=== PATIENT | male | born 1955 | race Caucasian/White ===

== ENCOUNTER → 2017-10-08 07:23 | Outpatient (CLI) | payer OTHER, SELFPAY ==
[2017-10-08 10:30] LABS: AST(SGOT) 16 U/L (15-37); Alanine Aminotransfer ALT/SGPT 23 U/L (16-61); Albumin, Serum 3.8 g/dL (3.2-5.0); Alkaline Phosphatase 60 U/L (45-117); Bilirubin, Direct 0.15 mg/dL (0.00-0.30); Cholesterol 171 mg/dL (200); Globulin 3.4 g/dL (2.2-4.2); High Density Lipoprotein 46 mg/dL; Protein, Total 7.2 g/dL (6.4-8.2); Triglycerides 182 mg/dL; Very Low Density Lipoprotein 36 mg/dL (5-40)
== END ==
PROVIDERS: Family Provider Family Medicine; PCP Family Medicine; Visit Provider Internal Medicine Cardiovascular Disease
DX: E78.5 Hyperlipidemia, unspecified (principal); Z79.899 Other long term (current) drug therapy
CPT/HCPCS: 36415; 80061; 80076

== ENCOUNTER → 2018-06-18 12:51 | Outpatient (CLI) | payer OTHER, SELFPAY | PROVIDERS: Family Provider Family Medicine; PCP Family Medicine; Visit Provider Internal Medicine Cardiovascular Disease | DX: I42.2 Other hypertrophic cardiomyopathy (principal) | CPT/HCPCS: 93225; 93226 ==

== ENCOUNTER → 2018-06-24 14:55 | Outpatient (CLI) | payer OTHER, SELFPAY ==
[2018-06-14 15:22] VITALS: BMI 31.1
--- NOTE | 2018-06-24 14:56 | ECHOCS_ITS ---
Reason For Study: MVP Procedure This was a 2D Doppler, Color Flow transthoracic echocardiogram. The study was technically difficult. Contrast injection was performed. Exam performed in department. Left Ventricle Normal LV size. Left ventricular systolic function is normal. The estimated ejection fraction is 65 %. Diastolic function is indeterminate. No regional wall motion abnormalities noted. Right Ventricle Normal RV size. Normal systolic function. Atria Normal left atrium. Normal right atrium. No doppler evidence for ASD. Mitral Valve There is no mitral annular calcification. Mild diffuse mitral valve thickening. Mild mitral valve prolapse. Trivial mitral valve insufficiency. Tricuspid Valve Normal tricuspid valve. Trivial tricuspid valve insufficiency. Unable to estimate RV systolic pressure/pulmonary artery pressure due to technically difficult study. Aortic Valve Trisinus/trileaflet aortic valve. Normal aortic valve. Trivial aortic valve insufficiency. Pulmonic Valve The pulmonic valve is not well visualized. Great Vessels Normal sized aortic root. Pericardium/Pleural No pericardial effusion. Medication 22 gauge I.V. with prn adaptor inserted into right arm. Diluted definity 4ml given slow IV push to enhance endocardial definition. MMode/2D Measurements & Calculations LVIDd: 4.8 cm IVSd: 1.2 cm Ao root diam: 3.6 cm LVIDs: 3.2 cm LVPWd: 1.1 cm RVDd: 3.0 cm FS: 32.3 % LAV(MOD-bp): 49.6 ml EDV(MOD-sp4): 107.4 ml SV(MOD-sp4): 74.9 ml LAV(MOD-bp) Indexed: 24.3 ml/m2 ESV(MOD-sp4): 32.5 ml LAV(MOD-sp2): 55.1 ml EF(MOD-sp4): 69.7 % LAV(MOD-sp4): 38.6 ml LA dimension(2D): 4.2 cm LA A4 area: 14.8 cm2 RA A4 area: 13.4 cm2 Time Measurements MV dec time: 0.19 sec Doppler Measurements & Calculations MV E max javier: 76.1 cm/sec Lat Peak E' Javier: 7.8 cm/sec Med Peak E' Javier: 4.9 cm/sec MV A max javier: 63.5 cm/sec E/E' lat: 9.7 E/E' med: 15.5 MV E/A: 1.2 Ao V2 max: 134.2 cm/sec LV V1 max: 129.4 cm/sec PA V2 max: 105.8 cm/sec Ao max P.2 mmHg LV V1 max P.7 mmHg Interpretation Summary The study was technically difficult. Contrast injection was performed. Left ventricular systolic function is normal. The estimated ejection fraction is 65 %. [place] shaped left ventricle c/w apical hypertrophy. Mild diffuse mitral valve thickening. Mild mitral valve prolapse. Trivial mitral valve insufficiency. Trivial tricuspid valve insufficiency. Trivial aortic valve insufficiency. Unable to estimate RV systolic pressure/pulmonary artery pressure due to technically difficult study. Diastolic function is indeterminate. Comment: The aforementioned changes with respect to the left ventricle appear c/w an apical hypertrophic cardiomyopathy. Ordering Physician: Josué Olsen Referring Physician: REJI LOZADA Performed By: Rosa Baez, MARTI, RVT
== END ==
PROVIDERS: Family Provider Family Medicine; PCP Family Medicine; Referring Provider Internal Medicine Cardiovascular Disease; Visit Provider Internal Medicine Cardiovascular Disease
DX: I42.2 Other hypertrophic cardiomyopathy (principal)
CPT/HCPCS: 93306; Q9957; A4216; C8929

== ENCOUNTER → 2018-06-28 08:37 | Outpatient (CLI) | payer OTHER, SELFPAY ==
[2018-06-14 15:22] VITALS: BMI 31.1
[2018-06-28 11:04] LABS: AST(SGOT) 18 U/L (15-37); Alanine Aminotransfer ALT/SGPT 29 U/L (16-61); Albumin, Serum 3.7 g/dL (3.2-5.0); Alkaline Phosphatase 69 U/L (45-117); Bilirubin, Direct 0.15 mg/dL (0.00-0.30); Cholesterol 182 mg/dL (200); Globulin 3.6 g/dL (2.2-4.2); High Density Lipoprotein 48 mg/dL; Protein, Total 7.3 g/dL (6.4-8.2); Triglycerides 262 mg/dL; Very Low Density Lipoprotein 52 mg/dL (5-40)
== END ==
PROVIDERS: Family Provider Family Medicine; PCP Family Medicine; Referring Provider Internal Medicine Cardiovascular Disease; Visit Provider Internal Medicine Cardiovascular Disease
DX: E78.5 Hyperlipidemia, unspecified (principal)
CPT/HCPCS: 36415; 80061; 80076

== ENCOUNTER → 2018-07-19 13:59 | Outpatient (CLI) | payer OTHER, SELFPAY ==
[2018-06-14 15:22] VITALS: BMI 31.1
--- NOTE | 2018-07-19 14:02 | VDLE_ITS ---
Reason For Study: LEG PAIN RIGHT LEFT GSV is normal. CFV is compressible, spontaneous, phasic, CFV is compressible, spontaneous, phasic, competent, and demonstrates normal competent and demonstrates normal augmentation. augmentation. FV is compressible, spontaneous, phasic, competent and demonstrates normal augmentation. POP V is compressible, spontaneous, phasic, competent and demonstrates normal augmentation. T/P Trunk is compressible. PTV is compressible. RT PerV is compressible. Procedure Exam performed in department. A preliminary report was called and/or faxed to Dr. Loo. Interpretation Summary Deep veins of the right lower extremity are patent and compressible segmentally. There is no evidence of right lower extremity deep vein thrombosis. Valvular competence appears intact within the proximal deep venous system on the right . The right greater saphenous vein appears patent and compressible segmentally. Ordering Physician: CATIA CABALLERO Referring Physician: Curt Amezquita M.D. Performed By: Ariana James RVT and Student
== END ==
PROVIDERS: Family Provider Family Medicine; PCP Family Medicine
DX: M79.604 Pain in right leg (principal); M25.561 Pain in right knee; M16.12 Unilateral primary osteoarthritis, left hip
CPT/HCPCS: 93971

== ENCOUNTER 2018-08-12 17:00 | Outpatient (RCR) | payer OTHER, SELFPAY ==
[2018-06-14 15:22] VITALS: BMI 31.1
--- NOTE | 2018-07-15 16:04 | HP.PTEVAL ---
Patient's Visit Information ALEXANDRIA SAUER is a 63 year old M referred to Physical Therapy by Óscar Nunes MD with a diagnosis of L ALFREDO. Date of Evaluation: 07/15/18 Physical Therapist: Serge Oleary PT, - Visit Plan Frequency: 2-3x /Week Duration: 4-6 Weeks Plan: L hip stretching and strengthening, balance and proprio, nustep, core strengthening, and HEP - Subjective Findings: DOS: 07/12/18. Pt had an anterior approach L ALFREDO performed on that date. Pt reports he also has R hip pain. Pt is currently retired. 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 Pt reports he has been performing HEP since having his surgery. Pt reports the pain is getting better at this time, but he is still very sore. Pt reports 3 steps into home, must go up them 1 step at a time. Pt denies tingling or numbness at this time, but reports his L LE is very achy. Pt reports sleep difficulty at this time. Pt reports he has remained at home since his DOS. 6/10 pain at rest, 8/10 at worst (general movement) - Pain L ALFREDO Pain Intensity (Out of 10): 6 Pain Intensity Range: 8 - Objective Neuro: B LE sensation is WNL to light touch. B patellar reflex= 2/3. MMT: R LE 5/5 throughout. L hip MMT 3/5 throughout. ROM: L hip is limited in all planes. R LE is WNL. Gait: Pt was able to ambulate 380 feet with WW until having to sit down and rest - Goals Goal 1:: Decrease L hip pain x 50% to aid with sleep Goal Time Frame: 4-6 Weeks Goal 2:: Increase L LE strength x 1 grade to aid with stair negotiation Goal Time Frame: 4-6 Weeks Goal 3:: Pt will be able to ambulate greater than 1000 feet with LRD to aid with community ambulation Goal Time Frame: 4-6 Weeks Goal 4:: I with HEP Goal Time Frame: 4-6 Weeks - Rehabilitation Potential Physical Therapy Diagnosis: L hip pain, weakness, and limited ability to ambulate secondary to L ALFREDO Rehabilitation Potential: Good - Anticipated Interventions Patient/Client Instruction: Educate patient on: Condition, Plan of Care For the Purpose of:: To improve self management Therapeutic Exercise to Include: Strength training, Endurance training, Balance training, Body mechanics, Gait and locomotor training, Dynamic Lumbar Stabilization For the Purpose of:: To decrease pain, To improve muscle performance and motor function, To increase tolerance to activity/condition/position Cryotherapy (ice pack, ice massage): Yes For the Purpose of:: To decrease pain Thank you for the opportunity to evaluate your patient. For Medicare and Medicare HMO plans, please review the plan of care and approve it. It will need to be FAXED BACK to us at [phone] for Medicare purposes. For Medicare only, by signing this I certify the plan of care. Please let me know if there are questions or concerns regarding this plan of care. Physician Signature: Date:
--- NOTE | 2018-08-12 17:27 | HP.PTDCSUM ---
HP - PT D/C Summary It has been my pleasure to treat ALEXANDRIA SAUER under orders from Óscar Nunes MD, for the diagnosis of L ALFREDO for a total of 9 visit(s). Discharge Date: Please see the following information for a summary of their discharge status. - Subjective Subjective: Pt is ready for discharge this date - Pain L ALFREDO Pain Intensity (Out of 10): 2 Right Knee Pain Intensity (Out of 10): 0 - Overall Improvement % Improvement: 70 - Objective Objective/Function: Mild pain this date -09/19. L hip MMT / throughout. Pt can ambulate greater than 1000' with no AD and no difficulty. I with HEP. Rx goals achieved - Goals Goal 1:: Decrease L hip pain x 50% to aid with sleep Goal Progress: Goal Met Goal 2:: Increase L LE strength x 1 grade to aid with stair negotiation Goal Progress: Goal Met Goal 3:: Pt will be able to ambulate greater than 1000 feet with LRD to aid with community ambulation Goal 4:: I with HEP Goal Progress: Goal Met - Plan Plan: Discharge - D/C Information If there are questions or concerns regarding this patient's physical therapy, please feel free to call me at [phone]. Thank you for the referral of this patient. Sincerely, Serge Oleary, PT, ATC
== END 2018-08-12 19:00 | disposition home or self-care (01) ==
LOC: PT 17:00
PROVIDERS: Family Provider Family Medicine; PCP Family Medicine; Referring Provider Orthopaedic Surgery; Visit Provider Orthopaedic Surgery
DX: M16.12 Unilateral primary osteoarthritis, left hip (principal)
CPT/HCPCS: 97110; 97162; 97530

== ENCOUNTER 2019-08-09 09:00 | Outpatient (RCR) | payer OTHER, SELFPAY ==
[2019-06-27 15:38] VITALS: BMI 31.3
--- NOTE | 2019-07-21 10:50 | HP.PTEVAL ---
Patient's Visit Information ALEXANDRIA SAUER is a 64 year old M referred to Physical Therapy by Óscar Nunes MD with a diagnosis of Right THR. Date of Evaluation: 07/21/19 Physical Therapist: Juju Pacheco DPT - Visit Plan Frequency: 3x /Week Duration: 3 Weeks Plan: Right Anterior THR 07/18/[address] Nunes. Focus on LE and core s/s with focus on functional mobility-Gentle - Subjective Findings: Right Total Hip Replacement by Dr. Nunes- came home on Thursday and had a rough day yesterday but better day today. Left THR was about a year ago. Anterior Approach- only was told not to over stretch and bridge. Sleeping on his side and keeps a pillow between the knees- does wake him up. Pain is located in the thigh and in the incision. No groin pain or joint pain. Has had lower back pain over the past year. No radiating pain to the foot. Describes the pain as hard achy pain. No N/T the LE. Worst in last 24 hours: 02/16 Agg: nothing just surgical. Eases: elevation and ice machine Best: 12/17. Pretty active before surgery as much as possible. Would like to get back to playing pickleball and riding a bike. Work: retired. PMHx: hypertrophic cardiomyopathy. Left and Right THR, HTN Meds: Rampril, Altrase, Provastatin, Metratroprolol, Asprin, Tramadol as needed. - Objective Posture: FH, RS- can correct but does not maintain. Gait: FWW- picks it up for progression forwards-decreased stance time and stride length on the right LE. Stairs: non recip with 2 HR. HR/TR: able with UE support for stability- no pain. SLS: 10 sec without LOB mild discomfort. Palpation: tender along incision and anterior thigh- not tender in calf. ROM: WFL in all planes- reports tightness at end range knee flexion in heel slide position. Strength: Ankle: 5/5, Knee: 4+/5, Hip: SLR: unable to perform I, quad set is visible and good, Abd/add: 4+/5, Extn isometrically: 4+/5- no pain with strength testing. Flex: HS: severe, Gastroc: severe - Goals Goal 1:: Patient will be I with HEP and progression Goal Time Frame: 4-6 Weeks Goal 2:: Patient will ambulate >300 feet with a normalized gait pattern Goal Time Frame: 4-6 Weeks Goal 3:: Patient will demo 5/5 strength in LE Goal Time Frame: 4-6 Weeks Goal 4:: Patient will asc/desc 8 stairs recip with no HR Goal Time Frame: 4-6 Weeks Goal 5:: Patient will report 0/10 pain for 1 week Goal Time Frame: 4-6 Weeks - Rehabilitation Potential Physical Therapy Diagnosis: Patient presents with hypomobility- he has decreased strength, flex and muscular endurance s/p Right THR leading to decreased ability to perform normalized ADL's. Rehabilitation Potential: Good - Anticipated Interventions Patient/Client Instruction: Educate patient on: Benefits of Fitness Program Therapeutic Exercise to Include: Strength training, Endurance training, Balance training, Body mechanics, Postural training, Flexibilty training, Gait and locomotor training, Passive ROM, Active ROM, Dynamic Lumbar Stabilization, Scapular Strength/Stabilization For the Purpose of:: To improve muscle performance and motor function TENS: Yes Cryotherapy (ice pack, ice massage): Yes Thermo therapy (hot pack): Yes Ultrasound (thermal/non thermal): No Thank you for the opportunity to evaluate your patient. For Medicare and Medicare HMO plans, please review the plan of care and approve it. It will need to be FAXED BACK to us at [phone] for Medicare purposes. For Medicare only, by signing this I certify the plan of care. Please let me know if there are questions or concerns regarding this plan of care. Physician Signature: Date:
--- NOTE | 2019-08-09 09:25 | HP.PTDCSUM_ITS ---
HP - PT D/C Summary It has been my pleasure to treat ALEXANDRIA SAUER under orders from Óscar Nunes MD, for the diagnosis of Right THR for a total of 8 visit(s). Discharge Date: Please see the following information for a summary of their discharge status. - Subjective Subjective: Patient reports that the hip is making normal progress- Worst in last 48 hours: 4/10 Best: 1/10 its just there. Back and the soreness is mostly the hematoma in the hip. Standing and walking for an hour and a half with his family was hard. Feels confident doing exercises at the [facility]. - Overall Improvement % Improvement: 70 - Objective Objective/Function: Posture: good in sitting hardback chair. Gait: slightly antalgic- with decreased stance on right LE with mild hip drop Stairs:recip with no HR- good control HR/TR: able with UE support for stability- no pain. SLS: 30 sec no LOB. Palpation: tender along incision and anterior thigh- not tender in calf. ROM: WFL in all planes. Strength: Ankle: 5/5, Knee: 5/5, Hip: Flexion: 4+/5, Abd/add: 5/5, Extn isometrically: 4+/5- no pain with strength testing. Flex: HS: mild, Gastroc: severe - Goals Goal 1:: Patient will be I with HEP and progression Goal Progress: Goal Met Goal 2:: Patient will ambulate >300 feet with a normalized gait pattern Goal Progress: Progressing Goal 3:: Patient will demo 5/5 strength in LE Goal Progress: Progressing Goal 4:: Patient will asc/desc 8 stairs recip with no HR Goal Progress: Goal Met Goal 5:: Patient will report 0/10 pain for 1 week Goal Progress: Progressing - Plan Plan: Discharge to I HEP - D/C Information If there are questions or concerns regarding this patient's physical therapy, please feel free to call me at [phone]. Thank you for the referral of this patient. Sincerely, Juju Pacheco DPT
== END 2019-08-09 10:40 | disposition home or self-care (01) ==
LOC: PT 09:00
PROVIDERS: Family Provider Family Medicine; PCP Family Medicine; Referring Provider Orthopaedic Surgery; Visit Provider Orthopaedic Surgery
DX: M16.11 Unilateral primary osteoarthritis, right hip (principal)
CPT/HCPCS: 97110; 97161; 97164

== ENCOUNTER 2020-03-06 07:30 | Day surgery (SDC) | payer OTHER, SELFPAY ==
[2020-02-21 13:45] VITALS: BMI 31.3
[2020-02-24 08:57] VITALS: BMI 29.6
[2020-03-06] VITALS (7 sets, daily range): BP systolic 93–121; BP diastolic 44–82; PULSE 53–61; RESP 16–18; TEMP 36.2–36.9; O2SAT 95–100; BMI 29.2
[2020-03-06] MEDS: Lactated Ringers 1,000 ML 100 ML IV (08:07)
--- NOTE | 2020-03-06 08:30 | COLBX_PTH ---
PATIENT: ALEXANDRIA SAUER LOC: EN U#:[id number] AGE/SX: 64/M ROOM: RE03/06/[address]: Dr. Santiago Lazar MD : 1955 BED: DIS: 03/06/2020 SPEC #: [id number] RECD: 03/06/20 10:36 STATUS: KAMLESH GISSEL #: [id number] MEKA: 03/06/20 08:[address]: Santiago Lazar DEPT: SURGICAL PATHOLOGY RECD BY: Danitza Hooker ENTERED: 03/06/20 14:20 SP TYPE: COLON BX OTHR DR: Dr. Curt Spain MD Tissues: A - SPLENIC FLEXURE B - Sigmoid colon biopsy Procedures: Surgery Specimen Level IV HEADER OPERATION: Colonoscopy (MAC) PRE-OP DIAGNOSIS: Screening TISSUE SUBMITTED: A - Splenic flexure polyp cold snare, B - Proximal sigmoid polyp cold snare MICROSCOPIC DIAGNOSIS A. Splenic flexure polyp, biopsy: Fragments of tubular adenoma. B. Proximal sigmoid polyp, biopsy: Tubular adenoma. SJ:hammad 03/07/20 MICROSCOPIC DESCRIPTION Slides are reviewed. GROSS DESCRIPTION A - Received in fixative is one container labeled with the patient's name and designated splenic flexure polyp biopsy. The specimen consists of two irregular fragments of light toure soft tissue that in aggregate measure 0.5 x 0.3 x 0.1 cm. The specimen is totally submitted in one cassette. B - Received in fixative is one container labeled with the patient's name and designated proximal sigmoid polyp. The specimen consists of one irregular fragment of light toure soft tissue that measures 0.6 x 0.6 x 0.2 cm. The specimen is totally submitted in one cassette. / AM:hammad 03/06/20 TC:1 CPT: 24887 x2
--- NOTE | 2020-03-06 08:42 | HP.PCM_ITS ---
Problem List (1) Screening for intestinal cancer Status: Acute History and Physical Date of Admission: 03/06/20 Intake Visit Reasons: Cscope Consult Chief Complaint: Colonoscopy consult Copy Lathe Tender Required: No Is patient in pain?: No Allergies No Known Allergies Allergy (Verified 02/21/20 13:43) Medications Pravastatin [Pravachol] 20 mg PO DAILY 03/20/14 [History Confirmed 02/21/20] Ramipril [Altace] 2.5 mg PO DAILY 03/20/14 [History Confirmed 02/21/20] Aspirin [Aspirin, Baby] 81 mg PO DAILY@0800 04/04/14 [History Confirmed 02/21/20] metoprolol succinate 25 mg tablet,extended release 24 hr 12.5 mg PO DAILY #45 tab 12/06/19 [Rx Confirmed 02/21/20] naproxen 500 mg tablet 500 mg PO BID PRN tab 02/21/20 [History Confirmed 02/21/20] tadalafil 20 mg tablet 20 mg PO DAILY PRN tab 02/21/20 [History Confirmed 02/21/20] [facility] Medical History (Updated 02/21/20 @ 13:[address] Santiago Lazar MD) Screening for intestinal cancer (Acute) Gout (Acute) Essential hypertension (Chronic) Abnormal EKG (Acute) Cardiomyopathy, hypertrophic (Acute) Long-term use of high-risk medication (Acute) Nonrheumatic mitral valve regurgitation (Acute) Nonrheumatic mitral (valve) prolapse (Acute) Chest pain (Acute) Hyperlipemia (Chronic) HTN (hypertension) (Inactive) Surgical History (Updated 02/21/20 @ 13:40 by Symone Figueroa) Hx of colonoscopy (Acute) History of right hip replacement (Acute) History of cardiac catheterization (Resolved ~04/05/14) History of left hip replacement (Resolved) Family History (Updated 02/21/20 @ 13:41 by Symone Figueroa) Mother Hypertension CVA (cerebral vascular accident) Sister Breast cancer Cancer Father Melanoma Social History (Updated 02/21/20 @ 13:[address] Santiago Lazar MD) Smoking Status: Never smoker second hand exposure: No alcohol intake: current alcohol intake frequency: a few times a month substance use type: does not use caffeine: Yes what type of physical activity do you participate in: walking, weight training frequency: 5-6 times per week HPI HPI HPI: ALEXANDRIA SAURE, is a 64 M who presents to the office today for surgical consultation regarding a screening colonoscopy. The patient is referred by his primary care physician Dr. Curt Spain and a written copy of my surgical consult recommendations will be returned to him. 64-year-old gentleman. His previous colonoscopy was 13 years ago July [address] Donnie Pires. No acute findings time. In the interim the patient has had a brother who developed multiple colon polyps to the point that they could not all be resected colonoscopically and he ended up requiring a limited colon resection. The patient himself denies bright red blood per rectum or melena. No abdominal pain. No change of bowel habits. No unexpected weight loss. About 5 6 years ago he was detected as having hypertrophic cardiomyopathy. He is on an aspirin and metoprolol for that. Otherwise he can walk 3 times a week for 4 miles. He also does some mild weight lifting activities. He feels that he is otherwise in good shape. Denies chest pain or shortness of breath. HPI HPI HPI: ALEXANDRIA SAUER is a 64 M who presents to the office today for ROS General General: No weight change, appetite, fatigue, colon cancer, breast cancer or weakness HEENT HEENT: No difficulty swallowing, eye injury, eye surgery, swollen glands or hoarseness Endo Endocrine: No thyroid disease, diabetes mellitus, thyroid cancer, Hair loss, heat intolerance or cold intolerance Skin Skin: No rash or changing moles Musc Musculoskeletal: Yes arthritis and gout; no back problems, rheumatoid arthritis or joint pain Cardio Cardiovascular: Yes high blood pressure; no murmur, pacemaker, heart disease, atrial fibrillation, heart attack, heart stent, palpitations, shortness of breat with exertion or chest pain Psych Psychiatric: No depression, anxiety or hearing voices Resp Respiratory: No shortness of breath, Yes sleep apnea, No cough, No COPD, No asthma, No emphysema, No wheezing Gastro Gastrointestinal: No abdominal pain, No nausea or vomiting, No diarrhea, No constipation, No blood in stool, No acid reflux, No hemorrhoids, No ulcers, No gallbladder problem, No black,tarry stools Taj Hematologic: No blood thinners, No blood disorders, No bleeding, No anemia, No blood clots Neuro Neurologic: No system reviewed and no additional complaints, except as docu, No as per HPI, No abnormal walking, No abnormal hearing, No abnormal movements, No abnormal speech, No behavioral changes, No burning sensations, No confusion, No seizure-like activity, No unsteadiness, No dizziness, No localized weakness, No frequent falls, No headache(s), No lack of coordination, No loss of vision, No memory loss, No numbness, No other visual disturbances, No radiating pain, No restless legs, No sensory deficit, No fainting, No tingling, No tremor(s), No weakness, No other Exam Const General: cooperative, healthy appearing, comfortable, no acute distress Nutritional Appearance: average body habitus Orientation: alert, awake HENDC Head: normal to inspection Chest Chest palpation & inspection: normal inspection of the chest Resp Effort & Inspection: normal respiratory effort Auscultation: clear to auscultation bilaterally Cardio Rate: regular rate Rhythm: regular rhythm Heart Sounds: no murmurs GI Palpation: soft, no hepatosplenomegaly Auscultation: normal bowel sounds Musc Cervical Spine: normal cervical lordosis Neuro Cognition: normal cognition Extrem General: no calf tenderness Psych Affect: normal affect Assessment & Plan Problems 1. Screening for intestinal cancer Z12.10 Plan I recommended the patient a colonoscopy with possible biopsy or polypectomy as indicated. He is aware of the technique, benefit, risk and alternatives. Because of his hypertrophic cardiomyopathy we will obtain cardiology clearance per Dr. Josué Olsen preintervention. We will also utilize monitored anesthesia care. The patient is aware of the current Covid-19 pandemic. He is aware that the [facility] is reporting a low local incidence. We will schedule and proceed at his discretion. Cc: Dr. Curt Spain and Dr. Josué Lazar M.D., F.A.C.S. Coding Level of Care Code 83266 Diagnoses Screening for intestinal cancer Z12.10 I have re-examined the patient. There are no clinical changes since date of exam. Procedure Criteria Procedure Type: Elective COVID Risk Discussion: The surgeon/proceduralist and patient have discussed in detail the risk of exposure to and/or potential harm posed by the COVID-19 virus with having a surgery/procedure at this time versus the risk of delaying the surgery/procedure. It is not possible to know either the risk of delaying the surgery or procedure or chance of getting an infection with perfect accuracy, but a joint decision was made between the patient and the surgeon/proceduralist to proceed at this time with the scheduled surgery/procedure as indicated on the consent form.
--- NOTE | 2020-03-06 09:17 | OP.CCLET_ITS ---
03/06/2020 Curt Spain Md Re : Colonoscopy procedure for Tony Renee Dear Judit This procedure was performed on Friday, March 06, 2020. My impressions and recommendations are as follows: Impressions : - Hemorrhoids found on perianal exam. - Enlarged prostate found on digital rectal exam. - One 7 mm polyp at the splenic flexure, removed with a cold snare. Resected and retrieved. - One 6 mm polyp in the proximal sigmoid colon, removed with a cold snare. Resected and retrieved. - Diverticulosis in the sigmoid colon. Recommendations : - Discharge patient to home. - Resume previous diet. - Continue present medications. - Repeat colonoscopy in 5 years for surveillance based on pathology results. - Telephone my office for pathology results in 1 week. My findings are described in the full procedure note, which is enclosed. If I can be of further assistance, please feel free to contact me at Doctor phone number(s): Work: . Sincerely, Santiago Lazar MD 03/06/2020 9:17:10 AM This report has been signed electronically.
--- NOTE | 2020-03-06 09:17 | OP.COLON_ITS ---
Patient Name: Tony Renee Procedure Date: 03/06/2020 8:43 AM Date of : 1955 Age: 64 Procedure: Colonoscopy Indications: Screening for colorectal malignant neoplasm Providers: Santiago Lazar MD Referring MD: Curt Spain Md Medicines: See the Anesthesia note for documentation of the administered medications Patient Profile: Last Colonoscopy: 2006. Complications: No immediate complications. Procedure: Pre-Anesthesia Assessment: - Prior to the procedure, a History and Physical was performed, and patient medications and allergies were reviewed. The patient's tolerance of previous anesthesia was also reviewed. The risks and benefits of the procedure and the sedation options and risks were discussed with the patient. All questions were answered, and informed consent was obtained. Prior Anticoagulants: The patient has taken no previous anticoagulant or antiplatelet agents. ASA Grade Assessment: II - A patient with mild systemic disease. After reviewing the risks and benefits, the patient was deemed in satisfactory condition to undergo the procedure. After I obtained informed consent, the scope was passed under direct vision. Throughout the procedure, the patient's blood pressure, pulse, and oxygen saturations were monitored continuously. The adult colonoscope was introduced through the anus and advanced to the cecum, identified by appendiceal orifice and ileocecal valve. The colonoscopy was performed without difficulty. The patient tolerated the procedure well. The quality of the bowel preparation was good. The ileocecal valve and the appendiceal orifice were photographed. Scope In: 8:54:51 AM Scope Withdrawal Time 0 hours 9 minutes 50 seconds Scope Out: 9:07:39 AM Total Procedure Duration Time 0 hours 12 minutes 48 seconds Findings: Hemorrhoids were found on perianal exam. The digital rectal exam findings include enlarged prostate. A 7 mm polyp was found in the splenic flexure. The polyp was sessile. The polyp was removed with a cold snare. Resection and retrieval were complete. A 6 mm polyp was found in the proximal sigmoid colon. The polyp was sessile. The polyp was removed with a cold snare. Resection and retrieval were complete. Scattered diverticula were found in the sigmoid colon. Impression: - Hemorrhoids found on perianal exam. - Enlarged prostate found on digital rectal exam. - One 7 mm polyp at the splenic flexure, removed with a cold snare. Resected and retrieved. - One 6 mm polyp in the proximal sigmoid colon, removed with a cold snare. Resected and retrieved. - Diverticulosis in the sigmoid colon. Recommendation: - Discharge patient to home. - Resume previous diet. - Continue present medications. - Repeat colonoscopy in 5 years for surveillance based on pathology results. - Telephone my office for pathology results in 1 week. Procedure Code(s): --- Professional --- 77580, Colonoscopy, flexible; with removal of tumor(s), polyp(s), or other lesion(s) by snare technique Diagnosis Code(s): --- Professional --- Z12.11, Encounter for screening for malignant neoplasm of colon K64.9, Unspecified hemorrhoids D12.3, Benign neoplasm of transverse colon (hepatic flexure or splenic flexure) D12.5, Benign neoplasm of sigmoid colon K57.30, Diverticulosis of large intestine without perforation or abscess without bleeding N40.0, Benign prostatic hyperplasia without lower urinary tract symptoms CPT copyright 2017 [employer]. All rights reserved. The codes documented in this report are preliminary and upon concrete engineering technician review may be revised to meet current compliance requirements. Santiago Lazar MD 03/06/2020 9:17:10 AM This report has been signed electronically. Number of Addenda: 0 Note Initiated On: 03/06/2020 8:43 AM
== END 2020-03-06 10:02 | disposition home or self-care (01) ==
LOC: EN 07:39 → AC 07:39
PROVIDERS: Anesthesiology; PCP Family Medicine; Referring Provider Family Medicine; Visit Provider Surgery
PROC: 0DJD8ZZ Inspection of Lower Intestinal Tract, Via Natural or Artificial Opening Endoscopic (ICD-10-PCS; CPT 45378; principal; 2020-03-06 08:25)
DX: Z12.11 Encounter for screening for malignant neoplasm of colon (principal); Z11.59 Encounter for screening for other viral diseases; I10 Essential (primary) hypertension; E78.5 Hyperlipidemia, unspecified; Z79.899 Other long term (current) drug therapy; I42.2 Other hypertrophic cardiomyopathy; K57.30 Diverticulosis of large intestine without perforation or abscess without bleeding; N40.0 Benign prostatic hyperplasia without lower urinary tract symptoms; K64.9 Unspecified hemorrhoids; D12.5 Benign neoplasm of sigmoid colon; D12.3 Benign neoplasm of transverse colon
CPT/HCPCS: 45385; 87635; 88305; G2023; J7120; J2405; U0003

== ENCOUNTER → 2020-05-28 10:40 | Outpatient (CLI) | payer OTHER, SELFPAY ==
[2020-03-06 07:56] VITALS: BMI 29.2
[2020-05-28 13:02] LABS: ALB/GLOB Ratio 1.1 RATIO (0.9-2.4); AST(SGOT) 21 U/L (15-37); Alanine Aminotransfer ALT/SGPT 45 U/L (16-61); Albumin, Serum 3.7 g/dL (3.2-5.0); Alkaline Phosphatase 68 U/L (45-117); Anion Gap 7 (5-15); BUN 16 mg/dL (7-18); BUN/Creat Ratio 11.4 RATIO (10-20); Chloride 105 mmol/L (98-107); Cholesterol 160 mg/dL (200); EST Glomerular Filtration Rate 54 mL/min (>60); Est Glom Filt Rate - Afr Amer 66 mL/min (>60); Globulin 3.4 g/dL (2.2-4.2); Glucose 84 mg/dL (74-106); High Density Lipoprotein 59 mg/dL; Potassium 4.6 mmol/L (3.5-5.1); Protein, Total 7.1 g/dL (6.4-8.2); Sodium Level 141 mmol/L (136-145); Triglycerides 124 mg/dL; Very Low Density Lipoprotein 25 mg/dL (5-40)
== END ==
PROVIDERS: Family Medicine
DX: E78.00 Pure hypercholesterolemia, unspecified (principal)
CPT/HCPCS: 36415; 80053; 80061

== ENCOUNTER → 2020-10-05 07:50 | Outpatient (CLI) | payer OTHER, SELFPAY ==
[2020-10-02 13:02] VITALS: BMI 28.1
--- NOTE | 2020-10-05 07:54 | ECHOCS_ITS ---
Reason For Study: Chest Pain Procedure This was a 2D Doppler, Color Flow transthoracic echocardiogram. The study was technically difficult. Contrast injection was performed. Exam performed in department. Left Ventricle Normal LV size. Left ventricular systolic function is normal. The estimated ejection fraction is 65 %. Diastolic function is indeterminate. No regional wall motion abnormalities noted. Right Ventricle Normal RV size. Normal systolic function. Atria The left atrium is mildly enlarged. Normal right atrium. No doppler evidence for ASD. Mitral Valve There is no mitral annular calcification. Mild diffuse mitral valve thickening. Mild mitral valve prolapse. Mild (1+) mitral valve insufficiency. Tricuspid Valve Normal tricuspid valve. Trivial tricuspid valve insufficiency. Unable to estimate RV systolic pressure/pulmonary artery pressure due to technically difficult study. Aortic Valve Trisinus/trileaflet aortic valve. Normal aortic valve. Trivial aortic valve insufficiency. Pulmonic Valve The pulmonic valve is not well visualized. Great Vessels The aortic valve is not well visualized. Pericardium/Pleural No pericardial effusion. Medication 22 gauge I.V. with prn adaptor inserted into right arm. Diluted definity 4ml given slow IV push to enhance endocardial definition. MMode/2D Measurements & Calculations LVIDd: 5.1 cm IVSd: 1.2 cm LA dimension: 4.2 cm LVIDs: 3.0 cm LVPWd: 0.90 cm FS: 41.6 % LAV(MOD-bp): 62.8 ml LA A4 area: 18.2 cm2 RA A4 area: 16.1 cm2 LAV(MOD-bp) Indexed: 31.8 ml/m2 LAV(MOD-sp2): 64.1 ml LAV(MOD-sp4): 54.9 ml Time Measurements MV dec time: 0.22 sec Doppler Measurements & Calculations MV E max javier: 70.9 cm/sec Lat Peak E' Javier: 7.2 cm/sec Med Peak E' Javier: 8.2 cm/sec MV A max javier: 69.5 cm/sec E/E' lat: 9.9 E/E' med: 8.7 MV E/A: 1.0 MV V2 max: 73.9 cm/sec MV P1/2t max javier: 57.2 cm/sec Ao V2 max: 116.5 cm/sec MV max P.2 mmHg MV P1/2t: 90.3 msec Ao max P.4 mmHg MV V2 mean: 31.1 cm/sec MV dec slope: 185.3 cm/sec2 MV mean P.50 mmHg MV V2 VTI: 22.2 cm MVA(P1/2t): 2.4 cm2 LV V1 max: 109.1 cm/sec PA V2 max: 99.2 cm/sec LV V1 max P.8 mmHg Interpretation Summary The study was technically difficult. Contrast injection was performed. Left ventricular systolic function is normal. The estimated ejection fraction is 65 %. The left atrium is mildly enlarged. Mild diffuse mitral valve thickening. Mild mitral valve prolapse. Mild (1+) mitral valve insufficiency. Trivial tricuspid valve insufficiency. Trivial aortic valve insufficiency. Unable to estimate RV systolic pressure/pulmonary artery pressure due to technically difficult study. Diastolic function is indeterminate. Comment: The aforementioned changes with respect to the left ventricle appear c/w an apical hypertrophic cardiomyopathy. Ordering Physician: Curt Ortez Referring Physician: Evette Wilson Performed By: Kemal Rey RCS
== END ==
PROVIDERS: PCP Family Medicine; Referring Provider Physician Assistant Medical; Visit Provider Physician Assistant Medical
DX: R07.9 Chest pain, unspecified (principal)
CPT/HCPCS: 93306; Q9957; A4216; C8929

== ENCOUNTER → 2020-10-10 06:45 | Outpatient (CLI) | payer OTHER, SELFPAY ==
[2020-10-02 13:02] VITALS: BMI 28.1
--- NOTE | 2020-10-10 08:20 | STRESSREP ---
Stress Test Report Date: ? Procedure: Exercise tolerance test/imaging study Indications: Chest pain; hypertrophic cardiomyopathy-apical variant Consent: Per the patient Procedure: The patient exercised on a Corey protocol for 11 minutes and 30 seconds completing Stage III and 2 minutes and 30 seconds of Stage IV achieving a peak heart rate of 134 bpm (85% predicted maximal heart rate) with a peak blood pressure 160/62 mmHg and a peak MET capacity of 13 METs. The baseline ECG demonstrated sinus bradycardia; T wave abnormality: Consider hypertrophic cardiomyopathy/myocardial ischemia. The peak exercise ECG demonstrated no obvious ECG changes. There were no cardiac dysrhythmias pretest, during exercise, or recovery. The functional capacity was considered good. There was no complaint of chest discomfort during exercise or recovery. The examination was discontinued secondary to dyspnea and fatigue. Impression: 1. Technically adequate (percent predicted maximal heart rate greater than 85%) exercise tolerance test 2. Peak exercise ECG with no obvious ECG changes 3. There were no cardiac dysrhythmias pretest, during exercise, or recovery 4. Nuclear images pending Myocardial perfusion imaging study: Technique: The patient was injected with 11.1 mCi of technetium 99m Cardiolite and subsequently rest SPECT Cardiolite nuclear imaging was obtained in the horizontal long, vertical long, and short axis views. The patient exercised on a Corey protocol for 11 minutes and 30 seconds completing Stage III and 2 minutes and 30 seconds of Stage IV achieving a peak heart rate of 134 bpm (85% predicted maximal heart rate) with a peak blood pressure 160/62 mmHg and a peak MET capacity of 13 METs. The patient was injected with 33.1 mCi of technetium 99m Cardiolite and subsequently stress SPECT Cardiolite nuclear imaging was obtained in the horizontal long, vertical long, and short axis views. A gated Cardiolite study at peak stress was obtained. Interpretation: Rest and stress SPECT Cardiolite nuclear imaging status post realignment, normalization, and attenuation correction, demonstrates the appearance of relative uniform tracer uptake and myocardial perfusion appearing within normal limits. There is end systolic thickening and brightening. The gated Cardiolite study demonstrates myocardial thickening and inward wall motion. The reported LVEF is 57%. Impression: 1. Rest and stress SPECT Cardiolite nuclear imaging demonstrate relative uniform tracer uptake and myocardial perfusion appearing within normal limits. 2. The gated Cardiolite study reports an LVEF of 57%. This note was generated with [employer] software. It may contain incorrect words, spelling, and punctuation that were not noted in checking the note before signing.
== END ==
PROVIDERS: PCP Family Medicine; Referring Provider Physician Assistant Medical; Visit Provider Physician Assistant Medical
DX: I10 Essential (primary) hypertension (principal); R07.9 Chest pain, unspecified; R11.0 Nausea; R55 Syncope and collapse; I42.2 Other hypertrophic cardiomyopathy; E78.5 Hyperlipidemia, unspecified
CPT/HCPCS: 78452; 93017; A9500; A4216

== ENCOUNTER → 2021-05-06 09:47 | Outpatient (CLI) | payer MEDICARE, OTHER, SELFPAY ==
[2021-05-06 12:53] LABS: AST(SGOT) 22 U/L (15-37); Alanine Aminotransfer ALT/SGPT 24 U/L (16-61); Albumin, Serum 3.6 g/dL (3.2-5.0); Alkaline Phosphatase 69 U/L (45-117); Bilirubin, Direct 0.16 mg/dL (0.00-0.30); Cholesterol 162 mg/dL (200); Globulin 3.3 g/dL (2.2-4.2); High Density Lipoprotein 66 mg/dL; Protein, Total 6.9 g/dL (6.4-8.2); Triglycerides 88 mg/dL; Very Low Density Lipoprotein 18 mg/dL (5-40)
== END ==
PROVIDERS: PCP Family Medicine; Referring Provider Internal Medicine Cardiovascular Disease; Visit Provider Internal Medicine Cardiovascular Disease
DX: E78.00 Pure hypercholesterolemia, unspecified (principal)
CPT/HCPCS: 36415; 80061; 80076

== ENCOUNTER 2022-12-14 01:50 | Emergency (ER) | payer MEDICARE, OTHER, SELFPAY ==
[2022-12-14 01:51] VITALS: BP 157/86; PULSE 64; RESP 15; TEMP 35.6; O2SAT 98; BMI 25.3
--- NOTE | 2022-12-14 02:01 | EDS_ITS ---
HPI History of Present Illness Chief Complaint: Lower Extremity Injury [facility] Medical History Abnormal EKG Cardiomyopathy, hypertrophic Chest pain Essential hypertension Gout HTN (hypertension) Hyperlipemia Long-term use of high-risk medication Near syncope Nonrheumatic mitral (valve) prolapse Nonrheumatic mitral valve regurgitation Preop cardiovascular exam Screening for intestinal cancer Sweating Home Medications pravastatin 20 mg tablet 20 mg PO DAILY 03/20/14 [History Last Taken Unknown] aspirin 81 mg chewable tablet 81 mg PO DAILY@0800 04/04/14 [History Last Taken 04/05/14] naproxen 500 mg tablet 500 mg PO BID PRN Pain Or Fever 02/21/20 [History Last Taken Unknown] tadalafil 20 mg tablet 20 mg PO DAILY PRN Not Specified 02/21/20 [History Last Taken Unknown] allopurinol 100 mg tablet 100 mg PO DAILY PRN gout 02/28/20 [History Last Taken Unknown] colchicine 0.6 mg tablet 0.6 mg PO DAILY PRN gout 02/28/20 [History Last Taken Unknown] levothyroxine 88 mcg tablet 88 mcg PO DAILY 11/07/21 [History Last Taken Unknown] metoprolol succinate 25 mg tablet,extended release 24 hr 12.5 mg PO DAILY #45 tabs 11/10/22 [Rx Last Taken Unknown] sulfamethoxazole 800 mg-trimethoprim 160 mg tablet (Bactrim DS) 1 tab PO BID 7 days #14 tabs 12/14/22 [Rx Last Taken Unknown] Allergy/AdvReac Type Severity Reaction Status Date / Time No Known Allergies Allergy Verified 07/01/22 15:52 Family History Mother Hypertension CVA (cerebral vascular accident) Sister Breast cancer Cancer Father Melanoma Surgical History History of cardiac catheterization (~04/05/14) History of left hip replacement History of partial thyroidectomy (09/12/21) History of right hip replacement Hx of colonoscopy Social History Smoking Status: Never smoker alcohol intake: current alcohol intake frequency: a few times a month substance use type: does not use caffeine: No what type of physical activity do you participate in: walking and weight training frequency: 5-6 times per week EXAM Physical Exam Const Vital Signs: 12/14/22 01:51 Temperature 96.0 F L Temperature Source Temporal Pulse Rate 64 Respiratory Rate 15 Blood Pressure 157/86 H Blood Pressure Mean 109 Pulse Ox 98 Oxygen Delivery Method Room Air [facility] Narrative Medical decision making narrative: HISTORY OF PRESENT ILLNESS: 67-year-old male here for left foot pain and swelling. The patient states he developed left foot pain and redness. Denies any inciting event. 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 Patient denies active cancer, being bedridden for greater than 3 days, denies unilateral leg swelling, denies any varicose veins, denies any calf tenderness, denies any edema. Denies major surgery within 12 weeks, recent paralysis, pre vious DVT. Denies any falls or trauma. He states this is not like a gouty flare. Denies any ankle pain. REVIEW OF SYMPTOMS: Pertinent positives: Left foot pain, swelling and redness Pertinent negatives: Ankle pain, numbness, tingling, unilateral leg swelling PHYSICAL EXAM: Nursing triage notes reviewed, Vital signs reviewed Constitutional: please see mdm Extremities: Mild swelling to the left foot, no calf tenderness, compartments are soft, no crepitus or bullae noted Neuro: Intact sensation L1-S1 dermatomal distributions. Intact 5/5 strength in hip flexion (T12-L3). Knee extension (L2-L4). Ankle dorsiflexion (L4-L5). Ankle plantar flexion (S1). Great toe extension (L5). 2+ patellar and Achilles DTRs. Skin: Confluent erythema noted to the dorsal surface of the left foot there is a local focus of redness to the lateral surface of the foot over the base of the fifth metatarsal MEDICAL DECISION MAKING: Chief Complaint: Left foot pain, redness External records reviewed: X-ray of the left foot from 2017 shows no acute process. [facility] [place] Narrative: I considered the following differential diagnosis: Gouty arthritis, septic arthritis, DVT, arterial occlusion, cellulitis, necrotizing fasciitis Patient was hemodynamically stable, afebrile, nontoxic-appearing. Exam without focal neurologic abnormalities, left lower extremity was neurovascular intact. There is no ankle pain or joint involvement to suggest septic arthritis. Patient had no DVT risk factors. He had intact and symmetric pulses in bilateral lower extremities. There is no crepitus or bullae or pain on pr oportion to exam to suggest necrotizing fasciitis. I considered obtaining CT of the aorta with runoff to rule out arterial occlusion however thought this was unnecessary at this time given the patient's symmetric pulses. I also considered obtaining a DVT ultrasound to rule out DVT however patient no risk factors for DVT and this is also unnecessary. I did perform a POCUS ultrasound which showed no evidence of abscess on exam. The patient's physical exam was most consistent with cellulitis will prophylactically treat with Bactrim and give the patient close podiatry follow-up. Factors affecting care: History of gouty arthritis Social determinants of health: Elderly History obtained from others: The patient's Shared decision making: I will have a discussion with the patient and or visitors regarding risk/benefits of further testing or admission. They will be made aware of of the risk/benefits inherent in this decision they will be given the opportunity to voice understanding. Consults: None Discharge Plan Triage Chief Complaint: Lower Extremity Injury ED Provider: Gil Diop Dx/Rx/DC Orders Clinical Impression: Cellulitis Instructions: Cellulitis Dc Prescriptions: New sulfamethoxazole-trimethoprim [Bactrim DS] 800-160 mg tablet 1 tab PO BID 7 Days Qty: 14 0RF No Action tadalafil 20 mg tablet 20 mg PO DAILY PRN (Reason: Not Specified) naproxen 500 mg tablet 500 mg PO BID PRN (Reason: Pain Or Fever) Label Comments: TAKE 1 TABLET BY MOUTH TWICE A DAY FOR KNEE levothyroxine 88 mcg tablet 88 mcg PO DAILY pravastatin 20 MG tablet 20 mg PO DAILY Label Comments: Cholesterol lowering aspirin 81 MG tablet,chewable 81 mg PO DAILY@0800 allopurinol 100 MG tablet 100 mg PO DAILY PRN (Reason: gout) colchicine 0.6 MG tablet 0.6 mg PO DAILY PRN (Reason: gout) metoprolol succinate 25 mg tablet extended release 24 hr 12.5 mg PO DAILY Qty: 45 4RF Primary Care Provider: Bro Galvan Referrals: Bro Galvan MD [Primary Care Provider] - Activity Restrictions/Additional Instructions: Thank you for trusting us with your care today! Please take Tylenol (2 pills, 650 mg), ibuprofen (2 pills, 400 mg) every 6 hours as needed for pain and fever control. Please finish your entire antibiotic course until course complete. Please return to the emergency department if your symptoms change or worsen. Specifically if develop worsening redness, pain. Please follow with your [employer] Consultant for further outpatient evaluation and management. Disposition Disposition: Home, Self Care Discharge Date/Time: 12/14/22 02:45
[2022-12-14] MEDS: oxyCODONE 5 MG Tablet PO (02:35)
[2022-12-14] MEDS: Smz/Tmp Ds Tablet 1 TABLET PO (02:36)
[2022-12-14] MEDS: Ibuprofen 200 MG Tablet 400 MG PO (02:36)
== END 2022-12-14 02:45 | disposition home or self-care (01) ==
PROVIDERS: Emergency Provider Emergency Medicine; PCP Family Medicine; Visit Provider Emergency Medicine
DX: L03.116 Cellulitis of left lower limb (principal)
CPT/HCPCS: 99283

== ENCOUNTER → 2023-02-26 | Outpatient (CLI) | payer MEDICARE, OTHER, SELFPAY | END | disposition home or self-care (01) | PROVIDERS: PCP Family Medicine; Referring Provider Internal Medicine Cardiovascular Disease; Visit Provider Internal Medicine Cardiovascular Disease | DX: I42.2 Other hypertrophic cardiomyopathy (principal) | CPT/HCPCS: 93225; 93226 ==

== ENCOUNTER → 2024-03-02 | Outpatient (CLI) | payer MEDICARE, OTHER, SELFPAY ==
--- NOTE | 2024-03-02 12:48 | ECHOCS_ITS ---
Reason For Study: APICAL HYPERTROPHIC CARDIOMYOPATHY Procedure This was a 2D Doppler, Color Flow transthoracic echocardiogram. Myocardial strain analysis was performed in this exam to aid in the assessment of cardiac function. Contrast injection was performed. Exam performed in department. Left Ventricle Normal LV size. Apical hypertrophy cardiomyopathy. Left ventricular systolic function is normal. The left ventricular ejection fraction is 65 %. No regional wall motion abnormalities noted. Right Ventricle Normal RV size. Normal systolic function. Mitral Valve Normal mitral valve. Mild (1+) eccentric mitral valve insufficiency. Tricuspid Valve Normal tricuspid valve. Aortic Valve Trisinus/trileaflet aortic valve. Pulmonic Valve Normal pulmonic valve. Great Vessels Normal aortic root. The pulmonary artery is normal size. Normal inferior vena cava. Pericardium/Pleural No pericardial effusion. Medication 22 gauge I.V. with prn adaptor inserted into left arm. Diluted definity 2ml given slow IV push to enhance endocardial definition. MMode/2D Measurements & Calculations LVIDd: 4.6 cm IVSd: 1.3 cm LVOT diam: 2.1 cm LVIDs: 2.7 cm LVPWd: 0.96 cm LVOT area: 3.6 cm2 RVDd: 4.3 cm FS: 41.8 % Ao root diam: 3.8 cm LAV(MOD-bp): 52.8 ml LVAd ap4: 40.2 cm2 LAV(MOD-bp) Indexed: 26.8 ml/m2 LVLd ap4: 9.4 cm LAV(MOD-sp2): 54.3 ml EDV(MOD-sp4): 153.3 ml LAV(MOD-sp4): 46.4 ml EDV(sp4-el): 145.5 ml LVAs ap4: 23.3 cm2 LVLs ap4: 7.6 cm ESV(MOD-sp4): 66.7 ml ESV(sp4-el): 61.3 ml EF(MOD-sp4): 56.5 % EF(sp4-el): 57.9 % LVAd ap2: 36.6 cm2 SV(MOD-sp4): 86.6 ml SV(MOD-sp2): 91.8 ml LVLd ap2: 8.0 cm EDV(MOD-sp2): 143.8 ml EDV(sp2-el): 141.2 ml LVAs ap2: 19.2 cm2 LVLs ap2: 6.4 cm ESV(MOD-sp2): 52.0 ml ESV(sp2-el): 49.0 ml EF(MOD-sp2): 63.8 % SV(sp4-el): 84.2 ml LA dimension(2D): 4.6 cm LA A4 area: 16.2 cm2 RA A4 area: 12.6 cm2 TAPSE: 2.2 cm Time Measurements MV dec time: 0.16 sec Doppler Measurements & Calculations MV E max javier: 67.4 cm/sec Lat Peak E' Javier: 8.5 cm/sec Med Peak E' Javier: 7.2 cm/sec MV A max javier: 68.7 cm/sec E/E' lat: 8.0 E/E' med: 9.4 MV E/A: 0.98 Ao V2 max: 110.9 cm/sec LV V1 max: 86.5 cm/sec MV dec slope: 423.6 cm/sec2 Ao max P.9 mmHg LV V1 max P.0 mmHg Ao V2 mean: 69.5 cm/sec LV V1 mean P.6 mmHg Ao mean P.3 mmHg LV V1 mean: 58.7 cm/sec Ao V2 VTI: 23.2 cm LV V1 VTI: 19.6 cm AV (velocity ratio): 0.84 KATERYNA(I,D): 3.0 cm2 KATERYNA(V,D): 2.8 cm2 SV(LVOT): 70.6 ml PA V2 max: 107.5 cm/sec PA max PG (full): 2.5 mmHg ECHO/Echo Complete W/ Contrast Interpretation Summary Normal LV size. Left ventricular systolic function is normal. Apical hypertrophy cardiomyopathy The left ventricular ejection fraction is 65 %. Contrast injection was performed. The global longitudinal strain is moderately abnormal. The global longitudinal strain = -14.5% (abnormal). Ordering Physician: Josué Olsen Referring Physician: Josué Olsen Performed By: Darline Hdz RDCS
== END | disposition home or self-care (01) ==
LOC: CVS 12:47
PROVIDERS: PCP Family Medicine; Referring Provider Internal Medicine Cardiovascular Disease; Visit Provider Internal Medicine Cardiovascular Disease
DX: I42.2 Other hypertrophic cardiomyopathy (principal)
CPT/HCPCS: 93306; Q9957; A4216; C8929

== ENCOUNTER 2025-01-18 09:00 | Outpatient (RCR) | payer MEDICARE, OTHER, SELFPAY ==
--- NOTE | 2024-12-19 11:52 | HP.PTEVAL_ITS ---
Patient's Visit Information Visit Information Visit Information: ALEXANDRIA SAUER is a 69 year old M referred to Physical Therapy by LAURA Kelly with a diagnosis of L THR in 2018. Date of Evaluation: 12/19/24 Physical Therapist: ANDI Carrero Visit Plan Frequency: 2x /Week Duration: 6 Weeks Plan: Pt has had B THR (2017/2018) Thinking lower cross syndrome (tight hip flexors and LB extensors and weak abdominals/Glutes) 2X/ week for 6 weeks for foam rolling of B TFL/Hip flexors/Quad and stretching as well, Pelvic tilt and neutral spine core stability/abdominal strength, glut strength with HEP HEP: prone with strap Quad stretches, Bridges, Pelvic tilt in standing and sitting Subjective Subjective: Pt had a L THR in 2018. He has had both hips done (2017 and 2018). This past winter he did a lot of treadmill but occ it would bother him he would get some pain down the front of the leg and into his groin. He does 5 mile 4- 5X/ week and he will get pain and throbbing about 1 mile in. It was the feeling he had right before the hip replacement. It only flares up with straight walking. It does not bother him with pickleball twice a week. Once his front starts flaring up then it goes into his back. Pain L hip pain: Pain Intensity (Out of 10): 0 Objective Objective: Gait: walks with flexed trunk LE MMT: R hip flex 12.9 and L 18.9 R Knee ext 19.7 and L 22.1 R knee flex 10.1 and L 10 R hip ABD 15.3 and L 15 R hip ext 14,3 and L 13.2 Tight HIP Flexors B and TFL on the L (very tender to palpation) Tight B HS Palpation: tight and tender B L spine paraspinals, L TFL Balance/Special Test Scores WOMAC Total Score: 24 WOMAC Percentatge: 75.0000 Goals Goal 1:: I HEP Goal Time Frame: 6-8 Weeks Goal 2:: Increase flexibility of B Hip flexors (THR H/O) Goal Time Frame: 6-8 Weeks Goal 3:: Be able to walk 4-5 miles without hip pain/back pain Goal Time Frame: 6-8 Weeks Goal 4:: Increase hip ext strength (at the time of the eval: R hip ext 14,3 and L 13.2) Goal Time Frame: 6-8 Weeks Rehabilitation Potential Rehabilitation Potential: Good Anticipated Interventions Patient/Client Instruction: Educate patient on: Condition and Plan of Care For the Purpose of:: To decrease pain, To increase ROM, To improve nutrient delivery to tissue, To improve muscle performance and motor function, To improve ability to perform ADL's, To increase tolerance to activity/condition/position, To improve performance and independence with ADL's, To decrease level of supervision to perform tasks, To improve ability of physical actions for home/community/work/leisure, To improve gait and locomotor functions, To improve health of tissue, To decrease soft tissue restriction and To increase flexibility/ROM Therapeutic Exercise to Include: Strength training, Postural training, Flexibilty training, Gait and locomotor training, Neuromotor development, Passive ROM, Active ROM and Dynamic Lumbar Stabilization For the Purpose of:: To decrease pain, To increase ROM, To improve nutrient delivery to tissue, To improve muscle performance and motor function, To improve ability to perform ADL's, To increase tolerance to activity/condition/position, To improve performance and independence with ADL's, To decrease level of supervision to perform tasks, To improve ability of physical actions for home/community/work/leisure, To improve gait and locomotor functions, To improve health of tissue, To decrease soft tissue restriction and To increase flexibility/ROM Functional Training to Include: Gait training For the Purpose of:: To improve gait and locomotor functions Manual Therapy Techniques to Include: Passive ROM and Soft tissue mobilization For the Purpose of:: To decrease pain, To increase ROM, To improve nutrient delivery to tissue, To improve muscle performance and motor function, To improve ability to perform ADL's, To increase tolerance to activity/condition/position, To improve performance and independence with ADL's, To decrease level of supervision to perform tasks, To improve ability of physical actions for home/community/work/leisure, To improve gait and locomotor functions, To improve health of tissue, To decrease soft tissue restriction and To increase flexibility/ROM Text: Thank you for the opportunity to evaluate your patient. For Medicare and Medicare HMO plans, please review the plan of care and approve it. It will need to be FAXED BACK to us at [phone] for Medicare purposes. For Medicare only, by signing this I certify the plan of care. Please let me know if there are questions or concerns regarding this plan of care. Physician Signature : Date:
--- NOTE | 2025-01-18 10:51 | HP.PTDCSUM ---
Discharge Summary D/C summary: It has been my pleasure to treat ALEXANDRIA SAUER referred by LAURA Kelly, with the diagnosis of L THR in 2018 for a total of 9 visit(s). Discharge Date: 01/18/25 Please see the following information for a summary of their discharge status. Subjective Subjective: Walked over a mile on the TM and more groin pain than Quad pain Pain L hip pain: Pain Intensity (Out of 10): 0 Back: Pain Intensity (Out of 10): 2 Overall Improvement % Improvement: 75 Objective Objective/Function: R hip ext 15,3 and L 14.1 Tight HS B instructed pt in green strap HS stretches Improved hip flexor flexibility Goals Goal 1:: I HEP Goal Progress: Goal Met Goal 2:: Increase flexibility of B Hip flexors (THR H/O) Goal Progress: Goal Met Goal 3:: Be able to walk 4-5 miles without hip pain/back pain Goal Progress: Progressing Goal 4:: Increase hip ext strength (at the time of the eval: R hip ext 14,3 and L 13.2) Goal Progress: Goal Met Plan Plan: DC PT to HEP D/C Information Discharge Comments: DC PT to HEP d/c sentence: If there are questions or concerns regarding this patient's physical therapy, please feel free to call me at [phone]. Thank you for the referral of this patient. Sincerely, Sadaf Webb, MPT Balance/Gait/Functional tests Balance/Special Test Scores WOMAC Total Score: 22 WOMAC Percentage: 77.0900 Improvement % Improvement: 75
== END 2025-01-18 12:43 | disposition home or self-care (01) ==
LOC: PT 09:00
PROVIDERS: PCP Family Medicine; Referring Provider Physician Assistant; Visit Provider Physician Assistant
DX: Z96.642 Presence of left artificial hip joint (principal); Z47.1 Aftercare following joint replacement surgery
CPT/HCPCS: 97110; 97161; 97530

== ENCOUNTER → 2025-03-29 | Outpatient (CLI) | payer MEDICARE, OTHER, SELFPAY ==
--- NOTE | 2025-03-29 14:55 | ECHOCS_ITS ---
Reason For Study Reason For Study: Apical Hypertrophic Cardiomyopathy Procedure This was a 2D Doppler, Color Flow transthoracic echocardiogram. Myocardial strain analysis was performed in this exam to aid in the assessment of cardiac function. Contrast injection was performed. Exam performed in department. Left Ventricle Normal LV size. Apical hypertrophic cardiomyopathy. The global longitudinal strain = -13.6% (abnormal). Stage 1 diastolic dysfunction. The left ventricular ejection fraction is 65 %. No regional wall motion abnormalities noted. Right Ventricle Normal RV size. Normal systolic function. Atria Normal left atrium. Normal right atrium. Mitral Valve Normal mitral valve. Tricuspid Valve Normal tricuspid valve. Mild (1+) tricuspid valve insufficiency. Pulmonary artery systolic pressure is 26 mmHg. Aortic Valve Trisinus/trileaflet aortic valve. Pulmonic Valve Normal pulmonic valve. Great Vessels Normal aortic root. Pericardium/Pleural No pericardial effusion. Medication 22 gauge I.V. with prn adaptor inserted into right arm. Diluted definity 1.5ml given slow IV push to enhance endocardial definition. MMode/2D Measurements & Calculations LVIDd: 5.3 cm IVSd: 1.3 cm Ao root diam: 3.6 cm LVIDs: 3.7 cm LVPWd: 1.1 cm FS: 30.4 % LAV(MOD-bp): 73.8 ml LVAd ap4: 32.3 cm2 SV(MOD-sp4): 77.5 ml LAV(MOD-bp) Indexed: 37.7 ml/m2 LVLd ap4: 8.2 cm SI(MOD-sp4): 39.6 ml/m2 LAV(MOD-sp2): 69.8 ml EDV(MOD-sp4): 110.1 ml LAV(MOD-sp4): 77.1 ml EDV(sp4-el): 107.5 ml LVAs ap4: 14.1 cm2 LVLs ap4: 5.8 cm ESV(MOD-sp4): 32.6 ml ESV(sp4-el): 29.2 ml EF(MOD-sp4): 70.4 % EF(sp4-el): 72.8 % SV(sp4-el): 78.3 ml LA A4 area: 22.5 cm2 LA dimension(2D): 4.5 cm RA A4 area: 21.3 cm2 TAPSE: 2.8 cm Time Measurements MV dec time: 0.21 sec Doppler Measurements & Calculations MV E max javier: 53.7 cm/sec Lat Peak E' Javier: 6.5 cm/sec Med Peak E' Javier: 6.0 cm/sec MV A max javier: 61.8 cm/sec E/E' lat: 8.3 E/E' med: 8.9 MV E/A: 0.87 MV V2 max: 71.2 cm/sec MV P1/2t max javier: 62.1 cm/sec Ao V2 max: 117.2 cm/sec MV max P.0 mmHg MV P1/2t: 72.9 msec Ao max P.5 mmHg MV V2 mean: 33.7 cm/sec MV dec slope: 249.6 cm/sec2 Ao V2 mean: 74.4 cm/sec MV mean P.55 mmHg MVA(P1/2t): 3.0 cm2 Ao mean P.6 mmHg MV V2 VTI: 24.5 cm Ao V2 VTI: 24.3 cm AV (velocity ratio): 1.0 AI max javier: 429.3 cm/sec LV V1 max: 114.4 cm/sec PA V2 max: 102.3 cm/sec AI max P.7 mmHg LV V1 max P.3 mmHg AI dec slope: 175.5 cm/sec2 LV V1 mean P.5 mmHg AI P1/2t: 716.3 msec LV V1 mean: 71.4 cm/sec LV V1 VTI: 24.9 cm TR max javier: 244.6 cm/sec TR max P.9 mmHg ECHO/Echo Complete W/ Contrast Interpretation Summary Normal LV size. The global longitudinal strain = -13.6% (abnormal). Apical hypertrophic cardiomyopathy Stage 1 diastolic dysfunction. The left ventricular ejection fraction is 65 %. Ordering Physician: Josué Olsen Referring Physician: Josué Olsen Performed By: Kemal Rey RCS
--- OUTSIDE RECORDS SUMMARY | 2025-03-29 20:01 | XMS RPT_ITS | CCD ---
Author Organization [facility] Care Team Providers Care Psychometrist Name Role Phone Fifi JADE, Deborah Garner Unavailable Unavailable Lia Ko Unavailable Unavailable Reji Lozada Unavailable Lia Ko Unavailable Unavailable Pretty CANO, Josué Mike Unavailable Corina Ordoñez Unavailable Unavailable Reji Lozada MD Primary Care Provider Bro Easton MD Primary Care Provider Bro Easton MD Primary Care Provider Bro Easton MD Primary Care Provider Bro Easton MD Primary Care Provider Reji Lozada MD Primary Care Provider Bro Easton MD Primary Care Provider Marie Lopez APRN.CNP Unavailable Kristie Bill PA-C Unavailable BRO EASTON Primary Care Unavailable BRO EASTON Referring Unavailable SHANNAN NOEL Attending Unavailable BRO EASTON Primary Care Unavailable BRO EASTON Referring Unavailable BRO EASTON Attending Unavailable BRO EASTON Primary Care Unavailable BRO EASTON Primary Care Unavailable KRISTIE BILL Referring Unavailable BRO EASTON Primary Care Unavailable KRISTIE BILL Attending Unavailable Dr. Bro Easton MD Primary Care Provider Reji Salomon Attending Provider Reji Salomon Referring Provider SHANNAN NOEL Referring Unavailable BRO EASTON Primary Care Unavailable TOYIN GARZA Admitting Unavailable TOYIN GARZA Attending Unavailable Bro Easton MD Primary Care Provider [phone] BRO EASTON Primary Care Unavailable REJI LOZADA Referring Unavailable JOSUÉ OLSEN Attending Unavailable BRO EASTON Primary Care Unavailable JOSUÉ OLSEN Attending Unavailable JOSUÉ OLSEN Referring Unavailable Reji Wright Attending Unavailable Reji Wright Referring Unavailable Bro Easton Primary Care Unavailable Bro Easton Primary Care Unavailable Josué Olsen Attending Unavailable Josué Olsen Referring Unavailable Medications Current Medications Medication Drug Class(es) Dates Sig (Normalized) Sig (Original) allopurinol 300 mg oral tablet (20 sources) Xanthine Oxidase Inhibitor Start: 05-14-2022 End: 10-20-2024 Allopurinol 300 MG tablet 11/20/2022 Active Start: 02-28-2020 End: 05-14-2022 take 1 tablet by mouth once daily as needed Allopurinol 100 MG tablet Active 100 mg PO DAILY as needed for gout February 28, 2020 12:00am Comment on above: Take by mouth. Take 1 tablet by ravi th as needed. Take 1 tablet by ravi th once daily. aspirin 81 mg chewable tablet (20 sources) Nonsteroidal Anti-inflammatory Drug Start: 04-04-2014 take 1 tablet by mouth once daily Aspirin 81 MG tablet,chewable Active 81 mg PO DAILY@0800 April 04, 2014 12:00am Start: 03-30-2014 take 1 tablet by ravi th once daily ASPIRIN EC 81 MG TBEC One tablet by mouth daily ASPIRIN [id number] Josué Olsen MD Comment on above: Take 81 mg by mouth once daily. colchicine 0.6 mg oral tablet (20 sources) Start: 06-03-2023 Colchicine 0.6 MG tablet Take 1 tablet by mouth as needed. 04/02/2024 Active Start: 02-28-2020 End: 05-14-2022 take 1 tablet by mouth once daily as needed Colchicine 0.6 MG tablet Active 0.6 mg PO DAILY as needed for gout February 28, 2020 12:00am Comment on above: Take by mouth. Take one tab three t imes a day till pain resolved or complete the script levothyroxine sodium 0.088 mg oral tablet (20 sources) l-Thyroxine Start: 11-07-2021 End: 10-20-2024 Levothyroxine 88 MCG tablet 11/20/2022 Active Start: 09-14-2021 End: 11-07-2021 take 1 tablet by mouth once daily, then take 6 tablets by mouth in the morning levothyroxine (SYNTHROID) 100 mcg tablet Take 1 tablet by mouth DAILY (6 AM). 60 tablet 0 09/14/2021 11/07/2021 Discontinued Comment on above: Take 1 tablet by ravi th DAILY (6 AM). Take 1 tablet by ravi th daily at 6 am. 24 hr metoprolol succinate 25 mg extended release oral tablet (20 sources) beta-Adrenergic Mayito Start: 10-21-2024 take 1 tablet by mouth once daily Metoprolol succinate 25 MG tablet XL Indications: PVC's (premature ventricular contractions) , NSVT (nonsustained ventricular tachycardia) Take 1 tablet by mouth daily. 90 tablet 3 10/21/2024 Active Start: 12-04-2022 End: 12-18-2022 take 1 tablet by mouth once daily metoprolol succinate ER (TOPROL XL) 25 mg 24 hr tablet Indications: Essential hypertension, benign Take 1 tablet by mouth once daily. 30 tablet 12/18/2022 Active Start: 07-06-2018 End: 11-10-2022 take 2 tablets by mouth once daily Metoprolol Succinate 25 mg tablet extended release 24 hr Active 12.5 mg PO DAILY November 10, 2022 4:04pm Start: 07-06-2018 End: 11-10-2022 take 12.5 mg by mouth once daily Metoprolol Succinate Discontinued 12.5 MG PO DAILY August 28, 2020 4:43pm November 07, 2021 3:26pm Start: 06-22-2018 End: 07-06-2018 take 1 tablet by mouth once daily Metoprolol Succinate 25 mg tablet extended release 24 hr Discontinued 25 mg PO DAILY June 22, 2018 2:10pm July 06, 2018 6:12pm Start: 01-23-2016 End: 01-22-2017 take 0.5 tablet by mouth twice daily METOPROLOL SUCCINATE ER 25 MG [id number] 1/2 tablet by mouth twice daily METOPROLOL SUCCINATE [id number] Josué Olsen MD End: 12-04-2022 take 1 tablet by mouth every twenty-four hours metoprolol succinate ER (TOPROL XL) 25 mg 24 hr tablet Take 12.5 mg by mouth. 0 12/04/2022 Discontinued metoprolol succi kamron 25 MG tablet XL take 12.5 mg by mouth daily.. Active Comment on above: Take 12.5 mg by mout h. Take 1 tablet by ravi th once daily. naproxen 500 mg oral tablet (20 sources) Nonsteroidal Anti-inflammatory Drug Start: 10-20-2024 take 1 tablet by mouth every twelve hours as needed naproxen 500 MG tablet Take 1 tablet by mouth Every 12 hours as needed. 10/20/2024 Active Start: 02-21-2020 End: 10-20-2024 take 1 tablet by mouth twice daily as needed for pain Naproxen 500 mg tablet Active 500 mg PO TWICE A DAY as needed for Pain Or Fever February 21, 2020 12:00am Comment on above: Take 1 tablet by ravi th twice daily as needed (for pain/inflammation). Take with food. Take 1 tablet by ravi th two times a day as needed (for pain/inflammation). Take with food. polyethylene glycol 3350 151757 mg / potassium chloride 2970 mg / sodium bicarbonate 6740 mg / sodium chloride 5860 mg / sodium sulfate 52636 mg powder for oral solution (1 source) Osmotic Laxative Start: 2024 End: 2024 peg 3350-Electrolytes (GOLYTELY) 236-22.74-6.74 -5.86 gram suspension Indications: History of colonic polyps , Screening for colon cancer Take 4,000 mL by mouth one time only for 1 dose. Refer to printed prep instructions from your provider. 4000 mL 12/16/2024 12/16/2024 Active pravastatin sodium 20 mg oral tablet (20 sources) HMG-CoA Reductase Inhibitor Start: 2013 End: 2024 take 1 tablet by mouth once daily Pravastatin 20 MG tablet Active 20 mg PO DAILY March 20, 2014 12:00am Comment on above: Take 1 tablet by ravi th once daily. Take 20 mg by mouth. sildenafil 100 mg oral tablet (20 sources) Phosphodiesterase 5 Inhibitor Start: 2022 End: 2022 sildenafil (VIAGRA) 100 mg tablet Take 1 tablet by mouth as needed. 30 tablet 3 06/03/2023 Active Comment on above: Take 1 tablet by ravi th as needed. sulfamethoxazole 800 mg / trimethoprim 160 mg oral tablet (3 sources) Dihydrofolate Reductase Inhibitor Antibacterial, Sulfonamide Antimicrobial Start: 2022 Sulfamethoxazole-T rimethoprim (Bactrim Ds) 800-160 mg tablet Active 1 {tbl} PO TWICE A DAY 14 December 14, 2022 12:00am tadalafil 20 mg oral tablet (20 sources) Phosphodiesterase 5 Inhibitor Start: 2019 End: 2022 take 1 tablet by mouth once daily as needed Tadalafil 20 mg tablet Active 20 mg PO DAILY as needed for Not Specified February 21, 2020 12:00am Comment on above: Take by mouth. Take 1 tablet by ravi th as needed. Completed/Discontinued Medications Medication Drug Class(es) Dates Sig (Normalized) Sig (Original) acetaminophen 325 mg / HYDROcodone bitartrate 5 mg oral tablet (4 sources) Opioid Agonist Start: 11-08-2016 End: 09-11-2017 Hydrocodone-Acetami nophen 1 TABLET tablet Discontinued 1 {tbl} PO EVERY 6 HOURS NEEDED as needed for Pain November 08, 2016 12:00am September 11, 2017 4:11pm Start: 11-08-2016 End: 09-11-2017 take 1 tablet by mouth every six hours as needed Hydrocodone-Acetaminophen Discontinued 1 TABLET PO EVERY 6 HOURS NEEDED November 08, 2016 12:00am September 11, 2017 4:11pm amoxicillin 500 mg oral capsule (4 sources) Penicillin-class Antibacterial Start: 11-07-2021 End: 07-01-2022 take 4 capsules by mouth once as needed Amoxicillin 500 mg capsule Discontinued 2000 mg PO ONCE as needed November 07, 2021 12:00am July 01, 2022 4:52pm Start: 11-07-2021 End: 07-01-2022 take 2000 mg by mouth once Amoxicillin Discontinued 20 00 MG PO ONCE November 07, 2021 12:00am July 01, 2022 4:52pm ezetimibe 10 mg / simvastatin 20 mg oral tablet (1 source) HMG-CoA Reductase Inhibitor, Dietary Cholesterol Absorption Inhibitor Start: 05-25-2007 take 1 tablet by mouth at bedtime ezetimibe-simvastatin (VYTORIN 05/29) 10-20 mg ORAL Tab Take one(1) tablet at bedtime. 0 05/25/2007 Active Comment on above: Take one(1) tablet at bedtime. omeprazole 20 mg delayed release oral capsule (10 sources) Proton Pump Inhibitor Start: 03-24-2014 End: 06-22-2014 take 1 tablet by mouth once daily OMEPRAZOLE 20 MG CPDR One tablet by mouth daily OMEPRAZOLE [id number] Ingrid Freedman RN ramipril 2.5 mg oral capsule (11 sources) Angiotensin Converting Enzyme Inhibitor Start: 03-20-2014 End: 11-07-2021 take 1 capsule by mouth once daily Ramipril 2.5 MG capsule Discontinued 2.5 mg PO DAILY March 20, 2014 12:00am November 07, 2021 2:39pm Start: 05-25-2007 take 1 capsule by mo [facility] once daily ramipril (ALTACE) 10 mg ORAL Cap Take one(1) capsule daily. 0 05/25/2007 Active Comment on above: Take one(1) capsule daily. tamsulosin hydrochloride 0.4 mg oral capsule (4 sources) alpha-Adrenergic Mayito Start: End: 2 take 1 capsule by mouth once daily at bedtime tamsulosin (FLOMAX) 0.4 mg Take 1 capsule by mouth daily at bedtime. 30 capsule 5 05/09/2021 05/14/2022 Discontinued (Discontinued by Patient) Comment on above: Take 1 capsule by mo [facility] daily at bedtime. Problems Active Problems Problem Classification Problem Date Documented Date Episodic/Chronic Administrative/social admission (20 sources) Advance directive discussed with patient; Translations: [Other specified counseling] Onset: 11-07-2021 Episodic Cardiac dysrhythmias (20 sources) Multiple premature ventricular complexes; Translations: [Ventricular premature depolarization] Onset: 02-04-2024 02-04-2024 Chronic Chronic kidney disease (20 sources) Chronic kidney disease stage 3A ; Translations: [Stage 3a chronic kidney disease (HCC)] Onset: 11-20-2022 Chronic Chronic kidney disease (1 source) Chronic kidney disease; Translations: [Stage 3a chronic kidney disease (HCC)] Onset: 12-13-2024 Complications of surgical procedures or medical care (20 sources) Postoperative hypothyroidism; Translations: [Postprocedural hypothyroidism] Onset: 11-07-2021 Chronic Disorders of lipid metabolism (20 sources) Hyperlipidemia; Translations: [Mixed hyperlipidemia] Onset: 03-24-2014 03-24-2014 Chronic Essential hypertension (20 sources) Hypertensive disorder; Translations: [Benign essential hypertension] Onset: 03-24-2014 03-24-2014 Chronic Gout and other crystal arthropathies (20 sources) Gout; Translations: [Gout, unspecified] Onset: 05-17-2021 05-03-2021 Chronic Heart valve disorders (20 sources) Mitral valve regurgitation; Translations: [Nonrheumatic mitral (valve) prolapse] Onset: 06-29-2015 06-29-2015 Chronic Hyperplasia of prostate (20 sources) Urinary frequency due to benign prostatic hypertrophy; Translations: [Benign prostatic hyperplasia with lower urinary tract symptoms] Onset: 05-09-2021 Chronic Melanomas of skin (20 sources) Malignant melanoma of scalp; Translations: [Malignant melanoma of scalp and neck] Onset: 06-03-2022 Chronic Nausea and vomiting (4 sources) Nausea; Translations: [Nausea] 10-01-2020 Episodic Nonspecific chest pain (14 sources) Chest pain, unspecified; Translations: [Chest pain] Onset: 03-24-2014 Resolved: 06-29-2015 03-24-2014 Episodic Other aftercare (12 sources) Patient encounter status; Translations: [Other penitentiary (current) drug therapy] Onset: 12-13-2024 Episodic Other aftercare (4 sources) H/O: high risk medication; Translations: [Other penitentiary (current) drug therapy] 02-24-2020 Episodic Other and unspecified benign neoplasm (20 sources) History of polyp of colon; Translations: [Personal history of colonic polyps] Onset: 05-09-2021 05-17-2021 Episodic Other connective tissue disease (4 sources) History of repair of hip joint; Translations: [Presence of left artificial hip joint] 03-06-2020 Chronic Comment on above: 07/2018 Other connective tissue disease (4 sources) Foot pain; Translations: [Pain in left foot] 11-09-2016 Episodic Other connective tissue disease (3 sources) Pain in left foot; Translations: [Pain in left foot] Episodic Other connective tissue disease (2 sources) Mass of soft tissue; Translations: [Other specified soft tissue disorders] Episodic Other connective tissue disease (2 sources) Bursitis of left foot; Translations: [Other enthesopathy of left foot and ankle] Episodic Other male genital disorders (20 sources) Secondary erectile dysfunction; Translations: [Male erectile dysfunction, unspecified] Onset: 05-14-2022 Chronic Other male genital disorders (1 source) Male erectile dysfunction, unspecified; Translations: [ED (erectile dysfunction) of organic origin] Onset: 05-14-2022 Chronic Other nutritional; endocrine; and metabolic disorders (11 sources) Body mass index (BMI) 30.0-30.9, adult; Translations: [Body mass index (BMI) 31.0-31.9, adult] Onset: 03-30-2014 Resolved: 01-22-2017 12-21-2014 Chronic Other nutritional; endocrine; and metabolic disorders (6 sources) Body mass index (BMI) 31.0-31.9, adult; Translations: [Body mass index (BMI) 31.0-31.9, adult] Onset: 03-30-2014 Resolved: 01-22-2017 01-23-2016 Chronic Other nutritional; endocrine; and metabolic disorders (3 sources) Body mass index (BMI) 32.0-32.9, adult; Translations: [Body mass index (BMI) 32.0-32.9, adult] Onset: 03-30-2014 03-30-2014 Chronic Other screening for suspected conditions (not mental disorders or infectious disease) (2 sources) Encounter for screening for malignant neoplasm of colon; Translations: [Screening for colon cancer] Onset: 12-13-2024 Episodic Other skin disorders (3 sources) Mass of foot; Translations: [Localized swelling, mass and lump, left lower limb] Episodic Other skin disorders (1 source) Sweating 10-01-2020 Episodic Coby-; endo-; and myocarditis; cardiomyopathy (20 sources) Other hypertrophic cardiomyopathy; Translations: [Hypertrophic cardiomyopathy] Onset: 03-30-2014 03-30-2014 Chronic Residual codes; unclassified (20 sources) Obstructive sleep apnea syndrome; Translations: [Obstructive sleep apnea (adult) (pediatric)] Onset: 05-09-2021 Chronic Residual codes; unclassified (4 sources) History of colonoscopy; Translations: [Other specified postprocedural states] 03-06-2020 Episodic Comment on above: 07/21/2007 Screening and history of mental health and substance abuse codes (2 sources) Encounter for screening examination for other mental health and behavioral disorders; Translations: [Encounter for screening for depression] Onset: 12-13-2024 Episodic Skin and subcutaneous tissue infections (3 sources) Cellulitis; Translations: [Cellulitis, unspecified] 12-14-2022 Episodic Syncope (4 sources) Near syncope; Translations: [Syncope and collapse] 10-01-2020 Episodic Thyroid disorders (1 source) Non-toxic uninodular goiter; Translations: [Nontoxic single thyroid nodule] Chronic Unclassified (9 sources) Long-term drug therapy; Translations: [Long-term (current) use of other medications] Onset: 06-22-2014 Resolved: 04-09-2015 06-22-2014 Unclassified (3 sources) Sweating; Translations: [Hidrosis] 10-01-2020 Unclassified (2 sources) Patient encounter status 12-13-2024 Unclassified (2 sources) History of colonic polyps; Translations: [History of colonic polyps] Onset: 05-17-2021 Unclassified (1 source) Other ventricular tachycardia; Translations: [Other ventricular tachycardia] Onset: 03-27-2025 Viral infection (3 sources) Disease caused by 2019-nCoV; Translations: [COVID-19] 07-01-2022 Episodic Past or Other Problems Problem Classification Problem Date Documented Date Episodic/Chronic Diabetes mellitus without complication (12 sources) Hyperglycemia; Translations: [Hyperglycemia, unspecified] Onset: 12-09-2023 12-09-2023 Episodic Genitourinary symptoms and ill-defined conditions (1 source) Frequency of micturition; Translations: [Benign prostatic hyperplasia with urinary frequency] Onset: 05-17-2021 Episodic Immunizations and screening for infectious disease (7 sources) Vaccination needed; Translations: [Encounter for immunization] Onset: 06-10-2024 Episodic Other aftercare (6 sources) Long-term (current) use of other medications; Translations: [Other terminal operations manager (current) drug therapy] Onset: 06-22-2014 Resolved: 04-09-2015 06-22-2014 Episodic Other circulatory disease (5 sources) Electrocardiogram abnormal; Translations: [Abnormal electrocardiogram [ECG] [EKG]] Onset: 03-24-2014 03-24-2014 Episodic Other male genital disorders (20 sources) Disorder of prostate; Translations: [Disorder of prostate, unspecified] Onset: 11-07-2021 11-07-2021 Episodic Other male genital disorders (1 source) Disorder of prostate, unspecified; Translations: [Prostate disorder] Onset: 11-07-2021 Episodic Other nutritional; endocrine; and metabolic disorders (5 sources) Body mass index (BMI) 29.0-29.9, adult; Translations: [Body mass index (BMI) 29.0-29.9, adult] Onset: 01-22-2017 01-22-2017 Episodic Residual codes; unclassified (20 sources) Active living will ; Translations: [Other specified health status] Onset: 11-07-2021 Episodic Residual codes; unclassified (4 sources) History of cardiac catheterization; Translations: [Other specified postprocedural states] Onset: 03-10-2014 02-21-2020 Episodic Comment on above: normal coronaries Unclassified (5 sources) Family history of stroke; Translations: [Family history of stroke] 03-24-2014 Episodic Unclassified (7 sources) Apical variant hypertrophic cardiomyopathy 02-07-2025 Results Test Name Value Interpretation Reference Range Facility ANES POSTPROC EVALon 025 ANES POSTPROC EVAL HNO ID: [id number] Author: WHITLEY HENSON MD Service: Anesthesiology Author Type: Physician Type: Anesthesia Postprocedure Evaluation Filed: 02/02/2025 16:37 Note Text: POST ANESTHESIA EVALUATION NOTE : 1955 Procedure Summary Date: 02/02/25 Room / Location: SURGERY Anesthesia Start: 1610 Anesthesia Stop: Procedure: COLONOSCOPY SCREENING Diagnosis: History of colonic polyps Screening for colon cancer History of colonic polyps Screening for colon cancer Scheduled Providers: Toyin Garza MD; Whitley Henson MD Responsible Provider: Whitley Henson MD Anesthesia Type: MAC ASA Status: 3 Anesthesia Type: MAC Last Vitals Vitals Value Taken Time BP 112/54 02/02/25 1633 Temp 98.4 02/02/25 1636 Pulse 51 02/02/25 1635 Resp 23 02/02/25 1636 SpO2 97 % 02/02/25 1636 Vitals shown include unfiled device data. Post Anesthesia Patient Status Patient Evaluation: bedside. Anticipated Disposition: phase 2 then home. Neurological Status: aware and responsive. Pulmonary Status: breathing comfortably on room air Airway Control: returned to baseline unsupported. Cardiovascular Status: stable. Pain Management: clinically adequate Postoperative Hydration: acceptable. Intraoperative Events: no significant anesthesia events Post Operative Nausea/Vomiting Status: no significant post operative nausea or vomiting Recommendation: continue current plan of care. Anesthesia Observations No Documentation SIGNATURE: Whitley Henson MD PATIENT NAME: Alexandria Sauer DATE: February 02, 2025 TIME: 4:36 PM CSN: [id number] [facility] ANES PRE-OPon 02-02-2025 ANES PRE-OP HNO ID: [id number] Author: WHITLEY HENSON MD Service: Anesthesiology Author Type: Physician Type: Anesthesia Preprocedure Evaluation Filed: 02/02/2025 16:08 Note Text: ANESTHESIOLOGY DAY OF SURGERY NOTE : 1955 Procedure Information Date/Time: 02/02/25 1430 Scheduled providers: Toyin Garza MD; Whitley Henson MD Procedure: COLONOSCOPY SCREENING Location: LD SURGERY Estimated body mass index is 28.19 kg/m? as calculated from the following: Height as of 01/27/25: 170.2 cm (5' 7). Weight as of 01/27/25: 81.6 kg (180 lb). Most recent hematocrit and potassium results: Hematocrit 45.2 12/06/2024 Potassium 4.8 12/06/2024 Relevant Problems ANESTHESIA (+) SUSI (obstructive sleep apnea) CARDIO (+) Essential hypertension, benign (+) Mitral valve prolapse (+) Mitral valve regurgitation ENDO (+) Postoperative hypothyroidism -RENAL (+) Stage 3a chronic kidney disease (HCC) NEURO-PSYCH (+) History of colonic polyps PULMONARY (+) SUSI (obstructive sleep apnea) I - PHYSICAL EVALUATION AIRWAY Patient intubated: No. Tracheostomy tube not present Mallampati: II. TM distance: <3 FB. Neck ROM: full ROM without neurological symptoms. Mouth opening: adequate. Short neck: yes. Thick neck: yes Marquez present: yes Microretrognathia/Micronagt hia/Recessed Chin: Yes DENTAL Dental findings: missing tooth/teeth. Additional comments: Missing upper left tooth. Additional exam findings: yes. CARDIOVASCULAR Normal cardiovascular observations. PULMONARY Normal pulmonary observations. II - ANESTHESIA PLAN ASA Score: 3 Anesthetic Plan: MAC The patient is not a current smoker. NPO Status: adequate Beta Mayito Monitoring Plan Monitoring plan: standard ASA. Post Procedure Analgesic Plan Postoperative analgesic plan: parenteral or oral opioids. Informed Consent Anesthetic risks, benefits, alternatives, personnel and consent discussed: yes. Patient / Responsible Republican agrees to proceed: yes Patient / Surrogate agrees to blood products: Yes DNR status not reviewed with patient and/or family prior to surgery. Significant changes in the patient condition since the History and Physical, not otherwise documented in primary service progress note: no. Potential Anesthesia issues that may suggest increased risk of complications or contraindication to planned procedure: none. Vitals Value Taken Time BP 150/79 02/02/25 1527 Pulse Resp 12 02/02/25 1527 Temp 36.7 ?C (98 ?F) 02/02/25 1527 SpO2 98 % 02/02/25 1527 Facility-Administered Medications as of 02/02/2025 Medication Dose Route Frequency - lidocaine (PF) 10 mg/mL (1 %) 1-2 mg injection (XYLOCAINE) 0.1-0.2 mL INTRADERMAL PRN - lactated ringers iv infusion 30 mL/hr INTRAVENOUS CONTINUOUS Outpatient Medications as of 02/02/2025 Medication Sig - allopurinol (ZYLOPRIM) 300 mg tablet Take 1 tablet by mouth once daily. - levothyroxine (SYNTHROID) 88 mcg tablet Take 1 tablet by mouth daily at 6 am. - pravastatin (PRAVACHOL) 20 mg tablet Take 1 tablet by mouth once daily. - metoprolol succinate ER (TOPROL XL) 25 mg 24 hr tablet Take 1 tablet by mouth once daily. - aspirin, enteric coated (ASPIRIN, ENTERIC COATED) 81 mg EC tablet Take 81 mg by mouth once daily. - naproxen (NAPROSYN) 500 mg tablet Take 1 tablet by mouth two times a day as needed (for pain/inflammation). Take with food. - colchicine 0.6 mg tablet Take one tab three times a day till pain resolved or complete the script - sildenafil (VIAGRA) 100 mg tablet Take 1 tablet by mouth as needed. I have interviewed and examined the patient. I have reviewed the medical record and/or the pre-anesthesia evaluation, pertinent labs, and test results. This contains updated information obtained within 48 hours of Surgery/Procedure. SIGNATURE: Whitley Henson MD PATIENT NAME: Alexandria Sauer DATE: February 02, 2025 TIME: 3:59 PM CSN: [id number] Normal [facility] Colonoscopyon 02-02-2025 Colonoscopy [facility] Gastrointestinal Endoscopy Patient Name: Alexandria Sauer Procedure Date: 02/02/2025 3:52 PM Date of : 1955 Admit Type: Outpatient Age: 69 Gender: Male Note Status: Finalized Procedure: Colonoscopy - screening high risk Indications: High risk colon cancer surveillance: Personal history of adenomatous colonic polyps Providers: Toyin Garza MD Patient Profile: Refer to note in patient chart for documentation of history and physical. Last Colonoscopy: 2019. Referring Physician: Medicines: See the Anesthesia note for documentation of the administered medications Complications: No immediate complications. Requesting Provider: Procedure: Pre-Anesthesia Assessment: - Monitored anesthesia care under the supervision of an anesthesiologist was determined to be medically necessary for this procedure based on review of the patient's medical history, medications, and prior anesthesia history. After I obtained informed consent, the scope was passed under direct vision. Throughout the procedure, the patient's blood pressure, pulse, and oxygen saturations were monitored continuously. The Colonoscope was introduced through the anus and advanced to the cecum, identified by the appendiceal orifice, IC valve and transillumination. test The colonoscopy was performed without difficulty. The patient tolerated the procedure well. The quality of the bowel preparation was adequate to identify polyps greater than 10 mm in size - primarily right colon. The cecum and rectum was photographed. Moderate Sedation: MAC anesthesia was administered by the anesthesia team. Findings: The perianal and digital rectal examinations were normal. Non-bleeding internal hemorrhoids were found. Impression: - Non-bleeding internal hemorrhoids. - No specimens collected. Recommendation: - Repeat colonoscopy in 5 years for surveillance for history of colon polyps and suboptimal colon cleanse. - Return to primary care physician PRN. - Patient has a contact number available for emergencies. The signs and symptoms of potential delayed complications were discussed with the patient. Return to normal activities tomorrow. Written discharge instructions were provided to the patient. - Continue present medications. - Resume previous diet. Procedure Code(s): --- Professional --- 28167, Colonoscopy, flexible; diagnostic, including collection of specimen(s) by brushing or washing, when performed (separate procedure) Diagnosis Code(s): --- Professional --- K64.8, Other hemorrhoids Z86.0101, Personal history of adenomatous and serrated colon polyps Z12.11, Encounter for screening for malignant neoplasm of colon CPT copyright 2020 [employer]. All rights reserved. The codes documented in this report are preliminary and upon loss control consultant review may be revised to meet current compliance requirements. Attending Participation: I personally performed the entire procedure. Scope In: 4:17:05 PM Scope Out: 4:28:14 PM MD Toyin Asencio MD 02/02/2025 4:33:15 PM This report has been signed electronically by Toyin Garza MD Number of Addenda: 0 Note Initiated On: 02/02/2025 3:52 PM Estimated Blood Loss: Estimated blood loss: none. Normal [facility] HISTORY PHYSICALon HISTORY PHYSICAL HNO ID: [id number] Author: TOYIN GARZA MD Service: General Surgery Author Type: Physician Type: H&P Filed: 02/02/2025 13:32 Note Text: HISTORY AND PHYSICAL Alexandria Sauer : 1955 REFERRING PHYSICIAN: Bro Easton [address] [place] [id number] CHIEF COMPLAINT: Patient presents with: Consult: Here for 5 year colonoscopy consult HPI: Alexandria Braga is a 69 year old male referred for endoscopy. Alexandria Braga notes due for screening colonoscopy- hx of polyps (2019). Alexandria S denies abdominal pain.. Alexandria S denies diarrhea. Alexandria S denies constipation. Alexandria S denies a change in bowel habits. Alexandria S denies melena. Alexandria S denies bright red blood per rectum. Alexandria S denies hemorrhoids. Alexandria S denies family history of colon issues. Alexandria S denies heartburn. Alexandria S denies dysphagia. Alexandria S denies a history of ulcers/ peptic ulcer disease. Efrain follows with [facility] for HTN, MVP, HLD. Next OV 02/2025. Last ECHO 02/2024 EF: He denies CP, SOB, dizziness, palpitations, syncope, edema, recent hospitalizations Other medical hx is significant for SUSI- no longer requiring CPAP, CKD, hypothyroidism and gout. Alexandria Braga has undergone prior endoscopy. Last colonoscopy was 03/06/[address] Lazar at [facility]. Sedation: MAC Impressions : - Hemorrhoids found on perianal exam. - Enlarged prostate found on digital rectal exam. - One 7 mm polyp at the splenic flexure, removed with a cold snare. Resected and retrieved. - One 6 mm polyp in the proximal sigmoid colon, removed with a cold snare. Resected and retrieved. - Diverticulosis in the sigmoid colon MICROSCOPIC DIAGNOSIS A. Splenic flexure polyp, biopsy: Fragments of tubular adenoma. B. Proximal sigmoid polyp, biopsy: Tubular adenoma. SJ:hammad 03/07/20 CURRENT MEDICATIONS Current Outpatient Medications Medication Sig allopurinol (ZYLOPRIM) 300 mg tablet Take 1 tablet by mouth once daily. levothyroxine (SYNTHROID) 88 mcg tablet Take 1 tablet by mouth daily at 6 am. naproxen (NAPROSYN) 500 mg tablet Take 1 tablet by mouth two times a day as needed (for pain/inflammation). Take with food. pravastatin (PRAVACHOL) 20 mg tablet Take 1 tablet by mouth once daily. colchicine 0.6 mg tablet Take one tab three times a day till pain resolved or complete the script sildenafil (VIAGRA) 100 mg tablet Take 1 tablet by mouth as needed. metoprolol succinate ER (TOPROL XL) 25 mg 24 hr tablet Take 1 tablet by mouth once daily. aspirin, enteric coated (ASPIRIN, ENTERIC COATED) 81 mg EC tablet Take 81 mg by mouth once daily. peg 3350-Electrolytes (GOLYTELY) 236-22.74-6.74 -5.86 gram suspension Take 4,000 mL by mouth one time only for 1 dose. Refer to printed prep instructions from your provider. No current facility-administered medications for this visit. ALLERGIES: Patient has no known allergies. 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 Tameka Lazar Living will in place 11/07/2021 PAULETTE Abebe () Medicare annual wellness visit, initial 11/07/2021 Medicare wellness Part B: 04/10/2021 Last done : 11/07/2021 Mitral valve prolapse Mitral valve regurgitation Mixed hyperlipidemia Nontoxic single thyroid nodule 05/13/2021 S/p partial thyroidectomy 09/2021 SUSI (obstructive sleep apnea) 05/09/2021 Was able to get off CPAP after weight loss. Postoperative hypothyroidism 11/07/2021 Stage 3a chronic kidney disease (HCC) 11/20/2022 PAST SURGICAL HISTORY PAST SURGICAL HISTORY Procedure Laterality Date COLONOSCOPY FLX DX W/COLLJ SPEC WHEN PFRMD 07/21/2007 Colonoscopy COLONOSCOPY GEN ANES dr. Lazar. repeat in 5 years ECHO 10/05/2020 LEFT HEART CATH,PERCUTANEOUS aprox 03/2014 STRESS TEST 10/10/2020 exercise with NM images THYROIDECTOMY Left left thyroid lobectomy TOTAL HIP REPLACEMENT Left TOTAL HIP REPLACEMENT Right FAMILY HISTORY FAMILY HISTORY Problem Relation Age of Onset Hypertension Mother Stroke Mother Melanoma Father Kidney failure Father Breast Cancer Sister Cancer Brother mets to brain Lung Cancer Brother Anesthesia Problems No Family History SOCIAL HISTORY Social History Tobacco Use Smoking status: Never Smokeless tobacco: Former Types: Chew Quit date: 1980 Vaping Use Vaping status: Never Used Substance Use Topics Alcohol use: Yes Comment: 2-3 Beers a month Drug use: Never REVIEW OF SYMPTOMS: REVIEW OF SYSTEMS: General: The patient denies fatigue, denies weight loss, denies weight gain, denies feeling hot, and fe (more content not included)... Normal [facility] PT D/C Summary (1)on 025 PT D/C Summary (1) [facility] Physical [facility] [address] [place] [address]. [address] [place] [address] / REHABILITATION SERVICES DISCHARGE SUMMARY MR#: [id number] Acct: [id number] Name: ALEXANDRIA SAUER Rep #: [id number] : 1955 69 From: Sadaf Webb MPT Referring Dr.: LAURA Kelly Status: REG R CR Insurance: MEDICARE PART A B [facility] Discharge Summary D/C summary: It has been my pleasure to treat ALEXANDRIA SAUER referred by LAURA Kelly, with the diagnosis of L THR in 2018 for a total of 9 visit(s). Discharge Date: 01/18/25 Please see the following information for a summary of their discharge status. Subjective Subjective: Walked over a mile on the TM and more groin pain than Quad pain Pain L hip pain: Pain Intensity (Out of 10): 0 Back: Pain Intensity (Out of 10): 2 Overall Improvement % Improvement: 75 Objective Objective/Function: R hip ext 15,3 and L 14.1 Tight HS B instructed pt in green strap HS stretches Improved hip flexor flexibility Goals Goal 1:: I HEP Goal Progress: Goal Met Goal 2:: Increase flexibility of B Hip flexors (THR H/O) Goal Progress: Goal Met Goal 3:: Be able to walk 4-5 miles without hip pain/back pain Goal Progress: Progressing Goal 4:: Increase hip ext strength (at the time of the eval: R hip ext 14,3 and L 13.2) Goal Progress: Goal Met Plan Plan: DC PT to HEP D/C Information Discharge Comments: DC PT to HEP d/c sentence: If there are questions or concerns regarding this patient's physical therapy, please feel free to call me at [phone]. Thank you for the referral of this patient. Sincerely, Sadaf Webb, ANDI Balance/Gait/Functional tests Balance/Special Test Scores WOMAC Total Score: 22 WOMAC Percentage: 77.0900 Improvement % Improvement: 75 01/18/25 1051 CC: LAURA Kelly; Dr. Bro Easton MD Signed Normal [facility] Inital Evaluation (1) - PTon 12-19-2024 Inital Evaluation (1) - PT [facility] [address] [place] [address] / REHABILITATION SERVICES INITIAL EVALUATION MR#: [id number] Acct: [id number] Name: ALEXANDRIA SAUER Rep #: [id number] : 1955 69 From: Sadaf ESCAMILLA Referring Dr.: LAURA Kelly Status: REG R CR Insurance: MEDICARE PART A B [facility] Patient's Visit Information Visit Information Visit Information: ALEXANDRIA SAUER is a 69 year old M referred to Physical Therapy by LAURA Kelly with a diagnosis of L THR in 2018. Date of Evaluation: 12/19/24 Physical Therapist: ANDI Carrero Visit Plan Frequency: 2x /Week Duration: 6 Weeks Plan: Pt has had B THR (2017/2018) Thinking lower cross syndrome (tight hip flexors and LB extensors and weak abdominals/Glutes) 2X/ week for 6 weeks for foam rolling of B TFL/Hip flexors/Quad and stretching as well, Pelvic tilt and neutral spine core stability/abdominal strength, glut strength with HEP HEP: prone with strap Quad stretches, Bridges, Pelvic tilt in standing and sitting Subjective Subjective: Pt had a L THR in 2018. He has had both hips done (2017 and 2018). This past winter he did a lot of treadmill but occ it would bother him he would get some pain down the front of the leg and into his groin. He does 5 mile 4-5X/ week and he will get pain and throbbing about 1 mile in. It was the feeling he had right before the hip replacement. It only flares up with straight walking. It does not bother him with pickleball twice a week. Once his front starts flaring up then it goes into his back. Pain L hip pain: Pain Intensity (Out of 10): 0 Objective Objective: Gait: walks with flexed trunk LE MMT: R hip flex 12.9 and L 18.9 R Knee ext 19.7 and L 22.1 R knee flex 10.1 and L 10 R hip ABD 15.3 and L 15 R hip ext 14,3 and L 13.2 Tight HIP Flexors B and TFL on the L (very tender to palpation) Tight B HS Palpation: tight and tender B L spine paraspinals, L TFL Balance/Special Test Scores WOMAC Total Score: 24 WOMAC Percentatge: 75.0000 Goals Goal 1:: I HEP Goal Time Frame: 6-8 Weeks Goal 2:: Increase flexibility of B Hip flexors (THR H/O) Goal Time Frame: 6-8 Weeks Goal 3:: Be able to walk 4-5 miles without hip pain/back pain Goal Time Frame: 6-8 Weeks Goal 4:: Increase hip ext strength (at the time of the eval: R hip ext 14,3 and L 13.2) Goal Time Frame: 6-8 Weeks Rehabilitation Potential Rehabilitation Potential: Good Anticipated Interventions Patient/Client Instruction: Educate patient on: Condition and Plan of Care For the Purpose of:: To decrease pain, To increase ROM, To improve nutrient delivery to tissue, To improve muscle performance and motor function, To improve ability to perform ADL's, To increase tolerance to activity/condition/position , To improve performance and independence with ADL's, To decrease level of supervision to perform tasks, To improve ability of physical actions for home/community/work/leisure , To improve gait and locomotor functions, To improve health of tissue, To decrease soft tissue restriction and To increase flexibility/ROM Therapeutic Exercise to Include: Strength training, Postural training, Flexibilty training, Gait and locomotor training, Neuromotor development, Passive ROM, Active ROM and Dynamic Lumbar Stabilization For the Purpose of:: To decrease pain, To increase ROM, To improve nutrient delivery to tissue, To improve muscle performance and motor function, To improve ability to perform ADL's, To increase tolerance to activity/condition/position , To improve performance and independence with ADL's, To decrease level of supervision to perform tasks, To improve ability of physical actions for home/community/work/leisure , To improve gait and locomotor functions, To improve health of tissue, To decrease soft tissue restriction and To increase flexibility/ROM Functional Training to Include: Gait training For the Purpose of:: To improve gait and locomotor functions Manual Therapy Techniques to Include: Passive ROM and Soft tissue mobilization For the Purpose of:: To decrease pain, To increase ROM, To improve nutrient delivery to tissue, To improve muscle performance and motor function, To improve ability to perform ADL's, To increase tolerance to activity/condition/position , To improve performance and independence with ADL's, To decrease level of supervision to perform tasks, To improve ability of physical actions for home/community/work/leisure , To improve gait and locomotor functions, To improve health of tissue, To decrease soft tissue restriction and To increase flexibility/ROM Text: Thank you for the opportunity to evaluate your patient. For Medicare and Medicare HMO plans, please review the plan of care and approve it. It will need to be FAXED BACK to (more content not included)... Normal [facility] CNOVon 12-16-2024 CNOV Office Visit (GENSWS ) ALEXANDRIA SAUER ([id number]) 1955 M Date Time Provider Department 12/16/24 11:30 AM SHANNAN NOEL During your visit today, we recorded the following information about you: Pulse Respiration Blood pressure Weight 58/minute 14/minute 109/72 84.8 kg Shannan Noel APRN.PHOTOGRAMMETRIC ENGINEER 12/16/2024 11:47 AM Signed HISTORY AND PHYSICAL Alexandria Sauer : 1955 REFERRING PHYSICIAN: Bro Easton [address] [place] [id number] CHIEF COMPLAINT: Patient presents with: Consult: Here for 5 year colonoscopy consult HPI: Alexandria Braga is a 69 year old male referred for endoscopy. Alexandria Braga notes due for screening colonoscopy- hx of polyps (2019). Alexandria Braga denies abdominal pain.. Alexandria Braga denies diarrhea. Alexandria Braga denies constipation. Alexandria Braga denies a change in bowel habits. Alexandria Braga denies melena. Alexandria Braga denies bright red blood per rectum. Alexandria S denies hemorrhoids. Alexandria Braga denies family history of colon issues. Alexandria S denies heartburn. Alexandria Braga denies dysphagia. Alexandria Braga denies a history of ulcers/ peptic ulcer disease. Efrain follows with [facility] for HTN, MVP, HLD. Next OV 02/2025. Last ECHO 02/2024 EF: He denies CP, SOB, dizziness, palpitations, syncope, edema, recent hospitalizations Other medical hx is significant for SUSI- no longer requiring CPAP, CKD, hypothyroidism and gout. Alexandria Braga has undergone prior endoscopy. Last colonoscopy was 03/06/[address] Lazar at [facility]. Sedation: MAC Impressions : - Hemorrhoids found on perianal exam. - Enlarged prostate found on digital rectal exam. - One 7 mm polyp at the splenic flexure, removed with a cold snare. Resected and retrieved. - One 6 mm polyp in the proximal sigmoid colon, removed with a cold snare. Resected and retrieved. - Diverticulosis in the sigmoid colon MICROSCOPIC DIAGNOSIS A. Splenic flexure polyp, biopsy: Fragments of tubular adenoma. B. Proximal sigmoid polyp, biopsy: Tubular adenoma. SJ:hammad 03/07/20 Current Outpatient Medications Medication Sig allopurinol (ZYLOPRIM) 300 mg tablet Take 1 tablet by mouth once daily. levothyroxine (SYNTHROID) 88 mcg tablet Take 1 tablet by mouth daily at 6 am. naproxen (NAPROSYN) 500 mg tablet Take 1 tablet by mouth two times a day as needed (for pain/inflammation). Take with food. pravastatin (PRAVACHOL) 20 mg tablet Take 1 tablet by mouth once daily. colchicine 0.6 mg tablet Take one tab three times a day till pain resolved or complete the script sildenafil (VIAGRA) 100 mg tablet Take 1 tablet by mouth as needed. metoprolol succinate ER (TOPROL XL) 25 mg 24 hr tablet Take 1 tablet by mouth once daily. aspirin, enteric coated (ASPIRIN, ENTERIC COATED) 81 mg EC tablet Take 81 mg by mouth once daily. peg 3350-Electrolytes (GOLYTELY) 236-22.74-6.74 -5.86 gram suspension Take 4,000 mL by mouth one time only for 1 dose. Refer to printed prep instructions from your provider. No current facility-administered medications for this visit. ALLERGIES: Patient has no known allergies. 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 Tameka Lazar Living will in place 11/07/2021 DPA; Mis () Medicare annual wellness visit, initial 11/07/2021 Medicare wellness Part B: 04/10/2021 Last done : 11/07/2021 Mitral valve prolapse Mitral valve regurgitation Mixed hyperlipidemia Nontoxic single thyroid nodule 05/13/2021 S/p partial thyroidectomy 09/2021 SUSI (obstructive sleep apnea) 05/09/2021 Was able to get off CPAP after weight loss. Postoperative hypothyroidism 11/07/2021 Stage 3a chronic kidney disease (HCC) 11/20/2022 PAST SURGICAL HISTORY Procedure Laterality Date COLONOSCOPY FLX DX W/COLLJ SPEC WHEN PFRMD 07/21/2007 Colonoscopy COLONOSCOPY GEN SALOME Lazar. repeat in 5 years ECHO 10/05/2020 LEFT HEART CATH,PERCUTANEOUS aprox 03/2014 STRESS TEST 10/10/2020 exercise with NM images THYROIDECTOMY Left left thyroid lobectomy TOTAL HIP REPLACEMENT Left TOTAL HIP REPLACEMENT Right FAMILY HISTORY Problem Relation Age of Onset Hypertension Mother Stroke Mother Melanoma Father Kidney failure Father Breast Cancer Sister Cancer Brother mets to brain Lung Cancer Brother Anesthesia Problems No Family History Social History Tobacco Use Smoking status: Never Smokeless tobacco: Former Types: Chew Quit date: 1980 Vaping Use Vaping status: Never Used Substance Use Topics Alcohol use: Yes Comment: 2-3 Be (more content not included)... Normal [facility] CNOVon 12-13-2024 CNOV Office Visit (FAMPWS ) ALEXANDRIA SAUER ([id number]) 1955 M Date Time Provider Department 12/13/24 1:00 PM BRO EASTON FAMPWS During your visit today, we recorded the following information about you: Pulse Respiration Blood pressure Weight 60/minute 16/minute 136/80 86.2 kg Height 1.689 m Bro Easton MD 12/13/2024 3:31 PM Signed Alexandria Omi Sauer is a 69 year old male here for a Medicare wellness visit. Medicare Health Risk Assessment General Health Good Exercise: Minutes/Day 90 min Exercise: Days/Week 5 days Alcohol: Daily Use 2-4 times a month Alcohol: Drinks/Day 1 or 2 Alcohol: 6 or more drinks Never Feel off balance No Concerns: Teeth/Dentures No Concerns: Sexual function No Troubled by feelings None of the above Frequency: Eating healthy diet Several days ADLs requiring help None of the above Safety precautions in home/vehicle Yes Smoke, vape, chews tobacco No Difficulty hearing No Difficulty seeing No Current Providers Specialists: I have reviewed specialist-related care of the patient in the medical record. Current care team: Patient Care Team: Bro Easton MD as PCP - General (Family Medicine) Marie Lopez APRN.YELITZA as Kinesiotherapist (Family Medicine) Kristie Bill PA-C as Kinesiotherapist (Family Medicine) Medical/Family history review Reviewed and updated problem list, medical/surgical/family/soc ial history, medications, and allergies. Opioid use review Opioid Medications (last 90 days) No data to display Anxiety/Depression screening PHQ-2 Score: 0 (Lower risk for depression) JING-7 Score: 0 . Recommendation: no further intervention at this time Cognitive screening Score: 5 Cognitive screening reviewed and No further action needed (score 3-5). Functional Observation Was the patient's Timed Up AND Go test unsteady or >= 12 seconds? No Advance Care Planning Surrogate decision maker and/or advance care plan documented Measurements BP 136/80 Pulse 60 Resp 16 Ht 168.9 cm (5' 6.5) Wt 86.2 kg (190 lb) BMI 30.21 kg/m? Vision Screening: Follows with optometry/ophthalmology Assessment/Plan Medicare annual wellness visit, subsequent (Z00.00) - Counseled on healthy diet and regular exercise - Fall avoidance information provided - Personalized prevention plan provided See below Chief Complaint Patient presents with: Medicare Wellness Exam HPI Alexandria Sauer is a 69 year old male who presents here today for Chronic Medical Conditions. and Medicare Annual Visit. Patient with hx of Cardiomyopathy, HTN, MVP, hyperlipidemia, SUSI- no longer needing treatment, CKD, hypothyroid, and those as below. Patient sees Dr. Olsen next visit 02/2025 - last ECHO 02/2024 - patient has been doing well. No new issues or concerns. [facility]en [facility] due to some hip pain. Past medical history, appointments, medications, allergies reviewed. 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 Tameka Lazar Living will in place 11/07/2021 DPA; Mis () Medicare annual wellness visit, initial 11/07/2021 Medicare wellness Part B: 04/10/2021 Last done : 11/07/2021 Mitral valve prolapse Mitral valve regurgitation Mixed hyperlipidemia Nontoxic single thyroid nodule 05/13/2021 S/p partial thyroidectomy 09/2021 SUSI (obstructive sleep apnea) 05/09/2021 Was able to get off CPAP after weight loss. Postoperative hypothyroidism 11/07/2021 Stage 3a chronic kidney disease (HCC) 11/20/2022 Previous Surgical History PAST SURGICAL HISTORY Procedure Laterality Date COLONOSCOPY FLX DX W/COLLJ SPEC WHEN PFRMD 07/21/2007 Colonoscopy COLONOSCOPY GEN ANES dr. Lazar. repeat in 5 years ECHO 10/05/2020 LEFT HEART CATH,PERCUTANEOUS aprox 03/2014 STRESS TEST 10/10/2020 exercise with NM images THYROIDECTOMY Left left thyroid lobectomy TOTAL HIP REPLACEMENT Left TOTAL HIP REPLACEMENT Right Family History FAMILY HISTORY Problem Relation Age of Onset Hypertension Mother Stroke Mother Melanoma Father Kidney failure Father Breast Cancer Sister Cancer Brother mets to brain Lung Cancer Brother Anesthesia Problems No Family History Patient Allergies ALLERGIES No Known Allergies Current Medications Current Outpatient Medications on File Prior to Visit Medication Sig allopurinol (ZYLOPRIM) 300 mg tablet Take 1 tablet by mouth once daily. levothyroxine (SYNTHROID) 88 mcg tablet Take 1 tablet by mouth daily at 6 am. naproxen (NAPROS (more content not included)... Normal [facility] CBC W Auto Differential pane l (Bld)on 12-06-2024 Basophils (Bld) [#/Vol] 0.04 10*3/uL Normal <0.11 [facility] Comment on above: Order Comment: Speci men Type: BLOOD SPECIMEN Ordering Facility: [facility] Address: [address] [place], [place] [address] Performed By: #### 5 7021-8 #### [facility] CLIA [id number] [address] [address] [place] Basophils/100 WBC (Bld) 0.5 % Normal [facility] Comment on above: Order Comment: Speci men Type: BLOOD SPECIMEN Ordering Facility: [facility] Address: [address] [place] [address] Performed By: #### 5 7021-8 #### [facility] CLIA [id number] [address] [address] [place] Differential cell count method Nom (Bld) Auto Normal [facility] Comment on above: Order Comment: Speci men Type: BLOOD SPECIMEN Ordering Facility: [facility] Address: [address] [place] [address] Performed By: #### 5 7021-8 #### [facility] CLIA [id number] [address] [address] [place] Eosinophils (Bld) [#/Vol] 0.05 10*3/uL Normal <0.46 [facility] Comment on above: Order Comment: Speci men Type: BLOOD SPECIMEN Ordering Facility: [facility] Address: [address] [place] [address] Performed By: #### 5 7021-8 #### [facility] CLIA [id number] [address] [address] [place] Eosinophils/100 WBC (Bld) 0.6 % Normal [facility] Comment on above: Order Comment: Speci men Type: BLOOD SPECIMEN Ordering Facility: [facility] Address: [address] [place] [address] Performed By: #### 5 7021-8 #### [facility] CLIA [id number] [address] [address] [place] Erythrocyte distribution width (RBC) [Ratio] 13.8 % Normal 11.5-15.0 [facility] Comment on above: Order Comment: Speci men Type: BLOOD SPECIMEN Ordering Facility: [facility] Address: [address] [place] [address] Performed By: #### 5 7021-8 #### [facility] CLIA [id number] [address] [address] [place] Hematocrit (Bld) [Volume fraction] 45.2 % Normal 39.0-51.0 [facility] Comment on above: Order Comment: Speci men Type: BLOOD SPECIMEN Ordering Facility: [facility] Address: [address] [place] [address] Performed By: #### 5 7021-8 #### [facility] CLIA [id number] [address] [place] [address] [place] Hemoglobin (Bld) [Mass/Vol] 14.8 g/dL Normal 13.0-17.0 [facility] Comment on above: Order Comment: Speci men Type: BLOOD SPECIMEN Ordering Facility: [facility] Address: [address] [place] [address] Performed By: #### 5 7021-8 #### [facility] CLIA [id number] [address] [place] [address] [place] Immature granulocytes (Bld) [#/Vol] 10*3/uL Normal <0.10 [facility] Comment on above: Order Comment: Speci men Type: BLOOD SPECIMEN Ordering Facility: [facility] Address: [address] [place] [address] Performed By: #### 5 7021-8 #### [facility] CLIA [id number] [address] [place] [address] [place] Immature granulocytes/100 WBC (Bld) 0.2 % Normal [facility] Comment on above: Order Comment: Speci men Type: BLOOD SPECIMEN Ordering Facility: [facility] Address: [address] [place] [address] Performed By: #### 5 7021-8 #### [facility] CLIA [id number] [address] [place] [address] [place] Lymphocytes (Bld) [#/Vol] 0.87 10*3/uL Low 1.00-4.00 [facility] Comment on above: Order Comment: Speci men Type: BLOOD SPECIMEN Ordering Facility: [facility] Address: [address] [place] [address] Performed By: #### 5 7021-8 #### [facility] CLIA [id number] [address] [place] [address] [place] Lymphocytes/100 WBC (Bld) 10.4 % Normal [facility] Comment on above: Order Comment: Speci men Type: BLOOD SPECIMEN Ordering Facility: [facility] Address: [address] [place] [address] Performed By: #### 5 7021-8 #### [facility] CLIA [id number] [address] [place] [address] [place] MCH (RBC) [Entitic mass] 31.4 pg Normal 26.0-34.0 [facility] Comment on above: Order Comment: Speci men Type: BLOOD SPECIMEN Ordering Facility: [facility] Address: [address] [place] [address] Performed By: #### 5 7021-8 #### [facility] CLIA [id number] [address] [place] [address] [place] MCHC (RBC) [Mass/Vol] 32.7 g/dL Normal 30.5-36.0 [facility] Comment on above: Order Comment: Speci men Type: BLOOD SPECIMEN Ordering Facility: [facility] Address: [address] [place] [address] Performed By: #### 5 7021-8 #### [facility] CLIA [id number] [address] [place] [address] [place] MCV (RBC) [Entitic vol] 96.0 fL Normal 80.0-100.0 [facility] Comment on above: Order Comment: Speci men Type: BLOOD SPECIMEN Ordering Facility: [facility] Address: [address] [place] [address] Performed By: #### 5 7021-8 #### [facility] CLIA [id number] [address] [place] [address] [place] Monocytes (Bld) [#/Vol] 0.60 10*3/uL Normal <0.87 [facility] Comment on above: Order Comment: Speci men Type: BLOOD SPECIMEN Ordering Facility: [facility] Address: [address] [place] [address] Performed By: #### 5 7021-8 #### [facility] CLIA [id number] [address] [place] [address] [place] Monocytes/100 WBC (Bld) 7.2 % Normal [facility] Comment on above: Order Comment: Speci men Type: BLOOD SPECIMEN Ordering Facility: [facility] Address: [address] [place] [address] Performed By: #### 5 7021-8 #### [facility] CLIA [id number] [address] [place] [address] [place] Neutrophils (Bld) [#/Vol] 6.81 10*3/uL Normal 1.45-7.50 [facility] Comment on above: Order Comment: Speci men Type: BLOOD SPECIMEN Ordering Facility: [facility] Address: [address] [place] [address] Performed By: #### 5 7021-8 #### [facility] CLIA [id number] [address] [place] [address] [place] Neutrophils/100 WBC (Bld) 81.1 % Normal [facility] Comment on above: Order Comment: Speci men Type: BLOOD SPECIMEN Ordering Facility: [facility] Address: [address] [place] [address] Performed By: #### 5 7021-8 #### [facility] CLIA [id number] [address] [place] [address] [place] Nucleated RBC (Bld) [#/Vol] 10*3/uL Normal <0.01 [facility] Comment on above: Order Comment: Speci men Type: BLOOD SPECIMEN Ordering Facility: [facility] Address: [address] [place] [address] Performed By: #### 5 7021-8 #### [facility] CLIA [id number] [address] [place] [address] [place] Nucleated RBC/100 WBC (Bld) [Ratio] 0.0 /100 WBC Normal [facility] Comment on above: Order Comment: Speci men Type: BLOOD SPECIMEN Ordering Facility: [facility] Address: [address] [place] [address] Performed By: #### 5 7021-8 #### [facility] CLIA [id number] [address] [place] [address] [place] Platelet mean volume (Bld) [Entitic vol] 10.8 fL Normal 9.0-12.7 [facility] Comment on above: Order Comment: Speci men Type: BLOOD SPECIMEN Ordering Facility: [facility] Address: [address] [place] [address] Performed By: #### 5 7021-8 #### [facility] CLIA [id number] [address] [place] [address] [place] Platelets (Bld) [#/Vol] 230 10*3/uL Normal 150-400 [facility] Comment on above: Order Comment: Speci men Type: BLOOD SPECIMEN Ordering Facility: [facility] Address: [address] [place] [address] Performed By: #### 5 7021-8 #### [facility] CLIA [id number] [address] [place] [address] [place] RBC (Bld) [#/Vol] 4.71 10*6/uL Normal 4.20-6.00 [facility] Comment on above: Order Comment: Speci men Type: BLOOD SPECIMEN Ordering Facility: [facility] Address: [address] [place] [address] Performed By: #### 5 7021-8 #### [facility] CLIA [id number] [address] [place] [address] [place] WBC (Bld) [#/Vol] 8.39 10*3/uL Normal 3.70-11.00 [facility] Comment on above: Order Comment: Speci men Type: BLOOD SPECIMEN Ordering Facility: [facility] Address: [address] [place] [address] Performed By: #### 5 7021-8 #### [facility] CLIA [id number] [address] [place] [address] [place] Comprehensive metabolic 2000 panelon 12-06-2024 Albumin [Mass/Vol] 4.5 g/dL Normal 3.9-4.9 [facility] Comment on above: Order Comment: Speci men Type: BLOOD SPECIMEN Ordering Facility: [facility] Address: [address] [place] [address] Performed By: #### 2 4323-8, LIPNF, 3084-1, 3016-3 #### [facility] CLIA [id number] [address] [place] [address] [place] ALP [Catalytic activity/Vol] 73 U/L Normal 38-113 [facility] Comment on above: Order Comment: Speci men Type: BLOOD SPECIMEN Ordering Facility: [facility] Address: [address] [place] [address] Performed By: #### 2 4323-8, LIPNF, 3084-1, 3016-3 #### [facility] CLIA [id number] [address] [place], [place] [id number] [place] ALT [Catalytic activity/Vol] 23 U/L Normal 10-54 [facility] Comment on above: Order Comment: Speci men Type: BLOOD SPECIMEN Ordering Facility: [facility] Address: [address] [place] [address] Performed By: #### 2 4323-8, LIPNF, 308-1, 3016-3 #### [facility] CLIA [id number] [address] [place] [address] [place] Anion gap [Moles/Vol] 11 mmol/L Normal 8-15 [facility] Comment on above: Order Comment: Speci men Type: BLOOD SPECIMEN Ordering Facility: [facility] Address: [address] [place] [address] Performed By: #### 2 4323-8, LIPNF, 3083-1, 6-3 #### [facility] CLIA [id number] [address] [place] [address] [place] AST [Catalytic activity/Vol] 27 U/L Normal 14-40 [facility] Comment on above: Order Comment: Speci men Type: BLOOD SPECIMEN Ordering Facility: [facility] Address: [address] [place] [address] Performed By: #### 2 4323-8, LIPNF, 3083-1, 3016-3 #### [facility] CLIA [id number] [address] [place] [address] [place] Bilirubin [Mass/Vol] 0.9 mg/dL Normal 0.2-1.3 [facility] Comment on above: Order Comment: Speci men Type: BLOOD SPECIMEN Ordering Facility: [facility] Address: [address] [place], [place] [id number] Performed By: #### 2 4323-8, LIPNF, 308-1, 6-3 #### [facility] CLIA [id number] [address] [place] [address] [place] Calcium [Mass/Vol] 9.7 mg/dL Normal 8.5-10.2 [facility] Comment on above: Order Comment: Speci men Type: BLOOD SPECIMEN Ordering Facility: [facility] Address: [address] [place] [address] Performed By: #### 2 4323-8, LIPNF, 3084-1, 3016-3 #### [facility] CLIA [id number] [address] [place] [address] [place] Chloride [Moles/Vol] 108 mmol/L High 98-107 [facility] Comment on above: Order Comment: Speci men Type: BLOOD SPECIMEN Ordering Facility: [facility] Address: [address] [place] [address] Performed By: #### 2 4323-8, LIPNF, 3084-1, 3016-3 #### [facility] CLIA [id number] [address] [place] [address] [place] CO2 [Moles/Vol] 25 mmol/L Normal 22-30 [facility] Comment on above: Order Comment: Speci men Type: BLOOD SPECIMEN Ordering Facility: [facility] Address: [address] [place] [address] Performed By: #### 2 4323-8, LIPNF, 308-1, 3016-3 #### [facility] CLIA [id number] [address] [place] [address] [place] Creatinine [Mass/Vol] 1.30 mg/dL High 0.73-1.22 [facility] Comment on above: Order Comment: Speci men Type: BLOOD SPECIMEN Ordering Facility: [facility] Address: [address] [place] [address] Performed By: #### 2 4323-8, LIPNF, 3084-1, 3016-3 #### [facility] CLIA [id number] [address] [place] [address] [place] Creatinine and Glomerular filtration rate.predicted panel (S/P/Bld) 60 mL/min/1.73m??? Normal >=60 [facility] Comment on above: Order Comment: Speci men Type: BLOOD SPECIMEN Ordering Facility: [facility] Address: [address] [place] [address] Result Comment: [place] mated Glomerular Filtration Rate (eGFR) is calculated using the 2020 CKD-EPI creatinine equation. This equation utilizes serum creatinine, sex, and age as parameters. The creatinine assay has traceable calibration to isotope dilution-mass spectrometry. Refer to KDIGO guidelines for clinical interpretation. In patients with unstable renal function, e.g. those with acute kidney injury, the eGFR may not accurately reflect actual GFR. Performed By: #### 2 4323-8, LIPNF, 4-1, 6-3 #### [facility] CLIA [id number] [address] [place] [address] [place] Glucose [Mass/Vol] 90 mg/dL Normal 74-99 [facility] Comment on above: Order Comment: [place] coyne Type: BLOOD SPECIMEN Ordering Facility: [facility] Address: [address] [place] [address] Result Comment: The [place] Diabetes Association (ADA) provides guidance for cutoff values for fasting glucose and random glucose. The ADA defines fasting as no caloric intake for at least 8 hours. Fasting plasma glucose results between 100 to 125 mg/dL indicate increased risk for diabetes (prediabetes). Fasting plasma glucose results greater than or equal to 126 mg/dL meet the criteria for diagnosis of diabetes. In the absence of unequivocal hyperglycemia, results should be confirmed by repeat testing. In a patient with classic symptoms of hyperglycemia or hyperglycemic crisis, random plasma glucose results greater than or equal to 200 mg/dL meet the criteria for diagnosis of diabetes. Reference: Standards of Medical Care in Diabetes 2016, [place] Diabetes Association. Diabetes Care. 2016.39(Suppl 1). Performed By: #### 2 4323-8, LIPNF, 3084-1, 3015-3 #### [facility] CLIA [id number] [address] [place] [address] [place] Potassium [Moles/Vol] 4.8 mmol/L Normal 3.7-5.1 [facility] Comment on above: Order Comment: Specchava men Type: BLOOD SPECIMEN Ordering Facility: [facility] Address: [address] [place], [place] [id number] Performed By: #### 2 4323-8, LIPNF, 3084-1, 3016-3 #### [facility] CLIA [id number] [address] [place] [address] [place] Protein [Mass/Vol] 7.2 g/dL Normal 6.3-8.0 [facility] Comment on above: Order Comment: Speci men Type: BLOOD SPECIMEN Ordering Facility: [facility] Address: [address] [place] [address] Performed By: #### 2 4323-8, LIPNF, 3084-1, 3016-3 #### [facility] CLIA [id number] [address] [place] [address] [place] Sodium [Moles/Vol] 144 mmol/L Normal 136-144 [facility] Comment on above: Order Comment: Speci men Type: BLOOD SPECIMEN Ordering Facility: [facility] Address: [address] [place] [address] Performed By: #### 2 4323-8, LIPNF, 3084-1, 3016-3 #### [facility] CLIA [id number] [address] [place] [address] [place] Urea nitrogen [Mass/Vol] 15 mg/dL Normal 9-24 [facility] Comment on above: Order Comment: Speci men Type: BLOOD SPECIMEN Ordering Facility: [facility] Address: [address] [place] [address] Performed By: #### 2 4323-8, LIPNF, 3084-1, 3016-3 #### [facility] CLIA [id number] [address] [place] [address] [place] HbA1c (Bld)on 12-06-2024 Average glucose Estimated from glycated hemoglobin (Bld) [Mass/Vol] 108 mg/dL Normal [facility] Comment on above: Order Comment: Speci men Type: BLOOD SPECIMEN Ordering Facility: [facility] Address: [address] [place] [address] Result Comment: eAG: (Estimated average glucose) is a calculated value from HgbA1c and is outside dealer sales representative of the average blood glucose level in the last 2-3 month period. Performed By: #### 5 5454-3 #### [facility] CLIA [id number] [address] [place] [address] [place] HbA1c (Bld) [Mass fraction] 5.4 % Normal 4.3-5.6 [facility] Comment on above: Order Comment: Speci doretha Type: BLOOD SPECIMEN Ordering Facility: [facility] Address: [address] [place] [address] Result Comment: [place] Diabetes Association guidelines indicate that patients with HgbA1c in the range 5.7-6.4% are at increased risk for development of diabetes, and intervention by lifestyle modification may be beneficial. HgbA1c greater or equal to 6.5% is considered diagnostic of diabetes. Performed By: #### 5 5454-3 #### [facility] CLIA [id number] [address] [place] [address] [place] LIPID PANEL, NONFASTINGon Cholesterol [Mass/Vol] 173 mg/dL Normal <200 [facility] Comment on above: Order Comment: [place] Type: BLOOD SPECIMEN Ordering Facility: [facility] Address: [address] [place] [address] Result Comment: <200 mg/dL, Desirable 200-239 mg/dL, Borderline high >239 mg/dL, High Performed By: #### 2 4323-8, LIPNF, 3084-1, 3016-3 #### [facility] CLIA [id number] [address] [place] [address] [place] HDL CHOLESTEROL, NF 57 mg/dL Normal >39 [facility] Comment on above: Order Comment: [place] co[place] Type: BLOOD SPECIMEN Ordering Facility: [facility] Address: [address] [place] [address] Result Comment: 40-5 9 mg/dL, Acceptable >59 mg/dL, High: Negative risk factor for coronary heart disease <40 mg/dL, Low: Positive risk factor for coronary heart disease Performed By: #### 2 4323-8, ROBIN, 3083-, 3015- #### [facility] CLIA [id number] [address] [facility] [address] [facility] LDL CHOLESTEROL CALCULATED, NF 91 mg/dL Normal <100 [facility] Comment on above: Order Comment: Speci men Type: BLOOD SPECIMEN Ordering Facility: [facility] Address: [address] [place] [address] Result Comment: <100 mg/dL, Optimal 100-129 mg/dL, Near optimal/above optimal 130-159 mg/dL, Borderline high 160-189 mg/dL, High >189 mg/dL, Very high Secondary prevention optimal LDL Cholesterol levels are recommended to be <70 mg/dL LDL cholesterol is calculated using the Arciniega-NIH equation. Performed By: #### 2 4323-8, ROBIN, 3083-08, 3015-10 #### [facility] CLIA [id number] [address] [place] [address] [place] LDL/HDL RATIO, NF 1.60 mg/dL Normal <2.54 [facility] Comment on above: Order Comment: [place] co[place] Type: BLOOD SPECIMEN Ordering Facility: [facility] Address: [address] [place] [address] Result Comment: Refe rence: 1. National Cholesterol Education Program ATP III Guideline At-A-Glance Quick Desk Reference: National Heart, Lung, and Blood [place]. National Institutes of Health. 2001: NIH Publication No. 01-3305. 2. An International Atherosclerosis Society position paper: global recommendations for the management of dyslipidemia: executive summary, Atherosclerosis. 2014: 232(2):410-413. Performed By: #### 2 4323-8, ROBIN, 3083-, 3015- #### [facility] CLIA [id number] [address] [facility] [place] [id number] [place] NON HDL CHOL, NF 116 mg/dL Normal <130 [facility] Comment on above: Order Comment: Speci men Type: BLOOD SPECIMEN Ordering Facility: [facility] Address: [address] [place] [address] Result Comment: <130 mg/dL, Optimal 130-159 mg/dL, Near optimal/above optimal 160-189 mg/dL, Borderline high 190-219 mg/dL, High >219 mg/dL, Very high Secondary prevention optimal non HDL Cholesterol levels are recommended to be <100 mg/dL Performed By: #### 2 4323-8, LIPNF, 3084-1, 3016-3 #### [facility] CLIA [id number] [address] [place] [address] [place] T CHOL/HDL RATIO NF 3.04 mg/dL Normal <5.10 [facility] Comment on above: Order Comment: Speci men Type: BLOOD SPECIMEN Ordering Facility: [facility] Address: [address] [place] [address] Performed By: #### 2 4323-8, LIPNF, 3084-1, 3016-3 #### [facility] CLIA [id number] [address] [place] [address] [place] TRIGLYCERIDES, NF 141 mg/dL Normal <150 [facility] Comment on above: Order Comment: Speci men Type: BLOOD SPECIMEN Ordering Facility: [facility] Address: [address] [place] [address] Result Comment: <150 mg/dL, Normal 150-199 mg/dL, Borderline high 200-499 mg/dL, High >499 mg/dL, Very high Performed By: #### 2 4323-8, LIPNF, 3084-1, 3016-3 #### [facility] CLIA [id number] [address] [place] [address] [place] VLDL CHOLESTEROL, NF 22 mg/dL Normal <30 [facility] Comment on above: Order Comment: Speci men Type: BLOOD SPECIMEN Ordering Facility: [facility] Address: [address] [place] [address] Performed By: #### 2 4323-8, LIPNF, 3084-1, 3016-3 #### [facility] CLIA [id number] [address] [place] [address] [place] PSA SerPl-mCncon 12-06-2024 Prostate specific Ag [Mass/Vol] 1.24 ng/mL Normal <2.60 [facility] Comment on above: Order Comment: Speci men Type: BLOOD SPECIMEN Ordering Facility: [facility] Address: [address] [place] [address] Result Comment: Tota l PSA test methodology used is the Electrochemiluminescence Immunoassay by [employer]. Total PSA values by differing methodologies cannot be interchanged. Performed By: #### 2 857-1 #### [facility] CLIA [id number] [address] [place] [address] [place] TSH SerPl-aCncon 12-06-2024 TSH Qn 0.791 m[IU]/L Normal 0.270-4.200 [facility] Comment on above: Order Comment: Speci men Type: BLOOD SPECIMEN Ordering Facility: [facility] Address: [address] [place] [address] Performed By: #### 2 4323-8, LIPNF, 4-1, 3016-3 #### [facility] CLIA [id number] [address] [place] [address] [place] Urate SerPl-mCncon Urate [Mass/Vol] 4.7 mg/dL Normal 4.0-8.1 [facility] Comment on above: Order Comment: Speci men Type: BLOOD SPECIMEN Ordering Facility: [facility] Address: [address] [place] [address] Performed By: #### 2 4323-8, LIPNF, 3084-1, 3016-3 #### [facility] CLIA [id number] [address] [place] [address] [place] Urinalysis complete panel (U )on 12-06-2024 Bacteria LM.HPF (Urine sed) [#/Area] Negative Normal Negative [facility] Comment on above: Order Comment: Speci men Type: URINE SPECIMEN Ordering Facility: [facility] Address: [address] [place] [address] Performed By: #### 2 4356-8 #### [facility] CLIA [id number] [address] [place] [address] [place] Bilirubin Ql (U) Negative Normal Negative [facility] Comment on above: Order Comment: Speci men Type: URINE SPECIMEN Ordering Facility: [facility] Address: [address] [place] [address] Performed By: #### 2 4356-8 #### [facility] CLIA [id number] [address] [place] [address] [place] Clarity (Unsp spec) Clear Normal Clear [facility] Comment on above: Order Comment: Speci men Type: URINE SPECIMEN Ordering Facility: [facility] Address: [address] [place] [address] Performed By: #### 2 4356-8 #### [facility] CLIA [id number] [address] [place] [address] [place] [facility] Color (U) Yellow Normal Yellow [facility] Comment on above: Order Comment: Speci men Type: URINE SPECIMEN Ordering Facility: [facility] Address: [address] [place] [address] Performed By: #### 2 4356-8 #### [facility] CLIA [id number] [address] [place] [address] [place] Epithelial cells LM.HPF (Urine sed) [#/Area] None Seen Normal [facility] Comment on above: Order Comment: Speci men Type: URINE SPECIMEN Ordering Facility: [facility] Address: [address] [place] [address] Performed By: #### 2 4356-8 #### [facility] CLIA [id number] [address] [place] [address] [place] Glucose Test strip (U) [Mass/Vol] Negative Normal Negative [facility] Comment on above: Order Comment: Speci men Type: URINE SPECIMEN Ordering Facility: [facility] Address: [address] [place] [address] Performed By: #### 2 4356-8 #### [facility] CLIA [id number] [address] [place], [place] [address] [place] Hemoglobin Ql (U) Negative Normal Negative [facility] Comment on above: Order Comment: Speci men Type: URINE SPECIMEN Ordering Facility: [facility] Address: [address] [place] [address] Performed By: #### 2 4356-8 #### [facility] CLIA [id number] [address] [place] [address] [place] Hyaline casts (Urine sed) [#/Area] 4-10 /LPF Abnormal 0 /LPF [facility] Comment on above: Order Comment: Speci men Type: URINE SPECIMEN Ordering Facility: [facility] Address: [address] [place] [address] Performed By: #### 2 4356-8 #### [facility] CLIA [id number] [address] [place], [place] [address] [place] Ketones Ql (U) Negative Normal Negative [facility] Comment on above: Order Comment: Speci men Type: URINE SPECIMEN Ordering Facility: [facility] Address: [address] [place], [place] [id number] Performed By: #### 2 4356-8 #### [facility] CLIA [id number] [address] [place], [place] [address] [place] Leukocyte esterase Test strip Ql (U) Negative Normal Negative [facility] Comment on above: Order Comment: Speci men Type: URINE SPECIMEN Ordering Facility: [facility] Address: [address] [place] [address] Performed By: #### 2 4356-8 #### [facility] CLIA [id number] [address] [place] [address] [place] Nitrite Ql (U) Negative Normal Negative [facility] Comment on above: Order Comment: Speci men Type: URINE SPECIMEN Ordering Facility: [facility] Address: [address] [place] [address] Performed By: #### 2 4356-8 #### [facility] CLIA [id number] [address] [place] [address] [place] pH (U) 5.5 [pH] Normal <8.5 [facility] Comment on above: Order Comment: Speci men Type: URINE SPECIMEN Ordering Facility: [facility] Address: [address] [place] [address] Performed By: #### 2 4356-8 #### [facility] CLIA [id number] [address] [place] [address] [place] Protein (U) [Mass/Vol] Trace Abnormal Negative [facility] Comment on above: Order Comment: Speci men Type: URINE SPECIMEN Ordering Facility: [facility] Address: [address] [place] [address] Performed By: #### 2 4356-8 #### [facility] CLIA [id number] [address] [place] [address] [place] RBC LM.HPF (Urine sed) [#/Area] 0-2 /HPF Normal 0-2 /HPF [facility] Comment on above: Order Comment: Speci men Type: URINE SPECIMEN Ordering Facility: [facility] Address: [address] [place] [address] Performed By: #### 2 4356-8 #### [facility] CLIA [id number] [address] [place] [address] [place] Specific gravity (U) [Rel density] 1.021 Normal 1.005-1.030 [facility] Comment on above: Order Comment: Speci men Type: URINE SPECIMEN Ordering Facility: [facility] Address: [address] [place] [address] Performed By: #### 2 4356-8 #### [facility] CLIA [id number] [address] [place] [address] [place] Urobilinogen Ql (U) 0.2 EU/dL Normal 0.2-1.0 EU/dL [facility] Comment on above: Order Comment: Speci men Type: URINE SPECIMEN Ordering Facility: [facility] Address: [address] [place] [address] Performed By: #### 2 4356-8 #### [facility] CLIA [id number] [address] [place] [address] [place] WBC LM.HPF (Urine sed) [#/Area] 0-5 /HPF Normal 0-5 /HPF [facility] Comment on above: Order Comment: Speci men Type: URINE SPECIMEN Ordering Facility: [facility] Address: [address] [place] [address] Performed By: #### 2 4356-8 #### [facility] CLIA [id number] [address] [place] [address] [place] CNOVon 06-10-2024 CNOV Office Visit (FAMPWS ) ALEXANDRIA SAUER ([id number]) 1955 M Date Time Provider Department 06/10/24 1:20 PM [facility] During your visit today, we recorded the following information about you: Pulse Respiration Blood pressure Weight 64/minute 16/minute 130/80 86.2 kg Kristie Bill PA-C 06/10/2024 2:17 PM Signed Chief Complaint Patient presents with: Follow Up: 6 month HPI Alexandria Sauer is a 69 year old male who presents here today for Chronic Medical Conditions.. Patient with hx of Cardiomyopathy, HTN, MVP, hyperlipidemia, SUSI- no longer needing treatment, CKD, hypothyroid, and those as below. No concerns today No recent hospital or ER visits. Past medical history, appointments, medications, allergies reviewed. 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 Tameka Lazar Living will in place 11/07/2021 DPA; Mis () Medicare annual wellness visit, initial 11/07/2021 Medicare wellness Part B: 04/10/2021 Last done : 11/07/2021 Mitral valve prolapse Mitral valve regurgitation Mixed hyperlipidemia Nontoxic single thyroid nodule 05/13/2021 S/p partial thyroidectomy 09/2021 SUSI (obstructive sleep apnea) 05/09/2021 Was able to get off CPAP after weight loss. Postoperative hypothyroidism 11/07/2021 Stage 3a chronic kidney disease (HCC) 11/20/2022 Previous Surgical History PAST SURGICAL HISTORY Procedure Laterality Date COLONOSCOPY FLX DX W/COLLJ SPEC WHEN PFRMD 07/21/2007 Colonoscopy COLONOSCOPY GEN ANES dr. Lazar. repeat in 5 years ECHO 10/05/2020 LEFT HEART CATH,PERCUTANEOUS aprox 03/2014 STRESS TEST 10/10/2020 exercise with NM images THYROIDECTOMY Left left thyroid lobectomy TOTAL HIP REPLACEMENT Left TOTAL HIP REPLACEMENT Right Family History FAMILY HISTORY Problem Relation Age of Onset Hypertension Mother Stroke Mother Melanoma Father Kidney failure Father Breast Cancer Sister Cancer Brother mets to brain Lung Cancer Brother Anesthesia Problems No Family History Patient Allergies ALLERGIES No Known Allergies Current Medications Current Outpatient Medications on File Prior to Visit Medication Sig levothyroxine (SYNTHROID) 88 mcg tablet Take 1 tablet by mouth daily at 6 am. pravastatin (PRAVACHOL) 20 mg tablet Take 1 tablet by mouth once daily. allopurinol (ZYLOPRIM) 300 mg tablet Take 1 tablet by mouth once daily. naproxen (NAPROSYN) 500 mg tablet Take 1 tablet by mouth two times a day as needed (for pain/inflammation). Take with food. colchicine 0.6 mg tablet Take one tab three times a day till pain resolved or complete the script sildenafil (VIAGRA) 100 mg tablet Take 1 tablet by mouth as needed. metoprolol succinate ER (TOPROL XL) 25 mg 24 hr tablet Take 1 tablet by mouth once daily. aspirin, enteric coated (ASPIRIN, ENTERIC COATED) 81 mg EC tablet Take 81 mg by mouth once daily. No current facility-administered medications on file prior to visit. Social History Social History Tobacco Use Smoking status: Never Smokeless tobacco: Former Types: Chew Quit date: 1980 Vaping Use Vaping status: Never Used Substance Use Topics Alcohol use: Yes Comment: 2-3 Beers a month Drug use: Never Review of Symptoms REVIEW OF SYSTEMS GENERAL: No weight loss, malaise or fevers NECK: Negative for lumps, goiter, pain and significant neck swelling RESPIRATORY: Negative for cough, hemoptysis, wheezing, COPD, dyspnea or shortness of breath CARDIOVASCULAR: Negative for chest pain, leg swelling, CHF or palpitations GI: Negative for abdominal discomfort, blood in stools or black stools, change in bowel habit, heart burn, nausea, vomiting NEURO: No history of headaches, syncope, paralysis, seizures or tremors EXAM: BP 130/80 Pulse 64 Resp 16 Wt 86.2 kg (190 lb) SpO2 98% BMI 30.21 kg/m? General Appearance: Well appearing, alert, in no acute distress, well-hydrated, well nourished.. Neck: Supple, no adenopathy; thyroid symmetric, normal size, no bruits. Lungs: Lungs clear to auscultation. No wheezing, rhonchi, rales.. Heart: RRR without murmur, gallop, or rubs. No ectopy. Extremities: No deformities, edema, skin discoloration, clubbing or cyanosis. Good capillary refill. . Peripheral Pulses: Normal. Health Maintenance List BP Controlled (<130/80) Never done Influenza Vaccine(1) due on 04/10/2024 Covid-19 Vaccine(2023- season) due on 04/10/2024 DTaP,Tdap,Td Vaccine(2 - Td or Tdap) due on 12/08/2024 Shingrix Vacci (more content not included)... Normal [facility] Basic metabolic 2000 panelon 06-01-2024 Anion gap [Moles/Vol] 10 mmol/L Normal 8-15 [facility] Comment on above: Order Comment: Speci men Type: BLOOD SPECIMEN Ordering Facility: [facility] Address: [address] [place] [address] Performed By: #### 2 4323-8, LIPNF, 3084-1, 3016-3 #### [facility] CLIA [id number] [address] [place] [address] [place] Calcium [Mass/Vol] 9.8 mg/dL Normal 8.5-10.2 [facility] Comment on above: Order Comment: Speci men Type: BLOOD SPECIMEN Ordering Facility: [facility] Address: [address] [place] [address] Performed By: #### 2 4323-8, LIPNF, 308-1, 3016-3 #### [facility] CLIA [id number] [address] [place] [address] [place] Chloride [Moles/Vol] 105 mmol/L Normal 98-107 [facility] Comment on above: Order Comment: Speci men Type: BLOOD SPECIMEN Ordering Facility: [facility] Address: [address] [place] [address] Performed By: #### 2 4323-8, LIPNF, 308-1, 3016-3 #### [facility] CLIA [id number] [address] [place], [place] [address] [place] CO2 [Moles/Vol] 27 mmol/L Normal 22-30 [facility] Comment on above: Order Comment: Speci men Type: BLOOD SPECIMEN Ordering Facility: [facility] Address: [address] [place] [address] Performed By: #### 2 4323-8, LIPNF, 3084-1, 3016-3 #### [facility] CLIA [id number] [address] [place] [address] [place] Creatinine [Mass/Vol] 1.25 mg/dL High 0.73-1.22 [facility] Comment on above: Order Comment: Tacos coyne Type: BLOOD SPECIMEN Ordering Facility: [facility] Address: [address] [place] [address] Performed By: #### 2 4323-8, ROBIN, 3084-1, 3015-3 #### [facility] CLIA [id number] [address] [place] [address] [place] Creatinine and Glomerular filtration rate.predicted panel (S/P/Bld) 63 mL/min/1.73m??? Normal >=60 [facility] Comment on above: Order Comment: Tacos coyne Type: BLOOD SPECIMEN Ordering Facility: [facility] Address: [address] [place] [address] Result Comment: [place] mated Glomerular Filtration Rate (eGFR) is calculated using the 2020 CKD-EPI creatinine equation. This equation utilizes serum creatinine, sex, and age as parameters. The creatinine assay has traceable calibration to isotope dilution-mass spectrometry. Refer to KDIGO guidelines for clinical interpretation. In patients with unstable renal function, e.g. those with acute kidney injury, the eGFR may not accurately reflect actual GFR. Performed By: #### 2 4323-8, ROBIN, 3083-1, 3015-3 #### [facility] CLIA [id number] [address] [place], [place] [address] [place] Glucose [Mass/Vol] 77 mg/dL Normal 74-99 [facility] Comment on above: Order Comment: Tacos coyne Type: BLOOD SPECIMEN Ordering Facility: [facility] Address: [address] [place] [address] Result Comment: The [place] Diabetes Association (ADA) provides guidance for cutoff values for fasting glucose and random glucose. The ADA defines fasting as no caloric intake for at least 8 hours. Fasting plasma glucose results between 100 to 125 mg/dL indicate increased risk for diabetes (prediabetes). Fasting plasma glucose results greater than or equal to 126 mg/dL meet the criteria for diagnosis of diabetes. In the absence of unequivocal hyperglycemia, results should be confirmed by repeat testing. In a patient with classic symptoms of hyperglycemia or hyperglycemic crisis, random plasma glucose results greater than or equal to 200 mg/dL meet the criteria for diagnosis of diabetes. Reference: Standards of Medical Care in Diabetes 2016, [place] Diabetes Association. Diabetes Care. 2016.39(Suppl 1). Performed By: #### 2 4323-8, LIPNF, 4-1, 6-3 #### [facility] CLIA [id number] [address] [place] [address] [place] Potassium [Moles/Vol] 4.6 mmol/L Normal 3.7-5.1 [facility] Comment on above: Order Comment: Speci men Type: BLOOD SPECIMEN Ordering Facility: [facility] Address: [address] [place] [address] Performed By: #### 2 4323-8, LIPNF, 3083-, 3015-3 #### [facility] CLIA [id number] [address] [place] [address] [place] Sodium [Moles/Vol] 142 mmol/L Normal 136-144 [facility] Comment on above: Order Comment: Speci men Type: BLOOD SPECIMEN Ordering Facility: [facility] Address: [address] [place] [address] Performed By: #### 2 4323-8, LIPNF, 3083-, 3015-3 #### [facility] CLIA [id number] [address] [place], [place] [address] [place] Urea nitrogen [Mass/Vol] 19 mg/dL Normal 9-24 [facility] Comment on above: Order Comment: Speci men Type: BLOOD SPECIMEN Ordering Facility: [facility] Address: [address] [place] [address] Performed By: #### 2 4323-8, LIPNF, 3083-, 3015-3 #### [facility] CLIA [id number] [address] [place] [address] [place] HbA1c (Bld)on 06-01-2024 Average glucose Estimated from glycated hemoglobin (Bld) [Mass/Vol] 108 mg/dL Normal [facility] Comment on above: Order Comment: Tacos coyne Type: BLOOD SPECIMEN Ordering Facility: [facility] Address: [address] [place] [address] Result Comment: eAG: (Estimated average glucose) is a calculated value from HgbA1c and is outside dealer sales representative of the average blood glucose level in the last 2-3 month period. Performed By: #### 2 4323-8, ROBIN, 3083-1, 3015-3 #### [facility] CLIA [id number] [address] [place] [address] [place] HbA1c (Bld) [Mass fraction] 5.4 % Normal 4.3-5.6 [facility] Comment on above: Order Comment: Tacos coyne Type: BLOOD SPECIMEN Ordering Facility: [facility] Address: [address] [place] [address] Result Comment: Amer [place] Diabetes Association guidelines indicate that patients with HgbA1c in the range 5.7-6.4% are at increased risk for development of diabetes, and intervention by lifestyle modification may be beneficial. HgbA1c greater or equal to 6.5% is considered diagnostic of diabetes. Performed By: #### 2 4323-8, LIPOFELIA, 3083-1, 3015-3 #### [facility] IA [id number] [address] [place] [address] [place] LIPID PANEL, NONFASTINGon Cholesterol [Mass/Vol] 147 mg/dL Normal <200 [facility] Comment on above: Order Comment: Tacos coyne Type: BLOOD SPECIMEN Ordering Facility: [facility] Address: [address] [place] [address] Result Comment: <200 mg/dL, Desirable 200-239 mg/dL, Borderline high >239 mg/dL, High Performed By: #### 2 4323-8, LIPNF, 3084-1, 3016-3 #### [facility] CLIA [id number] [address] [place] HDL CHOLESTEROL, NF 60 mg/dL Normal >39 [facility] Comment on above: Order Comment: Tacos doretha Type: BLOOD SPECIMEN Ordering Facility: [facility] Address: [address] [place] [address] Result Comment: 40-5 9 mg/dL, Acceptable >59 mg/dL, High: Negative risk factor for coronary heart disease <40 mg/dL, Low: Positive risk factor for coronary heart disease Performed By: #### 2 4323-8, LIPNF, 3083-, 3015-3 #### [facility] CLIA [id number] [address] [place] [address] STATES OF [facility] LDL CHOLESTEROL, NF 68 mg/dL Normal <100 [facility] Comment on above: Order Comment: Tacos doretha Type: BLOOD SPECIMEN Ordering Facility: [facility] Address: [address] [place] [address] Result Comment: <100 mg/dL, Optimal 100-129 mg/dL, Near optimal/above optimal 130-159 mg/dL, Borderline high 160-189 mg/dL, High >189 mg/dL, Very high Secondary prevention optimal LDL Cholesterol levels are recommended to be < 70 mg/dL Performed By: #### 2 4323-8, LIPNF, 3083-, 3015-3 #### [facility] CLIA [id number] [address] [place] [address] [place] LDL/HDL RATIO, NF 1.13 mg/dL Normal <2.54 [facility] Comment on above: Order Comment: Abramchava coyne Type: BLOOD SPECIMEN Ordering Facility: [facility] Address: [address] [place] [address] Result Comment: Refe rence: 1. National Cholesterol Education Program ATP III Guideline At-A-Glance Quick Desk Reference: National Heart, Lung, and Blood [place]. National Institutes of Health. 2001: NIH Publication No. 01-3305. 2. An International Atherosclerosis Society position paper: global recommendations for the management of dyslipidemia: executive summary, Atherosclerosis. 2014: 232(2):410-413. Performed By: #### 2 4323-8, LIPOFELIA, 3083-1, 6-3 #### [facility] CLIA [id number] [address] [place] [address] [place] NON HDL CHOL, NF 87 mg/dL Normal <130 [facility] Comment on above: Order Comment: Speci men Type: BLOOD SPECIMEN Ordering Facility: [facility] Address: [address] [place] [address] Result Comment: <130 mg/dL, Optimal 130-159 mg/dL, Near optimal/above optimal 160-189 mg/dL, Borderline high 190-219 mg/dL, High >219 mg/dL, Very high Secondary prevention optimal non HDL Cholesterol levels are recommended to be <100 mg/dL Performed By: #### 2 4323-8, LIPOFELIA, 3083-, 6-3 #### [facility] CLIA [id number] [address] [place] [address] [place] T CHOL/HDL RATIO NF 2.45 mg/dL Normal <5.10 [facility] Comment on above: Order Comment: Tacos men Type: BLOOD SPECIMEN Ordering Facility: [facility] Address: [address] [place] [address] Performed By: #### 2 4323-8, LIPOFELIA, 3083-, 6-3 #### [facility] CLIA [id number] [address] [place] [address] [place] TRIGLYCERIDES, NF 94 mg/dL Normal <150 [facility] Comment on above: Order Comment: Abrami men Type: BLOOD SPECIMEN Ordering Facility: [facility] Address: [address] [place] [address] Result Comment: <150 mg/dL, Normal 150-199 mg/dL, Borderline high 200-499 mg/dL, High >499 mg/dL, Very high Performed By: #### 2 4323-8, LIPNF, 3084-1, 3016-3 #### [facility] CLIA [id number] [address] [place] [address] [place] VLDL CHOLESTEROL, NF 19 mg/dL Normal <30 [facility] Comment on above: Order Comment: Speci men Type: BLOOD SPECIMEN Ordering Facility: [facility] Address: [address] [place] [address] Performed By: #### 2 4323-8, LIPNF, 3084-1, 3016-3 #### [facility] CLIA [id number] [address] [place] [address] [place] TSH SerPl-aCncon 06-01-2024 TSH Qn 1.430 m[IU]/L Normal 0.270-4.200 [facility] Comment on above: Order Comment: Speci men Type: BLOOD SPECIMEN Ordering Facility: [facility] Address: [address] [place] [address] Performed By: #### 2 4323-8, LIPNF, 3084-1, 3016-3 #### [facility] CLIA [id number] [address] [place] [address] [place] MRI FOOT/TOES WO IVCON LEFTo n 12-10-2022 [facility] [place] [facility] FOOT GENERAL 3V AP/LAT/OB L LEFTon 12-10-2022 [facility] ANES POSTPROC EVALon 022 ANES POSTPROC EVAL HNO ID: [id number] Author: Justin Emery MD Service: Anesthesiology Author Type: Anesthesiologist Type: Anesthesia Postprocedure Evaluation Filed: 09/12/2021 5:07 PM Note Text: POST ANESTHESIA EVALUATION NOTE : 1955 Procedure Summary Date: 09/12/21 Room / Location: OR / MM OR Anesthesia Start: 1350 Anesthesia Stop: 1543 Procedure: LOBECTOMY THYROID UNILATERAL; WITH OR WITHOUT ISTHMUSECTOMY (Left Thyroid) Diagnosis: Left thyroid nodule (Left thyroid nodule [E04.1]) Surgeons: Alexy Trent MD Responsible Provider: Justin Emery MD Anesthesia Type: general ASA Status: 3 Anesthesia Type: general Airway Type: ETT Last Vitals Vitals Value Taken Time BP 139/83 09/12/21 1700 Temp 36.4 ?C (97.5 ?F) 09/12/21 1700 Pulse 48 09/12/21 1700 Resp 14 09/12/21 1700 SpO2 99 % 09/12/21 1700 Post Anesthesia Patient Status Patient Evaluation: PACU. PACU/ICU Patient Condition: stable. Anticipated Disposition: inpatient floor planned admission. Neurological Status: aware and responsive. Pulmonary Status: breathing comfortably on room air Airway Control: returned to baseline unsupported. Cardiovascular Status: stable. Pain Management: clinically adequate - multimodal analgesia pain management approach Postoperative Hydration: acceptable. Intraoperative Events: no significant anesthesia events Recommendation: continue current plan of care and further care per PACU/ICU/floor team. Anesthesia Observations No Documentation SIGNATURE: Justin Emery MD PATIENT NAME: Alexandria Sauer DATE: September 12, 2021 TIME: 5:07 PM CSN: [id number] [facility] ANES PRE-OPon 09-12-2021 ANES PRE-OP HNO ID: [id number] Author: Earnestine Leone MD Service: Anesthesiology Author Type: Physician Type: Anesthesia Preprocedure Evaluation Filed: 09/12/2021 1:12 PM Note Text: ANESTHESIOLOGY DAY OF SURGERY NOTE : 1955 Procedure Information Date/Time: 09/12/21 1430 Procedure: LOBECTOMY THYROID UNILATERAL; WITH OR WITHOUT ISTHMUSECTOMY (Left Thyroid) Location: MM OR07 / MM OR Surgeons: Alexy Trent MD Estimated body mass index is 28.43 kg/m? as calculated from the following: Height as of 08/26/21: 172.7 cm (5' 8). Weight as of 08/26/21: 84.8 kg (187 lb). Most recent hematocrit and potassium results: Hematocrit 45.1 08/26/2021 Potassium 4.7 08/26/2021 Relevant Problems ANESTHESIA (+) SUSI (obstructive sleep apnea) CARDIO (+) Essential hypertension, benign (+) Mitral valve prolapse (+) Mitral valve regurgitation NEURO-PSYCH (+) History of colonic polyps PULMONARY (+) SUSI (obstructive sleep apnea) Other (+) Cardiomyopathy, hypertrophic (HCC) (+) Gout (+) Mixed hyperlipidemia I - PHYSICAL EVALUATION AIRWAY Patient intubated: No. Mallampati: II. TM distance: >3 FB. Neck ROM: full ROM without neurological symptoms. Mouth opening: adequate. Short neck: no. Thick neck: no DENTAL Dental findings: teeth intact. Additional exam findings: no II - ANESTHESIA PLAN ASA Score: 3 Anesthetic Plan: general Airway type: ETT NPO Status: adequate Monitoring plan: Standard ASA. Postoperative analgesic plan: parenteral or oral opioids and multimodal analgesia. Anesthetic Risks, Benefits, Alternatives, Personnel Discussed. Consent obtained from: patient.Patient / Surrogate agrees to blood products: yes DNR status not reviewed with patient and/or family prior to surgery. Significant changes in the patient condition since the History and Physical, not otherwise documented in primary service progress note: no. Potential Anesthesia issues that may suggest increased risk of complications or contraindication to planned procedure: none. Vitals Value Taken Time BP 129/89 09/12/21 1302 Pulse Resp 18 09/12/21 1302 Temp 36 ?C (96.8 ?F) 09/12/21 1302 SpO2 100 % 09/12/21 1302 No current facility-administered medications on file as of 09/12/2021. Outpatient Medications as of 09/12/2021 Medication Sig - metoprolol succinate ER (TOPROL XL) 25 mg 24 hr tablet Take 12.5 mg by mouth. - pravastatin (PRAVACHOL) 20 mg tablet Take 20 mg by mouth. - aspirin, enteric coated (ASPIRIN, ENTERIC COATED) 81 mg EC tablet Take 81 mg by mouth once daily. - tamsulosin (FLOMAX) 0.4 mg Take 1 capsule by mouth daily at bedtime. - allopurinol (ZYLOPRIM) 100 mg tablet Take by mouth. - colchicine 0.6 mg tablet Take by mouth. - Tadalafil (CIALIS) 20 mg tab(s) Take by mouth. I have interviewed and examined the patient. I have reviewed the medical record and/or the pre-anesthesia evaluation, pertinent labs, and test results. This contains updated information obtained within 48 hours of Surgery/Procedure. SIGNATURE: Earnestine Leone MD PATIENT NAME: Alexandria Sauer DATE: September 12, 2021 TIME: 1:10 PM CSN: [id number] [facility] BRIEF OP NOTon 09-12-2021 BRIEF OP NOT HNO ID: [id number] Author: Pearl Velásquez MD Service: Endocrine Surgery Author Type: Physician Type: Brief Op Note Filed: 09/12/2021 3:38 PM Note Text: BRIEF OPERATIVE NOTE Patient Name: Alexandria Sauer LOG ID: [id number] Surgery/Procedure Date: 09/12/2021 Surgeon(s)/Proceduralist(s) and Herbologist(s): Surgeon(s) and Role: * Alexy Trent MD - Primary * Pearl Velásquez MD - Resident - Assisting Procedure(s): 1. Intraoperative ultrasound of the neck 2. Left thyroid lobectomy and isthmusectomy Incision/Procedure Start Time: 2:16 PM Incision Close/Procedure End Time: 3:32 PM Anesthesia: General Findings: Large multinodular goiter causing right tracheal deviation Input: See final anesthesia report Output: UOP: Not recorded Estimated Blood Loss: 5 mls Specimens: Specimen ID Type Site Comments Sent To 1 Left thyroid lobe with isthmus Implants: * No implants in log * Drains: None Wound Classification: Class 1, operative wound clean, non-traumatic, with no inflammation encountered, no break in technique, gastrointestinal and genitor-urinary tracts not entered Pre-Op/Pre-Procedure Diagnosis: Multinodular goiter Post-Op/Post-Procedure Diagnosis: same Post-Op Plan: PACU SIGNATURE: Pearl Velásquez MD PATIENT NAME: Alexandria Sauer DATE: 09/12/21 TIME: 3:37 PM PAGER # [phone] [facility] NURSING PROGon 09-12-2021 NURSING PROG HNO ID: [id number] Author: Amna Salamanca RN Service: Nursing Author Type: Registered Nurse Type: Nursing Progress Note Filed: 09/12/2021 6:30 PM Note Text: Nursing Progress Note Patient Name: Alexandria Sauer Patient Location: [id number] Transfer Note: Patient transferred into room/unit [address] from PACU in stable condition. Actions taken: No futher actions taken at this time. Patient belongings with patient This note was completed by: Amna Box [facility] OPERATIVE NOon 09-12-2021 OPERATIVE NO HNO ID: [id number] Author: Alexy Trent MD Service: Endocrine Surgery Author Type: Physician Type: Operative Report Filed: 09/13/2021 6:56 AM Note Text: [facility] - Operative Report ALEXANDRIA SAUER : 1955 AGE: 66. SEX: M PATIENT TYPE: A HOS[facility]: [facility] LOCATION: [facility] ATTENDING PHYSICIAN: Alexy Trent MD CSN NUMBER: [id number] DATE OF SURGERY/PROCEDURE: 09/12/2021 INCISION/PROCEDURE START TIME: Incision 1616 hours. INCISION CLOSE/PROCEDURE END TIME: Completion of skin closure, 1532 hours. PREOPERATIVE DIAGNOSIS: Left substernal goiter. POSTOPERATIVE DIAGNOSIS: Left substernal goiter. SURGEON: Alexy Trent MD JUNIOR FINANCIAL ANALYST: Dr. Pearl Velásquez. SURGERY/PROCEDURE: Left thyroid lobectomy and isthmusectomy for substernal goiter through a cervical approach, intraoperative ultrasonography. ANESTHESIA: General. [facility] . COMPLICATIONS: None. ESTIMATED BLOOD LOSS: 10 mL. SPECIMEN: Left thyroid lobe and isthmus. HISTORY: Patient is a 66-year-old gentleman, who was evaluated for an incidentally discovered left thyroid mass. Ultrasound demonstrated normal 6 cm solid mass within the left lobe of the thyroid gland. This was characterized as a TI-RADS 5 lesion. A TSH measured 1.740. There was a rightward tracheal deviation. Fine-needle aspiration showed atypia of undetermined significance. Parasite molecular profiling was in the benign category. Given its size, with tracheal deviation, he has elected to undergo a left thyroid lobectomy. FINDINGS: Ultrasound evaluation demonstrated a left thyroid lobe that was almost entirely replaced by a 6 cm hypoechoic predominantly solid mass. There was a minor fluid component to the edges, well demarcated. Trachea was deviated 2 cm to the right. Contralateral right lobe was of normal size and uniform fine echotexture. No worrisome lymph nodes were identified in either central neck compartment nor in either jugular chain. At exploration, he was found to have a grossly well-encapsulated mass occupying the left thyroid lobe. The left lower parathyroid gland was located on the lower pole of the left lobe of the thyroid gland and was taken down with of on a vascular pedicle. The left upper parathyroid gland was located in its typical anatomic location, was of a normal size and consistency, and preserved. The left recurrent laryngeal nerve was of medium caliber, ran in its usual anatomic course, and was preserved. Contralateral right lobe was left undisturbed with the musculature undissected above it. No enlarged nodes were identified within the left central neck compartment. There was a thin pyramidal lobe that joined the junction of the isthmus and the left lobe was taken en bloc with the specimen. DESCRIPTION OF PROCEDURE: The patient was taken to the operating room and placed upon the table in the supine position. After induction of general endotracheal anesthesia, beanbag support was used to elevate the thoracic spine. The neck was gently hyperextended. Ultrasound evaluation was performed using an [employer]oka Alpha 6 ultrasound machine with high-frequency linear array small parts transducer. The findings were noted above. The images were electronically archived. The neck was sterilely prepped and draped. A 4.5 cm transverse incision was made over the level of the thyroid isthmus and carried down to the platysma. Small superior and inferior subplatysmal flaps were raised. Strap muscles were divided longitudinally in the midline of the neck, and on the left side of the neck only, the strap muscles were from one another from the anterior surface of the thyroid gland. Superior and inferior border of the thyroid isthmus were dissected. There was a thin pyramidal lobe that joined the junction of the isthmus and left lobe was taken en bloc with the specimen. Using an [employer] Harmonic Scalpel with FOCUS attachment, the individual branches of the inferior thyroid artery and vein on the left were ligated as they entered the gland. The left lower parathyroid gland was located on the lower pole of the left lobe of the thyroid gland and taking down on a vascular pedicle comprised of the inferior thyroid vasculature. The middle thyroid vein branches as well as the individual branches of the superior thyroid artery and vein were ligated as they entered the gland. The left upper parathyroid gland was located well off the thyroid and easily preserved. The left thyroid lobe was then exteriorized through the incision and medially reflected. The left recurrent laryngeal nerve was then identified, and with the nerve under direct vision, the vessels in the ligament of Larios were divided. The remaining attachments between the thyroid isthmus and the trachea were divided with the electrocautery. The Harmonic Scalpel was then used to transect the thy (more content not included)... [facility] SURGICAL PATHOLOGYon 022 SURGICAL PATHOLOGY Specimen #: [id number] Submitting Physician: ALEXY TRENT FINAL DIAGNOSIS Thyroid lobe and isthmus, left, hemithyroidectomy: - Multinodular adenomatous goiter with a dominant nodule (4.0 cm) Varun Langston M.D. (Electronic Signature) SPECIMEN SUBMITTED A: LEFT THYROID LOBE WITH ISTHMUS CLINICAL DATA THYROID LOBECTOMY; LEFT THYROID NODULE GROSS DESCRIPTION Part A: Left thyroid lobe with isthmus Specimen received: In formalin Specimen type: Left hemithyroidectomy Oriented: No Weight: 29.2 grams Size: Overall: 6 x 4.3 x 2.5 cm Left lobe: 5.5 x 4.3 x 2.5 cm Isthmus: 3.7 x 1.5 x 0.6 cm Ink: Blue - External surface of the left lobe [place] - External surface of the isthmus Sectioning: The left lobe is serially sectioned from superior to inferior. The isthmus is serially sectioned from right to left Number of discrete nodules: 1 Nodule #1 Location: Left lobe Size: 4 x 3.5 x 2.5 cm. Description: Multilobulated, toure-pink, solid colloid mass with hemorrhagic, cystic areas comprising approximately 30% of the cut surfaces. The mass is grossly unencapsulated. Gross extrathyroidal extension: No Background thyroid parenchyma: Beefy red, soft and grossly unremarkable. Attached skeletal muscle: No Attached lymph nodes: Not identified Attached parathyroid: Not identified Gross photograph: Yes Applications Systems Analyst sections are submitted as follows: A1-A3 left upper lobe, A4-A6 left middle lobe, A7-A8 left lower lobe, A9 isthmus. [place] 09/13/2021 Gross examination performed at [facility], [facility] [place] [address] Date of Report: 09/16/2021 Date of Procedure: 09/12/2021 Date of Receipt: 09/12/2021 Submitted by: ALEXY [facility] Location: [id number] Diagnostic interpretation performed at [facility], [facility] [place] [address]. CLIA Number: [id number] [facility] Laboratory - Chemistry and C hemistry - challengeon 05-06-2021 Albumin [Mass/Vol] 3.6 g/dL 3.2 - 5.2 g/dL [facility] AST [Catalytic activity/Vol] 22 U/L 15 - 37 U/L [facility] Bilirubin.direct [Mass/Vol] 0.70 mg/dL 0.2 - 1 mg/dL [facility] Bilirubin.direct [Mass/Vol] 0.16 mg/dL 0.00 - 0.30 mg/dL [facility] Cholesterol [Mass/Vol] 162 mg/dL [facility] Cholesterol in HDL [Mass/Vol] 66 mg/dL [facility] Cholesterol in LDL [Mass/Vol] 78 mg/dL [facility] Globulin (S) [Mass/Vol] 3.3 g/dL 2.2 - 4.2 g/dL [facility] Triglyceride [Mass/Vol] 88 mg/dL [facility] No Panel Informationon 05-06 T PROT 6.9 g/dL 6 - 8.5 g/dL [facility] VLDL [facility] Lab Report: Liver Profileon 10-08-2017 Alanine aminotransferase (ALT) 23 U/L Invalid Interpretation Code 16-61 [employer] Work Phone: [phone] Albumin 3.8 g/dL Invalid Interpretation Code 3.2-5.0 [employer] Work Phone: [phone] Alkaline phosphatase (ALP) 60 U/L Invalid Interpretation Code 45-117 [facility] Work Phone: [phone] Aspartate aminotransferase (AST) 16 U/L Invalid Interpretation Code 15-37 [employer] Work Phone: [phone] Bilirubin (direct) 0.15 mg/dL Invalid Interpretation Code 0.00-0.30 [employer] Work Phone: [phone] Bilirubin (total) 0.90 mg/dL Invalid Interpretation Code 0.20-1.00 [employer] Work Phone: [phone] Globulin 3.4 g/dL Invalid Interpretation Code 2.2-4.2 [employer] Work Phone: [phone] Protein 7.2 g/dL Invalid Interpretation Code 6.4-8.2 [employer] Work Phone: [phone] Lab Report: Lipid Profileon 04-09-2017 Cholesterol in HDL mass conc 49 mg/dL Invalid Interpretation Code [employer] Work Phone: [phone] Cholesterol in LDL mass conc 88 mg/dL Invalid Interpretation Code 0-130 [employer] Work Phone: [phone] Cholesterol mass conc 161 mg/dL Invalid Interpretation Code 200 [employer] Work Phone: [phone] Lipoprotein.pre-beta mass conc 24 mg/dL Invalid Interpretation Code 5-40 [employer] Work Phone: [phone] Triglyceride mass conc 121 mg/dL Invalid Interpretation Code [employer] Work Phone: [phone] Lab Report: Liver Profileon 04-09-2017 Albumin mass conc 3.8 g/dL 3.4-5.0 [employer] Work Phone: [phone] ALP enzyme act/vol (Bld) 67 U/L 45-117 [facility] Work Phone: [phone] ALT enzyme act/vol 31 U/L 12-78 [facility] Work Phone: [phone] AST enzyme act/vol 23 U/L 15-37 [facility] Work Phone: [phone] Bilirubin mass conc 0.60 mg/dL 0.20-1.00 [facility] Work Phone: [phone] Bilirubin.direct mass conc 0.10 mg/dL 0.00-0.30 [facility] Work Phone: [phone] Globulin mass conc (S) 3.5 g/dL 2.3-3.5 [facility] Work Phone: [phone] Protein mass conc 7.3 g/dL 6.4-8.2 [facility] Work Phone: [phone] Office Visiton 01-22-2017 Dietary management education, guidance, and counseling (procedure) yes Invalid Interpretation Code [facility] Work Phone: [phone] Documentation of current medications (procedure) Done Invalid Interpretation Code [facility] Work Phone: [phone] Fall risk assessment No Invalid Interpretation Code [facility] Work Phone: [phone] Protein mass conc Done [facility] Work Phone: [phone] Lab Report: Lipid Profileon 10-06-2016 Cholesterol 148 mg/dL 200 [facility] Work Phone: [phone] HDL Cholesterol 52 mg/dL [facility] Work Phone: [phone] LDL Cholesterol 69 mg/dL 0-130 [facility] Work Phone: [phone] Triglyceride 137 mg/dL [facility] Work Phone: [phone] very low density lipoproteins 27 mg/dL 5-40 [facility] Work Phone: [phone] Lab Report: Liver Profileon 10-06-2016 Alanine aminotransferase (ALT) 28 U/L 12-78 [facility] Work Phone: [phone] Albumin 4.0 g/dL 3.4-5.0 [facility] Work Phone: [phone] Alkaline phosphatase (ALP) 57 U/L Invalid Interpretation Code 45-117 [facility] Work Phone: [phone] ALP enzyme act/vol (Bld) 57 U/L 45-117 [facility] Work Phone: [phone] Aspartate aminotransferase (AST) 20 U/L 15-37 [facility] Work Phone: [phone] Bilirubin (direct) 0.15 mg/dL 0.00-0.30 [facility] Work Phone: [phone] Bilirubin (total) 0.80 mg/dL 0.20-1.00 [facility] Work Phone: [phone] Globulin 3.2 g/dL Invalid Interpretation Code 2.3-3.5 [facility] Work Phone: [phone] Globulin mass conc (S) 3.2 g/dL 2.3-3.5 [facility] Work Phone: [phone] Protein 7.2 g/dL 6.4-8.2 [employer] Work Phone: [phone] Append: Cardiac Referralon 1 09-16-2015 Clinical consultation report (record artifact) [id number]^01/24/2016 Invalid Interpretation Code [facility] Phone: [phone] Office Visiton 07-14-[address] [facility] Tobacco smoking status KSIS Invalid Interpretation Code [facility] Phone: [phone] Tobacco smoking status KSIS Never smoker [employer] Phone: [phone] Tobacco use [facility] Never smoker Invalid Interpretation Code [employer] Phone: [phone] Replaced Document: Emre An CG Observationson 03-05-2016 EKG QRS axis 16 deg [facility] Work Phone: [phone] electrocardiogram interpretation Sinus Rhythm -Left atrial enlargement. -Nonspecific ST depression + Negative T-waves -Nondiagnostic -Possible Anterior ischemia. ABNORMAL Invalid Interpretation Code [facility] Work Phone: [phone] GE use only - for [employer] import when terms are not otherwise specified 453 ms Invalid Interpretation Code [facility] Work Phone: [phone] Interpretation Sinus Rhythm -Left a trial enlargement. -Nonspecific ST depression + Negative T-waves -Nondiagnostic -Possible Anterior ischemia. ABNORMAL [employer] Work Phone: [phone] P [place] 43 deg [facility] Work Phone: [phone] P wave axis, electrocardiogram 43 deg Invalid Interpretation Code [facility] Work Phone: [phone] Interval 136 ms [facility] Work Phone: [phone] AK interval, electrocardiogram 136 ms Invalid Interpretation Code [facility] Work Phone: [phone] Pulse (Heart Rate) 61 /min Invalid Interpretation Code [facility] Work Phone: [phone] QRS axis, electrocardiogram 16 deg Invalid Interpretation Code [facility] Work Phone: [phone] QRS Duration 94 ms [facility] Work Phone: [phone] QRS duration, electrocardiogram 94 ms Invalid Interpretation Code [facility] Work Phone: [phone] QT Interval new path ms [facility] Work Phone: [phone] QT interval, electrocardiogram new path ms Invalid Interpretation Code [facility] Work Phone: [phone] QTc [place] 453 ms [facility] Work Phone: [phone] T [place] 150 deg [facility] Work Phone: [phone] T wave axis, electrocardiogram 150 deg Invalid Interpretation Code [facility] Work Phone: [phone] Clinical Lists Updateon 12-08 Left ventricular Ejection fraction 75 % Invalid Interpretation Code [facility] Work Phone: [phone] Office Visiton 12-21-2014 cardiac risk group B Invalid Interpretation Code [facility] Work Phone: [phone] General cardiovascular disease 10Y risk [#] [place] o 6 % Invalid Interpretation Code [facility] Work Phone: [phone] Clinical Lists Update: Prelo aluminum siding applicator 03-21-2014 Anion gap 6 mmol/L Invalid Interpretation Code [facility] Work Phone: [phone] Anion gap molar conc 6 mmol/L [facility] Work Phone: [phone] BUN/Creatinine Ratio 12.3 mg/mg Invalid Interpretation Code [facility] Work Phone: [phone] Chloride 107 mmol/L Invalid Interpretation Code [facility] Work Phone: [phone] CO2 28.0 mmol/L Invalid Interpretation Code [facility] Work Phone: [phone] CO2 ppres (BldV) 28.0 mmol/L [facility] Work Phone: [phone] Creatinine 1.3 mg/dL Invalid Interpretation Code [facility] Work Phone: [phone] Glucose 92 mg/dL Invalid Interpretation Code [facility] Work Phone: [phone] Glucose mass conc 92 mg/dL [facility] Work Phone: [phone] Potassium 3.9 mmol/L Invalid Interpretation Code [facility] Work Phone: [phone] Sodium 141 mmol/L Invalid Interpretation Code [facility] Work Phone: [phone] Urea nitrogen 16 mg/dL Invalid Interpretation Code [facility] Work Phone: [phone]) Clinical Lists Update: Prelo aluminum siding applicator 03-20-2014 Erythrocytes (RBC) 4.71 10*6/uL Invalid Interpretation Code [facility] Work Phone: [phone] Hematocrit (HCT) 43.9 % Invalid Interpretation Code [facility] Work Phone: [phone] Hematocrit Volume Fraction (Bld) 43.9 % [facility] Work Phone: [phone] Hemoglobin (HGB) 14.7 g/dL Invalid Interpretation Code [facility] Work Phone: [phone] MCH 31.2 pg Invalid Interpretation Code [facility] Work Phone: [phone] MCH Entitic mass (RBC) 31.2 pg [facility] Work Phone: [phone] MCHC 33.5 g/dL Invalid Interpretation Code [facility] Work Phone: [phone] MCHC mass conc (RBC) 33.5 g/dL [facility] Work Phone: [phone] MCV 93.2 fL Invalid Interpretation Code [facility] Work Phone: [phone] MCV Entitic volume (RBC) 93.2 fL [facility] Work Phone: [phone] Platelets 217 10*3/mm3 Invalid Interpretation Code [facility] Work Phone: [phone] Platelets #/vol (Bld) 217 10*3/mm3 [facility] Work Phone: [phone] RBC #/vol (Bld) 4.71 10*6/uL [facility] Work Phone: [phone] WBC #/vol (Bld) 7.3 10*3/uL [facility] Work Phone: [phone] WBC (Leukocytes) 7.3 10*3/uL Invalid Interpretation Code [facility] Work Phone: [phone] Vital Signs Date Time Vital Sign Value Performing Clinician Facility 02-07-2025 13:04-0400 Body mass index (BMI) [Ratio] 29.44 kg/m2 Josué Olsen MD Work Phone: [place] 02-07-2025 13:04-0400 Body weight 85.28 kg Josué Olsen MD Work Phone: [place] 02-07-2025 13:04-0400 Diastolic blood pressure 62 mm[Hg] Josué Olsen MD Work Phone: [place] 02-07-2025 13:04-0400 Heart rate 52 /min Josué Olsen MD Work Phone: [place] 02-07-2025 13:04-0400 Systolic blood pressure 124 mm[Hg] Josué Olsen MD Work Phone: [place] 12-16-2024 11:30-0400 Body mass index (BMI) [Ratio] 29.73 kg/m2 Shannan Noel FOREIGN BROADCAST SPECIALIST.PHOTOGRAMMETRIC ENGINEER Work Phone: [facility] 12-16-2024 11:30-0400 Body weight 84.82 kg Shannan Noel FOREIGN BROADCAST SPECIALIST.PHOTOGRAMMETRIC ENGINEER Work Phone: [facility] 12-16-2024 11:30-0400 Diastolic blood pressure 72 mm[Hg] Shannan Mehtair FOREIGN BROADCAST SPECIALIST.PHOTOGRAMMETRIC ENGINEER Work Phone: [facility] 12-16-2024 11:30-0400 Heart rate 58 /min Shannan Sadie FOREIGN BROADCAST SPECIALIST.PHOTOGRAMMETRIC ENGINEER Work Phone: [facility] 12-16-2024 11:30-0400 Respiratory rate 14 /min Shannan Sadie FOREIGN BROADCAST SPECIALIST.PHOTOGRAMMETRIC ENGINEER Work Phone: [facility] 12-16-2024 11:30-0400 SaO2% (BldA) [Mass fraction] 98 % Shannan Sadie FOREIGN BROADCAST SPECIALIST.PHOTOGRAMMETRIC ENGINEER Work Phone: [facility] 12-16-2024 11:30-0400 Systolic blood pressure 109 mm[Hg] Shannan Sadie FOREIGN BROADCAST SPECIALIST.PHOTOGRAMMETRIC ENGINEER Work Phone: [facility] 12-13-2024 13:03-0400 Body height 168.9 cm Bro Easton MD Work Phone: [facility] 12-13-2024 13:03-0400 Body mass index (BMI) [Ratio] 30.21 kg/m2 Bro Easton MD Work Phone: [facility] 12-13-2024 13:03-0400 Body weight 86.18 kg Bro Easton MD Work Phone: [facility] 12-13-2024 13:03-0400 Diastolic blood pressure 80 mm[Hg] Bro Easton MD Work Phone: [facility] 12-13-2024 13:03-0400 Heart rate 60 /min Bro Easton MD Work Phone: [facility] 12-13-2024 13:03-0400 Respiratory rate 16 /min Bro Easton MD Work Phone: [facility] 12-13-2024 13:03-0400 Systolic blood pressure 136 mm[Hg] Bro Easton MD Work Phone: [facility] 06-10-2024 13:22-0400 Body mass index (BMI) [Ratio] 30.21 kg/m2 Kristie Bill PA-C Work Phone: [facility] 06-10-2024 13:22-0400 Body weight 86.18 kg Kristie Bill PA-C Work Phone: [facility] 06-10-2024 13:22-0400 Diastolic blood pressure 80 mm[Hg] Kristie Bill PA-C Work Phone: [facility] 06-10-2024 [id number] Heart rate 64 /min Kristie Bill PA-C Work Phone: [facility] 06-10-2024 [id number] Respiratory rate 16 /min Kristie Bill PA-C Work Phone: [facility] 06-10-2024 13:22-0400 SaO2% (BldA) [Mass fraction] 98 % Kristie Bill PA-C Work Phone: [facility] 06-10-2024 [id number] Systolic blood pressure 130 mm[Hg] Kristie Bill PA-C Work Phone: [facility] 02-04-2024 13:12-0400 Body height 170.2 cm Josué Olsen MD Work Phone: [place] 02-04-2024 13:12-0400 Body mass index (BMI) [Ratio] 29.44 kg/m2 Josué Olsen MD Work Phone: [place] 02-04-2024 13:12-0400 Body weight 85.28 kg Josué Olsen MD Work Phone: [place] 02-04-2024 13:12-0400 Diastolic blood pressure 68 mm[Hg] Josué Olsen MD Work Phone: [place] 02-04-2024 13:12-0400 Heart rate 54 /min Josué Olsen MD Work Phone: [place] 02-04-2024 13:12-0400 SaO2% (BldA) [Mass fraction] 98 % Josué Olsen MD Work Phone: [place] 02-04-2024 13:12-0400 Systolic blood pressure 108 mm[Hg] Josué Olsen MD Work Phone: [place] 12-09-2023 15:48-0400 Body height 168.9 cm Bro Easton MD Work Phone: [facility] 12-09-2023 15:48-0400 Body mass index (BMI) [Ratio] 30.21 kg/m2 Bro Easton MD Work Phone: [facility] 12-09-2023 15:48-0400 Body weight 86.18 kg Bro Easton MD Work Phone: [facility] 12-09-2023 15:48-0400 Diastolic blood pressure 80 mm[Hg] Bro Easton MD Work Phone: [facility] 12-09-2023 15:48-0400 Heart rate 60 /min Bro Easton MD Work Phone: [facility] 12-09-2023 15:48-0400 Respiratory rate 14 /min Bro Easton MD Work Phone: [facility] 12-09-2023 15:48-0400 Systolic blood pressure 130 mm[Hg] Bro Easton MD Work Phone: [facility] 06-03-2023 16:00-0400 Diastolic blood pressure 74 mm[Hg] Bro Easton MD Work Phone: [facility] 06-03-2023 16:00-0400 Systolic blood pressure 118 mm[Hg] Bro Easton MD Work Phone: [facility] 06-03-2023 15:42-0400 Body weight 85.28 kg Bro Easton MD Work Phone: [facility] 06-03-2023 15:42-0400 Heart rate 60 /min Bro Easton MD Work Phone: [facility] 06-03-2023 15:42-0400 Respiratory rate 16 /min Bro Easton MD Work Phone: [facility] 12-14-2022 01:51-0400 Body height 170.18 cm [facility] 12-14-2022 01:51-0400 Body mass index (BMI) [Ratio] 25.3 kg/m2 [facility] 12-14-2022 01:51-0400 Body temperature 96 [degF] [facility] 12-14-2022 01:51-0400 Body weight 73.4 kg [facility] 12-14-2022 01:51-0400 Diastolic blood pressure 86 mm[Hg] [facility] 12-14-2022 01:51-0400 Heart rate 64 /min [facility] 12-14-2022 01:51-0400 Respiratory rate 15 /min [facility] 12-14-2022 01:51-0400 SaO2% (BldA) [Mass fraction] 98 % [facility] 12-14-2022 01:51-0400 Systolic blood pressure 157 mm[Hg] [facility] 12-04-2022 07:40-0400 Body weight 83.46 kg Marie Lopez APRN.PHOTOGRAMMETRIC ENGINEER Work Phone: [facility] 12-04-2022 07:40-0400 Diastolic blood pressure 96 mm[Hg] Marie Lopez APRN.PHOTOGRAMMETRIC ENGINEER Work Phone: [facility] 12-04-2022 07:40-0400 Heart rate 62 /min Marie Lopez APRN.PHOTOGRAMMETRIC ENGINEER Work Phone: [facility] 12-04-2022 07:40-0400 Respiratory rate 16 /min Marie Lopez APRN.PHOTOGRAMMETRIC ENGINEER Work Phone: [facility] 12-04-2022 07:40-0400 Systolic blood pressure 158 mm[Hg] Marie Lopez APRN.PHOTOGRAMMETRIC ENGINEER Work Phone: [facility] 11-20-2022 09:21-0400 Diastolic blood pressure 92 mm[Hg] Bro Easton MD Work Phone: [facility] 11-20-2022 09:21-0400 Systolic blood pressure 138 mm[Hg] Bro Easton MD Work Phone: [facility] 11-20-2022 08:55-0400 Body height 170.2 cm Bro Easton MD Work Phone: [facility] 11-20-2022 08:55-0400 Body weight 80.74 kg Bro Easton MD Work Phone: [facility] 11-20-2022 08:55-0400 Heart rate 58 /min Bro Easton MD Work Phone: [facility] 11-20-2022 08:55-0400 Respiratory rate 16 /min Bro Easton MD Work Phone: [facility] 05-14-2022 09:47-0400 Body weight 81.65 kg Bro Easton MD Work Phone: [facility] 05-14-2022 09:47-0400 Diastolic blood pressure 80 mm[Hg] Bro Easton MD Work Phone: [facility] 05-14-2022 09:47-0400 Heart rate 58 /min Bro Easton MD Work Phone: [facility] 05-14-2022 09:47-0400 Respiratory rate 16 /min Bro Easton MD Work Phone: [facility] 05-14-2022 09:47-0400 Systolic blood pressure 116 mm[Hg] Bro Easton MD Work Phone: [facility] 11-07-2021 08:39-0400 Body height 172.7 cm Bro Easton MD Work Phone: [facility] 11-07-2021 08:39-0400 Body temperature 97.59 [degF] Bro Easton MD Work Phone: [facility] 11-07-2021 08:39-0400 Body weight 85.37 kg Bro Easton MD Work Phone: [facility] 11-07-2021 08:39-0400 Diastolic blood pressure 78 mm[Hg] Bro Easton MD Work Phone: [facility] 11-07-2021 08:39-0400 Heart rate 54 /min Bro Easton MD Work Phone: [facility] 11-07-2021 08:39-0400 Respiratory rate 18 /min Bro Easton MD Work Phone: [facility] 11-07-2021 08:39-0400 SaO2% (BldA) [Mass fraction] 96 % Bro Easton MD Work Phone: [facility] 11-07-2021 08:39-0400 Systolic blood pressure 118 mm[Hg] Bro Easton MD Work Phone: [facility] 01-22-2017 10:03-0400 BMI (Body Mass Index) 29.44 kg/m2 Lia Stefani [facility] Work Phone: 01-22-2017 10:03-0400 BP Diastolic 70 mm[Hg] Lia Marthey [facility] Work Phone: 01-22-2017 10:03-0400 BP Systolic 106 mm[Hg] Lia Marthey [facility] Work Phone: 01-22-2017 10:03-0400 Height 170.18 cm Lia Marthey [facility] Work Phone: 01-22-2017 10:03-0400 Pulse (Heart Rate) 68 /min Lia Marthey [facility] Work Phone: 01-22-2017 10:03-0400 Respiratory Rate 16 /min Lia Marthey [facility] Work Phone: 01-22-2017 10:03-0400 Weight 85.28 kg Lia Marthey [facility] Work Phone: 01-22-2017 10:03-0400 Weight 85.27 kg Lia Marthey [facility] Work Phone: 07-14-2016 15:28-0500 BSA (Body Surface Area) 2.04 m2 Lia Marthey [facility] Work Phone: 03-05-2016 09:23-0400 Heart rate 61 /min Lia Marthey [facility] Work Phone: 06-29-2015 09:15-0500 Height 170.18 cm Lia Ko [facility] Work Phone: Encounters Encounter Date Encounter Type Care Provider Facility Start: 03-29-2025 ambulatory Bro Easton Facility :[facility] Start: 03-06-2025 End: 03-06-2025 Telephone encounter Nahed Lugo RN [facility] [place] Comment on above: Results Start: 03-03-2025 End: 03-03-2025 Telephone encounter Nahed Schmidt RN [facility] [place] Comment on above: Results Start: 02-07-2025 ambulatory BRO Ferreira ty:[facility] Start: 02-07-2025 ambulatory BRO Ferreira ty:[facility] Start: 02-07-2025 End: 02-07-2025 Office outpatient visit 25 minutes Josué Olsen MD Work Phone: [facility] Comment on above: Apical variant hyper trophic cardiomyopathy (Primary Dx); PVC's (premature ventricular contractions); NSVT (nonsustained ventricular tachycardia); Essential hypertension; Hyperlipidemia, unspecified hyperlipidemia type Start: 02-02-2025 End: 02-02-2025 ambulatory SHANNAN SADIE Facility:[facility] Start: 01-18-2025 End: 01-18-[address] Bro Easton MD Work Phone: [facility] Work Phone: Start: 01-18-2025 End: 01-18-2025 Discharged Recurring Reji SANCHEZ -Physical Therapy Work Phone: Start: 12-16-2024 End: 12-16-2024 Patient encounter procedure Shannan Noel APRN.PHOTOGRAMMETRIC ENGINEER Work Phone: General Surgery Comment on above: History of colonic p olyps; Screening for colon cancer Start: 12-16-2024 End: 12-16-2024 ambulatory SHANNAN NOEL Facility:[facility] Start: 12-13-2024 End: 12-13-2024 Patient encounter procedure Bro Easton MD Work Phone: [facility] Comment on above: Encounter for Medica re annual wellness exam (Primary Dx); Essential hypertension, benign; Mixed hyperlipidemia; Postoperative hypothyroidism; Stage 3a chronic kidney disease (HCC); Cardiomyopathy, hypertrophic (HCC); Gout, unspecified cause, unspecified chronicity, unspecified site; Benign prostatic hyperplasia with urinary frequency; ED (erectile dysfunction) of organic origin; Malignant melanoma of scalp (HCC); Advance directive discussed with patient; History of colonic polyps; Screening for colon cancer; Encounter for screening examination for other mental health and behavioral disorders; Screening for depression; Elevated blood sugar Start: 12-13-2024 End: 12-13-2024 ambulatory BRO EASTON Facility:[facility] Start: 12-06-2024 End: 12-06-2024 ambulatory BRO EASTON Facility:[facility] Start: 10-20-2024 End: 10-20-2024 Refill Bro Easton MD Work Phone: [facility] Comment on above: Refill Request Start: 10-14-2024 End: 10-14-2024 Refill Bro Easton MD Work Phone: [facility] Comment on above: Refill Request Start: 06-10-2024 End: 06-10-2024 Patient encounter procedure Kristie Bill PA-C Work Phone: [facility] Comment on above: Essential hypertensi on, benign (Primary Dx); Encounter for immunization; Cardiomyopathy, hypertrophic (HCC); Mixed hyperlipidemia; Stage 3a chronic kidney disease (HCC); Elevated blood sugar; Postoperative hypothyroidism; Prostate disorder; Gout, unspecified cause, unspecified chronicity, unspecified site Start: 06-10-2024 End: 06-10-2024 ambulatory BRO EASTON Facility:[facility] Start: 06-01-2024 End: 06-01-2024 ambulatory BRO EASTON Facility:[facility] Start: 03-03-2024 Chart abstracting Bro rodriguez MD Work Phone: [facility] Comment on above: Outside ECHO Start: 02-04-2024 End: 02-04-2024 Office outpatient visit 25 minutes Josué Olsen MD Work Phone: [facility] [place] Comment on above: Apical variant hyper trophic cardiomyopathy (Primary Dx); PVC's (premature ventricular contractions); NSVT (nonsustained ventricular tachycardia); Hyperlipidemia, unspecified hyperlipidemia type; Nonrheumatic mitral valve prolapse; Nonrheumatic mitral valve insufficiency Start: 01-21-2024 End: 01-21-2024 Telephone encounter Nahed Schmidt RN [facility] [place] Comment on above: Advice Only Start: 12-17-2023 Telephone encounter Kristie daniel PA-C Work Phone: [facility] Comment on above: Results Start: 12-09-2023 End: 12-09-2023 Patient encounter procedure Bro Easton MD Work Phone: [facility] Comment on above: Encounter for Medica re annual wellness exam (Primary Dx); Essential hypertension, benign; Mixed hyperlipidemia; Postoperative hypothyroidism; Cardiomyopathy, hypertrophic (HCC); Stage 3a chronic kidney disease (HCC); Gout, unspecified cause, unspecified chronicity, unspecified site; Elevated blood sugar; Benign prostatic hyperplasia with urinary frequency; ED (erectile dysfunction) of organic origin; Malignant melanoma of scalp (HCC); Advance directive discussed with patient; Encounter for immunization Start: 10-21-2023 Refill Bro mitchell MD Work Phone: [facility] Comment on above: Refill Request Start: 06-03-2023 End: 06-03-2023 Patient encounter procedure Bro Easton MD Work Phone: [facility] Comment on above: Essential hypertensi on, benign (Primary Dx); Mixed hyperlipidemia; Postoperative hypothyroidism; Stage 3a chronic kidney disease (HCC); Cardiomyopathy, hypertrophic (HCC); Gout, unspecified cause, unspecified chronicity, unspecified site; Benign prostatic hyperplasia with urinary frequency; Encounter for immunization; Prostate disorder Start: 05-14-2023 Refill Bro mitchell MD Work Phone: [facility] Comment on above: Refill Request Start: 02-26-2023 End: 02-26-2023 ambulatory [facility] Work Phone: Start: 02-26-2023 End: 02-26-2023 Patient encounter procedure [facility] Work Phone: Start: 12-19-2022 Chart abstracting Bro rodriguez MD Work Phone: [facility] Comment on above: ER F/U Start: 12-15-2022 Telephone encounter Yahir Napoles Work Phone: Podiatry Comment on above: Results Start: 12-14-2022 End: 12-14-2022 Emergency department patient visit [facility] Start: 12-12-2022 ambulatory Yahir Lezamara sánchez Work Phone: Podiatry Comment on above: mri results Start: 12-12-2022 E-mail encounter fro m caregiver Yahir Susan Work Phone: [facility] Start: 12-10-2022 End: 12-10-2022 Subsequent hospital visit by physician [facility] (I-Stat/1.5t) Work Phone: Radiology Comment on above: Mass of left foot [R 22.42] Start: 12-10-2022 End: 12-10-2022 Subsequent hospital visit by physician [facility] Work Phone: Radiology Comment on above: Foot pain, left [[id number] .[id number]] Start: 12-10-2022 End: 12-10-2022 Patient encounter procedure Yahir Lezamalilliam Work Phone: Podiatry Comment on above: Soft tissue mass (Pr imary Dx); Foot pain, left; Bursitis of left foot; Mass of left foot Start: 12-04-2022 End: 12-04-2022 Patient encounter procedure Marie Lopez APRN.PHOTOGRAMMETRIC ENGINEER Work Phone: [facility] Comment on above: Essential hypertensi on, benign (Primary Dx) Start: 11-20-2022 End: 11-20-2022 Patient encounter procedure Bro Easton MD Work Phone: [facility] Comment on above: Encounter for Medica re annual wellness exam (Primary Dx); Essential hypertension, benign; Mixed hyperlipidemia; Postoperative hypothyroidism; Cardiomyopathy, hypertrophic (HCC); Stage 3a chronic kidney disease (HCC); Gout, unspecified cause, unspecified chronicity, unspecified site; Benign prostatic hyperplasia with urinary frequency; Advance directive discussed with patient; Malignant melanoma of scalp (HCC); Encounter for immunization; Foot pain, left Start: 07-28-2022 Chart abstracting Bro rodriguez MD Work Phone: [facility] [place] Start: 05-14-2022 End: 05-14-2022 Patient encounter procedure Bro Easton MD Work Phone: [facility] Comment on above: Essential hypertensi on, benign (Primary Dx); Mixed hyperlipidemia; Postoperative hypothyroidism; Cardiomyopathy, hypertrophic (HCC); Gout, unspecified cause, unspecified chronicity, unspecified site; Benign prostatic hyperplasia with urinary frequency; ED (erectile dysfunction) of organic origin; Encounter for immunization; Prostate disorder; Medication management Start: 02-20-2022 Refill Bro mitchell MD Work Phone: [facility] Comment on above: Refill Request (NEW PHARMACY) Start: 12-21-2021 Telephone encounter Bro Easton MD Work Phone: [facility] Comment on above: Results Start: 11-07-2021 End: 11-07-2021 Patient encounter procedure Bro Easton MD Work Phone: [facility] Comment on above: Medicare annual well ness visit, initial (Primary Dx); Essential hypertension, benign; Mixed hyperlipidemia; Postoperative hypothyroidism; Nontoxic single thyroid nodule; Cardiomyopathy, hypertrophic (HCC); Gout, unspecified cause, unspecified chronicity, unspecified site; SUSI (obstructive sleep apnea); Benign prostatic hyperplasia with urinary frequency; Living will in place; Advance directive discussed with patient; Need for vaccination; Medication management Start: 05-07-2021 End: 05-07-2021 Chart abstracting Kristie Bill PA-C Work Phone: [facility] Comment on above: Abstract (labs) Start: 02-24-2020 Patient encounter status [facility] Start: 06-18-2018 End: 06-18-2018 Patient encounter procedure Other Other NOTES/RESULTS Procedures Date Procedure Procedure Detail Performing Clinician Start: 02-07-2025 Follow-up visit Follow-up JOSUÉ OLSEN Start: 12-13-2024 Adult depression scr eening assessment Bro Easton MD Work Phone: Start: 12-06-2024 Lipid 1996 panel - S dale or Plasma Bro Easton MD Work Phone: Start: 06-10-2024 PFIZER-BIONTE[employer] COVI D-19 VACCINE AGE 12+ YR (COMIRNATY) Kristie Bill PA-C Work Phone: Start: 06-01-2024 Lipid 1996 panel - S dale or Plasma Kristie Bill PA-C Work Phone: Start: 12-09-2023 PFIZER[employer] COVI D-19 VACCINE () AGE 12+ YR Bro Easton MD Work Phone: Start: 12-09-2023 Adult depression scr eening assessment Bro Easton MD Work Phone: Start: 12-02-2023 Lipid 1996 panel - S dale or Plasma Bro Easton MD Work Phone: Start: 06-03-2023 INFLUENZA VACCINE, P RSV FREE, AGE 65+ YR, HIGH DOSE, QUADRIVALENT (FLUZONE HIGH-DOSE) Bro Easton MD Work Phone: Start: 06-03-2023 PFIZER[employer] COVI D-19 VACCINE () AGE 12+ YR Bro Easton MD Work Phone: Start: 05-14-2023 Lipid 1996 panel - S dale or Plasma Bro Easton MD Work Phone: Start: 12-10-2022 Mri lower extrem oth /thn jt w/o contr matrl Yahir Davis Work Phone: Start: 05-03-2023 Radex foot complete minimum 3 views Yahir Davis Work Phone: Start: 05-14-2022 INFLUENZA SEASONAL QUADRIVALENT HIGH DOSE AGE 65+ Bro Easton MD Work Phone: Start: 05-14-2022 [employer] COVI D-19 BIVALENT BOOSTER VACCINE, AGE 12+ YR Bro Easton MD Work Phone: Start: 05-06-2021 Lipid panel [facility] Provid er Start: 03-06-2020 Colonoscopy Bro rodriguez MD Work Phone: Start: 06-18-2018 End: 06-18-2018 HOLTER MONITOR (OUTSIDE) Other Other Start: 10-07-2017 End: 10-09-2017 *Hepatic Function Panel Jsoué Olsen MD Start: 04-06-2017 End: 04-09-2017 *Hepatic Function Panel Josué Olsen MD Start: 04-06-2017 End: 04-09-2017 Lipid panel [AGGREGATE] Josué Olsen MD Start: 01-22-2017 End: 01-22-2017 Dietary management education, guidance, and counseling Lia Ko Start: 01-22-2017 End: 01-22-2017 Follow Up Appt 6 months Josué Olsen MD Start: 01-22-2017 End: 01-22-2017 PFM Josué Olesn MD Start: 07-14-2016 End: 07-14-2016 Follow Up Appt 6 months Josué Olsen MD Start: 07-14-2016 End: 07-14-2016 PFM Josué Olsen MD Start: 07-01-2016 End: 10-06-2016 *Hepatic Function Panel Josué Olsen MD Start: 07-01-2016 End: 10-06-2016 Lipid panel [AGGREGATE] Josué Olsen MD Start: 03-10-2016 End: 03-31-2016 *Hepatic Function Panel Josué Olsen MD Start: 03-10-2016 End: 03-31-2016 Lipid panel [AGGREGATE] Josué Olsen MD Start: 03-05-2016 End: 03-05-2016 Electrocardiogram, complete Josué noel MD Start: 02-20-2016 End: 02-20-2016 Electrocardiogram, complete Josué noel MD Start: 01-23-2016 End: 01-23-2016 Follow Up BP Check Josué Olsen MD Start: 10-02-2015 End: 10-02-2015 *Hepatic Function Panel Josué Olsen MD Start: 10-02-2015 End: 10-02-2015 Lipid panel [AGGREGATE] Josué Olsen MD Start: 06-29-2015 End: 06-29-2015 Follow Up Appt 6 months Josué Olsen MD Start: 06-29-2015 End: 06-29-2015 PFM Josué Olsen MD Start: 03-29-2015 End: 04-06-2015 *Hepatic Function Panel Josué Olsen MD Start: 03-29-2015 End: 04-06-2015 Lipid panel [AGGREGATE] Josué Olsen MD Start: 12-21-2014 End: 12-22-2014 Documentation of current medications Josué Olsen MD Start: 12-21-2014 End: 12-21-2014 Electrocardiogram, complete Josué noel MD Start: 09-10-2014 End: 09-29-2014 *Hepatic Function Panel Josué Olsen MD Start: 09-10-2014 End: 09-29-2014 Lipid panel [AGGREGATE] Josué Olsen MD Start: 06-22-2014 End: 04-09-2015 *Hepatic Function Panel Josué Olsen MD Start: 06-22-2014 End: 06-22-2014 Follow Up Appt 6 months Josué Olsen MD Start: 06-22-2014 End: 04-09-2015 Lipid panel [AGGREGATE] Josué Olsen MD Start: 06-22-2014 End: 06-22-2014 PFM Josué Olsen MD Start: 03-30-2014 End: 03-30-2014 Electrocardiogram, complete Josué noel MD Plan of Treatment Date Care Activity Detail Author Start: 2031 RSV Vaccine (1 - 1-dose 75+ series) RSV Vaccine (1 - 1-dose 75+ series) [facility] Start: 12-06-2029 Lipid panel Lipid Screening [facility] Start: 12-06-2029 Prostate specific antigen measurement Prostate Cancer Screening Discussion [facility] Start: 06-01-2029 Lipid panel Lipid Screening [facility] Start: 12-08-2028 Prostate specific antigen measurement Prostate Cancer Screening Discussion [facility] Start: 12-01-2028 Lipid panel Lipid Screening [facility] Start: 05-14-2028 Lipid 1996 panel - Serum or Plasma Lipid Screening [facility] Start: 05-14-2028 Lipid panel Lipid Screening [facility] Start: 12-07-2027 Diabetes Screening Diabetes Screening [facility] Start: 10-31-2027 LIPID SCREEN LIPID SCREEN [facility] Start: 10-31-2027 PROSTATE CANCER SCREENING DISCUSSION PROSTATE CANCER SCREENING DISCUSSION [facility] Start: 10-31-2027 Prostate specific antigen measurement Prostate Cancer Screening Discussion [facility] Start: 06-01-2027 Diabetes Screening Diabetes Screening [facility] Start: 12-19-2026 LIPID SCREEN L[facility] SCREEN [facility] [facility] Start: 12-15-2026 Diabetes Screening Diabetes Screening [facility] Start: 12-01-2026 Diabetes Screening Diabetes Screening [facility] Start: 05-14-2026 Diabetes Screening Diabetes Screening [facility] Start: 05-10-2026 PROSTATE CANCER SCREENING DISCUSSION PROSTATE CANCER SCREENING DISCUSSION [facility] Start: 05-06-2026 LIPID SCREEN LIPID SCREEN [facility] Start: 02-08-2026 End: 02-08-2026 Patient encounter procedure 02/08/2026 1:00 PM EDT Office Visit [facility] [place] [address] [facility] [address] [place] [address] Josué Olsen MD [address] [facility] [address] [place] [address] [facility] [place] Start: 02-02-2026 Screening for malignant neoplasm of colon COLORECTAL CANCER SCREENING DISCUSSION [place] Start: 12-16-2025 BP Controlled (<130/80) BP Controlled (<130/80) [facility] Start: 12-13-2025 Annual PCP Team Chronic Disease Visit Annual PCP Team Chronic Disease Visit [facility] Start: 12-13-2025 Anxiety Screening Anxiety Screening [facility] Start: 12-13-2025 BP Controlled (<130/80) BP Controlled (<130/80) [facility] Start: 12-13-2025 Covid-19 Vaccine () Covid-19 Vaccine () [facility] Comment on above: Postponed from 12/08/2024 (Not Currently Available) Start: 12-13-2025 Depression Screening Depression Screening [facility] Start: 12-13-2025 Shingrix Vaccine (1 of 2) Shingrix Vaccine (1 of 2) [facility] Comment on above: Postponed from 2006 (Insurance Cov erage) Start: 12-13-2025 Urine microalbumin profile DTaP,Tdap,Td Vaccine (2 - Td or Tdap) [facility] Comment on above: Postponed from 10/10/2022 (Insurance Cov erage) Start: 12-06-2025 Creatinine measurement Serum Creatinine [facility] Start: 12-04-2025 DIABETES SCREEN DIABETES SCREEN [facility] Start: 10-30-2025 DIABETES SCREEN DIABETES SCREEN [facility] Start: 06-15-2025 End: 06-15-2025 Patient encounter procedure 06/15/2025 11:40 AM EST Office Visit Family [facility] [address] [place] [address] Marie Lopez APRN.PHOTOGRAMMETRIC ENGINEER [address] [place] [address] 6 month follow up [facility] Comment on above: 6 month follow up Start: 06-10-2025 Annual PCP Team Chronic Disease Visit Annual PCP Team Chronic Disease Visit [facility] Start: 06-02-2025 End: 09-01-2025 Basic metabolic 2000 panel - Serum or Plasma BASIC METABOLIC PANEL Lab Routine Essential hypertension, benign Mixed hyperlipidemia Stage 3a chronic kidney disease (HCC) Expected: 06/02/2025, Expires: 09/01/2025 [facility] Comment on above: Expected: 06/02/2025, Expires: Start: 06-02-2025 End: 09-01-2025 Hemoglobin A1c in Blood HEMOGLOBIN A1C Lab Routine Elevated blood sugar Expected: 06/02/2025, Expires: 09/01/2025 [facility] Work Phone: Comment on above: Expected: 06/02/2025, Expires: Start: 06-02-2025 End: 09-01-2025 LIPID PANEL, NONFASTING LIPID PANEL, NONFASTING Lab Routine Mixed hyperlipidemia Expected: 06/02/2025, Expires: 09/01/2025 [facility] Comment on above: Expected: 06/02/2025, Expires: Start: 06-02-2025 End: 09-01-2025 Thyrotropin [Units/volume] in Serum or Plasma THYROID STIMULATING HORMONE Lab Routine Postoperative hypothyroidism Expected: 06/02/2025, Expires: 09/01/2025 [facility] Comment on above: Expected: 06/02/2025, Expires: Start: 06-01-2025 Creatinine measurement Serum Creatinine [facility] Start: 04-27-2025 End: 04-27-2025 Patient encounter procedure 04/27/2025 1:30 PM EDT Office Visit [facility] [address] [place] [address] Deepika Clifford MBBS [address] [facility] [address] [place] [id number] [facility] Start: 04-10-2025 Influenza vaccination INFLUENZA VACCINE (#1) [facility] Start: 03-06-2025 Colonoscopy COLONOSCOPY [facility] Start: 03-06-2025 COLORECTAL CANCER SCREENING COLORECTAL CANCER SCREENING [facility] Start: 03-06-2025 Screening for malignant neoplasm of colon [facility] Start: 02-07-2025 End: 02-07-2025 Patient encounter procedure 02/07/2025 1:00 PM EDT Office Visit [facility] [address] [id number] Josué Olsen MD [address] [address] [facility] [place] Start: 01-20-2025 End: 01-20-2025 Patient encounter procedure 01/20/2025 10:30 AM EDT Appointment Ambulatory Surgery [address] [place] [address] Richard Gonzalez MD [address] [place] [address] History of colonic polyps [Z86.0100]; Screening for colon cancer [Z12.11] [facility] Comment on above: History of colonic polyps [Z86.0100]; Sc reening for colon cancer [Z12.11] Start: 12-19-2024 DIABETES SCREEN DIABETES SCREEN [facility] Start: 12-16-2024 End: 12-16-2024 Patient encounter procedure 12/16/2024 11:30 AM EDT Office Visit General Surgery [address] [place] [address] Shannan Noel APRN.PHOTOGRAMMETRIC ENGINEER [address] [place] [address] Dx: History of colonic polyps [Z86.0100]; Screening for colon cancer [Z12.11] General Surgery Comment on above: Dx: History of colonic polyps [Z86.0100] ; Screening for colon cancer [Z12.11] Start: 12-13-2024 End: 12-13-2024 Patient encounter procedure [facility] Comment on above: Medicare wellness / 6 mo follow up Start: 12-08-2024 Annual PCP Team Chronic Disease Visit Annual PCP Team Chronic Disease Visit [facility] Start: 12-08-2024 Anxiety Screening Anxiety Screening [facility] Start: 12-08-2024 End: 03-09-2025 CBC W Auto Differential panel - Blood COMPLETE BLOOD COUNT AND DIFFERENTIAL Lab Routine Essential hypertension, benign Stage 3a chronic kidney disease (HCC) Expected: 12/08/2024, Expires: 03/09/2025 [facility] Comment on above: Expected: 12/08/2024, Expires: Start: 12-08-2024 End: 03-09-2025 Comprehensive metabolic 2000 panel - Serum or Plasma COMPREHENSIVE METABOLIC PANEL Lab Routine Essential hypertension, benign Stage 3a chronic kidney disease (HCC) Expected: 12/08/2024, Expires: 03/09/2025 [facility] Comment on above: Expected: 12/08/2024, Expires: Start: 12-08-2024 Covid-19 Vaccine () Covid-19 Vaccine () [facility] Start: 12-08-2024 Depression Screening Depression Screening [facility] Start: 12-08-2024 End: 03-09-2025 Hemoglobin A1c in Blood HEMOGLOBIN A1C Lab Routine Elevated blood sugar Expected: 12/08/2024, Expires: 03/09/2025 [facility] Comment on above: Expected: 12/08/2024, Expires: Start: 12-08-2024 End: 03-09-2025 LIPID PANEL, NONFASTING LIPID PANEL, NONFASTING Lab Routine Mixed hyperlipidemia Expected: 12/08/2024, Expires: 03/09/2025 [facility] Comment on above: Expected: 12/08/2024, Expires: Start: 12-08-2024 End: 03-09-2025 Prostate specific Ag [Mass/volume] in Serum or Plasma PROSTATE-SPECIFIC ANTIGEN DIAGNOSTIC Lab Routine Prostate disorder Expected: 12/08/2024, Expires: 03/09/2025 [facility] Comment on above: Expected: 12/08/2024, Expires: Start: 12-08-2024 RSV Vaccine (1 - 1-dose 60+ series) RSV Vaccine (1 - 1-dose 60+ series) [facility] Comment on above: Postponed from 2016 (Insurance Cov erage) Start: 12-08-2024 Shingrix Vaccine (1 of 2) Shingrix Vaccine (1 of 2) [facility] Comment on above: Postponed from 2006 (Insurance Cov erage) Start: 12-08-2024 End: 03-09-2025 Thyrotropin [Units/volume] in Serum or Plasma THYROID STIMULATING HORMONE Lab Routine Postoperative hypothyroidism Expected: 12/08/2024, Expires: 03/09/2025 [facility] Comment on above: Expected: 12/08/2024, Expires: Start: 12-08-2024 End: 03-09-2025 Urate [Mass/volume] in Serum or Plasma URIC ACID Lab Routine Gout, unspecified cause, unspecified chronicity, unspecified site Expected: 12/08/2024, Expires: 03/09/2025 [facility] Work Phone: Comment on above: Expected: 12/08/2024, Expires: Start: 12-08-2024 End: 03-09-2025 Urinalysis complete panel - Urine URINALYSIS, WITH MICROSCOPIC Lab Routine Essential hypertension, benign Expected: 12/08/2024, Expires: 03/09/2025 [facility] Comment on above: Expected: 12/08/2024, Expires: Start: 12-08-2024 Urine microalbumin profile DTaP,Tdap,Td Vaccine (2 - Td or Tdap) [facility] Comment on above: Postponed from 10/10/2022 (Insurance Cov erage) Start: 12-01-2024 Complete blood count Hemoglobin/Hematocrit [facility] Start: 12-01-2024 Creatinine measurement Serum Creatinine [facility] Start: 08-26-2024 DIABETES SCREEN DIABETES SCREEN [facility] Start: 08-10-2024 Advance Directive Discussion Advance Directive Discussion [facility] Start: 06-10-2024 End: 06-10-2024 Patient encounter procedure 06/10/2024 11:40 AM EDT Office Visit Family [facility] [address] [place] [place], [place] [id number] Kristie Bill PA-C [address] [place] [place], [place] [id number] 6 month follow up Family [facility] Comment on above: 6 month follow up Start: 06-03-2024 Annual PCP Team Chronic Disease Visit Annual PCP Team Chronic Disease Visit [facility] Start: 06-03-2024 BP Controlled (<130/80) BP Controlled (<130/80) [place] [facility] Start: 06-03-2024 RSV Vaccine (1 - 1-dose 60+ series) RSV Vaccine (1 - 1-dose 60+ series) [facility] Comment on above: Postponed from 2016 (Insurance Cov erage) Start: 05-27-2024 End: 08-26-2024 Basic metabolic 2000 panel - Serum or Plasma BASIC METABOLIC PANEL Lab Routine Essential hypertension, benign Mixed hyperlipidemia Stage 3a chronic kidney disease (HCC) Expected: 05/27/2024, Expires: 08/26/2024 [facility] Comment on above: Expected: 05/27/2024, Expires: Start: 05-27-2024 End: 08-26-2024 Hemoglobin A1c in Blood HEMOGLOBIN A1C Lab Routine Elevated blood sugar Expected: 05/27/2024, Expires: 08/26/2024 [facility] Comment on above: Expected: 05/27/2024, Expires: Start: 05-27-2024 End: 08-26-2024 LIPID PANEL, NONFASTING LIPID PANEL, NONFASTING Lab Routine Essential hypertension, benign Mixed hyperlipidemia Expected: 05/27/2024, Expires: 08/26/2024 [facility] Comment on above: Expected: 05/27/2024, Expires: Start: 05-27-2024 End: 08-26-2024 Thyrotropin [Units/volume] in Serum or Plasma THYROID STIMULATING HORMONE Lab Routine Postoperative hypothyroidism Expected: 05/27/2024, Expires: 08/26/2024 [facility] Comment on above: Expected: 05/27/2024, Expires: Start: 05-14-2024 Creatinine measurement Serum Creatinine [facility] Start: 05-14-2024 Serum Creatinine Serum Creatinine [facility] Start: 04-10-2024 Influenza vaccination Influenza Vaccine (#1) [facility] Start: 02-04-2024 End: 02-03-2025 Echocardiography ECHOCARDIOGRAM Echocardiography Routine Apical variant hypertrophic cardiomyopathy PVC's (premature ventricular contractions) NSVT (nonsustained ventricular tachycardia) Hyperlipidemia, unspecified hyperlipidemia type Expected: 02/04/2024, Expires: 02/03/2025 [place] Comment on above: Expected: 02/04/2024, Expires: Start: 02-04-2024 End: 02-04-2024 Patient encounter procedure 02/04/2024 1:00 PM EDT Office Visit [facility] [address] [address] Josué Olsen MD [address] [place] [address] [facility] [place] Start: 12-19-2023 ANNUAL PCP TEAM CHRONIC DISEASE VISIT ANNUAL PCP TEAM CHRONIC DISEASE VISIT [facility] Start: 12-09-2023 End: 03-09-2024 Hemoglobin A1c in Blood HEMOGLOBIN A1C Lab Routine Elevated blood sugar Expected: 12/09/2023, Expires: 03/09/2024 [facility] Work Phone: Comment on above: Expected: 12/09/2023, Expires: Start: 12-05-2023 ANNUAL PCP TEAM CHRONIC DISEASE VISIT ANNUAL PCP TEAM CHRONIC DISEASE VISIT [facility] Start: 12-05-2023 SERUM CREATININE SERUM CREATININE [facility] Start: 11-21-2023 ANNUAL PCP TEAM CHRONIC DISEASE VISIT ANNUAL PCP TEAM CHRONIC DISEASE VISIT [facility] Start: 11-21-2023 SHINGRIX VACCINE (1 of 2) SHINGRIX VACCINE (1 of 2) [facility] Comment on above: Postponed from 2006 (Insurance Cov erage) Start: 11-21-2023 Urine microalbumin profile [facility] Comment on above: Postponed from 10/10/2022 (Insurance Cov erage) Start: 11-20-2023 End: 02-19-2024 CBC W Auto Differential panel - Blood CBC + DIFF Lab Routine Postoperative hypothyroidism Stage 3a chronic kidney disease (HCC) Expected: 11/20/2023, Expires: 02/19/2024 [facility] Work Phone: Comment on above: Expected: 11/20/2023, Expires: Start: 11-20-2023 End: 02-19-2024 Comprehensive metabolic 2000 panel - Serum or Plasma COMP METABOLIC PANEL Lab Routine Essential hypertension, benign Mixed hyperlipidemia Stage 3a chronic kidney disease (HCC) Expected: 11/20/2023, Expires: 02/19/2024 [facility] Work Phone: Comment on above: Expected: 11/20/2023, Expires: Start: 11-20-2023 End: 02-19-2024 LIPID PANEL, NONFASTING LIPID PANEL, NONFASTING Lab Routine Essential hypertension, benign Mixed hyperlipidemia Expected: 11/20/2023, Expires: 02/19/2024 [facility] Work Phone: Comment on above: Expected: 11/20/2023, Expires: 4 Start: 11-20-2023 End: 02-19-2024 Prostate specific Ag [Mass/volume] in Serum or Plasma PSA/PROSTSPECAG DIAG Lab Routine Prostate disorder Expected: 11/20/2023, Expires: 02/19/2024 [facility] Work Phone: Comment on above: Expected: 11/20/2023, Expires: 4 Start: 11-20-2023 End: 02-19-2024 Thyrotropin [Units/volume] in Serum or Plasma TSH BLD Lab Routine Postoperative hypothyroidism Expected: 11/20/2023, Expires: 02/19/2024 [facility] Work Phone: Comment on above: Expected: 11/20/2023, Expires: 4 Start: 11-20-2023 End: 02-19-2024 Urate [Mass/volume] in Serum or Plasma URIC ACID BLOOD Lab Routine Gout, unspecified cause, unspecified chronicity, unspecified site Expected: 11/20/2023, Expires: 02/19/2024 [facility] Work Phone: Comment on above: Expected: 11/20/2023, Expires: 4 Start: 11-20-2023 End: 02-19-2024 Urinalysis complete panel - Urine URINALYSIS, WITH MICROSCOPIC Lab Routine Essential hypertension, benign Mixed hyperlipidemia Expected: 11/20/2023, Expires: 02/19/2024 [facility] Work Phone: Comment on above: Expected: 11/20/2023, Expires: 4 Start: 10-31-2023 HEMOGLOBIN/HEMATOCRIT HEMOGLOBIN/HEMATOCRIT [facility] Start: 10-31-2023 SERUM CREATININE SERUM CREATININE [facility] Start: 08-10-2023 Advance Directive Discussion Advance Directive Discussion [facility] Start: 08-10-2023 Depression Assessment Depression Assessment [facility] Start: 05-14-2023 ANNUAL PCP TEAM CHRONIC DISEASE VISIT ANNUAL PCP TEAM CHRONIC DISEASE VISIT [facility] Start: 2023 End: 07-08-2023 Basic metabolic 2000 panel - Serum or Plasma BASIC METABOLIC PNL Lab Routine Essential hypertension, benign Mixed hyperlipidemia Stage 3a chronic kidney disease (HCC) Expected: 2023, Expires: 07/08/2023 [facility] Work Phone: Comment on above: Expected: 2023, Expires: 3 Start: 2023 End: 07-08-2023 LIPID PANEL, NONFASTING LIPID PANEL, NONFASTING Lab Routine Essential hypertension, benign Mixed hyperlipidemia Expected: 2023, Expires: 07/08/2023 [facility] Work Phone: Comment on above: Expected: 2023, Expires: 3 Start: 04-10-2023 Influ[facility] Start: 11-20-2022 End: 01-20-2023 Basic metabolic 2000 panel - Serum or Plasma BASIC METABOLIC PNL Lab Routine Stage 3a chronic kidney disease (HCC) Expected: 11/20/2022, Expires: 01/20/2023 [facility] Work Phone: Comment on above: Expected: 11/20/2022, Expires: 3 Start: 11-08-2022 PNEUMOVAX AGE 65 AND OVER WITH 5YR LOOKBACK (#1) PNEUMOVAX AGE 65 AND OVER WITH 5YR LOOKBACK (#1) [facility] Comment on above: Postponed from 2021 (Postponed To Appropriate Date) Start: 11-07-2022 ANNUAL PCP TEAM CHRONIC DISEASE VISIT ANNUAL PCP TEAM CHRONIC DISEASE VISIT [facility] Start: 11-07-2022 BP CONTROLLED (<130/80) BP CONTROLLED (<130/80) [place] [facility] Start: 11-07-2022 PNEUMOCOCCAL: 65+ (2 - PPSV23 if available, else PCV20) PNEUMOCOCCAL: 65+ (2 - PPSV23 if available, else PCV20) [facility] Start: 11-07-2022 PNEUMOCOCCAL: 65+ (2 - PPSV23 or PCV20) PNEUMOCOCCAL: 65+ (2 - PPSV23 or PCV20) [facility] Start: 11-07-2022 SHINGRIX VACCINE (1 of 2) SHINGRIX VACCINE (1 of 2) [facility] Comment on above: Postponed from 2006 (Insurance Cov erage) Start: 10-31-2022 End: 12-31-2022 CBC W Auto Differential panel - Blood CBC + DIFF Lab Routine Postoperative hypothyroidism Medication management Expected: 10/31/2022, Expires: 12/31/2022 [facility] Work Phone: Comment on above: Expected: 10/31/2022, Expires: 3 Start: 10-31-2022 End: 12-31-2022 Comprehensive metabolic 2000 panel - Serum or Plasma COMP METABOLIC PANEL Lab Routine Essential hypertension, benign Mixed hyperlipidemia Expected: 10/31/2022, Expires: 12/31/2022 [facility] Work Phone: Comment on above: Expected: 10/31/2022, Expires: Start: 10-31-2022 End: 12-31-2022 LIPID PANEL, NONFASTING LIPID PANEL, NONFASTING Lab Routine Essential hypertension, benign Mixed hyperlipidemia Expected: 10/31/2022, Expires: 12/31/2022 [facility] Work Phone: Comment on above: Expected: 10/31/2022, Expires: Start: 10-31-2022 End: 12-31-2022 Prostate specific Ag [Mass/volume] in Serum or Plasma PSA/PROSTSPECAG DIAG Lab Routine Prostate disorder Expected: 10/31/2022, Expires: 12/31/2022 [facility] Work Phone: Comment on above: Expected: 10/31/2022, Expires: 3 Start: 10-31-2022 End: 12-31-2022 Thyrotropin [Units/volume] in Serum or Plasma TSH BLD Lab Routine Postoperative hypothyroidism Expected: 10/31/2022, Expires: 12/31/2022 [facility] Work Phone: Comment on above: Expected: 10/31/2022, Expires: Start: 10-31-2022 End: 12-31-2022 Urate [Mass/volume] in Serum or Plasma URIC ACID BLOOD Lab Routine Gout, unspecified cause, unspecified chronicity, unspecified site Expected: 10/31/2022, Expires: 12/31/2022 [facility] Work Phone: Comment on above: Expected: 10/31/2022, Expires: Start: 10-31-2022 End: 12-31-2022 Urinalysis complete panel - Urine URINALYSIS, WITH MICROSCOPIC Lab Routine Essential hypertension, benign Mixed hyperlipidemia Expected: 10/31/2022, Expires: 12/31/2022 [facility] Work Phone: Comment on above: Expected: 10/31/2022, Expires: 3 Start: 10-13-2022 Tetanus vaccination TETANUS [place] Start: 10-10-2022 Urine microalbumin profile DTAP,TDAP,TD (2 - Td or Tdap) [facility] Start: 09-14-2022 Covid-19 Vaccine (5 - Moderna series) Covid-19 Vaccine (5 - Moderna series) [facility] Start: 05-09-2022 HEPATITIS C SCREENING HEPATITIS C SCREENING [facility] Comment on above: Postponed from 1974 (Declined at t his time) Start: 04-10-2022 Influenza vaccination INFLUENZA (#1) [facility] Start: 12-19-2021 End: 02-18-2022 CBC W Auto Differential panel - Blood CBC + DIFF Lab Routine Postoperative hypothyroidism Medication management Expected: 12/19/2021, Expires: 02/18/2022 [facility] Work Phone: Comment on above: Expected: 12/19/2021, Expires: 2 Start: 12-19-2021 End: 02-18-2022 Comprehensive metabolic 2000 panel - Serum or Plasma COMP METABOLIC PANEL Lab Routine Essential hypertension, benign Mixed hyperlipidemia Expected: 12/19/2021, Expires: 02/18/2022 [facility] Work Phone: Comment on above: Expected: 12/19/2021, Expires: 2 Start: 12-19-2021 End: 02-18-2022 LIPID PANEL, NONFASTING LIPID PANEL, NONFASTING Lab Routine Essential hypertension, benign Mixed hyperlipidemia Expected: 12/19/2021, Expires: 02/18/2022 [facility] Work Phone: Comment on above: Expected: 12/19/2021, Expires: 2 Start: 12-19-2021 End: 02-18-2022 Thyrotropin [Units/volume] in Serum or Plasma TSH BLD Lab Routine Postoperative hypothyroidism Expected: 12/19/2021, Expires: 02/18/2022 [facility] Work Phone: Comment on above: Expected: 12/19/2021, Expires: 2 Start: 12-19-2021 End: 02-18-2022 Urate [Mass/volume] in Serum or Plasma URIC ACID BLOOD Lab Routine Gout, unspecified cause, unspecified chronicity, unspecified site Expected: 12/19/2021, Expires: 02/18/2022 [facility] Work Phone: Comment on above: Expected: 12/19/2021, Expires: 2 Start: 12-19-2021 End: 02-18-2022 Urinalysis complete panel - Urine URINALYSIS, WITH MICROSCOPIC Lab Routine Essential hypertension, benign Mixed hyperlipidemia Expected: 12/19/2021, Expires: 02/18/2022 [facility] Work Phone: Comment on above: Expected: 12/19/2021, Expires: 2 Start: 10-08-2021 COVID-19 VACCINE (4 - Booster for Moderna series) COVID-19 VACCINE (4 - Booster for Moderna series) [facility] Start: 08-10-2021 ADVANCE DIRECTIVE DISCUSSION ADVANCE DIRECTIVE DISCUSSION [facility] Start: 04-10-2021 Influenza vaccination INFLUENZA (#1) [facility] Start: 04-10-2018 Influenza vaccination INFLUENZA VACCINE (#1) [facility] Work Phone: Start: 10-07-2017 End: 10-09-2017 *Hepatic Function Panel *Hepatic Function Panel [facility] Work Phone: Start: 10-07-2017 End: 04-17-2017 Lipid panel [AGGREGATE] *Lipid Profile CC PCP [facility] Work Phone: Start: 08-20-2017 End: 08-20-2017 Appointment Appointment [facility] Work Phone: Start: 04-06-2017 End: 04-09-2017 *Hepatic Function Panel *Hepatic Function Panel [facility] Work Phone: Start: 04-06-2017 End: 04-09-2017 Lipid panel [AGGREGATE] *Lipid Profile CC PCP [facility] Work Phone: Start: 01-22-2017 End: 01-22-2017 Follow Up Appt 6 months Follow Up Appt 6 months [facility] Work Phone: Start: 01-22-2017 End: 01-22-2017 PFM PFM [facility] Work Phone: Start: 07-14-2016 End: 07-14-2016 Follow Up Appt 6 months Follow Up Appt 6 months [facility] Work Phone: Start: 07-14-2016 End: 07-14-2016 Follow Up Appt Other Follow Up Appt Other [facility] Work Phone: Start: 07-14-2016 End: 07-14-2016 PFM PFM [facility] Work Phone: Start: 07-01-2016 End: 10-06-2016 *Hepatic Function Panel *Hepatic Function Panel [facility] Work Phone: Start: 07-01-2016 End: 10-06-2016 Lipid panel [AGGREGATE] *Lipid Profile CC PCP [facility] Work Phone: Start: 03-10-2016 End: 03-31-2016 *Hepatic Function Panel *Hepatic Function Panel [facility] Work Phone: Start: 03-10-2016 End: 03-31-2016 Lipid panel [AGGREGATE] *Lipid Profile CC PCP [facility] Work Phone: Start: 03-05-2016 End: 03-05-2016 Electrocardiogram, complete EKG (In office) [facility] Work Phone: Start: 02-20-2016 End: 02-20-2016 Electrocardiogram, complete EKG (In office) [facility] Work Phone: Start: 01-24-2016 End: 01-24-2016 Cardiac Referral Cardiac Referral [address], [place], [address] [facility] Work Phone: Start: 01-23-2016 End: 01-23-2016 Follow Up Appt 6 months Follow Up Appt 6 months [facility] Work Phone: Start: 01-23-2016 End: 01-24-2016 Follow Up Appt Other Follow Up Appt Other [facility] Work Phone: Start: 01-23-2016 End: 01-23-2016 Follow Up BP Check Follow Up BP Check [facility] Work Phone: Start: 01-23-2016 End: 01-23-2016 PFM PFM [facility] Work Phone: Start: 10-02-2015 End: 10-02-2015 *Hepatic Function Panel *Hepatic Function Panel [facility] Work Phone: Start: 10-02-2015 End: 10-02-2015 Lipid panel [AGGREGATE] *Lipid Profile CC PCP [facility] Work Phone: Start: 06-29-2015 End: 06-29-2015 Follow Up Appt 6 months Follow Up Appt 6 months [facility] Work Phone: Start: 06-29-2015 End: 06-29-2015 PFM PFM [facility] Work Phone: Start: 03-29-2015 End: 04-06-2015 *Hepatic Function Panel *Hepatic Function Panel [facility] Work Phone: Start: 03-29-2015 End: 04-06-2015 Lipid panel [AGGREGATE] *Lipid Profile CC PCP [facility] Work Phone: Start: 12-21-2014 End: 05-18-2015 Echocardiography Echocardiogram (complete) [facility] Work Phone: Start: 12-21-2014 End: 12-21-2014 Electrocardiogram, complete EKG (In office) [facility] Work Phone: Start: 12-21-2014 End: 12-21-2014 Follow Up Appt 6 months Follow Up Appt 6 months [facility] Work Phone: Start: 12-21-2014 End: 12-21-2014 PFM PFM [facility] Work Phone: Start: 09-10-2014 End: 09-29-2014 *Hepatic Function Panel *Hepatic Function Panel [facility] Work Phone: Start: 09-10-2014 End: 09-29-2014 Lipid panel [AGGREGATE] *Lipid Profile CC PCP [facility] Work Phone: Start: 06-22-2014 End: 04-09-2015 *Hepatic Function Panel *Hepatic Function Panel [facility] Work Phone: Start: 06-22-2014 End: 06-22-2014 Follow Up Appt 6 months Follow Up Appt 6 months [facility] Work Phone: Start: 06-22-2014 End: 06-22-2014 Follow Up Appt Other Follow Up Appt Other [facility] Work Phone: Start: 06-22-2014 End: 04-09-2015 Lipid panel [AGGREGATE] *Lipid Profile CC PCP [facility] Work Phone: Start: 06-22-2014 End: 06-22-2014 PFM PFM [facility] Work Phone: Start: 03-30-2014 End: 03-30-2014 Electrocardiogram, complete EKG (In office) [facility] Work Phone: Start: 03-30-2014 End: 03-30-2014 Follow Up Appt 3 months Follow Up Appt 3 months [facility] Work Phone: Start: 03-30-2014 End: 03-30-2014 Left Heart Cath Left Heart Cath [facility] Work Phone: Start: 03-30-2014 End: 03-30-2014 PFM PFM [facility] Work Phone: Start: 2011 PROSTATE CANCER SCREENING DISCUSSION PROSTATE CANCER SCREENING DISCUSSION [facility] Start: 2011 Prostate specific antigen measurement PROSTATE CANCER SCREENING DISCUSSION [place] Start: 2006 Prostate specific antigen measurement PROSTATE CANCER SCREENING DISCUSSION [place] Start: 2006 Protein mass conc COLON CANCER SCREENING DISCUSSION [facility] Work Phone: Start: 2006 SHINGRIX VACCINE (1 of 2) SHINGRIX VACCINE (1 of 2) [facility] Start: 2006 Zoster vaccine hzv live for subcutaneous use ZOSTER (SHINGLES) VACCINE (1 of 2) [place] Start: 2001 COLOGUARD (FIT-DNA) COLOGUARD (FIT-DNA) [facility] Start: 2001 Colonoscopy COLONOSCOPY [facility] Start: [address] COLONOGRAPHY [facility] Start: 2001 DIABETES SCREEN DIABETES SCREEN [facility] Start: 2001 FECAL OCCULT BLOOD FECAL OCCULT BLOOD [facility] Start: 2001 Screening for malignant neoplasm of colon [facility] Start: 2001 SIGMOIDOSCOPY SIGMOIDOSCOPY [facility] Start: 1996 Fasting lipid profile LIPID SCREENING [facility] Work Phone: Start: 1996 Lipid panel LIPID SCREENING [place] Start: 1975 Third diphtheria, tetanus and acellular pertussis (DTaP) vaccination TDAP (ADULT) [facility] Work Phone: Start: 1975 Urine microalbumin profile DTAP,TDAP,TD (1 - Tdap) [facility] Start: 1974 BP CONTROLLED (<130/80) BP CONTROLLED (<130/80) [facility] Start: 1974 HEPATITIS C SCREENING HEPATITIS C SCREENING [facility] Start: 1974 HIV SCREENING HIV SCREENING [facility] Start: 1974 Tetanus vaccination TETANUS [facility] Work Phone: Start: 1969 HIV screening HIV SCREENING DISCUSSION [facility] Work Phone: Start: 1968 Adult depression screening assessment DEPRESSION SCREENING [facility] Start: 1968 COVID-19 VACCINE (1) COVID-19 VACCINE (1) [facility] Start: 1956 Hepatitis C screening HEPATITIS C VIRUS SCREENING [place] Start: 1956 Thyroid stimulating hormone measurement TSH [place] Start: 1956 Hepatitis C antibody, confirmatory test HEPATITIS C VIRUS SCREENING [facility] Work Phone: Cardiac telemetry [facility] [employer] [facility] Cardiac Services Routine Apical variant hypertrophic cardiomyopathy PVC's (premature ventricular contractions) NSVT (nonsustained ventricular tachycardia) Essential hypertension 02/07/2025 2:26 PM EDT [facility] Ecg routine ecg w/le ast 12 lds w/i&r AK ECG ROUTINE ECG W/LEAST 12 LDS W/I&R AK - OFFICE PERFORMED Routine PVC's (premature ventricular contractions) NSVT (nonsustained ventricular tachycardia) Apical variant hypertrophic cardiomyopathy Essential hypertension Ordered: 02/07/2025 [place] Comment on above: Ordered: 02/07/2025 Echocardiography ECHOCARDIOGRAM Echocardiography Routine Apical variant hypertrophic cardiomyopathy PVC's (premature ventricular contractions) NSVT (nonsustained ventricular tachycardia) Essential hypertension Hyperlipidemia, unspecified hyperlipidemia type Ordered: 03/06/2025 [facility] Comment on above: Ordered: 03/06/2025 End: 01-09-2024 MRI FOOT/TOES WO IVCON LEFT MRI FOOT/TOES WO IVCON LEFT Radiology Routine Mass of left foot 1 Occurrences starting 12/10/2022 until 01/09/2024 [facility] Work Phone: Comment on above: 1 Occurrences starting 12/10/2022 until 01/09/2024 Patient Education [facility] Work Phone: Patient referral [facility] Work Phone: End: 12-16-2025 Screening colonoscopy COLONOSCOPY SCREENING Endoscopy Routine History of colonic polyps Screening for colon cancer 1 Occurrences starting 12/16/2024 until 12/16/2025 [facility] Work Phone: Comment on above: 1 Occurrences starting 12/16/2024 until 12/16/2025 End: 01-09-2024 XR FOOT GENERAL 3V AP/LAT/OBL LEFT XR FOOT GENERAL 3V AP/LAT/OBL LEFT Radiology Routine Foot pain, left Soft tissue mass Bursitis of left foot Mass of left foot 1 Occurrences starting 12/10/2022 until 01/09/2024 [facility] Work Phone: Comment on above: 1 Occurrences starting 12/10/2022 until 01/09/2024 XR FOOT GENERAL 3V AP/LAT/OBL LEFT XR FOOT GENERAL 3V AP/LAT/OBL LEFT Radiology Routine Foot pain, left Soft tissue mass Bursitis of left foot Mass of left foot 12/10/2022 9:50 AM EDT [facility] Work Phone: [facility] Immunizations Immunization Date Immunization Notes Care Provider Fa [facility] 06-10-2024 COVID-19 vaccine, ag e 12+ yr (PFIZER-BIONTECH COMIRNATY) Kristie Bill PA-C Work Phone: [facility] 06-10-2024 influenza, high dose seasonal, preservative-free Kristie Bill PA-C Work Phone: [facility] 06-10-2024 influenza virus vaccine, unspecified formulation Josué Olsen MD Work Phone: [place] 12-09-2023 COVID-19 vaccine, ag e 12+ yr, season (PFIZER-BIONTECH) Bro Easton MD Work Phone: [facility] 06-03-2023 COVID-19 vaccine, ag e 12+ yr, season (PFIZER-BIONTECH) Bro Easton MD Work Phone: [facility] 06-03-2023 influenza (HD-IIV4) vaccine, age 65+ yr, high dose, quadrivalent, PF (FLUZONE HIGH-DOSE) Bro Easton MD Work Phone: [facility] 06-03-2023 influenza virus vaccine, unspecified formulation Bro Easton MD Work Phone: [facility] 11-20-2022 pneumococcal (PCV20) vaccine, 20 valent (PREVNAR 20) Bro Easton MD Work Phone: [facility] 11-20-2022 pneumococcal Conjugate, unspecified formulation Bro Easton MD Work Phone: [facility] Work Phone: 05-14-2022 COVID-19 booster vaccine, age 12+ yr, bivalent (Concept.io) Bro Easton MD Work Phone: [facility] 05-14-2022 influenza, high-dose , quadrivalent vaccine (FLUZONE HIGH DOSE QUADRIVALENT) Bro Easton MD Work Phone: [facility] 05-14-2022 influenza virus vaccine, unspecified formulation Bro Easton MD Work Phone: [facility] 11-07-2021 pneumococcal conjuga te vaccine, 13 valent Bro Easton MD Work Phone: [facility] 05-09-2021 influenza, high-dose , quadrivalent vaccine (FLUZONE HIGH DOSE QUADRIVALENT) Bro Easton MD Work Phone: [facility] 10-10-2012 tetanus toxoid, reduced diphtheria toxoid, and acellular pertussis vaccine, adsorbed Bro Easton MD Work Phone: [facility] Work Phone: Payers Date Payer Category Payer Self-pay [id number] 2021 Medicare [id number] 2021 Medicare [id number] 2021 Private Health Insurance MMO MED ICARE SUPPLEMENT [id number] 2021 Unknown MMO MMO MEDICARE SUPPLEMENT [id number] 2021-Present [phone] [address] [place] [address] Indemnity [id number] 2021 Medicare [id number] 2021 Managed Care (unspecified) MEDICARE SUPPLEMENT [id number] 2021 Unknown [id number] 2013 Unknown [id number] 1955 Unknown [id number] 1956 Unknown [id number] Unknown [id number] Unknown [id number] Social History Date Type Detail Facility Start: 04-15-2016 End: 01-27-2023 Tobacco smoking status NHIS Never smoker [facility] Work Phone: Start: 1955 Sex Assigned At Not on file [facility] Work Phone: Start: 05-03-2021 Alcohol intake Current non-drinker of alcohol (finding) [facility] End: 08-10-1980 History of tobacco use Chews Tobacco [facility] Work Phone: Start: 11-07-2021 End: 02-07-2025 Alcohol intake Current drinker of alcohol (finding) [facility] Start: 11-04-2021 End: 11-17-2022 History SDOH Alcohol Frequency 3 [facility] Start: 11-04-2021 End: 11-17-2022 History SDOH Alcohol Std Drinks 1 [facility] Start: 08-26-2021 History SDOH Alcohol Comment 2-3 Beers a month [facility] Start: 11-04-2021 End: 11-17-2022 History SDOH Social Connections Phone 2 [facility] Start: 11-04-2021 End: 11-17-2022 History SDOH Physical Activity DPW 6 [facility] Start: 11-04-2021 End: 11-17-2022 History SDOH Financial 5 [facility] Start: 10-28-2021 End: 05-14-2022 Exposure to SARS-CoV-2 (event) Not sure [facility] Start: 1955 Sex Assigned At Male [facility] Start: 05-14-2022 Tobacco use and exposure Former smokeless tobacco user [facility] Start: 11-17-2022 History SDOH Social Connections Get Together 4 [facility] Start: 11-17-2022 History SDOH Physical Activity DPW 7 [facility] Start: 12-14-2022 Tobacco smoking status NHIS Unknown if ever smoked [facility] Start: 03-20-2014 Occasional [facility] Start: 03-20-2014 None [facility] Start: 03-20-2014 Spouse/ Significant Other [facility] Start: 02-28-2020 Non-smoker [facility] Start: 11-17-2022 End: 02-07-2025 History of Social function [facility] Start: 11-17-2022 End: 02-07-2025 Social connection and isolation panel [facility] Do you belong to any clubs or organizations such as latter-day groups, unions, fraternal or athletic groups, or school groups? Yes [facility] Are you now , , , , never or living with a partner? [facility] How often to you hav e a drink containing alcohol? 2-4 times a month [facility] How many standard dr inks containing alcohol do you have on a typical day? 1 or 2 [facility] How often do you hav e 6 or more drinks on 1 occasion? Never [facility] How hard is it for y ou to pay for the very basics like food, housing, medical care, and heating Not hard at all [facility] Do you feel stress - tense, restless, nervous, or anxious, or unable to sleep at night because your mind is troubled all the time - these days [OSQ] Not at all [facility] (I/We) worried leela er (my/our) food would run out before (I/we) got money to buy more. Never true [facility] In the past 12 month s, was there a time when you were not able to pay the mortgage or rent on time? No [facility] Start: 01-27-2023 Tobacco use and exposure Smokeless tobacco non-user [place] Start: 04-15-2016 Alcohol Comment occasional [place] Start: 01-29-2016 Sex Male (finding) [place] Start: 01-31-2025 Gender identity Identifies as male gender (finding) [place] Start: 01-31-2025 Sexual orientation Heterosexual (finding) [facility] Functional Status Date Assessment Result Facility 09-13-2021 Are you deaf, or do you have serious difficulty hearing No 09/13/2021 9:16 AM Jo Stanford RN No [facility] 09-13-2021 Are you blind, or do you have serious difficulty seeing, even when wearing glasses No 09/13/2021 9:16 AM Jo Stanford RN No [facility] 09-13-2021 Do you have serious difficulty walking or climbing stairs No 09/13/2021 9:16 AM Jo Stanford RN No [facility] 09-13-2021 Do you have difficul ty dressing or bathing No 09/13/2021 9:16 AM Jo Stanford RN No [facility] 09-13-2021 Because of a physica l, mental, or emotional condition, do you have difficulty doing errands alone such as visiting a physician's office or shopping No 09/13/2021 9:16 AM Jo Stanford RN No [facility] Mental Status Date Assessment Result Facility 09-13-2021 Because of a physica l, mental, or emotional condition, do you have serious difficulty concentrating, remembering, or making decisions No 09/13/2021 9:16 AM Jo Stanford RN No [facility] Clinical Notes 09-12-2021 to 03-06-2025 Telephone Encounter - Nahed Lugo RN - 03/06/2025 12:59 PM EDTTelephone Encounter - Nahed Lugo RN - 03/06/2025 12:59 PM EDTTelephone Encounter - Deirdre Coley RN - 03/03/2025 10:29 AM EDT Note Date & Type Note Facility 03-06-2025 Telephone encount er Note Echo order faxed to . [place] 03-06-2025 Miscellaneous Notes Formattin g of this note might be different from the original. Echo order faxed to . Images from the original note were not included. MCT Received: 3 days ago MD Magen Plascencia [facility] Please update Mr. Sauer that his case was reviewed with respect to his radiation monitor findings. Based upon his diagnosis and past / recent findings he should continue his beta mayito therapy. He does not have all the risks for concerns associated with his diagnosis and having a sudden cardiac event. However, he has demonstrated on his monitor the concern for nonsustained ventricular tachycardia. Thus, it would be reasonable for him to have a follow up echocardiogram preferably done at [facility] to further evaluate his type of cardiomyopathy and a future formal consult with the EP physicians to discuss his findings and whether he should or should not be considered for an implantable defibrillator. -------- Spoke with pt about above results and recommendations. Verbalized understanding. Agreeable to echo and Ep consult. Prefers to have echo done locally. Fax to [facility] @ once signed and send my chart to let him know its been sent. documented in this encounter [facility] 03-06-2025 Telephone encount er Note Images from the original note were not included. MCT Received: 3 days ago MD Magen Plascencia [facility] Please update Mr. Sauer that his case was reviewed with respect to his radiation monitor findings. Based upon his diagnosis and past / recent findings he should continue his beta mayito therapy. He does not have all the risks for concerns associated with his diagnosis and having a sudden cardiac event. However, he has demonstrated on his monitor the concern for nonsustained ventricular tachycardia. Thus, it would be reasonable for him to have a follow up echocardiogram preferably done at [facility] to further evaluate his type of cardiomyopathy and a future formal consult with the EP physicians to discuss his findings and whether he should or should not be considered for an implantable defibrillator. -------- Spoke with pt about above results and recommendations. Verbalized understanding. Agreeable to echo and Ep consult. Prefers to have echo done locally. Fax to [facility] @ once signed and send my chart to let him know its been sent. [place] 03-03-2025 Telephone encount er Note Patient notified of results below and verbalizes understanding. [place] 03-03-2025 Miscellaneous Notes Formattin g of this note might be different from the original. Patient notified of results below and verbalizes understanding. EWELINA and JAILYN# also sent MC message with results ----- Message from Josué Olsen MD sent at 03/03/2025 8:38 AM EDT ----- Regarding: MCT: Please let Mr. Sauer know that his radiation monitor demonstrated a normal sinus rhythm with rare premature beats (PACs/PVCs <1%) and relatively rare brief / short episodes of a PSVT and NSVT (no symptoms reported). At this time, a message will be sent to EP for their input as to the need for any additional evaluation / therapy in addition to his beta mayito / metoprolol therapy. He should notify the office of any concerning symptoms / events. Thank you. documented in this encounter [place] 03-03-2025 Telephone encount er Note EWELINA and JAILYN# also sent MC message with results [place] 03-03-2025 Telephone encount er Note ----- Message from Josué Olsen MD sent at 03/03/2025 8:38 AM EDT ----- Regarding: MCT: Please let Mr. Sauer know that his radiation monitor demonstrated a normal sinus rhythm with rare premature beats (PACs/PVCs <1%) and relatively rare brief / short episodes of a PSVT and NSVT (no symptoms reported). At this time, a message will be sent to EP for their input as to the need for any additional evaluation / therapy in addition to his beta mayito / metoprolol therapy. He should notify the office of any concerning symptoms / events. Thank you. [place] 02-07-2025 Evaluation + Plan note Associated Problem(s): Hyperlipidemia He notes his PCP has been monitoring his lipid labs. He will continue his current lipid-lowering therapy with his pravastatin. [place] 02-07-2025 Miscellaneous Notes Associate d Problem(s): Hyperlipidemia He notes his PCP has been monitoring his lipid labs. He will continue his current lipid-lowering therapy with his pravastatin. Associated Problem(s): Essential hypertension His blood pressure appears to be well controlled. He will continue his current medical management. Associated Problem(s): NSVT (nonsustained ventricular tachycardia) Based upon a remote episode of a brief nonsustained VT event (approximately 8 beats in duration) he will proceed with further evaluation of his symptoms with an upcoming 7 day MCT. Depending upon the findings he may or may not need further cardiac evaluation/therapy. Associated Problem(s): PVC's (premature ventricular contractions) Based upon his symptoms in his previous findings of underlying cardiac ectopy he will undergo further evaluation. This will include a 7 day MCT. Associated Problem(s): Apical variant hypertrophic cardiomyopathy He has undergone noninvasive and invasive evaluation in the past. He has been evaluated in the past by [facility] as well. He has continued medical management with his low-dose beta-mayito and overall has done well. He has had follow-up noninvasive studies over time. His most recent studies are as noted. At the moment he is going to continue his low-dose beta-mayito therapy. documented in this encounter [place] 02-07-2025 Evaluation + Plan note Associated Problem(s): Essential hypertension His blood pressure appears to be well controlled. He will continue his current medical management. [place] 02-07-2025 Evaluation + Plan note Associated Problem(s): NSVT (nonsustained ventricular tachycardia) Based upon a remote episode of a brief nonsustained VT event (approximately 8 beats in duration) he will proceed with further evaluation of his symptoms with an upcoming 7 day MCT. Depending upon the findings he may or may not need further cardiac evaluation/therapy. [place] 02-07-2025 Evaluation + Plan note Associated Problem(s): PVC's (premature ventricular contractions) Based upon his symptoms in his previous findings of underlying cardiac ectopy he will undergo further evaluation. This will include a 7 day MCT. [place] 02-07-2025 Evaluation + Plan note Associated Problem(s): Apical variant hypertrophic cardiomyopathy He has undergone noninvasive and invasive evaluation in the past. He has been evaluated in the past by [facility] as well. He has continued medical management with his low-dose beta-mayito and overall has done well. He has had follow-up noninvasive studies over time. His most recent studies are as noted. At the moment he is going to continue his low-dose beta-mayito therapy. [place] 02-07-2025 History of Presen t illness Narrative Images from the original note were not included. Primary care provider: Bro Easton MD (General) Dear Dr. Easton, I had the pleasure of seeing your patient, Alexandria Sauer, at the [facility] on 02/07/2025 in follow-up. I have reviewed pertinent outside medical records available at this time regarding this patient. As you recall, this 69 y.o. male is managed by our group for a history of an apical type hypertrophic cardiomyopathy superimposed upon hypertension and hyperlipidemia. Chief Complaint Patient presents with Follow-up Annual follow up. Reports having some lightheadedness and dizziness 1-2 times a week for the last couple of months. Lasts for a few moments. Generally happens after he has been up for a bit doing activity -such as playing pickelball. Refocuses and it goes away.. Denies syncope. Tries to stay hydrated. HPI: Initial HPI from: 01/27/2023 This is a 67-year-old white male who presents to establish outpatient cardiovascular care with the [facility] division of Cardiovascular Medicine with a past cardiovascular history of an apical hypertrophic cardiomyopathy superimposed upon a histor of hypertension and hyperlipidemia. He has been previously followed by the [facility] in [place], [place]. He has also had a remote outpatient cardiovascular evaluation at [facility] with Dr. Lemus in 2016. He has undergone previous noninvasive and invasive cardiovascular care. This is included, for example, echocardiograms, stress tests, and cardiac catheterization procedures. He has had his procedures performed in [place], [place] at [facility]. He has been treated medically in the past. This has included beta-mayito therapy. At the present time he states he is doing well. He denies any resting or exertional chest discomfort. There has been no obvious episodes of resting or exertional shortness of breath/dyspnea. There has been no episodes of ongoing palpitations, near-syncope, or syncope. He states he has follow-up with his PCP for his lipid labs. Based upon review of his CC of medical records it appears that on 10/30/2022 he had a total cholesterol 144, and LDL 71, HDL 54, and a triglyceride level of 93. His previous outside cardiovascular records available for review are noted below. They have been reviewed with the patient. Per the patient's remote cardiovascular visit with Dr. Lemus there have been a recommendation for follow-up Holter monitors as well as a cardiac MRI. The patient has been agreeable to follow-up Holter monitors however he had decided the past to forego the cardiac MRI. Interval History: 02/04/2024 This is a 68-year-old gentleman who presents today for an outpatient cardiovascular follow-up based upon a history of an apical variant hypertrophic cardiomyopathy, PVCs, and hyperlipidemia. Overall since his last visit of proximally 1 year ago he states he is doing well and remains very active. He notes that he rides his bicycle, he plays pickleball, he goes to the gym, he travels, and he has had no concerning symptoms. He denies any episodes of concerning chest discomfort, difficulty breathing, orthopnea, PND, peripheral pitting edema. He has had no palpitations. He states he has no episodes of dizziness/lightheadedness, near-syncope, or syncope. After his visit a year ago he was asked to have a follow-up outpatient Holter monitor. It was performed at [facility] in [place], [place]. After multiple attempts to receive the monitor report, it was received just recently in anticipation of today's visit. Based upon the monitor report it appears his underlying rhythm is sinus rhythm. His average heart rate is in the 50s. He did have appearance of underlying ectopy including PVCs (less than 1% of the time) and 1 8 beat episode of a wide complex tachycardia which appeared to occur at approximately 12:17 a.m. when he was sleeping. He has continued his medication which does include his beta-mayito therapy. He states he has had no issues with his medications. Interval History: 02/07/2025 History of Present Illness This is a 69-year-old male who presents today for an outpatient cardiovascular follow-up visit based upon a history of an apical type hypertrophic cardiomyopathy superimposed upon a history of hypertension and hyperlipidemia. Since his last visit of a proximally 1 year ago he states overall he believes he has done reasonably well. He denies any concerning symptoms for angina pectoris. There has been no obvious episodes of CHF or pulmonary edema. He denies any near-syncope or syncope. He states he does have episodes that occur usually weekly over the last approximately 3 months where he will feel transiently dizzy. He notes this can occur after activity such as playing pickleball. He states he tries to maintain adequate hydration. He takes his medications as prescribed. He had a transthoracic echocardiogram performed in February of 2024. He continues to have findings compatible with his apical type hypertrophic cardiomyopathy. His overall LV systolic function/LVEF was preserved. He has not had any other cardiovascular testing since that time. He has undergone different cardiac monitors in the past. The last 1 was performed in 2022. He did have PACs and PVCs. He did not have any ongoing conduction system issues or sustained ventricular dysrhythmia issues. In the office today he had an ECG. He was noted to be in sinus bradycardia with a ventricular rate of 52 beats per minute. He had possible left atrial enlargement. He had ST and T-wave changes which would be concerning for anterolateral myocardial ischemia but are also compatible with his apical type hypertrophic cardiomyopathy. In comparison to previous ECGs he does not appear to have any new acute changes. Overall, he states he remains very active. He does hike, he bicycles, he plays pickleball, etc.. He notes that with his activities he does not have any concerning symptoms other than his intermittent transient dizzy sensation. Historical information was reviewed in the medical record. The following historical elements were reviewed by a provider in the specific [facility] aaron and updated as appropriate: No Known Allergies Outpatient Encounter Medications as of 02/07/2025 Medication Sig Dispense Refill Allopurinol 300 MG tablet aspirin 81 MG Chew Tab Chew 1 tablet daily. Colchicine 0.6 MG tablet Take 1 tablet by mouth as needed. Levothyroxine 88 MCG tablet Metoprolol succinate 25 MG tablet XL Take 1 tablet by mouth daily. 90 tablet 3 naproxen 500 MG tablet Take 1 tablet by mouth Every 12 hours as needed. pravastatin 20 MG Tab Take 1 tablet by mouth daily. tadalafil (CIALIS) 20 MG Tab Take 1 tablet by mouth as needed. No facility-administered encounter medications on file as of 02/07/2025. Past Medical History: Diagnosis Date Arthritis Essential hypertension, benign Melanoma Past Surgical History: Procedure Laterality Date THYROID SURGERY 09/10/2021 HIP REPLACEMENT Bilateral Family History Problem Relation Age of Onset Hypertension Mother Kidney Disease Father Skin Cancer Father Cancer- Other Father Hypertension Father Other - Specify Father Renal Failure Cancer Sister Breast Cancer Sister Lung Cancer Brother Social History Socioeconomic History Marital status: Spouse name: Not on file Number of children: Not on file Years of education: Not on file Highest education level: Not on file Occupational History Not on file Tobacco Use Smoking status: Never Smokeless tobacco: Never Vaping Use Vaping status: Never Used Substance and Sexual Activity Alcohol use: Yes Alcohol/week: 1.0 standard drink of alcohol Types: 1 Cans of beer per week Comment: occasional Drug use: No Sexual activity: Yes Partners: Female control/protection: Menopause Other Topics Concern Occupational Exposure No Hobby Hazards No Social History Narrative Not on file Social Drivers of Health Financial Resource Strain: Low Risk (12/06/2024) Received from [facility] Overall Financial Resource Strain (CARDIA) Difficulty of Paying Living Expenses: Not hard at all Food Insecurity: No Food Insecurity (12/06/2024) Received from [facility] Hunger Vital Sign Worried About Running Out of Food in the Last Year: Never true Ran Out of Food in the Last Year: Never true Transportation Needs: No Transportation Needs (12/06/2024) Received from [facility] PRAPARE - Transportation Lack of Transportation (Medical): No Lack of Transportation (Non-Medical): No Physical Activity: Sufficiently Active (12/06/2024) Received from [facility] Exercise Vital Sign Days of Exercise per Week: 5 days Minutes of Exercise per Session: 90 min Stress: No Stress Concern Present (12/06/2024) Received from [facility] [place] of Occupational Health - Occupational Stress Questionnaire Feeling of Stress : Not at all Social Connections: Socially Integrated (12/06/2024) Received from [facility] Social Connection and Isolation Panel [NHANES] Frequency of Communication with Friends and Family: More than three times a week Frequency of Social Gatherings with Friends and Family: Three times a week Attends Denominational Services: More than 4 times per year Active Member of Clubs or Organizations: Yes Attends Club or Organization Meetings: More than 4 times per year Marital Status: Personal Safety: Not on file Housing Stability: Low Risk (12/02/2023) Received from [facility], [facility] Housing Stability Vital Sign Unable to Pay for Housing in the Last Year: No Number of Places Lived in the Last Year: 1 Unstable Housing in the Last Year: No Review of Systems Cardiovascular: Negative for chest pain, claudication, cyanosis, dyspnea on exertion, irregular heartbeat, leg swelling, near-syncope, orthopnea, palpitations, paroxysmal nocturnal dyspnea and syncope. Neurological: Positive for dizziness. On physcial exam today, the vital signs are as follows: Vitals: 02/07/25 1304 BP: 124/62 Pulse: 52 Weight: 85.3 kg (188 lb) Height: (P) 1.702 m (5' 7) Body mass index is 29.44 kg/m (pended). Physical Exam Vitals and nursing note reviewed. Constitutional: Appearance: Normal appearance. He is well-developed, well-groomed and overweight. HENT: Head: Normocephalic and atraumatic. Cardiovascular: Rate and Rhythm: Regular rhythm. Bradycardia present. No extrasystoles are present. Chest Wall: PMI is not displaced. No thrill. Pulses: Carotid pulses are 2+ on the right side and 2+ on the left side. Radial pulses are 2+ on the right side and 2+ on the left side. Posterior tibial pulses are 2+ on the right side and 2+ on the left side. Heart sounds: S1 normal and S2 normal. No murmur heard. No friction rub. Gallop present. S4 sounds present. Pulmonary: Effort: Pulmonary effort is normal. Breath sounds: Normal breath sounds. Musculoskeletal: Cervical back: Normal range of motion and neck supple. Right lower leg: No edema. Left lower leg: No edema. Neurological: Mental Status: He is alert. Relevant diagnostic data includes the following: I have independently reviewed the following images/tracings: as noted below. ELECTROCARDIOGRAM 12/21/2014 10/02/2020 [facility] HOLTER MONITOR 06/18/2018 [facility] 02/08/2023 [facility] Transthoracic Echocardiogram: [facility] 10/05/2020 Interpretation Summary: The study was technically difficult. Contrast injection was performed. Left ventricular systolic function is normal. The estimated ejection fraction is 65% The left atrium is mildly enlarged. Mild diffuse mitral valve thickening. Mild mitral valve prolapse. Mile (1+) mitral valve insufficiency. Trivial tricuspid valve insufficiency. Trivial aortic valve insufficiency. Unable to estimated RV systolic pressure/pulmonary artery pressure due to technically difficult study. Diastolic function is indeterminate. Comment: The aforementioned changes with respect to the left ventricle appear c/w an apical hypertrophic cardiomyopathy. 03/05/2024 [facility] Stress Test Report: [facility] 10/10/2020 Impression: 1. Technically adequate (percent predicted maximal heart rate greater than 85%) exercise tolerance test 2. Peak exercise ECG with no obvious ECG changes 3. There were no cardiac dysrhythmias pretest, during exercise, or recovery 4. Nuclear images pending Impression: 1. Rest and stress SPECT Cardiolite nuclear imaging demonstrate relative uniform tracer uptake and myocardial perfusion appearing within normal limits. 2. The gated Cardiolite study reports an LVEF of 57%. Cardiac Cath: [facility]: 04/05/2014 In summary, Mr. Sauer is managed today for the following issues: Apical variant hypertrophic cardiomyopathy He has undergone noninvasive and invasive evaluation in the past. He has been evaluated in the past by [facility] Cardiovascular Genetics as well. He has continued medical management with his low-dose beta-mayito and overall has done well. He has had follow-up noninvasive studies over time. His most recent studies are as noted. At the moment he is going to continue his low-dose beta-mayito therapy. PVC's (premature ventricular contractions) Based upon his symptoms in his previous findings of underlying cardiac ectopy he will undergo further evaluation. This will include a 7 day MCT. NSVT (nonsustained ventricular tachycardia) Based upon a remote episode of a brief nonsustained VT event (approximately 8 beats in duration) he will proceed with further evaluation of his symptoms with an upcoming 7 day MCT. Depending upon the findings he may or may not need further cardiac evaluation/therapy. Essential hypertension His blood pressure appears to be well controlled. He will continue his current medical management. Hyperlipidemia He notes his PCP has been monitoring his lipid labs. He will continue his current lipid-lowering therapy with his pravastatin. I have ordered the following: Diagnoses and all orders for this visit: Apical variant hypertrophic cardiomyopathy - AK ECG ROUTINE ECG W/LEAST 12 LDS W/I&R - MOBILE CARDIAC TELEMETRY PVC's (premature ventricular contractions) - AK ECG ROUTINE ECG W/LEAST 12 LDS W/I&R - MOBILE CARDIAC TELEMETRY NSVT (nonsustained ventricular tachycardia) - AK ECG ROUTINE ECG W/LEAST 12 LDS W/I&R - MOBILE CARDIAC TELEMETRY Essential hypertension - AK ECG ROUTINE ECG W/LEAST 12 LDS W/I&R Hyperlipidemia, unspecified hyperlipidemia type The above was discussed and reviewed with him. He was agreeable to this approach. We will plan on Return in about 1 year (around 02/07/2026).. If I can be of any further assistance, please do not hesitate to contact me. Sincerely, Josué Olsen MD, [facility] Supervisor [employer] - Clinical Division of Cardiovascular Medicine Department of Internal Medicine [facility] Please be aware that portions of this note may have been completed with a voice recognition software system and an artificial intelligence system with the knowledge and approval of the patient. Despite efforts to edit the note mis-transcribed words may still be present. Patient has verified full name and . RADHA documentation tool explained to patient. Patient accepted the use of RADHA documentation tool during today's visit. Alexandria Sauer was offered and declined a Medical Creative Arts Therapist for this exam/procedure/test 02/07/2025. 12 Lead EKG performed per provider's order, per policy, and given to Dr. Olsen for interpretation. Medical brazing furnace operator offered to patient prior to sensitive procedure and patient declined MCT SN [id number] applied to pt. Reviewed instructions and answered questions. Verbalized understanding. documented in this encounter [facility] 01-18-2025 Discharge summary [facility] 01-18-2025 Discharge summary Note Date/Time January 18, 2025 12:43pm [facility] Physical [facility] [address] [place] [address] / REHABILITATION SERVICES DISCHARGE SUMMARY MR#: [id number] Acct: [id number] Name: ALEXANDRIA SAUER Rep #: [id number] : [id number] 69 From: Sadaf Webb MP T Referring Dr.: LAURA Kelly Status: REG RCR Insurance: MEDICARE PART A B [facility] Discharge Summary D/C summary: It has been my pleasure to treat ALEXANDRIA SAUER referred by LAURA Kelly, with the diagnosis of L THR in 2018 for a total of 9 visit(s). Discharge Date: 01/18/25 Please see the following information for a summary of their discharge status. Subjective Subjective: Walked over a mile on the TM and more groin pain than Quad pain Pain L hip pain: Pain Intensity (Out of 10): 0 Back: Pain Intensity (Out of 10): 2 Overall Improvement % Improvement: 75 Objective Objective/Function: R hip ext 15,3 and L 14.1 Tight HS B instructed pt in green strap HS stretches Improved hip flexor flexibility Goals Goal 1:: I HEP Goal Progress: Goal Met Goal 2:: Increase flexibility of B Hip flexors (THR H/O) Goal Progress: Goal Met Goal 3:: Be able to walk 4-5 miles without hip pain/back pain Goal Progress: Progressing Goal 4:: Increase hip ext strength (at the time of the eval: R hip ext 14,3 andL 13.2) Goal Progress: Goal Met Plan Plan: DC PT to HEP D/C Information Discharge Comments: DC PT to HEP d/c sentence: If there are questions or concerns regarding this patient's physical therapy, please feel free to call me at [phone]. Thank you for the referral of thispatient. Sincerely, Sadaf Webb, MPT Balance/Gait/Functional tests Balance/Special Test Scores WOMAC Total Score: 22 WOMAC Percentage: 77.0900 Improvement % Improvement: 75 <Electronically signed by Sadaf Webb MPT> 01/18/25 1051 CC: LAURA Kelly; Dr. Bro Easton MD ~ Signed [facility] Work Phone: [phone]) 584-277405-09-2025 History of Present illness Narrative* Shannan Noel APRN.PHOTOGRAMMETRIC ENGINEER - 12/16/2024 11:30 AM EDT HISTORY AND PHYSICAL Alexandria Sauer : 1955 REFERRING PHYSICIAN: Bro Easton [address] [place] [id number] CHIEF COMPLAINT: Patient presents with: Consult: Here for 5 year colonoscopy consult HPI: Alexandria Braga is a 69 year old male referred for endoscopy. Alexandria Braga notes due for screening colonoscopy- hx of polyps (2019). Alexandria Braga denies abdominal pain.. Alexandria Braga denies diarrhea. Alexandria S denies constipation. Alexandria S denies a change in bowel habits. Alexandria S denies melena. Alexandria Braga denies bright red blood per rectum. Alexandria S denies hemorrhoids. Alexandria S denies family history of colon issues. Alexandria S denies heartburn. Alexandria S denies dysphagia. Alexandria Braga denies a history of ulcers/ peptic ulcer disease. Efrain follows with G for HTN, MVP, HLD. Next OV 02/2025. Last ECHO 02/2024 EF: He denies CP, SOB, dizziness, palpitations, syncope, edema, recent hospitalizations Other medical hx is significant for SUSI- no longer requiring CPAP, CKD, hypothyroidism and gout. Alexandria Braga has undergone prior endoscopy. Last colonoscopy was 03/06/[address] Lazar at [facility]. Sedation: MAC Impressions : - Hemorrhoids found on perianal exam. - Enlarged prostate found on digital rectal exam. - One 7 mm polyp at the splenic flexure, removed with a cold snare. Resected and retrieved. - One 6 mm polyp in the proximal sigmoid colon, removed with a cold snare. Resected and retrieved. - Diverticulosis in the sigmoid colon MICROSCOPIC DIAGNOSIS A. Splenic flexure polyp, biopsy: Fragments of tubular adenoma. B. Proximal sigmoid polyp, biopsy: Tubular adenoma. SJ:hammad 03/07/20 Current Outpatient Medications Medication Sig allopurinol (ZYLOPRIM) 300 mg tablet Take 1 tablet by mouth once daily. levothyroxine (SYNTHROID) 88 mcg tablet Take 1 tablet by mouth daily at 6 am. naproxen (NAPROSYN) 500 mg tablet Take 1 tablet by mouth two times a day as needed (for pain/inflammation). Take with food. pravastatin (PRAVACHOL) 20 mg tablet Take 1 tablet by mouth once daily. colchicine 0.6 mg tablet Take one tab three times a day till pain resolved or complete the script sildenafil (VIAGRA) 100 mg tablet Take 1 tablet by mouth as needed. metoprolol succinate ER (TOPROL XL) 25 mg 24 hr tablet Take 1 tablet by mouth once daily. aspirin, enteric coated (ASPIRIN, ENTERIC COATED) 81 mg EC tablet Take 81 mg by mouth once daily. peg 3350-Electrolytes (GOLYTELY) 236-22.74-6.74 -5.86 gram suspension Take 4,000 mL by mouth one time only for 1 dose. Refer to printed prep instructions from your provider. No current facility-administered medications for this visit. ALLERGIES: Patient has no known allergies. 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 Tameka Lazar Living will in place 11/07/2021 PAULETTE Abebe () Medicare annual wellness visit, initial 11/07/2021 Medicare wellness Part B: 04/10/2021 Last done : 11/07/2021 Mitral valve prolapse Mitral valve regurgitation Mixed hyperlipidemia Nontoxic single thyroid nodule 05/13/2021 S/p partial thyroidectomy 09/2021 SUSI (obstructive sleep apnea) 05/09/2021 Was able to get off CPAP after weight loss. Postoperative hypothyroidism 11/07/2021 Stage 3a chronic kidney disease (HCC) 11/20/2022 PAST SURGICAL HISTORY Procedure Laterality Date COLONOSCOPY FLX DX W/COLLJ SPEC WHEN PFRMD 07/21/2007 Colonoscopy COLONOSCOPY GEN ANES dr. Lazar. repeat in 5 years ECHO 10/05/2020 LEFT HEART CATH,PERCUTANEOUS aprox 03/2014 STRESS TEST 10/10/2020 exercise with NM images THYROIDECTOMY Left left thyroid lobectomy TOTAL HIP REPLACEMENT Left TOTAL HIP REPLACEMENT Right FAMILY HISTORY Problem Relation Age of Onset Hypertension Mother Stroke Mother Melanoma Father Kidney failure Father Breast Cancer Sister Cancer Brother mets to brain Lung Cancer Brother Anesthesia Problems No Family History Social History Tobacco Use Smoking status: Never Smokeless tobacco: Former Types: Chew Quit date: 1980 Vaping Use Vaping status: Never Used Substance Use Topics Alcohol use: Yes Comment: 2-3 Beers a month Drug use: Never REVIEW OF SYMPTOMS: REVIEW OF SYSTEMS: General: The patient denies fatigue, denies weight loss, denies weight gain, denies feeling hot, and feelings of cold. Eyes: The patient denies glaucoma, denies eye injury/surgery, + glasses or contacts. Ear/Nose/Throat: The patient denies allergies, denies hayfever, denies ear infections, and denies bloody noses. Cardiovascular: The patient denies chest pain, denies heart disease, + high blood pressure, denies high cholesterol, and denies poor circulation. Respiratory: The patient denies tuberculosis, denies pneumonia, denies frequent cough, denies shortness of breath, and denies coughing up blood. Gastrointestinal: The patient denies difficulty swallowing, denies acid reflux, denies ulcers, denies jaundice/hepatitis, denies gallbladder problems, denies vomiting, denies black or tarry stools, denies hemorrhoids, denies bleeding from rectum, denies diverticulitis, denies constipation, denies diarrhea, denies loss of stool control, and denies hernias. Kidney/Bladder: The patient + kidney stones, denies urine infections, and denies bloody urine. Skin: The patient + a history of skin cancer, denies bleeding/changing moles, and denies a history of skin rash. Neurologic: The patient denies a history of epilepsy/convulsions, denies headaches, denies head/spinal injuries, and denies stroke/TIA. Psychiatric: The patient denies psychiatric medications, denies depression, and denies voices. Endocrine: The patient + thyroid disorders, denies diabetes, and denies hormonal problems. Hematologic: The patient denies a history of bruising, denies bleeding, and denies anemia. Infections: The patient denies a history of measles and mumps, denies rheumatic fever, and denies sexually transmitted diseases. Musculoskeletal: The patient denies back pain/injury, denies back problems, denies sciatica, deniesknee/foot trouble, + arthritis, or + gout. PHYSICAL EXAMINATION: General: The patient is 69 year old, male well nourished, well hydrated in no acute distress. The patient is oriented to time, place, and person. VITALS: Blood pressure 109/72, pulse (!) 58, resp. rate 14, weight 84.8 kg (187 lb), SpO2 98%. Bodymass index is 29.73 kg/m . HEENT: Normal cephalic, ataumatic, pupils are equally round, sclera are anicteric, mucous membranesare moist, oropharynx is clear. Neck has no masses, asymmetry or lymphadenopathy. Respiratory: Clear to auscultation. Normal respiratory excursion and pattern. Cardiac: Examination is regular rate and rhythm. Normal S1/S2 Abdominal exam: Soft, nontender, with no palpable masses. No hepatosplenomegaly. No palpable hernias. Extremities: no clubbing, cyanosis or edema. No adenopathy. LABORATORY VALUES: As Noted RADIOLOGIC STUDIES: As Noted Assessment IMPRESSION: screen for colon cancer, history of colon polyps PLAN: I have reviewed my findings with the surgeon. Will plan for lower endoscopy. We discussed therisks and benefits of the planned endoscopy in terms understandable to the patient. I have informedthe patient that complications can occur including failure to complete the endoscopy and perforation. Alexandria Braga had the opportunity to ask questions concerning the planned endoscopy. Alexandria Braga freelyconsents to surgery. I plan to use Golytely bowel preparation I have explained to the patient the difference between IV conscious sedation and MAC anesthesia - and I have offered either, according to the patient's wishes. I have explained that with IV conscioussedation there is no anesthesia provider available and therefore there is a limitation of the amount of IV medications that can be given and that the patient may wake up in the middle of the procedure and/or experience pain/discomfort during the procedure. Further discussion was done and the patient was given the opportunity to ask questions and all questions were answered. Alexandria Braga chooses IV conscious sedation. Alexandria Braga was counseled that if there are changes in his/her medical condition, to let the office know if surgery should proceed. If there are changes in patient's medical condition from time of thisencounter to the day of the procedure that preclude anesthesia, patient may have procedure cancelled for patient's safety. Diagnoses: (Z86.0100) History of colonic polyps (Z12.11) Screening for colon cancer Consultation requested by Dr. Easton for an opinion regarding colon cancer screening-hx of polyps. My final recommendations will be communicated back to the requesting physician by way of shared Medical record or letter to requesting physician via US mail. Portions of this documentation were copied and pasted from previous office visit notes in order to provide a cohesive continuity of the history. The note has been reviewed and edited and updated as necessary. Shannan Noel APRN.PHOTOGRAMMETRIC ENGINEER documented [facility] NoteHNO ID: [id number] Author: SHANNAN NOEL APRN.PHOTOGRAMMETRIC ENGINEER Service: ? Author Type: Nurse Practitioner Type: Progress Notes Filed: 12/16/2024 11:47 Note Text: HISTORY AND PHYSICAL Alexandria Sauer : 1955 REFERRING PHYSICIAN: Bro Easton [address] [place] [id number] CHIEF COMPLAINT: Patient presents with: Consult: Here for 5 year colonoscopy consult HPI: Alexandria Braga is a 69 year old male referred for endoscopy. Alexandria Braga notes due for screening colonoscopy- hx of polyps (2019). Alexandria S denies abdominal pain.. Alexandria S denies diarrhea. Alexandria S denies constipation. Alexandria S denies a change in bowel habits. Alexandria S denies melena. Alexandria S denies bright red blood per rectum. Alexandria S denies hemorrhoids. Alexandria S denies family history of colon issues. Alexandria S denies heartburn. Alexandria S denies dysphagia. Alexandria S denies a history of ulcers/ peptic ulcer disease. Efrain follows with G for HTN, MVP, HLD. Next OV 02/2025. Last ECHO 02/2024 EF: He denies CP, SOB, dizziness, palpitations, syncope, edema, recent hospitalizations Other medical hx is significant for SUSI- no longer requiring CPAP, CKD, hypothyroidism and gout. Alexandria Braga has undergone prior endoscopy. Last colonoscopy was 03/06/[address] Lazar at [facility]. Sedation: MAC Impressions : - Hemorrhoids found on perianal exam. - Enlarged prostate found on digital rectal exam. - One 7 mm polyp at the splenic flexure, removed with a cold snare. Resected and retrieved. - One 6 mm polyp in the proximal sigmoid colon, removed with a cold snare. Resected and retrieved. - Diverticulosis in the sigmoid colon MICROSCOPIC DIAGNOSIS A. Splenic flexure polyp, biopsy: Fragments of tubular adenoma. B. Proximal sigmoid polyp, biopsy: Tubular adenoma. SJ:hammad 03/07/20 Current Outpatient Medications Medication Sig allopurinol (ZYLOPRIM) 300 mg tablet Take 1 tablet by mouth once daily. levothyroxine (SYNTHROID) 88 mcg tablet Take 1 tablet by mouth daily at 6 am. naproxen (NAPROSYN) 500 mg tablet Take 1 tablet by mouth two times a day as needed (for pain/inflammation). Take with food. pravastatin (PRAVACHOL) 20 mg tablet Take 1 tablet by mouth once daily. colchicine 0.6 mg tablet Take one tab three times a day till pain resolved or complete the script sildenafil (VIAGRA) 100 mg tablet Take 1 tablet by mouth as needed. metoprolol succinate ER (TOPROL XL) 25 mg 24 hr tablet Take 1 tablet by mouth once daily. aspirin, enteric coated (ASPIRIN, ENTERIC COATED) 81 mg EC tablet Take 81 mg by mouth once daily. peg 3350-Electrolytes (GOLYTELY) 236-22.74-6.74 -5.86 gram suspension Take 4,000 mL by mouth one time only for 1 dose. Refer to printed prep instructions from your provider. No current facility-administered medications for this visit. ALLERGIES: Patient has no known allergies. 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 Tameka Lazar Living will in place 11/07/2021 PAULETTE Abebe () Medicare annual wellness visit, initial 11/07/2021 Medicare wellness Part B: 04/10/2021 Last done : 11/07/2021 Mitral valve prolapse Mitral valve regurgitation Mixed hyperlipidemia Nontoxic single thyroid nodule 05/13/2021 S/p partial thyroidectomy 09/2021 SUSI (obstructive sleep apnea) 05/09/2021 Was able to get off CPAP after weight loss. Postoperative hypothyroidism 11/07/2021 Stage 3a chronic kidney disease (HCC) 11/20/2022 PAST SURGICAL HISTORY Procedure Laterality Date COLONOSCOPY FLX DX W/COLLJ SPEC WHEN PFRMD 07/21/2007 Colonoscopy COLONOSCOPY GEN SALOME Lazar. repeat in 5 years ECHO 10/05/2020 LEFT HEART CATH,PERCUTANEOUS aprox 03/2014 STRESS TEST 10/10/2020 exercise with NM images THYROIDECTOMY Left left thyroid lobectomy TOTAL HIP REPLACEMENT Left TOTAL HIP REPLACEMENT Right FAMILY HISTORY Problem Relation Age of Onset Hypertension Mother Stroke Mother Melanoma Father Kidney failure Father Breast Cancer Sister Cancer Brother mets to brain Lung Cancer Brother Anesthesia Problems No Family History Social History Tobacco Use Smoking status: Never Smokeless tobacco: Former Types: Chew Quit date: 1980 Vaping Use Vaping status: Never Used Substance Use Topics Alcohol use: Yes Comment: 2-3 Beers a month Drug use: Never REVIEW OF SYMPTOMS: REVIEW OF SYSTEMS: General: The patient denies fatigue, denies weight loss, denies weight gain, denies feeling hot, and feelings of cold. Eyes: The patient denies glaucoma, denies eye injury/surgery, + glas (more content not included)...[facility]05-06-[facility] Instructions* Patient Instructions* Bro Easton MD - 12/13/2024 1:11 PM EDT Consider getting the shingrix vaccine for the prevention of shingles from a local pharmacy along with Tdap for tetanus booster. 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 Please get labs done on or after 06/02/2025 prior to your next visit. Screening schedule The following prevention plan is recommended: BP Controlled (<130/80) Never done Shingrix Vaccine(1 of 2) Never done DTaP,Tdap,Td Vaccine(2 - Td or Tdap) due on 10/10/2022 Advance Directive Discussion due on 08/10/2024 Covid-19 Vaccine( season) due on 12/08/2024 Depression Screening due on 12/08/2024 Anxiety Screening due on 12/08/2024 Colorectal Cancer Screening due on 03/06/2025 WHAT YOU CAN DO TO PREVENT FALLS Many falls can be prevented. By making some changes, you can lower your chances of falling. Four things YOU can do to prevent falls for you* and your caregiver 1. Begin a regular exercise program Exercise is one of the most important ways to lower your chances of falling. It makes you stronger and helps you feel better. Exercises that improve balance and coordination (like Justin Chi) are the most helpful. Lack of exercise leads to weakness and increases your chances of falling. Ask your doctor or health care provider about the best type of exercise program for you. 2. Have your health care provider review your medicines Have your doctor or pharmacist review all the medicines you take, even zqob-nlz-njpezpt medicines. As you get older, the way medicines work in your body can change. Some medicines, or combinations of medicines, can make you sleepy or dizzy andcan cause you to fall. 3. Have your vision checked Have your eyes checked by an eye doctor at least once a year. You may be wearing the wrong glasses or have a condition like glaucoma or cataracts that limits your vision. Poor vision can increase your chances of falling. 4. Make your home safer About half of all falls happen at home. To make your home safer: Remove things you can trip over (like papers, books, clothes, and shoes) from stairs and places where you walk. Remove small throw rugs or use double-sided tape to keep the rugs from slipping. Keep items you use often in cabinets you can reach easily without using a step stool. Have grab bars put in next to your toilet and in the tub or shower. Use non-slip mats in the bathtub and on shower floors. Improve the lighting in your home. As you get older, you need brighter lights to see well. Hang light-weight curtains or shades to reduce glare. Have handrails and lights put in on all staircases. Wear shoes both inside and outside the house. Avoid going barefoot or wearing slippers. For more information, contact: Centers for Disease Control and Prevention www.cdc.gov/injury * This information may not apply if you have certain medical conditions. documented in [facility] History of Present illness Narrative* Bro Easton MD - 12/13/2024 1:00 PM EDT Images from the original note were not included. Alexandria Sauer is a 69 year old male here for a Medicare wellness visit. Medicare Health Risk Assessment General Health Good Exercise: Minutes/Day 90 min Exercise: Days/Week 5 days Alcohol: Daily Use 2-4 times a month Alcohol: Drinks/Day 1 or 2 Alcohol: 6 or more drinks Never Feel off balance No Concerns: Teeth/Dentures No Concerns: Sexual function No Troubled by feelings None of the above Frequency: Eating healthy diet Several days ADLs requiring help None of the above Safety precautions in home/vehicle Yes Smoke, vape, chews tobacco No Difficulty hearing No Difficulty seeing No Current Providers Specialists: I have reviewed specialist-related care of the patient in the medical record. Current care team: Patient Care Team: Bro Easton MD as PCP - General (Family Medicine) Marie Lopez APRN.CNP as Kinesiotherapist (Family Medicine) Kristie Bill PA-C as Kinesiotherapist (Family Medicine) Medical/Family history review Reviewed and updated problem list, medical/surgical/family/social history, medications, and allergies. Opioid use review Opioid Medications (last 90 days) No data to display Anxiety/Depression screening PHQ-2 Score: 0 (Lower risk for depression) JING-7 Score: 0 . Recommendation: no further intervention at this time Cognitive screening Score: 5 Cognitive screening reviewed and No further action needed (score 3-5). Functional Observation Was the patient's Timed Up & Go test unsteady or >= 12 seconds? No Advance Care Planning Surrogate decision maker and/or advance care plan documented Measurements BP 136/80 Pulse 60 Resp 16 Ht 168.9 cm (5' 6.5) Wt 86.2 kg (190 lb) BMI 30.21 kg/m Vision Screening: Follows with optometry/ophthalmology Assessment/Plan Medicare annual wellness visit, subsequent (Z00.00) - Counseled on healthy diet and regular exercise - Fall avoidance information provided - Personalized prevention plan provided See below Chief Complaint Patient presents with: Medicare Wellness Exam HPI Alexandria Sauer is a 69 year old male who presents here today for Chronic Medical Conditions. andMedicare Annual Visit. Patient with hx of Cardiomyopathy, HTN, MVP, hyperlipidemia, SUSI- no longer needing treatment, CKD,hypothyroid, and those as below. Patient sees Dr. Olsen next visit 02/2025 - last ECHO 02/2024 - patient has been doing well. No new issues or concerns. [facility] to some [facility] pain. Past medical history, appointments, medications, allergies reviewed. 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 Tameka Lazar Living will in place 11/07/2021 PAULETTE Abebe () Medicare annual wellness visit, initial 11/07/2021 Medicare wellness Part B: 04/10/2021 Last done : 11/07/2021 Mitral valve prolapse Mitral valve regurgitation Mixed hyperlipidemia Nontoxic single thyroid nodule 05/13/2021 S/p partial thyroidectomy 09/2021 SUSI (obstructive sleep apnea) 05/09/2021 Was able to get off CPAP after weight loss. Postoperative hypothyroidism 11/07/2021 Stage 3a chronic kidney disease (HCC) 11/20/2022 Previous Surgical History PAST SURGICAL HISTORY Procedure Laterality Date COLONOSCOPY FLX DX W/COLLJ SPEC WHEN PFRMD 07/21/2007 Colonoscopy COLONOSCOPY GEN ANES dr. Jamill. repeat in 5 years ECHO 10/05/2020 LEFT HEART CATH,PERCUTANEOUS aprox 03/2014 STRESS TEST 10/10/2020 exercise with NM images THYROIDECTOMY Left left thyroid lobectomy TOTAL HIP REPLACEMENT Left TOTAL HIP REPLACEMENT Right Family History FAMILY HISTORY Problem Relation Age of Onset Hypertension Mother Stroke Mother Melanoma Father Kidney failure Father Breast Cancer Sister Cancer Brother mets to brain Lung Cancer Brother Anesthesia Problems No Family History Patient Allergies ALLERGIES No Known Allergies Current Medications Current Outpatient Medications on File Prior to Visit Medication Sig allopurinol (ZYLOPRIM) 300 mg tablet Take 1 tablet by mouth once daily. levothyroxine (SYNTHROID) 88 mcg tablet Take 1 tablet by mouth daily at 6 am. naproxen (NAPROSYN) 500 mg tablet Take 1 tablet by mouth two times a day as needed (for pain/inflammation). Take with food. pravastatin (PRAVACHOL) 20 mg tablet Take 1 tablet by mouth once daily. colchicine 0.6 mg tablet Take one tab three times a day till pain resolved or complete the script sildenafil (VIAGRA) 100 mg tablet Take 1 tablet by mouth as needed. metoprolol succinate ER (TOPROL XL) 25 mg 24 hr tablet Take 1 tablet by mouth once daily. aspirin, enteric coated (ASPIRIN, ENTERIC COATED) 81 mg EC tablet Take 81 mg by mouth once daily. No current facility-administered medications on file prior to visit. Social History Social History Tobacco Use Smoking status: Never Smokeless tobacco: Former Types: Chew Quit date: 1980 Vaping Use Vaping status: Never Used Substance Use Topics Alcohol use: Yes Comment: 2-3 Beers a month Drug use: Never Review of Symptoms REVIEW OF SYSTEMS GENERAL: No weight loss, malaise or fevers HEENT: Negative for frequent or significant headaches, No changes in hearing or vision, no nose bleeds or other nasal problems NECK: Negative for lumps, goiter, pain and significant neck swelling RESPIRATORY: Negative for cough, hemoptysis, wheezing, COPD, dyspnea or shortness of breath CARDIOVASCULAR: Negative for chest pain, leg swelling, hypertension, CHF or palpitations GI: No nausea, vomiting, or diarrhea, No heartburn or reflux symptoms, and no blood : No history of dysuria, frequency or blood MUSCULOSKELETAL: see HPI SKIN: sees derm PSYCH: Negative for sleep disturbance, mood disorder and recent psychosocial stressors HEMATOLOGY/LYMPHOLOGY: Negative for prolonged bleeding, bruising easily or swollen nodes ENDOCRINE: Negative for cold or heat intolerance, polyuria, polydipsia and goiter NEURO: No history of headaches, syncope, paralysis, seizures or tremors EXAM: BP 136/80 Pulse 60 Resp 16 Ht 168.9 cm (5' 6.5) Wt 86.2 kg (190 lb) BMI 30.21 kg/m Last 5 Encounter Wt Readings: Date: Wt: 12/13/2024 86.2 kg (190 lb) 06/10/2024 86.2 kg (190 lb) 12/09/2023 86.2 kg (190 lb) 06/03/2023 85.3 kg (188 lb) 12/18/2022 81.2 kg (179 lb) General Appearance: Well appearing, alert, in no acute distress, well-hydrated, well nourished. andOverweight. Skin: sees derm. Head: Normocephalic, no masses, lesions, tenderness or abnormalities. Eyes: Anicteric sclera. Pupils are equally round and reactive to light. Extraocular movements are intact. . Ears: External ears normal, canals clear. Nose/Sinuses: Nares normal, septum midline, mucosa normal, no drainage or sinus tenderness. Oropharynx: Lips, mucosa, and tongue normal, teeth and gums normal, oropharynx normal. Neck: Supple, no adenopathy; thyroid symmetric, normal size, no bruits. Lungs: Lungs clear to auscultation. No wheezing, rhonchi, rales.. Heart: RRR without murmur, gallop, or rubs. No ectopy. Abdomen: Normal abdominal exam, Abdomen soft, non-tender. Bowel sounds normal. No masses, organomegaly. Extremities: No deformities, edema, skin discoloration, clubbing or cyanosis. Good capillary refill. . Musculoskeletal: . Muscular strength intact, No joint swelling, deformity, or tenderness. Peripheral Pulses: Normal. Neurologic: Gait normal. Reflexes normal and symmetric. Sensation to light touch and crainal nerves2-12 intact.. Genitalia: Normal, Penis normal. No urethral discharge. Scrotum normal to palpation. No hernia.. Rectal: Normal exam. Prostate slightly enlarged with smooth firm capsule. Health Maintenance List BP Controlled (<130/80) Never done Shingrix Vaccine(1 of 2) Never done DTaP,Tdap,Td Vaccine(2 - Td or Tdap) due on 10/10/2022 Advance Directive Discussion due on 08/10/2024 Covid-19 Vaccine() due on 12/08/2024 Depression Screening due on 12/08/2024 Anxiety Screening due on 12/08/2024 Colorectal Cancer Screening due on 03/06/2025 Annual PCP Team Chronic Disease Visit due on 06/10/2025 Serum Creatinine due on 12/06/2025 Diabetes Screening due on 12/07/2027 Lipid Screening due on 12/06/2029 Prostate Cancer Screening Discussion due on 12/06/2029 RSV Vaccine(1 - 1-dose 75+ series) due on 2031 Influenza Vaccine Completed Pneumococcal Vaccine: 50+ Completed Hepatitis C Screening Discontinued Data reviewed Latest Ref Rng 12/02/2023 06/01/2024 12/06/2024 WBC 3.70 - 11.00 k/uL 5.60 8.39 RBC 4.20 - 6.00 m/uL 4.83 4.71 Hemoglobin 13.0 - 17.0 g/dL 15.4 14.8 Hematocrit 39.0 - 51.0 % 46.8 45.2 MCV 80.0 - 100.0 fL 96.9 96.0 MCH 26.0 - 34.0 pg 31.9 31.4 MCHC 30.5 - 36.0 g/dL 32.9 32.7 RDW-CV 11.5 - 15.0 % 13.7 13.8 Platelet Count 150 - 400 k/uL 207 230 MPV 9.0 - 12.7 fL 11.0 10.8 Neut% % 71.1 81.1 Abs Neut (ANC) 1.45 - 7.50 k/uL 3.98 6.81 Lymph% % 17.9 10.4 Abs Lymph 1.00 - 4.00 k/uL 1.00 0.87 (L) [place]% % 8.0 7.2 Abs [place] <0.87 k/uL 0.45 0.60 Eosin% % 2.1 0.6 Abs Eosin <0.46 k/uL 0.12 0.05 Baso% % 0.7 0.5 Abs Baso <0.11 k/uL 0.04 0.04 Immature Gran % % 0.2 0.2 IMMATURE GRANS (ABS) <0.10 k/uL <0.03 <0.03 NRBC /100 WBC 0.0 0.0 Absolute nRBC <0.01 k/uL <0.01 <0.01 DTYPE Auto Auto Color Yellow Yellow Yellow Clarity Clear Clear Clear Glucose, Urine Negative Negative Negative Bilirubin, Urine Negative Negative Negative Ketones, Urine Negative Negative Negative Specific [place], Ur 1.005 - 1.030 1.019 1.021 Hemoglobin/Blood,Ur Negative Negative Negative pH, Urine <8.5 5.5 5.5 Protein, Urine Negative Negative Trace ! Urobilinogen 0.2-1.0 EU/dL 0.2 EU/dL 0.2 EU/dL Nitrites Negative Negative Negative Leukest Negative Negative Negative WBC, Urine 0-5 /HPF 0-5 /HPF 0-5 /HPF RBC, Urine 0-2 /HPF 0-2 /HPF 0-2 /HPF Bacteria Negative /HPF Negative Negative Epithelial Cells /HPF None Seen None Seen Hyaline Cast 0 /LPF 4-10 /LPF ! 4-10 /LPF ! Protein, Total 6.3 - 8.0 g/dL 6.9 7.2 Albumin 3.9 - 4.9 g/dL 4.4 4.5 Calcium 8.5 - 10.2 mg/dL 9.8 9.8 9.7 Bilirubin, Total 0.2 - 1.3 mg/dL 0.8 0.9 Alkaline Phosphatase 38 - 113 U/L 76 73 AST 14 - 40 U/L 27 27 ALT 10 - 54 U/L 21 23 Glucose 74 - 99 mg/dL 148 (H) 77 90 BUN 9 - 24 mg/dL 17 19 15 Creatinine 0.73 - 1.22 mg/dL 1.36 (H) 1.25 (H) 1.30 (H) Sodium 136 - 144 mmol/L 141 142 144 Potassium 3.7 - 5.1 mmol/L 4.8 4.6 4.8 Chloride 98 - 107 mmol/L 103 105 108 (H) CO2 22 - 30 mmol/L 26 27 25 Anion Gap 8 - 15 mmol/L 12 10 11 eGFR >=60 mL/min/1.73m 57 (L) 63 60 Total Cholesterol, Nonfasting <200 mg/dL 186 147 173 Triglycerides, Nonfasting <150 mg/dL 84 94 141 HDL Cholesterol, Nonfasting >39 mg/dL 61 60 57 LDL Cholesterol Calculated, Nonfasting <100 mg/dL 108 (H) 68 91 Non HDL Cholesterol, Nonfasting <130 mg/dL 125 87 116 VLDL Cholesterol, Nonfasting <30 mg/dL 17 19 22 Total Chol/HDL Ratio, Nonfasting <5.10 mg/dL 3.05 2.45 3.04 LDL/HDL Ratio, Nonfasting <2.54 mg/dL 1.77 1.13 1.60 Hemoglobin A1C 4.3 - 5.6 % 5.4 Estimated Average Glucose mg/dL 108 TSH 0.270 - 4.200 mIU/L 0.688 1.430 0.791 Uric Acid 4.0 - 8.1 mg/dL 5.1 4.7 PSA <2.60 ng/mL 0.96 1.24 A/P ASSESSMENT/PLAN: 1. Encounter for Medicare annual wellness exam - ICD9: V70.0, ICD10: Z00.00 (primary diagnosis) - Counseled on healthy diet and regular exercise - Discussed need for and benefit of weight loss. BMI 30.21 kg/(m^2) - Follow up for annual exam in one year - advised on shingrix and Tdap 2. Essential hypertension, benign - ICD9: 401.1, ICD10: I10 - Controlled - Continue current medications - Recommend home blood pressure monitoring, to bring results to next visit - Encouraged sodium restriction, DASH or Mediterranean diet - Recommend regular aerobic exercise - Discussed need for and benefit of weight loss. BMI 30.21 kg/(m^2) 3. Mixed hyperlipidemia - ICD9: 272.2, ICD10: E78.2 - Controlled - Counseled on healthy diet and regular exercise - Discussed need for and benefit of weight loss. BMI 30.21 kg/(m^2) 4. Postoperative hypothyroidism - ICD9: 244.0, ICD10: E89.0 - Instructed patient on importance of taking on an empty stomach either first thing in the morning or at bedtime. - continue current dose of Synthroid 5. Stage 3a chronic kidney disease (HCC) - ICD9: 585.3, ICD10: N18.31 - eGFR: 60 Stable - Counseled on avoiding NSAIDs, adequate hydration 6. Cardiomyopathy, hypertrophic (HCC) - ICD9: 425.18, ICD10: I42.2 - cont meds and f/u with cardio. 7. Gout, unspecified cause, unspecified chronicity, unspecified site - ICD9: 274.9, ICD10: M10.9 - controlled with allopurinol. 8. Benign prostatic hyperplasia with urinary frequency - ICD9: 600.01, 788.41, ICD10: N40.1, R35.0 - stable no changes. 9. ED (erectile dysfunction) of organic origin - ICD9: 607.84, ICD10: N52.9 - cont prn viagra 10. Malignant melanoma of scalp (HCC) - ICD9: 172.4, ICD10: C43.4 - follows with derm for screening. 11. Advance directive discussed with patient - ICD9: V65.49, ICD10: Z71.89 - patient to bring in copies. 12. History of colonic polyps - ICD9: V12.72, ICD10: Z86.0100 - CONSULT TO GENERAL SURGERY 13. Screening for colon cancer - ICD9: V76.51, ICD10: Z12.11 - CONSULT TO GENERAL SURGERY 14. Encounter for screening examination for other mental health and behavioral disorders - ICD9: V79.8, ICD10: Z13.39 - ANXIETY SCREENING 15. Screening for depression - ICD9: V79.0, ICD10: Z13.31 - DEPRESSION SCREENING 16. Elevated blood sugar - ICD9: 790.29, ICD10: R73.9 - controlled with diet. F/u 6 months check BMP, Lipid, TSH and A1c prior I spent a total of 40 minutes on the date of the service which included preparing to see the patient, [id number] patient care, completing clinical documentation, performing a medically appropriate examination, counseling and educating the patient/family/caregiver and ordering medications, tests, or procedures. Bro Easton MD SENSITIVE EXAMINATION CONSENT: The sensitive examination was discussed with the Patient or Patient's Authorized Applications Systems Analyst. Asapplicable, any other physician, advance practice provider, medical student, or other health professional student that will be observing or involved in the sensitive examination for educational or training purposes was discussed with the Patient or Authorized Applications Systems Analyst. The Patient or Authorized Applications Systems Analyst has agreed to proceed with the sensitive examination. [facility] NoteHNO ID: [id number] Author: BRO EASTON MD Service: ? Author Type: Physician Type: Progress Notes Filed: 12/13/2024 15:31 Note Text: Alexandria Sauer is a 69 year old male here for a Medicare wellness visit. Medicare Health Risk Assessment General Health Good Exercise: Minutes/Day 90 min Exercise: Days/Week 5 days Alcohol: Daily Use 2-4 times a month Alcohol: Drinks/Day 1 or 2 Alcohol: 6 or more drinks Never Feel off balance No Concerns: Teeth/Dentures No Concerns: Sexual function No Troubled by feelings None of the above Frequency: Eating healthy diet Several days ADLs requiring help None of the above Safety precautions in home/vehicle Yes Smoke, vape, chews tobacco No Difficulty hearing No Difficulty seeing No Current Providers Specialists: I have reviewed specialist-related care of the patient in the medical record. Current care team: Patient Care Team: Bro Easton MD as PCP - General (Family Medicine) Marie Lopez APRN.CNP as Kinesiotherapist (Family Medicine) Kristie Bill PA-C as Kinesiotherapist (Family Medicine) Medical/Family history review Reviewed and updated problem list, medical/surgical/family/social history, medications, and allergies. Opioid use review Opioid Medications (last 90 days) No data to display Anxiety/Depression screening PHQ-2 Score: 0 (Lower risk for depression) JING-7 Score: 0 . Recommendation: no further intervention at this time Cognitive screening Score: 5 Cognitive screening reviewed and No further action needed (score 3-5). Functional Observation Was the patient's Timed Up AND Go test unsteady or >= 12 seconds? No Advance Care Planning Surrogate decision maker and/or advance care plan documented Measurements BP 136/80 Pulse 60 Resp 16 Ht 168.9 cm (5' 6.5) Wt 86.2 kg (190 lb) BMI 30.21 kg/m? Vision Screening: Follows with optometry/ophthalmology Assessment/Plan Medicare annual wellness visit, subsequent (Z00.00) - Counseled on healthy diet and regular exercise - Fall avoidance information provided - Personalized prevention plan provided See below Chief Complaint Patient presents with: Medicare Wellness Exam HPI Alexandria Sauer is a 69 year old male who presents here today for Chronic Medical Conditions. and Medicare Annual Visit. Patient with hx of Cardiomyopathy, HTN, MVP, hyperlipidemia, SUSI- no longer needing treatment, CKD, hypothyroid, and those as below. Patient sees Dr. Olsen next visit 02/2025 - last ECHO 02/2024 - patient has been doing well. No new issues or concerns. [facility] due to some hip pain. Past medical history, appointments, medications, allergies reviewed. 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 Tameka Lazar Living will in place 11/07/2021 DPA; Mis () Medicare annual wellness visit, initial 11/07/2021 Medicare wellness Part B: 04/10/2021 Last done : 11/07/2021 Mitral valve prolapse Mitral valve regurgitation Mixed hyperlipidemia Nontoxic single thyroid nodule 05/13/2021 S/p partial thyroidectomy 09/2021 SUSI (obstructive sleep apnea) 05/09/2021 Was able to get off CPAP after weight loss. Postoperative hypothyroidism 11/07/2021 Stage 3a chronic kidney disease (HCC) 11/20/2022 Previous Surgical History PAST SURGICAL HISTORY Procedure Laterality Date COLONOSCOPY FLX DX W/COLLJ SPEC WHEN PFRMD 07/21/2007 Colonoscopy COLONOSCOPY GEN ANES dr. Lazar. repeat in 5 years ECHO 10/05/2020 LEFT HEART CATH,PERCUTANEOUS aprox 03/2014 STRESS TEST 10/10/2020 exercise with NM images THYROIDECTOMY Left left thyroid lobectomy TOTAL HIP REPLACEMENT Left TOTAL HIP REPLACEMENT Right Family History FAMILY HISTORY Problem Relation Age of Onset Hypertension Mother Stroke Mother Melanoma Father Kidney failure Father Breast Cancer Sister Cancer Brother mets to brain Lung Cancer Brother Anesthesia Problems No Family History Patient Allergies ALLERGIES No Known Allergies Current Medications Current Outpatient Medications on File Prior to Visit Medication Sig allopurinol (ZYLOPRIM) 300 mg tablet Take 1 tablet by mouth once daily. levothyroxine (SYNTHROID) 88 mcg tablet Take 1 tablet by mouth daily at 6 am. naproxen (NAPROSYN) 500 mg tablet Take 1 tablet by mouth two times a day as needed (for pain/inflammation). Take with food. pravastatin (PRAVACHOL) 20 mg tablet Take 1 tablet by mouth once daily. colchicine 0.6 mg tablet Take one tab three times a day till pain resolved or complete the script sildena (more content not included)...[facility]03-13-2025 Telephone encounter Note* Telephone Encounter - Bro Easton MD - 10/20/2024 3:29 PM EDT The following approved medication requests have been transmitted electronically. Requested Prescriptions Signed Prescriptions Disp Refills allopurinol (ZYLOPRIM) 300 mg tablet 90 tablet 1 Sig: Take 1 tablet by mouth once daily. Authorizing Provider: BRO EASTON levothyroxine (SYNTHROID) 88 mcg tablet 90 tablet 1 Sig: Take 1 tablet by mouth daily at 6 am. Authorizing Provider: BRO EASTON naproxen (NAPROSYN) 500 mg tablet 90 tablet 1 Sig: Take 1 tablet by mouth two times a day as needed (for pain/inflammation). Take with food. Authorizing Provider: BRO EASTON pravastatin (PRAVACHOL) 20 mg tablet 90 tablet 1 Sig: Take 1 tablet by mouth once daily. Authorizing Provider: BRO EASTON MD [facility]03-13-2025 Miscellaneous Notes* Telephone Encounter - Bro Easton MD - 10/20/2024 3:29 PM EDT The following approved medication requests have been transmitted electronically. Requested Prescriptions Signed Prescriptions Disp Refills allopurinol (ZYLOPRIM) 300 mg tablet 90 tablet 1 Sig: Take 1 tablet by mouth once daily. Authorizing Provider: BRO EASTON levothyroxine (SYNTHROID) 88 mcg tablet 90 tablet 1 Sig: Take 1 tablet by mouth daily at 6 am. Authorizing Provider: BRO EASTON naproxen (NAPROSYN) 500 mg tablet 90 tablet 1 Sig: Take 1 tablet by mouth two times a day as needed (for pain/inflammation). Take with food. Authorizing Provider: BRO EASTON pravastatin (PRAVACHOL) 20 mg tablet 90 tablet 1 Sig: Take 1 tablet by mouth once daily. Authorizing Provider: BRO EASTON MD * Telephone Encounter - Sparkle Shen MA - 10/20/2024 2:57 PM EDT [facility] Sparkle Shen MA * Telephone Encounter - Deborah Callahan - 10/20/2024 10:53 AM EDT Last apt 06/10/2024 Next apt 12/13/2024 Patient has been identified by name and date of : Yes Last office visit in this department: 06/10/2024 RX INSTRUCTIONS: Patient aware RX will be sent to pharmacy. No need to notify patient. Patient phones requesting refills as follows: Requested Prescriptions Pending Prescriptions Disp Refills allopurinol (ZYLOPRIM) 300 mg tablet 90 tablet 3 Sig: Take 1 tablet by mouth once daily. levothyroxine (SYNTHROID) 88 mcg tablet 90 tablet 3 Sig: Take 1 tablet by mouth daily at 6 am. naproxen (NAPROSYN) 500 mg tablet 90 tablet 1 Sig: Take 1 tablet by mouth two times a day as needed (for pain/inflammation). Take with food. pravastatin (PRAVACHOL) 20 mg tablet 90 tablet 3 Sig: Take 1 tablet by mouth once daily. Please review and advise. Deborah Ochoa documented in [facility] Telephone encounter Note * Telephone Encounter - Sparkle Shen MA - 10/20/2024 2:57 PM EDT Pt requesting these be sent to [facility]. Looks like these were sent to [facility]. Sparkle Shen MA [facility]03-13-2025 Telephone encounter Note* Telephone Encounter - Deborah Callahan - 10/20/2024 10:53 AM EDT Last apt 06/10/2024 Next apt 12/13/2024 Patient has been identified by name and date of : Yes Last office visit in this department: 06/10/2024 RX INSTRUCTIONS: Patient aware RX will be sent to pharmacy. No need to notify patient. Patient phones requesting refills as follows: Requested Prescriptions Pending Prescriptions Disp Refills allopurinol (ZYLOPRIM) 300 mg tablet 90 tablet 3 Sig: Take 1 tablet by mouth once daily. levothyroxine (SYNTHROID) 88 mcg tablet 90 tablet 3 Sig: Take 1 tablet by mouth daily at 6 am. naproxen (NAPROSYN) 500 mg tablet 90 tablet 1 Sig: Take 1 tablet by mouth two times a day as needed (for pain/inflammation). Take with food. pravastatin (PRAVACHOL) 20 mg tablet 90 tablet 3 Sig: Take 1 tablet by mouth once daily. Please review and advise. Deborah Ochoa [facility] Work Phone: 1(237) 255-175703-07-2025 Telephone encounter Note* Telephone Encounter - Debora Horton LPN - 10/14/2024 12:04 PM EST Prescription Refill Information The patient has been identified by name and date of : Yes Caregiver verified no other encounters exist for this prescription request: Yes Caregiver confirmed with patient/requestor that no other refills are due, in the near future, with this provider at this time: Yes The last office visit in the department: 12/09/23 Does the patient have a future office visit with this provider/department: Yes Requested Prescriptions Pending Prescriptions Disp Refills levothyroxine (SYNTHROID) 88 mcg tablet 90 tablet 3 Sig: Take 1 tablet by mouth daily at 6 am. pravastatin (PRAVACHOL) 20 mg tablet 90 tablet 3 Sig: Take 1 tablet by mouth once daily. allopurinol (ZYLOPRIM) 300 mg tablet 90 tablet 3 Sig: Take 1 tablet by mouth once daily. naproxen (NAPROSYN) 500 mg tablet 90 tablet 1 Sig: Take 1 tablet by mouth two times a day as needed (for pain/inflammation). Take with food. Debora Horton LPN October 14, 2024 12:05 PM [facility]03-07-2025 Miscellaneous Notes* Telephone Encounter - Debora Horton LPN - 10/14/2024 12:04 PM EST Prescription Refill Information The patient has been identified by name and date of : Yes Caregiver verified no other encounters exist for this prescription request: Yes Caregiver confirmed with patient/requestor that no other refills are due, in the near future, with this provider at this time: Yes The last office visit in the department: 12/09/23 Does the patient have a future office visit with this provider/department: Yes Requested Prescriptions Pending Prescriptions Disp Refills levothyroxine (SYNTHROID) 88 mcg tablet 90 tablet 3 Sig: Take 1 tablet by mouth daily at 6 am. pravastatin (PRAVACHOL) 20 mg tablet 90 tablet 3 Sig: Take 1 tablet by mouth once daily. allopurinol (ZYLOPRIM) 300 mg tablet 90 tablet 3 Sig: Take 1 tablet by mouth once daily. naproxen (NAPROSYN) 500 mg tablet 90 tablet 1 Sig: Take 1 tablet by mouth two times a day as needed (for pain/inflammation). Take with food. Debora Horton LPN October 14, 2024 12:05 PM * Telephone Encounter - Bonnie Bowman - 10/14/2024 11:54 AM EST Patient has been identified by name and date of : Yes Patient phones for refill(s): Requested Prescriptions Pending Prescriptions Disp Refills levothyroxine (SYNTHROID) 88 mcg tablet 90 tablet 3 Sig: Take 1 tablet by mouth daily at 6 am. pravastatin (PRAVACHOL) 20 mg tablet 90 tablet 3 Sig: Take 1 tablet by mouth once daily. allopurinol (ZYLOPRIM) 300 mg tablet 90 tablet 3 Sig: Take 1 tablet by mouth once daily. naproxen (NAPROSYN) 500 mg tablet 90 tablet 1 Sig: Take 1 tablet by mouth two times a day as needed (for pain/inflammation). Take with food. Date of last office visit in primary care: 06/10/2024 Date of next office visit in primary care: 12/13/2024 Please advise. Thank you. Bonnie Bowman. documented in [facility] Telephone encounter Note * Telephone Encounter - Bonnie Bowman - 10/14/2024 11:54 AM EST Patient has been identified by name and date of : Yes Patient phones for refill(s): Requested Prescriptions Pending Prescriptions Disp Refills levothyroxine (SYNTHROID) 88 mcg tablet 90 tablet 3 Sig: Take 1 tablet by mouth daily at 6 am. pravastatin (PRAVACHOL) 20 mg tablet 90 tablet 3 Sig: Take 1 tablet by mouth once daily. allopurinol (ZYLOPRIM) 300 mg tablet 90 tablet 3 Sig: Take 1 tablet by mouth once daily. naproxen (NAPROSYN) 500 mg tablet 90 tablet 1 Sig: Take 1 tablet by mouth two times a day as needed (for pain/inflammation). Take with food. Date of last office visit in primary care: 06/10/2024 Date of next office visit in primary care: 12/13/2024 Please advise. Thank you. Bonnie Bowman. [facility]11-01-[facility] Instructions* Patient Instructions* Kristie Bill PA-C - 06/10/2024 1:48 PM EDT Follow up in 6 months for wellness exam with labs prior. documented in this encounterL[facility]-2024 NoteHNO ID: [id number] Author: KRISTIE BILL PA-C Service: ? Author Type: Physician Herbologist Type: Progress Notes Filed: 06/10/2024 14:17 Note Text: Chief Complaint Patient presents with: Follow Up: 6 month HPI Alexandria Sauer is a 69 year old male who presents here today for Chronic Medical Conditions.. Patient with hx of Cardiomyopathy, HTN, MVP, hyperlipidemia, SUSI- no longer needing treatment, CKD, hypothyroid, and those as below. No concerns today No recent hospital or ER visits. Past medical history, appointments, medications, allergies reviewed. 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 Tameka Lazar Living will in place 11/07/2021 DPA; Mis () Medicare annual wellness visit, initial 11/07/2021 Medicare wellness Part B: 04/10/2021 Last done : 11/07/2021 Mitral valve prolapse Mitral valve regurgitation Mixed hyperlipidemia Nontoxic single thyroid nodule 05/13/2021 S/p partial thyroidectomy 09/2021 SUSI (obstructive sleep apnea) 05/09/2021 Was able to get off CPAP after weight loss. Postoperative hypothyroidism 11/07/2021 Stage 3a chronic kidney disease (HCC) 11/20/2022 Previous Surgical History PAST SURGICAL HISTORY Procedure Laterality Date COLONOSCOPY FLX DX W/COLLJ SPEC WHEN PFRMD 07/21/2007 Colonoscopy COLONOSCOPY GEN ANES dr. Lazar. repeat in 5 years ECHO 10/05/2020 LEFT HEART CATH,PERCUTANEOUS aprox 03/2014 STRESS TEST 10/10/2020 exercise with NM images THYROIDECTOMY Left left thyroid lobectomy TOTAL HIP REPLACEMENT Left TOTAL HIP REPLACEMENT Right Family History FAMILY HISTORY Problem Relation Age of Onset Hypertension Mother Stroke Mother Melanoma Father Kidney failure Father Breast Cancer Sister Cancer Brother mets to brain Lung Cancer Brother Anesthesia Problems No Family History Patient Allergies ALLERGIES No Known Allergies Current Medications Current Outpatient Medications on File Prior to Visit Medication Sig levothyroxine (SYNTHROID) 88 mcg tablet Take 1 tablet by mouth daily at 6 am. pravastatin (PRAVACHOL) 20 mg tablet Take 1 tablet by mouth once daily. allopurinol (ZYLOPRIM) 300 mg tablet Take 1 tablet by mouth once daily. naproxen (NAPROSYN) 500 mg tablet Take 1 tablet by mouth two times a day as needed (for pain/inflammation). Take with food. colchicine 0.6 mg tablet Take one tab three times a day till pain resolved or complete the script sildenafil (VIAGRA) 100 mg tablet Take 1 tablet by mouth as needed. metoprolol succinate ER (TOPROL XL) 25 mg 24 hr tablet Take 1 tablet by mouth once daily. aspirin, enteric coated (ASPIRIN, ENTERIC COATED) 81 mg EC tablet Take 81 mg by mouth once daily. No current facility-administered medications on file prior to visit. Social History Social History Tobacco Use Smoking status: Never Smokeless tobacco: Former Types: Chew Quit date: 1980 Vaping Use Vaping status: Never Used Substance Use Topics Alcohol use: Yes Comment: 2-3 Beers a month Drug use: Never Review of Symptoms REVIEW OF SYSTEMS GENERAL: No weight loss, malaise or fevers NECK: Negative for lumps, goiter, pain and significant neck swelling RESPIRATORY: Negative for cough, hemoptysis, wheezing, COPD, dyspnea or shortness of breath CARDIOVASCULAR: Negative for chest pain, leg swelling, CHF or palpitations GI: Negative for abdominal discomfort, blood in stools or black stools, change in bowel habit, heart burn, nausea, vomiting NEURO: No history of headaches, syncope, paralysis, seizures or tremors EXAM: BP 130/80 Pulse 64 Resp 16 Wt 86.2 kg (190 lb) SpO2 98% BMI 30.21 kg/m? General Appearance: Well appearing, alert, in no acute distress, well-hydrated, well nourished.. Neck: Supple, no adenopathy; thyroid symmetric, normal size, no bruits. Lungs: Lungs clear to auscultation. No wheezing, rhonchi, rales.. Heart: RRR without murmur, gallop, or rubs. No ectopy. Extremities: No deformities, edema, skin discoloration, clubbing or cyanosis. Good capillary refill. . Peripheral Pulses: Normal. Health Maintenance List BP Controlled (<130/80) Never done Influenza Vaccine(1) due on 04/10/2024 Covid-19 Vaccine( season) due on 04/10/2024 DTaP,Tdap,Td Vaccine(2 - Td or Tdap) due on 12/08/2024 Shingrix Vaccine(1 of 2) due on 12/08/2024 Depression Screening due on 12/08/2024 Anxiety Screening due on 12/08/2024 Colorectal Cancer Screening due on 03/06/2025 Serum Creatinine due on 06/01/2025 Annual PCP Team Chronic Disease Visit due on 06/10/2025 Diabetes Scre (more content not included)...[facility]11-01-[facility] History of Present illness Narrative* Kristie Bill PA-C - 06/10/2024 1:39 PM EDT Chief Complaint Patient presents with: Follow Up: 6 month HPI Alexandria Sauer is a 69 year old male who presents here today for Chronic Medical Conditions.. Patient with hx of Cardiomyopathy, HTN, MVP, hyperlipidemia, SUSI- no longer needing treatment, CKD,hypothyroid, and those as below. No concerns today No recent hospital or ER visits. Past medical history, appointments, medications, allergies reviewed. 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 Tameka Lazar Living will in place 11/07/2021 DPA; Mis () Medicare annual wellness visit, initial 11/07/2021 Medicare wellness Part B: 04/10/2021 Last done : 11/07/2021 Mitral valve prolapse Mitral valve regurgitation Mixed hyperlipidemia Nontoxic single thyroid nodule 05/13/2021 S/p partial thyroidectomy 09/2021 SUSI (obstructive sleep apnea) 05/09/2021 Was able to get off CPAP after weight loss. Postoperative hypothyroidism 11/07/2021 Stage 3a chronic kidney disease (HCC) 11/20/2022 Previous Surgical History PAST SURGICAL HISTORY Procedure Laterality Date COLONOSCOPY FLX DX W/COLLJ SPEC WHEN PFRMD 07/21/2007 Colonoscopy COLONOSCOPY GEN ANES dr. Lazar. repeat in 5 years ECHO 10/05/2020 LEFT HEART CATH,PERCUTANEOUS aprox 03/2014 STRESS TEST 10/10/2020 exercise with NM images THYROIDECTOMY Left left thyroid lobectomy TOTAL HIP REPLACEMENT Left TOTAL HIP REPLACEMENT Right Family History FAMILY HISTORY Problem Relation Age of Onset Hypertension Mother Stroke Mother Melanoma Father Kidney failure Father Breast Cancer Sister Cancer Brother mets to brain Lung Cancer Brother Anesthesia Problems No Family History Patient Allergies ALLERGIES No Known Allergies Current Medications Current Outpatient Medications on File Prior to Visit Medication Sig levothyroxine (SYNTHROID) 88 mcg tablet Take 1 tablet by mouth daily at 6 am. pravastatin (PRAVACHOL) 20 mg tablet Take 1 tablet by mouth once daily. allopurinol (ZYLOPRIM) 300 mg tablet Take 1 tablet by mouth once daily. naproxen (NAPROSYN) 500 mg tablet Take 1 tablet by mouth two times a day as needed (for pain/inflammation). Take with food. colchicine 0.6 mg tablet Take one tab three times a day till pain resolved or complete the script sildenafil (VIAGRA) 100 mg tablet Take 1 tablet by mouth as needed. metoprolol succinate ER (TOPROL XL) 25 mg 24 hr tablet Take 1 tablet by mouth once daily. aspirin, enteric coated (ASPIRIN, ENTERIC COATED) 81 mg EC tablet Take 81 mg by mouth once daily. No current facility-administered medications on file prior to visit. Social History Social History Tobacco Use Smoking status: Never Smokeless tobacco: Former Types: Chew Quit date: 1980 Vaping Use Vaping status: Never Used Substance Use Topics Alcohol use: Yes Comment: 2-3 Beers a month Drug use: Never Review of Symptoms REVIEW OF SYSTEMS GENERAL: No weight loss, malaise or fevers NECK: Negative for lumps, goiter, pain and significant neck swelling RESPIRATORY: Negative for cough, hemoptysis, wheezing, COPD, dyspnea or shortness of breath CARDIOVASCULAR: Negative for chest pain, leg swelling, CHF or palpitations GI: Negative for abdominal discomfort, blood in stools or black stools, change in bowel habit, heart burn, nausea, vomiting NEURO: No history of headaches, syncope, paralysis, seizures or tremors EXAM: BP 130/80 Pulse 64 Resp 16 Wt 86.2 kg (190 lb) SpO2 98% BMI 30.21 kg/m General Appearance: Well appearing, alert, in no acute distress, well-hydrated, well nourished.. Neck: Supple, no adenopathy; thyroid symmetric, normal size, no bruits. Lungs: Lungs clear to auscultation. No wheezing, rhonchi, rales.. Heart: RRR without murmur, gallop, or rubs. No ectopy. Extremities: No deformities, edema, skin discoloration, clubbing or cyanosis. Good capillary refill. . Peripheral Pulses: Normal. Health Maintenance List BP Controlled (<130/80) Never done Influenza Vaccine(1) due on 04/10/2024 Covid-19 Vaccine( season) due on 04/10/2024 DTaP,Tdap,Td Vaccine(2 - Td or Tdap) due on 12/08/2024 Shingrix Vaccine(1 of 2) due on 12/08/2024 Depression Screening due on 12/08/2024 Anxiety Screening due on 12/08/2024 Colorectal Cancer Screening due on 03/06/2025 Serum Creatinine due on 06/01/2025 Annual PCP Team Chronic Disease Visit due on 06/10/2025 Diabetes Screening due on 06/01/2027 Prostate Cancer Screening Discussion due on 12/08/2028 Lipid Screening due on 06/01/2029 RSV Vaccine(1 - 1-dose 75+ series) due on 2031 Advance Directive Discussion Completed Pneumococcal Vaccine: 65+ Completed HPV Vaccine Aged Out Hepatitis C Screening Discontinued Data reviewed Latest Ref Rng 06/01/2024 Glucose 74 - 99 mg/dL 77 BUN 9 - 24 mg/dL 19 Creatinine 0.73 - 1.22 mg/dL 1.25 (H) Sodium 136 - 144 mmol/L 142 Potassium 3.7 - 5.1 mmol/L 4.6 Chloride 98 - 107 mmol/L 105 CO2 22 - 30 mmol/L 27 Anion Gap 8 - 15 mmol/L 10 Calcium 8.5 - 10.2 mg/dL 9.8 eGFR >=60 mL/min/1.73m 63 Total Cholesterol, Nonfasting <200 mg/dL 147 Triglycerides, Nonfasting <150 mg/dL 94 HDL Cholesterol, Nonfasting >39 mg/dL 60 LDL Cholesterol, Nonfasting <100 mg/dL 68 Non HDL Cholesterol, Nonfasting <130 mg/dL 87 VLDL Cholesterol, Nonfasting <30 mg/dL 19 Total Chol/HDL Ratio, Nonfasting <5.10 mg/dL 2.45 LDL/HDL Ratio, Nonfasting <2.54 mg/dL 1.13 Hemoglobin A1C 4.3 - 5.6 % 5.4 Estimated Average Glucose mg/dL 108 TSH 0.270 - 4.200 mIU/L 1.430 Legend: (H) High ASSESSMENT/PLAN: 1. Essential hypertension, benign - ICD9: 401.1, ICD10: I10 (primary diagnosis) - Controlled - Continue current medications - Recommend home blood pressure monitoring, to bring results to next visit - Encouraged sodium restriction, DASH or Mediterranean diet - Recommend regular aerobic exercise - COMPLETE BLOOD COUNT AND DIFFERENTIAL - COMPREHENSIVE METABOLIC PANEL - URINALYSIS, WITH MICROSCOPIC 2. Encounter for immunization - ICD9: V03.89, ICD10: Z23 - INFLUENZA VACCINE, PRSV FREE, AGE 65+ YR, HIGH DOSE, TRIVALENT (FLUZONE HIGH-DOSE) - [employer] COVID-19 VACCINE AGE 12+ YR (COM[place]NATY) 3. Cardiomyopathy, hypertrophic (HCC) - ICD9: 425.18, ICD10: I42.2 Cont with cardio 4. Mixed hyperlipidemia - ICD9: 272.2, ICD10: E78.2 - Controlled - Continue current medications - Counseled on healthy diet and regular exercise - LIPID PANEL, NONFASTING 5. Stage 3a chronic kidney disease (HCC) - ICD9: 585.3, ICD10: N18.31 - eGFR: 63 Stable - Counseled on avoiding NSAIDs, adequate hydration - COMPLETE BLOOD COUNT AND DIFFERENTIAL - COMPREHENSIVE METABOLIC PANEL 6. Elevated blood sugar - ICD9: 790.29, ICD10: R73.9 A1c wnl - HEMOGLOBIN A1C 7. Postoperative hypothyroidism - ICD9: 244.0, ICD10: E89.0 stable - THYROID STIMULATING HORMONE 8. Prostate disorder - ICD9: 602.9, ICD10: N42.9 - PROSTATE-SPECIFIC ANTIGEN DIAGNOSTIC 9. Gout, unspecified cause, unspecified chronicity, unspecified site - ICD9: 274.9, ICD10: M10.9 - URIC ACID Kristie Bill PA-C Follow up in 6 months with labs prior. documented in [facility] NoteHNO ID: [id number] Author: DEBORA HORTON LPN Service: ? Author Type: LICENSED NURSE Type: Progress Notes Filed: 03/03/2024 10:30 Note Text: Scan on 03/02/2024 3:27 PM by ProviderYamileth PA-C: [facility] of Present illness Narrative* Debora Horton LPN - 03/03/2024 10:29 AM EDT Scan on 03/02/2024 3:27 PM by ProviderYamileth PA-C: Echo documented in this encounterL[facility]-27-[facility] Evaluation + Plan note* Assessment & Plan Note - Josué Olsen MD - 02/04/2024 1:49 PM EDT Associated Problem(s): Nonrheumatic mitral valve insufficiency His last echocardiogram in 2020 suggested mild mitral valve insufficiency. As it has been 3 years this will be reassessed with a transthoracic echocardiogram. [place]06-27-2024 Evaluation + Plan note* Assessment & Plan Note - Josué Olsen MD - 02/04/2024 1:49 PM EDTAssociated Problem(s): Nonrheumatic mitral valve prolapse He does have a history of MVP. This will be followed with echocardiographic studies. [place]06-27-2024 Miscellaneous Notes* Assessment & Plan Note - Josué Olsen MD - 02/04/2024 1:49 PM EDTAssociated Problem(s): Nonrheumatic mitral valve insufficiency His last echocardiogram in 2020 suggested mild mitral valve insufficiency. As it has been 3 years this will be reassessed with a transthoracic echocardiogram. * Assessment & Plan Note - Josué Olsen MD - 02/04/2024 1:49 PM EDT Associated Problem(s): Nonrheumatic mitral valve prolapse He does have a history of MVP. This will be followed with echocardiographic studies. * Assessment & Plan Note - Josué Olsen MD - 02/04/2024 1:48 PM EDT Associated Problem(s): Hyperlipidemia He does have a history of hyperlipidemia. He is following with his primary care physician for this.In the interim he is continuing medical therapy which includes his pravastatin at 20 mg p.o. q.day. * Assessment & Plan Note - Josué Olsen MD - 02/04/2024 1:47 PM EDT Associated Problem(s): NSVT (nonsustained ventricular tachycardia) He did have 1 report of an 8 beat episode of a wide complex tachycardia. It appeared to occur at 12:17 a.m.. He states he would have been sleeping at that time. He does not report any concerning symptoms with respect to heart rate or heart rhythm. He has had no other obvious symptoms or compromise. He will continue his medical therapy with his beta-mayito at this time. * Assessment & Plan Note - Josué Olsen MD - 02/04/2024 1:47 PM EDT Associated Problem(s): PVC's (premature ventricular contractions) He does have what appears to be rare PVCs. He appears to be asymptomatic. He will continue his beta-mayito at this time. * Assessment & Plan Note - Josué Olsen MD - 02/04/2024 1:46 PM EDT Associated Problem(s): Apical variant hypertrophic cardiomyopathy At the present time he remains very active and appears to be symptomatically and hemodynamically stable. Based upon his diagnosis and the finding of his underlying ventricular ectopy he will have a follow-up transthoracic echocardiogram to reassess his underlying cardiac anatomy and physiology. He will continue his medical therapy. This does include his beta-mayito. [facility] Evaluation + Plan note* Assessment & Plan Note - Josué Olsen MD - 02/04/2024 1:48 PM EDTAssociated Problem(s): Hyperlipidemia He does have a history of hyperlipidemia. He is following with his primary care physician for this.In the interim he is continuing medical therapy which includes his pravastatin at 20 mg p.o. q.day. [place]06-27-2024 Evaluation + Plan note* Assessment & Plan Note - Josué Olsen MD - 02/04/2024 1:47 PM EDTAssociated Problem(s): NSVT (nonsustained ventricular tachycardia) He did have 1 report of an 8 beat episode of a wide complex tachycardia. It appeared to occur at 12:17 a.m.. He states he would have been sleeping at that time. He does not report any concerning symptoms with respect to heart rate or heart rhythm. He has had no other obvious symptoms or compromise. He will continue his medical therapy with his beta-mayito at this time. [place]06-27-2024 Evaluation + Plan note* Assessment & Plan Note - Josué Olsen MD - 02/04/2024 1:47 PM EDTAssociated Problem(s): PVC's (premature ventricular contractions) He does have what appears to be rare PVCs. He appears to be asymptomatic. He will continue his beta-mayito at this time. [place]06-27-2024 Evaluation + Plan note* Assessment & Plan Note - Josué Olsen MD - 02/04/2024 1:46 PM EDTAssociated Problem(s): Apical variant hypertrophic cardiomyopathy At the present time he remains very active and appears to be symptomatically and hemodynamically stable. Based upon his diagnosis and the finding of his underlying ventricular ectopy he will have a follow-up transthoracic echocardiogram to reassess his underlying cardiac anatomy and physiology. He will continue his medical therapy. This does include his beta-mayito. [place]06-27-2024 History of Present illness Narrative* Josué Olsen MD - 02/04/2024 1:00 PM EDT Images from the original note were not included. Primary care provider: Reji Lozada MD (General) Dear Dr. Lozada, I had the pleasure of seeing your patient, Alexandria Sauer, at the [facility] on 02/04/2024 in follow-up. I have reviewed pertinent outside medical records available at this time regarding this patient. As you recall, this 68 y.o. male is managed by our group for outpatient cardiovascular follow-up ofa history of apical variant hypertrophic cardiomyopathy, PVCs, and hyperlipidemia. Chief Complaint Patient presents with Follow-up 1 year fu HCM HPI: Initial HPI from: 01/27/2023 This is a 67-year-old white male who presents to establish outpatient cardiovascular care with the [facility] division of Cardiovascular Medicine with a past cardiovascular history of an apical hypertrophiccardiomyopathy superimposed upon a histor of hypertension and hyperlipidemia. He has been previously followed by the [facility] in [place], [place]. He has also had a remote outpatient cardiovascular evaluation at [facility] with Dr. Lemus in 2016. He has undergone previous noninvasive and invasive cardiovascular care. This is included, for example, echocardiograms, stress tests, and cardiac catheterization procedures. He has had his proceduresperformed in [place], [place] at [facility]. He has been treated medically in the past. This has included beta-mayito therapy. At the present time he states he is doing well. He denies any resting or exertional chest discomfort. There has been no obvious episodes of resting or exertional shortness of breath/dyspnea. There has been no episodes of ongoing palpitations, near-syncope, or syncope. He states he has follow-up with his PCP for his lipid labs. Based upon review of his CC of medical records it appears that on 10/30/2022 he had a total cholesterol 144, and LDL 71, HDL 54, and a triglyceride level of 93. His previous outside cardiovascular records available for review are noted below. They have been reviewed with the patient. Per the patient's remote cardiovascular visit with Dr. Lemus there have been a recommendationfor follow-up Holter monitors as well as a cardiac MRI. The patient has been agreeable to follow-upHolter monitors however he had decided the past to forego the cardiac MRI. Interval History: 02/04/2024 This is a 68-year-old gentleman who presents today for an outpatient cardiovascular follow-up basedupon a history of an apical variant hypertrophic cardiomyopathy, PVCs, and hyperlipidemia. Overall since his last visit of proximally 1 year ago he states he is doing well and remains very active. He notes that he rides his bicycle, he plays pickleball, he goes to the gym, he travels, and he has had no concerning symptoms. He denies any episodes of concerning chest discomfort, difficulty breathing, orthopnea, PND, peripheral pitting edema. He has had no palpitations. He states he has no episodes of dizziness/lightheadedness, near-syncope, or syncope. After his visit a year ago he was asked to have a follow-up outpatient Holter monitor. It was performed at [facility] in [place], [place]. After multiple attempts to receive the monitor report, it was received just recently in anticipation of today's visit. Based upon the monitor report it appears his underlying rhythm is sinus rhythm. His average heart rate is in the 50s. He did have appearance of underlying ectopy including PVCs (less than 1% of the time) and 1 8 beat episode of a wide complex tachycardia which appeared to occur at approximately 12:17 a.m. when he was sleeping. He has continued his medication which does include his beta-mayito therapy. He states he has had no issues with his medications. Historical information was reviewed in the medical record. The following historical elements were reviewed by a provider in the specific IS aaron and updated as appropriate: No Known Allergies Outpatient Encounter Medications as of 02/04/2024 Medication Sig Dispense Refill Allopurinol 300 MG tablet aspirin 81 MG Chew Tab Chew 1 tablet daily. Levothyroxine 88 MCG tablet Metoprolol succinate (Toprol XL) 25 MG tablet XL Take 1 tablet by mouth daily. 14 tablet 3 pravastatin 20 MG Tab Take 1 tablet by mouth daily. tadalafil (CIALIS) 20 MG Tab Take 1 tablet by mouth as needed. Metoprolol succinate 25 MG tablet XL take 1 tablet daily 90 tablet 1 No facility-administered encounter medications on file as of 02/04/2024. Past Medical History: Diagnosis Date Essential hypertension, benign Melanoma Past Surgical History: Procedure Laterality Date THYROID SURGERY 09/10/2021 HIP REPLACEMENT Bilateral Family History Problem Relation Age of Onset Kidney Disease Father Skin Cancer Father Cancer Sister Social History Socioeconomic History Marital status: Spouse name: Not on file Number of children: Not on file Years of education: Not on file Highest education level: Not on file Occupational History Not on file Tobacco Use Smoking status: Never Smokeless tobacco: Never Vaping Use Vaping status: Never Used Substance and Sexual Activity Alcohol use: Yes Comment: occasional Drug use: No Sexual activity: Not on file Other Topics Concern Not on file Social History Narrative Not on file Social Determinants of Health Financial Resource Strain: Low Risk (12/02/2023) [facility] Overall Financial Resource Strain (CARDIA) Difficulty of Paying Living Expenses: Not hard at all Food Insecurity: No Food Insecurity (12/02/2023) [facility] Hunger Vital Sign Worried About Running Out of Food in the Last Year: Never true Ran Out of Food in the Last Year: Never true Transportation Needs: No Transportation Needs (12/02/2023) Re[facility] from [facility] PRAPARE - Transportation Lack of Transportation (Medical): No Lack of Transportation (Non-Medical): No Physical Activity: Sufficiently Active (12/02/2023) Re[facility] from [facility] Exercise Vital Sign Days of Exercise per Week: 6 days Minutes of Exercise per Session: 60 min Stress: No Stress Concern Present (12/02/2023) Re[facility] [place] of Occupational Health - Occupational Stress Questionnaire Feeling of Stress : Not at all Social Connections: Socially Integrated (12/02/2023) Re[facility] from [facility] Social Connection and Isolation Panel [NHANES] Frequency of Communication with Friends and Family: More than three times a week Frequency of Social Gatherings with Friends and Family: Three times a week Attends Denominational Services: More than 4 times per year Active Member of Clubs or Organizations: Yes Attends Club or Organization Meetings: More than 4 times per year Marital Status: Intimate Partner Violence: Not on file Housing Stability: Low Risk (12/02/2023) [facility] Housing Stability Vital Sign Unable to Pay for Housing in the Last Year: No Number of Places Lived in the Last Year: 1 Unstable Housing in the Last Year: No Review of Systems Cardiovascular: Negative for chest pain, claudication, cyanosis, dyspnea on exertion, irregular heartbeat, leg swelling, near-syncope, orthopnea, palpitations, paroxysmal nocturnal dyspnea and syncope. On physcial exam today, the vital signs are as follows: BP 108/68 (BP Location: Right arm, BP Position: Sitting) Pulse 54 Ht 1.702 m (5' 7) Wt 85.3 kg (188 lb) SpO2 98% BMI 29.44 kg/m Smoking Status Never Body mass index is 29.44 kg/m .. Physical Exam Constitutional: Appearance: Normal appearance. HENT: Head: Normocephalic and atraumatic. Cardiovascular: Rate and Rhythm: Regular rhythm. Bradycardia present. No extrasystoles are present. Chest Wall: PMI is not displaced. No thrill. Pulses: Carotid pulses are 2+ on the right side and 2+ on the left side. Radial pulses are 2+ on the right side and 2+ on the left side. Posterior tibial pulses are 2+ on the right side and 2+ on the left side. Heart sounds: S1 normal and S2 normal. Gallop present. S4 sounds present. Pulmonary: Effort: Pulmonary effort is normal. Breath sounds: Normal breath sounds. Musculoskeletal: Cervical back: Normal range of motion and neck supple. Right lower leg: No edema. Left lower leg: No edema. Neurological: Mental Status: He is alert. Relevant diagnostic data includes the following: I have independently reviewed the following images/tracings: as noted below. Supplemental Information: ELECTROCARDIOGRAM 10/02/2020 [facility] HOLTER MONITOR 06/18/2018 [facility] 02/08/2023 [facility] Transthoracic Echocardiogram: [facility] 10/05/2020 Interpretation Summary: The study was technically difficult. Contrast injection was performed. Left ventricular systolic function is normal. The estimated ejection fraction is 65% The left atrium is mildly enlarged. Mild diffuse mitral valve thickening. Mild mitral valve prolapse. Mile (1+) mitral valve insufficiency. Trivial tricuspid valve insufficiency. Trivial aortic valve insufficiency. Unable to estimated RV systolic pressure/pulmonary artery pressure due to technically difficult study. Diastolic function is indeterminate. Comment: The aforementioned changes with respect to the left ventricle appear c/w an apical hypertrophic cardiomyopathy. Stress Test Report: [facility] 10/10/2020 Impression: 1. Technically adequate (percent predicted maximal heart rate greater than 85%) exercise tolerance test 2. Peak exercise ECG with no obvious ECG changes 3. There were no cardiac dysrhythmias pretest, during exercise, or recovery 4. Nuclear images pending Impression: 1. Rest and stress SPECT Cardiolite nuclear imaging demonstrate relative uniform tracer uptake and myocardial perfusion appearing within normal limits. 2. The gated Cardiolite study reports an LVEF of 57%. Cardiac Cath: [facility]: 04/05/2014 In summary, Mr. Sauer is managed today for the following issues: Apical variant hypertrophic cardiomyopathy At the present time he remains very active and appears to be symptomatically and hemodynamically stable. Based upon his diagnosis and the finding of his underlying ventricular ectopy he will have a follow-up transthoracic echocardiogram to reassess his underlying cardiac anatomy and physiology. He will continue his medical therapy. This does include his beta-mayito. PVC's (premature ventricular contractions) He does have what appears to be rare PVCs. He appears to be asymptomatic. He will continue his beta-mayito at this time. NSVT (nonsustained ventricular tachycardia) He did have 1 report of an 8 beat episode of a wide complex tachycardia. It appeared to occur at 12:17 a.m.. He states he would have been sleeping at that time. He does not report any concerning symptoms with respect to heart rate or heart rhythm. He has had no other obvious symptoms or compromise. He will continue his medical therapy with his beta-mayito at this time. Nonrheumatic mitral valve prolapse He does have a history of MVP. This will be followed with echocardiographic studies. Nonrheumatic mitral valve insufficiency His last echocardiogram in 2020 suggested mild mitral valve insufficiency. As it has been 3 years this will be reassessed with a transthoracic echocardiogram. Hyperlipidemia He does have a history of hyperlipidemia. He is following with his primary care physician for this.In the interim he is continuing medical therapy which includes his pravastatin at 20 mg p.o. q.day. I have ordered the following: Diagnoses and all orders for this visit: Apical variant hypertrophic cardiomyopathy - ECHOCARDIOGRAM; Future PVC's (premature ventricular contractions) - ECHOCARDIOGRAM; Future NSVT (nonsustained ventricular tachycardia) - ECHOCARDIOGRAM; Future Nonrheumatic mitral valve prolapse - ECHOCARDIOGRAM; Future Nonrheumatic mitral valve insufficiency - ECHOCARDIOGRAM; Future Hyperlipidemia, unspecified hyperlipidemia type The above was discussed and reviewed with him. He was agreeable to this approach. We will plan on Return in about 1 year (around 02/03/2025).. If I can be of any further assistance, please do not hesitate to contact me. Sincerely, Josué Olsen MD, [facility] Supervisor [employer] - Clinical Division of Cardiovascular Medicine Department of Internal Medicine [facility] Please be aware that portions of this note may have been completed with a voice recognition software system. Despite efforts to edit the note mis-transcribed words may still be present. documented in [facility] Telephone encounter Note* Telephone Encounter - Alicia Fernandes RN - 01/21/2024 2:22 PM EDT Patient returned call to office. Relayed message from Dr. Olsen. Patient reports that he had holter monitor shortly after his appointment last year at [facility] but had never heard anything about the results. Informed patient that nurse will request report for Dr. Olsen to review. Faxed medical records request to [facility] at [phone], called HIM office at [phone] to request report and was instructed to fax request to the provided number. [place]06-13-2024 Miscellaneous Notes* Telephone Encounter - Alicia Fernandes RN - 01/21/2024 2:22 PM EDT Patient returned call to office. Relayed message from Dr. Olsen. Patient reports that he had holter monitor shortly after his appointment last year at [facility] but had never heard anything about the results. Informed patient that nurse will request report for Dr. Olsen to review. Faxed medical records request to [facility] at [phone], called HIM office at [phone] to request report and was instructed to fax request to the provided number. * Telephone Encounter - Nahed Schmidt RN - 01/21/2024 12:48 PM EDT Images from the original note were not included. Future Office Visit: Received: Today MD Magen Plascencia Triage Pope[place] Please check with the patient if he accomplished the Holter monitor request last year (? To be [facility]) in preparation for his upcoming office visit. Thank you. LVM and CB# documented in this [facility]OS[facility] Telephone encounter Note* Telephone Encounter - Nahed Schmidt RN - 01/21/2024 12:48 PM EDT Images from the original note were not included. Future Office Visit: Received: Today MD Magen Plascencia Triage Pool Please check with the patient if he accomplished the Holter monitor request last year (? To be [facility]) in preparation for his upcoming office visit. Thank you. LVM and CB# [place]05-09-2024 Telephone encounter Note* Telephone Encounter - Tiara Garza MA - 12/17/2023 10:28 AM EDT Patient informed and verbalized understanding. Tiara Garza MA [facility]05-09-2024 Miscellaneous Notes* Telephone Encounter - Tiara Garza MA - 12/17/2023 10:28 AM EDT Patient informed and verbalized understanding. Tiara Garza MA * Telephone Encounter - Kristie Bill PA-C - 12/17/2023 10:22 AM EDT Hgb A1c is normal at 5.5%. no diabetes. Kristie Bill PA-C documented in this encounterL[facility]05-09-20[facility] Telephone encounter Note * Telephone Encounter - Kristie Bill PA-C - 12/17/2023 10:22 AM EDT Hgb A1c is normal at 5.5%. no diabetes. Kristie Bill PA-C [facility]05-[facility] Instructions* Patient Instructions* Bro Easton MD - 12/09/2023 3:55 PM EDT Consider getting the shingrix vaccine for the prevention of shingles from a local pharmacy along with the RSV vaccine. Consider getting a Tdap for tetanus update at the health dept. 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 Please get labs done on or after 05/27/2024 prior to your next visit. Screening schedule The following prevention plan is recommended: Shingrix Vaccine(1 of 2) Never done DTaP,Tdap,Td Vaccine(2 - Td or Tdap) due on 10/10/2022 Advance Directive Discussion due on 08/10/2023 Behavioral Health Screening Never done Covid-19 Vaccine( season) due on 10/04/2023 WHAT YOU CAN DO TO PREVENT FALLS Many falls can be prevented. By making some changes, you can lower your chances of falling. Four things YOU can do to prevent falls for you* and your caregiver 1. Begin a regular exercise program Exercise is one of the most important ways to lower your chances of falling. It makes you stronger and helps you feel better. Exercises that improve balance and coordination (like Justin Chi) are the most helpful. Lack of exercise leads to weakness and increases your chances of falling. Ask your doctor or health care provider about the best type of exercise program for you. 2. Have your health care provider review your medicines Have your doctor or pharmacist review all the medicines you take, even [id number] medicines. As you get older, the way medicines work in your body can change. Some medicines, or combinations of medicines, can make you sleepy or dizzy andcan cause you to fall. 3. Have your vision checked Have your eyes checked by an eye doctor at least once a year. You may be wearing the wrong glasses or have a condition like glaucoma or cataracts that limits your vision. Poor vision can increase your chances of falling. 4. Make your home safer About half of all falls happen at home. To make your home safer: Remove things you can trip over (like papers, books, clothes, and shoes) from stairs and places where you walk. Remove small throw rugs or use double-sided tape to keep the rugs from slipping. Keep items you use often in cabinets you can reach easily without using a step stool. Have grab bars put in next to your toilet and in the tub or shower. Use non-slip mats in the bathtub and on shower floors. Improve the lighting in your home. As you get older, you need brighter lights to see well. Hang light-weight curtains or shades to reduce glare. Have handrails and lights put in on all staircases. Wear shoes both inside and outside the house. Avoid going barefoot or wearing slippers. For more information, contact: Centers for Disease Control and Prevention www.cdc.gov/injury * This information may not apply if you have certain medical conditions. [facility] History of Present illness Narrative* Bro Easton MD - 12/09/2023 3:45 PM EDT Images from the original note were not included. Alexandria Sauer is a 68 year old male here for a Medicare wellness visit. Medicare Health Risk Assessment General Health Very good Exercise: Minutes/Day 60 min Exercise: Days/Week 6 days Alcohol: Daily Use 2-4 times a month Alcohol: Drinks/Day 1 or 2 Alcohol: 6 or more drinks Never Feel off balance No Concerns: Teeth/Dentures No Concerns: Sexual function No Troubled by feelings None of the above Frequency: Eating healthy diet Several days ADLs requiring help None of the above Safety precautions in home/vehicle Yes Smoke, vape, chews tobacco No Difficulty hearing No Difficulty seeing No Current Providers Specialists: I have reviewed specialist-related care of the patient in the medical record. Current care team: Patient Care Team: Bro Easton MD as PCP - General (Family Medicine) Dr. Olsen (Cardio) seeing him in [place] [facility]/Family history review Reviewed and updated problem list, medical/surgical/family/social history, medications, and allergies. Opioid use review Opioid Medications (last 90 days) No data to display Depression screening Depression Screening PHQ-2 Score JING-2 Total Score 12/09/2023 0 0 Depression screening tool completed and reviewed. Based on score and interview, patient is not at risk for depression. Screening tool discussed with patient, and I recommended no further interventionat this time. Cognitive screening Cognitive screening reviewed and No further action needed (score 3-5). Functional Observation Was the patient's Timed Up & Go test unsteady or ? 12 seconds? No Advance Care Planning Surrogate decision maker and/or advance care plan documented Measurements BP 130/80 Pulse 60 Resp 14 Ht 5' 6.5 (1.69m) Wt 190 lb (86.2kg) BMI 30.21 kg/(m^2). Vision Screening: Follows with optometry/ophthalmology Assessment/Plan Medicare annual wellness visit, subsequent (Z00.00) - Counseled on healthy diet and regular exercise - Fall avoidance information provided - Personalized prevention plan provided See Below Chief Complaint Patient presents with: Medicare Wellness Exam HPI Alexandria Sauer is a 68 year old male who presents here today for Chronic Medical Conditions. andMedicare Annual Visit. Patient with hx of HTN, Hyperlipidemia, Cardiomyopathy seeing Cardio, post surgical hypothyroidism,gout, MVR, BPH as well as those reviewed and addressed below and in ROS. Seeing Cardio: last visit 12/2022 Dr. Olsen in [place]. Past medical history, appointments, medications, allergies reviewed. 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 Tameka Lazar Living will in place 11/07/2021 DPA; Mis () Medicare annual wellness visit, initial 11/07/2021 Medicare wellness Part B: 04/10/2021 Last done : 11/07/2021 Mitral valve prolapse Mitral valve regurgitation Mixed hyperlipidemia Nontoxic single thyroid nodule 05/13/2021 S/p partial thyroidectomy 09/2021 SUSI (obstructive sleep apnea) 05/09/2021 Was able to get off CPAP after weight loss. Postoperative hypothyroidism 11/07/2021 Stage 3a chronic kidney disease (HCC) 11/20/2022 Previous Surgical History PAST SURGICAL HISTORY Procedure Laterality Date COLONOSCOPY FLX DX W/COLLJ SPEC WHEN PFRMD 07/21/2007 Colonoscopy COLONOSCOPY GEN ANES dr. Lazar. repeat in 5 years ECHO 10/05/2020 LEFT HEART CATH,PERCUTANEOUS aprox 03/2014 STRESS TEST 10/10/2020 exercise with NM images THYROIDECTOMY Left left thyroid lobectomy TOTAL HIP REPLACEMENT Left TOTAL HIP REPLACEMENT Right Family History FAMILY HISTORY Problem Relation Age of Onset Melanoma Father Kidney failure Father Hypertension Mother Stroke Mother Breast Cancer Sister Anesthesia Problems No Family History Patient Allergies ALLERGIES No Known Allergies Current Medications Current Outpatient Medications on File Prior to Visit Medication Sig levothyroxine (SYNTHROID) 88 mcg tablet Take 1 tablet by mouth daily at 6 am. pravastatin (PRAVACHOL) 20 mg tablet Take 1 tablet by mouth once daily. allopurinol (ZYLOPRIM) 300 mg tablet Take 1 tablet by mouth once daily. naproxen (NAPROSYN) 500 mg tablet Take 1 tablet by mouth two times a day as needed (for pain/inflammation). Take with food. colchicine 0.6 mg tablet Take one tab three times a day till pain resolved or complete the script sildenafil (VIAGRA) 100 mg tablet Take 1 tablet by mouth as needed. metoprolol succinate ER (TOPROL XL) 25 mg 24 hr tablet Take 1 tablet by mouth once daily. aspirin, enteric coated (ASPIRIN, ENTERIC COATED) 81 mg EC tablet Take 81 mg by mouth once daily. No current facility-administered medications on file prior to visit. Social History Social History Tobacco Use Smoking status: Never Smokeless tobacco: Former Types: Chew Quit date: 1980 Vaping Use Vaping Use: Never used Substance Use Topics Alcohol use: Yes Comment: 2-3 Beers a month Drug use: Never Review of Symptoms REVIEW OF SYSTEMS GENERAL: No weight loss, malaise or fevers HEENT: Negative for frequent or significant headaches, No changes in hearing or vision, no nose bleeds or other nasal problems NECK: Negative for lumps, goiter, pain and significant neck swelling RESPIRATORY: Negative for cough, hemoptysis, wheezing, COPD, dyspnea or shortness of breath CARDIOVASCULAR: Negative for chest pain, leg swelling, hypertension, CHF or palpitations. No orthopnea. GI: No nausea, vomiting, or diarrhea, No heartburn or reflux symptoms, and no blood : No history of dysuria, frequency or blood MUSCULOSKELETAL: Negative for joint pain or swelling, back pain or muscle pain SKIN: Negative for lesions, rash, and itching PSYCH: Negative for sleep disturbance, mood disorder and recent psychosocial stressors HEMATOLOGY/LYMPHOLOGY: Negative for prolonged bleeding, bruising easily or swollen nodes ENDOCRINE: Negative for cold or heat intolerance, polyuria, polydipsia and goiter NEURO: No history of headaches, syncope, paralysis, seizures or tremors EXAM: BP 130/80 (BP Site: Left Arm, BP Position: Sitting, BP Cuff Size: Regular Adult) Pulse 60 Resp 14 Ht 168.9 cm (5' 6.5) Wt 86.2 kg (190 lb) BMI 30.21 kg/m Last 5 Encounter Wt Readings: Date: Wt: 12/09/2023 86.2 kg (190 lb) 06/03/2023 85.3 kg (188 lb) 12/18/2022 81.2 kg (179 lb) 12/04/2022 83.5 kg (184 lb) 11/20/2022 80.7 kg (178 lb) General Appearance: Well appearing, alert, in no acute distress, well-hydrated, well nourished.. Skin: Skin color, texture, turgor normal, no suspicious rashes or lesions. Head: Normocephalic, no masses, lesions, tenderness or abnormalities. Eyes: Anicteric sclera. Pupils are equally round and reactive to light. Extraocular movements are intact. . Ears: External ears, TM's normal, canals clear. Nose/Sinuses: Nares normal, septum midline, mucosa normal, no drainage or sinus tenderness. Oropharynx: Lips, mucosa, and tongue normal, teeth and gums normal, oropharynx normal. Neck: Supple, no adenopathy; thyroid symmetric, normal size, no bruits. Lungs: Lungs clear to auscultation. No wheezing, rhonchi, rales.. Heart: RRR without murmur, gallop, or rubs. No ectopy. Abdomen: Normal abdominal exam, Abdomen soft, non-tender. Bowel sounds normal. No masses, organomegaly. Extremities: No deformities, edema, skin discoloration, clubbing or cyanosis. Good capillary refill. . Musculoskeletal: Spine range of motion normal. Muscular strength intact, No joint swelling, deformity, or tenderness. Peripheral Pulses: Normal. Genitalia: Normal, Penis normal. No urethral discharge. Scrotum normal to palpation. No hernia.. Rectal: Normal exam. Prostate slightly enlarged with smoothf irm capsule. Health Maintenance List Shingrix Vaccine(1 of 2) Never done DTaP,Tdap,Td Vaccine(2 - Td or Tdap) due on 10/10/2022 Advance Directive Discussion due on 08/10/2023 Behavioral Health Screening Never done Covid-19 Vaccine( - 2022- season) due on 10/04/2023 RSV Vaccine(1 - 1-dose 60+ series) due on 06/03/2024 Annual PCP Team Chronic Disease Visit due on 06/03/2024 BP Controlled (<130/80) due on 06/03/2024 Serum Creatinine due on 12/01/2024 Hemoglobin/Hematocrit due on 12/01/2024 Colorectal Cancer Screening due on 03/06/2025 Diabetes Screening due on 12/01/2026 Lipid Screening due on 12/01/2028 Prostate Cancer Screening Discussion due on 12/01/2028 Influenza Vaccine Completed Pneumococcal Vaccine: 65+ Completed HPV Vaccine Aged Out Hepatitis C Screening Discontinued Data reviewed Latest Ref Rng 10/30/2022 05/14/2023 12/02/2023 WBC 3.70 - 11.00 k/uL 5.02 5.60 RBC 4.20 - 6.00 m/uL 5.06 4.83 Hemoglobin 13.0 - 17.0 g/dL 16.1 15.4 Hematocrit 39.0 - 51.0 % 48.9 46.8 MCV 80.0 - 100.0 fL 96.6 96.9 MCH 26.0 - 34.0 pg 31.8 31.9 MCHC 30.5 - 36.0 g/dL 32.9 32.9 RDW-CV 11.5 - 15.0 % 14.0 13.7 Platelet Count 150 - 400 k/uL 203 207 MPV 9.0 - 12.7 fL 11.5 11.0 Neut% % 74.3 71.1 Abs Neut (ANC) 1.45 - 7.50 k/uL 3.73 3.98 Lymph% % 12.5 17.9 Abs Lymph 1.00 - 4.00 k/uL 0.63 (L) 1.00 [place]% % 11.2 8.0 Abs [place] <0.87 k/uL 0.56 0.45 Eosin% % 1.2 2.1 Abs Eosin <0.46 k/uL 0.06 0.12 Baso% % 0.6 0.7 Abs Baso <0.11 k/uL 0.03 0.04 Immature Gran % % 0.2 0.2 IMMATURE GRANS (ABS) <0.10 k/uL <0.03 <0.03 NRBC /100 WBC 0.0 0.0 Absolute nRBC <0.01 k/uL <0.01 <0.01 DTYPE Auto Auto Color Yellow Yellow Yellow Clarity Clear Clear Clear Glucose, Urine Negative Negative Negative Bilirubin, Urine Negative Negative Negative Ketones, Urine Negative 1+ ! Negative Specific [place], Ur 1.005 - 1.030 1.028 1.019 Hemoglobin/Blood,Ur Negative Negative Negative pH, Urine <8.5 5.5 5.5 Protein, Urine Negative 1+ ! Negative Urobilinogen 0.2-1.0 EU/dL Negative 0.2 EU/dL Nitrites Negative Negative Negative Leukest Negative Negative Negative WBC, Urine 0-5 /HPF 0-5 /HPF 0-5 /HPF RBC, Urine 0-2 /HPF 0-3 /HPF 0-2 /HPF Bacteria Negative /HPF Negative Epithelial Cells /HPF None Seen Hyaline Cast 0 /LPF 4-10 /LPF ! Protein, Total 6.3 - 8.0 g/dL 7.4 6.9 Albumin 3.9 - 4.9 g/dL 4.4 4.4 Calcium 8.5 - 10.2 mg/dL 9.6 9.1 9.8 Bilirubin, Total 0.2 - 1.3 mg/dL 0.6 0.8 Alkaline Phosphatase 38 - 113 U/L 74 76 AST 14 - 40 U/L 25 27 ALT 10 - 54 U/L 24 21 Glucose 74 - 99 mg/dL 93 80 148 (H) BUN 9 - 24 mg/dL 18 19 17 Creatinine 0.73 - 1.22 mg/dL 1.47 (H) 1.30 (H) 1.36 (H) Sodium 136 - 144 mmol/L 139 142 141 Potassium 3.7 - 5.1 mmol/L 4.9 4.6 4.8 Chloride 97 - 105 mmol/L 105 105 103 CO2 22 - 30 mmol/L 24 25 26 Anion Gap 9 - 18 mmol/L 10 12 12 eGFR >=60 mL/min/1.73m 52 (L) 60 57 (L) Total Cholesterol, Nonfasting <200 mg/dL 144 180 186 Triglycerides, Nonfasting <150 mg/dL 93 361 (H) 84 HDL Cholesterol, Nonfasting >39 mg/dL 54 50 61 LDL Cholesterol, Nonfasting <100 mg/dL 71 58 108 (H) Non HDL Cholesterol, Nonfasting <130 mg/dL 90 130 (H) 125 VLDL Cholesterol, Nonfasting <30 mg/dL 19 72 (H) 17 Total Chol/HDL Ratio, Nonfasting <5.10 mg/dL 2.67 3.60 3.05 LDL/HDL Ratio, Nonfasting <2.54 mg/dL 1.31 1.16 1.77 TSH 0.270 - 4.200 mIU/L 0.609 0.688 PSA <2.60 ng/mL 0.78 0.96 Uric Acid 4.0 - 8.1 mg/dL 4.7 5.1 A/P ASSESSMENT/PLAN: 1. Encounter for Medicare annual wellness exam - ICD9: V70.0, ICD10: Z00.00 (primary diagnosis) - Counseled on healthy diet and regular exercise - Discussed need for and benefit of weight loss. BMI 30.21 kg/(m^2) - Patient was counseled [id number] by myself (the billing provider) for the following immunizations and vaccine components, including side effects: COVID- 19. Patient consents for immunization and understands risks and benefits. A VIS sheet on each immunization was given to the patient. - Follow up for annual exam in one year 2. Essential hypertension, benign - ICD9: 401.1, ICD10: I10 - Controlled - Continue current medications - Recommend home blood pressure monitoring, to bring results to next visit - Encouraged sodium restriction, DASH or Mediterranean diet - Recommend regular aerobic exercise 3. Mixed hyperlipidemia - ICD9: 272.2, ICD10: E78.2 - Controlled - Continue current medications - Counseled on healthy diet and regular exercise - Discussed need for and benefit of weight loss. BMI 30.21 kg/(m^2) 4. Postoperative hypothyroidism - ICD9: 244.0, ICD10: E89.0 - Instructed patient on importance of taking on an empty stomach either first thing in the morning or at bedtime. - continue current dose of Synthroid 5. Cardiomyopathy, hypertrophic (HCC) - ICD9: 425.18, ICD10: I42.2 - clinically stable and managed per Cardio. 6. Stage 3a chronic kidney disease (HCC) - ICD9: 585.3, ICD10: N18.31 - eGFR: 57 Stable - Counseled on avoiding NSAIDs, adequate hydration 7. Gout, unspecified cause, unspecified chronicity, unspecified site - ICD9: 274.9, ICD10: M10.9 - controlled with allopurinol 8. Elevated blood sugar - ICD9: 790.29, ICD10: R73.9 Check - HEMOGLOBIN A1C 9. Benign prostatic hyperplasia with urinary frequency - ICD9: 600.01, 788.41, ICD10: N40.1, R35.0 Clinically stable no changes. 10. ED (erectile dysfunction) of organic origin - ICD9: 607.84, ICD10: N52.9 - cont Viagra 11. Malignant melanoma of scalp (HCC) - ICD9: 172.4, ICD10: C43.4 - cont f/u with derm for screening 12. Advance directive discussed with patient - ICD9: V65.49, ICD10: Z71.89 - patient to bring in copies. 13. Encounter for immunization - ICD9: V03.89, ICD10: Z23 - [employer] COVID-19 VACCINE ( SEASON) AGE 12+ YR: given F/u 6 months routine check A1c, BMP, lipid I spent a total of 40 minutes on the date of the service which included preparing to see the patient, [id number] patient care, completing clinical documentation, performing a medically appropriate examination, counseling and educating the patient/family/caregiver and ordering medications, tests, or procedures. Bro Easton MD documented in this [facility] Miscellaneous Notes* Telephone Encounter - Deborah Lo LPN - 10/21/2023 11:04 AM EDT Patient has been identified by name and date of : Yes, Provider Dr Easton Patient phones for refill(s): Requested Prescriptions Pending Prescriptions Disp Refills levothyroxine (SYNTHROID) 88 mcg tablet 90 tablet 3 Sig: Take 1 tablet by mouth daily at 6 am. pravastatin (PRAVACHOL) 20 mg tablet 90 tablet 3 Sig: Take 1 tablet by mouth once daily. allopurinol (ZYLOPRIM) 300 mg tablet 90 tablet 3 Sig: Take 1 tablet by mouth once daily. Date of last office visit in primary care: 06/03/23 Date of next office visit in primary care: Please advise. Thank you. Deborah Lo LPN. * Telephone Encounter - Cookie Wills - 10/21/2023 10:48 AM EDT Patient has been identified by name and date of : Yes, Provider Bro Easton MD Date 10/21/2023 Time 10:49 am Patient phones for refill(s): Requested Prescriptions Pending Prescriptions Disp Refills levothyroxine (SYNTHROID) 88 mcg tablet 90 tablet 3 Sig: Take 1 tablet by mouth daily at 6 am. pravastatin (PRAVACHOL) 20 mg tablet 90 tablet 3 Sig: Take 1 tablet by mouth once daily. allopurinol (ZYLOPRIM) 300 mg tablet 90 tablet 3 Sig: Take 1 tablet by mouth once daily. Date of last office visit in primary care: 06/03/2023 Date of next office visit in primary care:12/09/2023 Please advise. Thank you. Cookie Cardoso. documented in this [facility] History of Present illness Narrative* Bro Easton MD - 06/03/2023 3:32 PM EDT Chief Complaint Patient presents with: F/U 6 months HPI Alexandria Sauer is a 68 year old male who presents here today for BP follow up. Patient with hx of HTN, Hyperlipidemia, Cardiomyopathy seeing Cardio, post surgical hypothyroidism,gout, MVR, BPH as well as those reviewed and addressed below and in ROS. Patient sees [facility] - last visit 12/2022 Dr. Olsen in [place]. No other concerns. Office visit 12/18/2022 - BP Patient presents for BP check. Patient denies dizziness, chest pain, SOB, headache. Patient metoprolol was increased to 25 mg daily. Patient states he is tolerating the medication increase well. Patient reports occasional high BP at home. Past medical history, appointments, medications, allergies reviewed. 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 Tameka Lazar Living will in place 11/07/2021 PAULETTE Abebe () Medicare annual wellness visit, initial 11/07/2021 Medicare wellness Part B: 04/10/2021 Last done : 11/07/2021 Mitral valve prolapse Mitral valve regurgitation Mixed hyperlipidemia Nontoxic single thyroid nodule 05/13/2021 S/p partial thyroidectomy 09/2021 SUSI (obstructive sleep apnea) 05/09/2021 Was able to get off CPAP after weight loss. Postoperative hypothyroidism 11/07/2021 Stage 3a chronic kidney disease (HCC) 11/20/2022 Previous Surgical History PAST SURGICAL HISTORY Procedure Laterality Date COLONOSCOPY FLX DX W/COLLJ SPEC WHEN PFRMD 07/21/2007 Colonoscopy COLONOSCOPY GEN ANES dr. Lazar. repeat in 5 years ECHO 10/05/2020 LEFT HEART CATH,PERCUTANEOUS aprox 03/2014 STRESS TEST 10/10/2020 exercise with NM images THYROIDECTOMY Left left thyroid lobectomy TOTAL HIP REPLACEMENT Left TOTAL HIP REPLACEMENT Right Family History FAMILY HISTORY Problem Relation Age of Onset Melanoma Father Kidney failure Father Hypertension Mother Stroke Mother Breast Cancer Sister Anesthesia Problems No Family History Patient Allergies ALLERGIES No Known Allergies Current Medications Current Outpatient Medications on File Prior to Visit Medication Sig allopurinol (ZYLOPRIM) 300 mg tablet Take 1 tablet by mouth once daily. levothyroxine (SYNTHROID) 88 mcg tablet Take 1 tablet by mouth daily at 6 am. pravastatin (PRAVACHOL) 20 mg tablet Take 1 tablet by mouth once daily. metoprolol succinate ER (TOPROL XL) 25 mg 24 hr tablet Take 1 tablet by mouth once daily. sildenafil (VIAGRA) 100 mg tablet Take 1 tablet by mouth as needed. naproxen (NAPROSYN) 500 mg tablet Take 1 tablet by mouth twice daily as needed (for pain/inflammation). Take with food. aspirin, enteric coated (ASPIRIN, ENTERIC COATED) 81 mg EC tablet Take 81 mg by mouth once daily. [DISCONTINUED] colchicine 0.6 mg tablet Take by mouth. No current facility-administered medications on file prior to visit. Social History Social History Tobacco Use Smoking status: Never Smokeless tobacco: Former Types: Chew Quit date: 1980 Vaping Use Vaping Use: Never used Substance Use Topics Alcohol use: Yes Comment: 2-3 Beers a month Drug use: Never Review of Symptoms REVIEW OF SYSTEMS GENERAL: No weight loss, malaise or fevers NECK: Negative for lumps, goiter, pain and significant neck swelling RESPIRATORY: Negative for cough, hemoptysis, wheezing, COPD, dyspnea or shortness of breath CARDIOVASCULAR: Negative for chest pain, leg swelling, hypertension, CHF or palpitations : No history of dysuria, frequency or blood ENDOCRINE: Negative for cold or heat intolerance, polyuria, polydipsia and goiter NEURO: No history of headaches, syncope, paralysis, seizures or tremors Musc: no gout attacks EXAM: BP 128/90 (BP Site: Right Arm, BP Position: Sitting, BP Cuff Size: Regular Adult) Pulse 60 Resp16 Wt 85.3 kg (188 lb) BMI 29.44 kg/m BP 118/74 Pulse 60 Resp 16 Wt 85.3 kg (188 lb) BMI 29.44 kg/m Last 5 Encounter Wt Readings: Date: Wt: 06/03/2023 85.3 kg (188 lb) 12/18/2022 81.2 kg (179 lb) 12/04/2022 83.5 kg (184 lb) 11/20/2022 80.7 kg (178 lb) 05/14/2022 81.6 kg (180 lb) General Appearance: Well appearing, alert, in no acute distress, well-hydrated, well nourished.. Neck: Supple, no adenopathy; thyroid symmetric, normal size, no bruits. Lungs: Lungs clear to auscultation. No wheezing, rhonchi, rales.. Heart: RRR without murmur, gallop, or rubs. No ectopy. Abdomen: Normal abdominal exam, Abdomen soft, non-tender. Bowel sounds normal. No masses, organomegaly. Extremities: No deformities, edema, skin discoloration, clubbing or cyanosis. Good capillary refill. . Peripheral Pulses: Normal. Health Maintenance List BP Controlled (<130/80) Never done RSV Vaccine(1 - 1-dose 60+ series) Never done Influenza Vaccine(1) due on 04/10/2023 Covid-19 Vaccine(2022- season) due on 04/10/2023 DTaP,Tdap,Td Vaccine(2 - Td or Tdap) due on 11/21/2023 Shingrix Vaccine(1 of 2) due on 11/21/2023 Annual PCP Team Chronic Disease Visit due on 12/19/2023 Serum Creatinine due on 05/14/2024 Colorectal Cancer Screening due on 03/06/2025 Diabetes Screening due on 05/14/2026 Prostate Cancer Screening Discussion due on 10/31/2027 Lipid Screening due on 05/14/2028 Advance Directive Discussion Completed Depression Assessment Completed Pneumococcal Vaccine: 65+ Completed HPV Vaccine Aged Out Hepatitis C Screening Discontinued Data reviewed Component Latest Ref Rng & Units 10/30/2022 12/04/2022 05/14/2023 Protein, Total 6.3 - 8.0 g/dL 7.4 Albumin 3.9 - 4.9 g/dL 4.4 Calcium 8.5 - 10.2 mg/dL 9.6 9.6 9.1 Bilirubin, Total 0.2 - 1.3 mg/dL 0.6 Alkaline Phosphatase 38 - 113 U/L 74 AST 14 - 40 U/L 25 ALT 10 - 54 U/L 24 Glucose 74 - 99 mg/dL 93 92 80 BUN 9 - 24 mg/dL 18 15 19 Creatinine 0.73 - 1.22 mg/dL 1.47 (H) 1.28 (H) 1.30 (H) Sodium 136 - 144 mmol/L 139 141 142 Potassium 3.7 - 5.1 mmol/L 4.9 4.6 4.6 Chloride 97 - 105 mmol/L 105 104 105 CO2 22 - 30 mmol/L 24 26 25 Anion Gap 9 - 18 mmol/L 10 11 12 eGFR >=60 mL/min/1.73m 52 (L) 62 60 Total Cholesterol, Nonfasting <200 mg/dL 144 180 Triglycerides, Nonfasting <150 mg/dL 93 361 (H) HDL Cholesterol, Nonfasting >39 mg/dL 54 50 LDL Cholesterol, Nonfasting <100 mg/dL 71 58 Non HDL Cholesterol, Nonfasting <130 mg/dL 90 130 (H) VLDL Cholesterol, Nonfasting <30 mg/dL 19 72 (H) Total Chol/HDL Ratio, Nonfasting <5.10 mg/dL 2.67 3.60 LDL/HDL Ratio, Nonfasting <2.54 mg/dL 1.31 1.16 A/P ASSESSMENT/PLAN: 1. Essential hypertension, benign - ICD9: 401.1, ICD10: I10 (primary diagnosis) - Controlled - Continue current medications - Recommend home blood pressure monitoring, to bring results to next visit - Encouraged sodium restriction, DASH or Mediterranean diet - Recommend regular aerobic exercise 2. Mixed hyperlipidemia - ICD9: 272.2, ICD10: E78.2 - Controlled - Continue current medications - Counseled on healthy diet and regular exercise 3. Postoperative hypothyroidism - ICD9: 244.0, ICD10: E89.0 - Instructed patient on importance of taking on an empty stomach either first thing in the morning or at bedtime. - continue current dose of Synthroid 4. Stage 3a chronic kidney disease (HCC) - ICD9: 585.3, ICD10: N18.31 - discussed increase water intake. 5. Cardiomyopathy, hypertrophic (HCC) - ICD9: 425.18, ICD10: I42.2 - stable follows with cardio 6. Gout, unspecified cause, unspecified chronicity, unspecified site - ICD9: 274.9, ICD10: M10.9 - stable 7. Benign prostatic hyperplasia with urinary frequency - ICD9: 600.01, 788.41, ICD10: N40.1, R35.0 stable 8. Encounter for immunization - ICD9: V03.89, ICD10: Z23 - INFLUENZA VACCINE, PRSV FREE, AGE 65+ YR, HIGH DOSE, QUADRIVALENT (FLUZONE HIGH-DOSE): given - [email or web address] COVID-19 VACCINE (2022- SEASON) AGE 12+ YR: given Requested Prescriptions Signed Prescriptions Disp Refills naproxen (NAPROSYN) 500 mg tablet 90 tablet 1 Sig: Take 1 tablet by mouth two times a day as needed (for pain/inflammation). Take with food. colchicine 0.6 mg tablet 10 tablet 1 Sig: Take one tab three times a day till pain resolved or complete the script sildenafil (VIAGRA) 100 mg tablet 30 tablet 3 Sig: Take 1 tablet by mouth as needed. F/u 6 months extensive. Check CMP, Lipid, UA, TSH, CBC, uric acid, PSA Patient was asked at end of visit if they had any questions or input regarding the plan of care we had discussed. Bro Easton MD documented in this encounterL[facility] Miscellaneous Notes* Telephone Encounter - Sparkle Shen Ma - 05/14/2023 11:19 AM EDT Last office visit: 12/18/22 F/u scheduled: 06/03/23 Sparkle Shen Ma * Telephone Encounter - Luisana Barker - 05/14/2023 11:05 AM EDT Patient has been identified by name and date of : Yes Requested Prescriptions Pending Prescriptions Disp Refills allopurinol (ZYLOPRIM) 300 mg tablet 90 tablet 1 Sig: Take 1 tablet by mouth once daily. levothyroxine (SYNTHROID) 88 mcg tablet 90 tablet 1 Sig: Take 1 tablet by mouth daily at 6 am. pravastatin (PRAVACHOL) 20 mg tablet 90 tablet 1 Sig: Take 1 tablet by mouth once daily. RX INSTRUCTIONS: Patient aware RX escripted to mail away pharmacy. No need to notify patient. Luisana Barker documented in this encounterL[facility]12-[facility] History of Present illness Narrative* Hortensia Roa MA - 12/19/2022 11:27 AM EDT Scan on 12/14/2022 5:17 AM by External Provider, PABridgetC: Consultation - Emergency Medicine Hortensia Roa MA documented in this encounterL[facility]05-10-[facility]23 Miscellaneous Notes* Telephone Encounter - Carolina Zapien LPN - 12/17/2022 4:35 PM EDT See phone encounter. Carolina Zapien LPN documented in this encounterL[facility]05-10-2023 Miscellaneous Notes* Telephone Encounter - Yahir Davis - 12/17/2022 8:48 AM EDT I called patient and reviewed mri results His mri results are suggestive of prominent vein and I discussed referral to vascular surgeon vs obtaining ultrasound. He states he went to ed and they did an ultrasound and did not identify any abscess. I do not have records of ultrasound so I would be interested in receiving these. He states he has no pain at site of mass. All his pain is along the arch. Reviewed xrays and mri. Xrays do show flattening of arch. Would recommend powerstep inserts but he needs to be careful to avoid rubbing on the top of his foot when he places these inserts in. He is on an antibiotic and I told him that I did not see any signs of infection on my exam but if they prescribed this, he can continue. He does have arthritis of great toe and plantar plate degenerative change but has no pain in this region. Offered follow-up to evaluate the foot. He states the foot is getting better and he will continue to monitor and buy new shoes Yahir Davis DPM * Telephone Encounter - Liv Javed LPN - 12/16/2022 2:49 PM EDT Patient calling as he has not heard back from office regarding follow up care from ER visit/MyChartmessage on 12/12. He does feel somewhat improved from the ATB given in ER. He can be reached at [phone] Liv Javed LPN * Telephone Encounter - Tasha Smith RN - 12/15/2022 4:41 PM EDT Pt. seeing test results coming in on MyChart (xrays, MRI) and wondering what the next steps, plan of care will be? States he went to the ER Saturday night with swelling/ severe pain in left foot. Given antibiotic for 7 days in ER but needs more follow up. Please advise and call pt. with next steps/POC. Thank you! Tasha Smith, RN documented in this encounterL[facility]05-03-2023 History of Present illness Narrative* Marybeth Mora RT(R) - 12/10/2022 2:20 PM EDT Radiology Service Progress Note PATIENT NAME: Alexandria Sauer DATE OF SERVICE: December 10, 2022 TIME: 2:47 PM PATIENT IDENTITY VERIFICATION COMPLETED USING TWO (2) IDENTIFIERS: Name and Date of confirmedby patient verbally. FALL SCREENING: Has the patient had 2 falls in the last year or 1 fall with injury or currently using an Ambulatory Assistive Device (Walker, Cane, Wheelchair, Crutches, etc.)? No PATIENT GENDER DATA: Male PATIENT RELEVANT IMPLANT DATA REVIEWED: Yes RADIOLOGY DEPARTMENT: MR; Exam(s) Completed: Lower MSK: Forefoot/Midfoot, left PERIPHERAL IV DATA: Not applicable SIGNED BY: RT Nathalia(R) December 10, 2022 2:47 PM documented in this encounterLake [facility]05-03-2023 History of Present illness Narrative* Rogelio Solorzano RT(R) - 12/10/2022 9:40 AM EDT Radiology Service Progress Note PATIENT NAME: Alexandria Sauer DATE OF SERVICE: December 10, 2022 TIME: 9:43 AM PATIENT IDENTITY VERIFICATION COMPLETED USING TWO (2) IDENTIFIERS: Name and Date of confirmedby patient verbally. FALL SCREENING: Has the patient had 2 falls in the last year or 1 fall with injury or currently using an Ambulatory Assistive Device (Walker, Cane, Wheelchair, Crutches, etc.)? No PATIENT GENDER DATA: Male PATIENT RELEVANT IMPLANT DATA REVIEWED: Not Applicable RADIOLOGY DEPARTMENT: General X-ray: Exam(s) Completed: Lower Extremity X- Ray(s): Foot, Left and Wt. Bearing PERIPHERAL IV DATA: Not applicable SIGNED BY: RT Kia(R) December 10, 2022 9:43 AM documented in this encounterLake [facility]05-03-2023 History of Present illness Narrative* Yahir Davis - 12/10/2022 9:10 AM EDT Images from the original note were not included. Consultation requested by Dr. Easton for an opinion regarding left foot pain and swelling. My finalrecommendations will be communicated back to the requesting physician by way of shared Medical record or letter to requesting physician via US mail. Initial Podiatric Office Visit: Chief Complaint: This 67 year old male who presents with chief complaint:left foot pain and swelling HPI Patient presents to clinic for evaluation of left foot. Patient has pain and swelling and occasional warmth to the lateral aspect of left foot. This happens intermittently and when it does occur, it is located to the lateral aspect of left 5th metatarsal base. He states it seems that it happens every 6 weeks. When it does develop, he will treat with rest, ice, nsaids. He complains of burning and throbbing when the swelling develops. Fina enjoys walking and playing e[employer] and this does limit his ability to play. PAIN EVALUATION 12/07/2022 0941 12/10/2022 0837 Pain Level: 2 -- 8-9 when pain is at worse Pain Location: Foot-Left -- Description: Pressure;Sharp;Sore Throbbing Duration Amount of Time: 5 -- Duration Units: Days -- Frequency: Intermittent -- Intervention/Comfort measure: Cold -- No results found for: HBA1C PCP: Bro Easton MD PAST MEDICAL HISTORY Diagnosis Date Advance directive discussed with patient 11/07/2021 Discussed 10/2021 Benign prostatic hyperplasia with urinary frequency 05/09/2021 Cardiomyopathy, hypertrophic (HCC) [facility] (erectile dysfunction) of organic origin 05/14/2022 Enlarged thyroid 05/13/2021 Essential hypertension, benign Gout History of colonic polyps 05/09/2021 Dr. Tameka Lazar Living will in place 11/07/2021 DPA; Mis () Medicare annual wellness visit, initial 11/07/2021 Medicare wellness Part B: 04/10/2021 Last done : 11/07/2021 Mitral valve prolapse Mitral valve regurgitation Mixed hyperlipidemia Nontoxic single thyroid nodule 05/13/2021 S/p partial thyroidectomy 09/2021 SUIS (obstructive sleep apnea) 05/09/2021 Was able to get off CPAP after weight loss. Postoperative hypothyroidism 11/07/2021 Stage 3a chronic kidney disease (HCC) 11/20/2022 Current Outpatient Medications Medication Sig metoprolol succinate ER (TOPROL XL) 25 mg 24 hr tablet Take 1 tablet by mouth once daily. levothyroxine (SYNTHROID) 88 mcg tablet Take 1 tablet by mouth DAILY (6 AM). pravastatin (PRAVACHOL) 20 mg tablet Take 1 tablet by mouth once daily. allopurinol (ZYLOPRIM) 300 mg tablet Take 1 tablet by mouth once daily. sildenafil (VIAGRA) 100 mg tablet Take 1 tablet by mouth as needed. naproxen (NAPROSYN) 500 mg tablet Take 1 tablet by mouth twice daily as needed (for pain/inflammation). Take with food. aspirin, enteric coated (ASPIRIN, ENTERIC COATED) 81 mg EC tablet Take 81 mg by mouth once daily. No current facility-administered medications for this visit. ALLERGIES No Known Allergies PAST SURGICAL HISTORY Procedure Laterality Date COLONOSCOPY FLX DX W/COLLJ SPEC WHEN PFRMD 07/21/2007 Colonoscopy COLONOSCOPY GEN ANEOmi Lazar. repeat in 5 years ECHO 10/05/2020 LEFT HEART CATH,PERCUTANEOUS aprox 03/2014 STRESS TEST 10/10/2020 exercise with NM images THYROIDECTOMY Left left thyroid lobectomy TOTAL HIP REPLACEMENT Left TOTAL HIP REPLACEMENT Right FAMILY HISTORY Problem Relation Age of Onset Melanoma Father Kidney failure Father Hypertension Mother Stroke Mother Breast Cancer Sister Anesthesia Problems No Family History Social History Tobacco Use Smoking status: Never Smokeless tobacco: Former Types: Chew Quit date: 1980 Vaping Use Vaping Use: Never used Substance Use Topics Alcohol use: Yes Comment: 2-3 Beers a month Drug use: Never REVIEW OF SYSTEMS GENERAL: Negative for Malaise, significant weight loss, fever RESPIRATORY: Negative for cough, wheezing and shortness of breath CARDIOVASCULAR: Negative for chest pain, leg swelling and palpitations GI: Negative for abdominal discomfort, blood in stools or black stools and change in bowel habits : Negative for dysuria, frequency and incontinence MUSCULOSKELETAL: Negative for joint pain or swelling, back pain, and muscle pain. SKIN: Negative for lesions, rash, and itching. HEMATOLOGY/LYMPHOLOGY Negative for prolonged bleeding, bruising easily, and swollen nodes. ENDOCRINE: Negative for cold or heat intolerance, polyuria, polydipsia and goiter. NEURO: negative Physical Exam: Constitutional: Pt is a well developed 67 year old male who is alert, oriented and cooperative Eyes: Following during examination. No redness or drainage. Respiratory: RR normal and nonlabored. Even breathing. No evidence of distress or shortness of breath. Psychology: Patient is engaged during conversation. Normal affect and mood. Does not appear depressed or anxious during encounter. Vascular: Dorsalis pedis and posterior tibial pulses palpable as b/l Capillary Fill time < 5 seconds to digits 1-5 b/l Skin temperature warm to warm proximal to distal b/l Hair growth present to digits Neurological: intact light touch/epicritic sensation b/l intact protective sensation no significant neurological deficits Dermatological: Nails 1-5 b/l appear normal. Webspaces clean and dry 1-4 b/l. Skin appears well hydrated and supple. good color, texture, turgor. No open lesions present. No callosities present. 1 cm x 1 cm palpable firm lump to the left dorsal lateral 5th metatarsal base Musculoskeletal/Orthopaedic: Patient has pain to palpation of left 5th metatarsal base Foot type is pronated structurally AJ ROM is full with knee extended and flexed 1st MPJ is full when loaded and no pain or crepitus are noted with ROM. MTJ, STJ are full and free of pain and crepitus. +5/5 muscle strength dorsiflexion, plantarflexion, inversion, eversion b/l Radiographs: ordered ASSESSMENT: (M79.89) Soft tissue mass (primary encounter diagnosis) (M79.672) Foot pain, left (M77.52) Bursitis of left foot (R22.42) Mass of left foot PLAN: 1. History and physical examination performed. 2. Discussed pain in left foot. He does have a palpable mass to the dorsal lateral aspect of left 5th metatarsal base. Likely ganglion but will get xray to assure no underlying osseous etiology. Willget xray with bb applied to left foot 3. Due to mass causing pain, I do feel further work-up including mri to evaluate for underlying mass is necessary. An MRI may help to indentify the mass so that further treatment including but not limited to surgery could be discussed 4. Discussed use of inserts for flatfoot but I do have concerns given the mass, an insert may lead to rubbing on dorsal foot mass. Will hold on inserts for now Yahir Davis DPM Podiatry [address] [place] [id number] Dept: [phone] Dept * Carolina Zapien LPN - 12/10/2022 8:36 AM EDT AMB ROOMING INTAKE FLOWSHEET DATA Pain Pain Level: (8-9 when pain is at worse) Pain Location: Foot-Left Description: Throbbing Duration Amount of Time: 5 Duration Units: Days Frequency: Intermittent Intervention/Comfort measure: Cold Patient presents with: Left Foot - New, Pain, Swelling Carolina Zapien LPN documented in this encounterL[facility]04-27-2023 Instructions* Patient Instructions* Marie Lopez APRN.YELITZA - 12/04/2022 7:52 AM EDT Increase metoprolol Follow up in 2 weeks documented in this encounterLake [facility]04-27-2023 History of Present illness Narrative* Marie Lopez APRN.CNP - 12/04/2022 7:43 AM EDT Chief Complaint Patient presents with: Follow Up: Blood pressure HPI Alexandria Sauer is a 67 year old male who presents here today for Above Complaints.. Patient presents for BP check. Patient's BP continues to be elevated however his mother is not doing well. Past medical history, appointments, medications, allergies reviewed. 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 Tameka Lazar Living will in place 11/07/2021 PAULETTE Abebe () Medicare annual wellness visit, initial 11/07/2021 Medicare wellness Part B: 04/10/2021 Last done : 11/07/2021 Mitral valve prolapse Mitral valve regurgitation Mixed hyperlipidemia Nontoxic single thyroid nodule 05/13/2021 S/p partial thyroidectomy 09/2021 SUSI (obstructive sleep apnea) 05/09/2021 Was able to get off CPAP after weight loss. Postoperative hypothyroidism 11/07/2021 Stage 3a chronic kidney disease (HCC) 11/20/2022 Previous Surgical History PAST SURGICAL HISTORY Procedure Laterality Date COLONOSCOPY FLX DX W/COLLJ SPEC WHEN PFRMD 07/21/2007 Colonoscopy COLONOSCOPY GEN SALOME Lazar. repeat in 5 years ECHO 10/05/2020 LEFT HEART CATH,PERCUTANEOUS aprox 03/2014 STRESS TEST 10/10/2020 exercise with NM images THYROIDECTOMY Left left thyroid lobectomy TOTAL HIP REPLACEMENT Left TOTAL HIP REPLACEMENT Right Family History FAMILY HISTORY Problem Relation Age of Onset Melanoma Father Kidney failure Father Hypertension Mother Stroke Mother Breast Cancer Sister Anesthesia Problems No Family History Patient Allergies ALLERGIES No Known Allergies Current Medications Current Outpatient Medications on File Prior to Visit Medication Sig levothyroxine (SYNTHROID) 88 mcg tablet Take 1 tablet by mouth DAILY (6 AM). pravastatin (PRAVACHOL) 20 mg tablet Take 1 tablet by mouth once daily. allopurinol (ZYLOPRIM) 300 mg tablet Take 1 tablet by mouth once daily. sildenafil (VIAGRA) 100 mg tablet Take 1 tablet by mouth as needed. naproxen (NAPROSYN) 500 mg tablet Take 1 tablet by mouth twice daily as needed (for pain/inflammation). Take with food. metoprolol succinate ER (TOPROL XL) 25 mg 24 hr tablet Take 12.5 mg by mouth. aspirin, enteric coated (ASPIRIN, ENTERIC COATED) 81 mg EC tablet Take 81 mg by mouth once daily. [DISCONTINUED] colchicine 0.6 mg tablet Take by mouth. No current facility-administered medications on file prior to visit. Social History Social History Tobacco Use Smoking status: Never Smokeless tobacco: Former Types: Chew Quit date: 1980 Vaping Use Vaping Use: Never used Substance Use Topics Alcohol use: Yes Comment: 2-3 Beers a month Drug use: Never Review of Symptoms REVIEW OF SYSTEMS SEE HPI EXAM: BP 158/96 Pulse 62 Resp 16 Wt 83.5 kg (184 lb) BMI 28.82 kg/m General Appearance: Well appearing, alert, in no acute distress, well-hydrated, well nourished.. Lungs: Lungs clear to auscultation. No wheezing, rhonchi, rales.. Heart: RRR without murmur, gallop, or rubs. No ectopy. Peripheral Pulses: Normal. Health Maintenance List BP CONTROLLED (<130/80) Never done DTAP,TDAP,TD(2 - Td or Tdap) due on 11/21/2023 SHINGRIX VACCINE(1 of 2) due on 11/21/2023 SERUM CREATININE due on 10/31/2023 HEMOGLOBIN/HEMATOCRIT due on 10/31/2023 ANNUAL PCP TEAM CHRONIC DISEASE VISIT due on 11/21/2023 COLORECTAL CANCER SCREENING due on 03/06/2025 DIABETES SCREEN due on 10/30/2025 LIPID SCREEN due on 10/31/2027 PROSTATE CANCER SCREENING DISCUSSION due on 10/31/2027 INFLUENZA Completed ADVANCE DIRECTIVE DISCUSSION Completed DEPRESSION ASSESSMENT Completed COVID-19 VACCINE Completed PNEUMOCOCCAL: 65+ Completed HEPATITIS C SCREENING Discontinued ASSESSMENT/PLAN: 1. Essential hypertension, benign - ICD9: 401.1, ICD10: I10 - suboptimal control - Continue current medication(s) - Increase metoprolol (Lopressor/Toprol) - Recommended regular aerobic exercise. - Recommend home blood pressure monitoring, to bring results in on next visit - Goal of BP <130/80 - METOPROLOL SUCCINATE ER 25 MG TABLET,EXTENDED RELEASE 24 HR Marie Lopez APRN.PHOTOGRAMMETRIC ENGINEER documented in this encounterLake [facility]04-13-[facility] History of Present illness Narrative* Bro Easton MD - 11/20/2022 9:00 AM EDT Medicare Yearly Visit Medical B eligibilty date 04/10/2021 Date of last exam n/a PAST MEDICAL HISTORY PAST MEDICAL HISTORY Diagnosis Date Benign prostatic hyperplasia with urinary frequency 05/09/2021 Cardiomyopathy, hypertrophic (HCC) [facility] Essential hypertension, benign Gout History of colonic polyps 05/09/2021 Dr. Tameka Lazar Mitral valve prolapse Mitral valve regurgitation Mixed hyperlipidemia Near syncope SUSI (obstructive sleep apnea) 05/09/2021 Was able to get off CPAP after weight loss. PAST SURGICAL HISTORY PAST SURGICAL HISTORY Procedure Laterality Date COLONOSCOPY FLX DX W/COLLJ SPEC WHEN PFRMD 07/21/2007 Colonoscopy COLONOSCOPY GEN SALOME Lazar. repeat in 5 years ECHO 10/05/2020 LEFT HEART CATH,PERCUTANEOUS aprox 03/2014 STRESS TEST 10/10/2020 exercise with NM images THYROIDECTOMY Left left thyroid lobectomy TOTAL HIP REPLACEMENT Left TOTAL HIP REPLACEMENT Right ALLERGIES: Patient has no known allergies. Medications reviewed: Yes FAMILY HISTORY FAMILY HISTORY Problem Relation Age of Onset Melanoma Father Kidney failure Father Hypertension Mother Stroke Mother Breast Cancer Sister Anesthesia Problems No Family History SOCIAL HISTORY: SOCIAL HISTORY Social History Tobacco Use Smoking status: Never Smoker Smokeless tobacco: Former User Types: Chew Vaping Use Vaping Use: Never used Substance Use Topics Alcohol use: Yes Comment: 2-3 Beers a month Drug use: Never [employer] works out regularly 7 days times per week with walking, stationary bicycling and light weights. He watches his diet for sodium, low fat and low cholesterol most of the time. List of current specialists seen: Dr. Olsen (cardio) End of Live Planning discussed including patients advanced directive wishes: Yes I am willing to follow [place] advanced directives. PHQ-2 / Depression screen Depression Screening 05/14/2022 05/14/2022 11/20/2022 PHQ-2 Score 0 0 0 Depression screening tool completed and reviewed. Based on score and interview, patient is not at risk for depression. Screening tool discussed with patient, and I recommended no further interventionat this time. Functional Ability/Safety Screen 1. Was the patient's timed Up and Go test unsteady or longer than 30 seconds? No 2. Does the patient need help with the phone, transportation, shopping,preparing meals, housework, laundry, medications or managing money? No 3. Does your home have rugs in the hallway, lack of grab bars in the bathroom(Y), lack of handrailson the stairs or have poor lighting? No Hearing Evaluation: within normal limits PHYSICAL EXAM BP 140/90 (BP Site: Left Arm, BP Position: Sitting, BP Cuff Size: Regular Adult) Pulse (!) 58 Resp 16 Ht 170.2 cm (5' 7) Wt 80.7 kg (178 lb) BMI 27.88 kg/m Alert and oriented X 3: YES Body mass index is 27.88 kg/m . Visual acuity: seeing optho See below ASSESSMENT/PLAN: 67 year old male The following prevention plan was discussed during the office visit and provided to the patient: See anu Chief Complaint Patient presents with: Medicare Wellness Exam HPI Alexandria Sauer is a 67 year old male who presents here today for chronic health issues and Medicare Annual Visit. Office visit: Medicare Wellness: Patient with hx of HTN, Hyperlipidemia, Cardiomyopathy seeing Cardio, post surgical hypothyroidism,gout, MVR, BPH as well as those reviewed and addressed below and in ROS. Has been doing well. Had maybe one gout attack a few weeks ago. Has been getting a pain on the lateral left foot that last's 3-5 days every 4-6 weeks. Helps to stay off it. 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 Office visit 05/14/2022 6 month follow up Patient with hx of HTN, Hyperlipidemia, Cardiomyopathy seeing Cardio, post surgical hypothyroidism,gout, MVR, BPH as well as those reviewed and addressed below and in ROS. Patient has been doing well. Tried the flomax and did not seem to help and stopped it. Only up 1-2 times a night. Probable gets a gout attack once every 2-3 months. Does not take anything on a regular basis. Will take allopurinol and colchicine as needed. Past medical history, appointments, medications, allergies reviewed. 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 Tameka Lazar Living will in place 11/07/2021 PAULETTE Abebe () Medicare annual wellness visit, initial 11/07/2021 Medicare wellness Part B: 04/10/2021 Last done : 11/07/2021 Mitral valve prolapse Mitral valve regurgitation Mixed hyperlipidemia Near syncope Nontoxic single thyroid nodule 05/13/2021 S/p partial thyroidectomy 09/2021 SUSI (obstructive sleep apnea) 05/09/2021 Was able to get off CPAP after weight loss. Postoperative hypothyroidism 11/07/2021 Previous Surgical History PAST SURGICAL HISTORY Procedure Laterality Date COLONOSCOPY FLX DX W/COLLJ SPEC WHEN PFRMD 07/21/2007 Colonoscopy COLONOSCOPY GEN SALOME Lazar. repeat in 5 years ECHO 10/05/2020 LEFT HEART CATH,PERCUTANEOUS aprox 03/2014 STRESS TEST 10/10/2020 exercise with NM images THYROIDECTOMY Left left thyroid lobectomy TOTAL HIP REPLACEMENT Left TOTAL HIP REPLACEMENT Right Family History FAMILY HISTORY Problem Relation Age of Onset Melanoma Father Kidney failure Father Hypertension Mother Stroke Mother Breast Cancer Sister Anesthesia Problems No Family History Patient Allergies ALLERGIES No Known Allergies Current Medications Current Outpatient Medications on File Prior to Visit Medication Sig levothyroxine (SYNTHROID) 88 mcg tablet Take 1 tablet by mouth DAILY (6 AM). pravastatin (PRAVACHOL) 20 mg tablet Take 1 tablet by mouth once daily. allopurinol (ZYLOPRIM) 300 mg tablet Take 1 tablet by mouth as needed. Tadalafil (CIALIS) 20 mg tab(s) Take 1 tablet by mouth as needed. naproxen (NAPROSYN) 500 mg tablet Take 1 tablet by mouth twice daily as needed (for pain/inflammation). Take with food. metoprolol succinate ER (TOPROL XL) 25 mg 24 hr tablet Take 12.5 mg by mouth. aspirin, enteric coated (ASPIRIN, ENTERIC COATED) 81 mg EC tablet Take 81 mg by mouth once daily. [DISCONTINUED] colchicine 0.6 mg tablet Take by mouth. No current facility-administered medications on file prior to visit. Social History Social History Tobacco Use Smoking status: Never Smokeless tobacco: Former Types: Chew Quit date: 1980 Vaping Use Vaping Use: Never used Substance Use Topics Alcohol use: Yes Comment: 2-3 Beers a month Drug use: Never Review of Symptoms REVIEW OF SYSTEMS GENERAL: No unintentional weight loss, malaise or fevers HEENT: Negative for frequent or significant headaches, No changes in hearing or vision, no nose bleeds or other nasal problems NECK: Negative for lumps, goiter, pain and significant neck swelling RESPIRATORY: Negative for cough, hemoptysis, wheezing, COPD, dyspnea or shortness of breath CARDIOVASCULAR: Negative for chest pain, leg swelling, hypertension, CHF or palpitations GI: No nausea, vomiting, or diarrhea, No heartburn or reflux symptoms, and no blood : No history of dysuria, frequency or incontinence MUSCULOSKELETAL: see HPI SKIN: Negative for lesions, rash, and itching PSYCH: Negative for sleep disturbance, mood disorder and recent psychosocial stressors HEMATOLOGY/LYMPHOLOGY: Negative for prolonged bleeding, bruising easily or swollen nodes ENDOCRINE: Negative for cold or heat intolerance, polyuria, polydipsia and goiter NEURO: No history of headaches, syncope, paralysis, seizures or tremors EXAM: BP 140/90 (BP Site: Left Arm, BP Position: Sitting, BP Cuff Size: Regular Adult) Pulse (!) 58 Resp 16 Ht 170.2 cm (5' 7) Wt 80.7 kg (178 lb) BMI 27.88 kg/m Last 4 Encounter Wt Readings: Date: Wt: 11/20/2022 80.7 kg (178 lb) 05/14/2022 81.6 kg (180 lb) 11/07/2021 85.4 kg (188 lb 3.2 oz) 08/26/2021 84.8 kg (187 lb) General Appearance: Well appearing, alert, in no acute distress, well-hydrated, well nourished.. Skin: Skin color, texture, turgor normal, no suspicious rashes or lesions. Head: Normocephalic, no masses, lesions, tenderness or abnormalities. Eyes: Anicteric sclera. Pupils are equally round and reactive to light. Extraocular movements are intact. . Ears: External ears normal, canals clear. Neck: Supple, no adenopathy; thyroid symmetric, normal size, no bruits. Lungs: Lungs clear to auscultation. No wheezing, rhonchi, rales.. Heart: RRR without murmur, gallop, or rubs. No ectopy. Abdomen: Normal abdominal exam, Abdomen soft, non-tender. Bowel sounds normal. No masses, organomegaly. Extremities: No deformities, edema, skin discoloration, clubbing or cyanosis. Good capillary refill. . Musculoskeletal: Spine range of motion normal. Muscular strength intact, No joint swelling, deformity, or tenderness. Peripheral Pulses: Normal. Neurologic: Gait normal. Reflexes normal and symmetric. Sensation to light touch and crainal nerves2-12 intact.. Genitalia: Penis normal. No urethral discharge. Scrotum normal to palpation. No hernia.. Rectal: Normal exam. Prostate slightly enlarged but smooth firm capsule. Health Maintenance List BP CONTROLLED (<130/80) Never done SHINGRIX VACCINE(1 of 2) Never done ADVANCE DIRECTIVE DISCUSSION due on 08/10/2022 DEPRESSION ASSESSMENT due on 08/10/2022 DTAP,TDAP,TD(2 - Td or Tdap) due on 10/10/2022 PNEUMOCOCCAL: 65+(2 - PPSV23 if available, else PCV20) due on 11/07/2022 ANNUAL PCP TEAM CHRONIC DISEASE VISIT due on 05/14/2023 COLORECTAL CANCER SCREENING due on 03/06/2025 DIABETES SCREEN due on 10/30/2025 LIPID SCREEN due on 10/31/2027 PROSTATE CANCER SCREENING DISCUSSION due on 10/31/2027 INFLUENZA Completed COVID-19 VACCINE Completed HEPATITIS C SCREENING Discontinued Data reviewed Component Latest Ref Rng & Units 12/19/2021 10/30/2022 WBC 3.70 - 11.00 k/uL 6.14 5.02 RBC 4.20 - 6.00 m/uL 4.66 5.06 Hemoglobin 13.0 - 17.0 g/dL 15.0 16.1 Hematocrit 39.0 - 51.0 % 46.4 48.9 MCV 80.0 - 100.0 fL 99.6 96.6 MCH 26.0 - 34.0 pg 32.2 31.8 MCHC 30.5 - 36.0 g/dL 32.3 32.9 RDW-CV 11.5 - 15.0 % 13.5 14.0 Platelet Count 150 - 400 k/uL 228 203 MPV 9.0 - 12.7 fL 11.2 11.5 Neut% % 65.8 74.3 Abs Neut (ANC) 1.45 - 7.50 k/uL 4.04 3.73 Lymph% % 19.9 12.5 Abs Lymph 1.00 - 4.00 k/uL 1.22 0.63 (L) [place]% % 10.7 11.2 Abs [place] <0.87 k/uL 0.66 0.56 Eosin% % 2.3 1.2 Abs Eosin <0.46 k/uL 0.14 0.06 Baso% % 1.0 0.6 Abs Baso <0.11 k/uL 0.06 0.03 Immature Gran % % 0.3 0.2 IMMATURE GRANS (ABS) <0.10 k/uL <0.03 <0.03 NRBC /100 WBC 0.0 0.0 Absolute nRBC <0.01 k/uL <0.01 <0.01 DTYPE Auto Auto Protein, Total 6.3 - 8.0 g/dL 6.7 7.4 Albumin 3.9 - 4.9 g/dL 4.3 4.4 Calcium 8.5 - 10.2 mg/dL 9.2 9.6 Bilirubin, Total 0.2 - 1.3 mg/dL 0.7 0.6 Alkaline Phosphatase 38 - 113 U/L 66 74 AST 14 - 40 U/L 24 25 ALT 10 - 54 U/L 18 24 Glucose 74 - 99 mg/dL 88 93 BUN 9 - 24 mg/dL 21 18 Creatinine 0.73 - 1.22 mg/dL 1.38 (H) 1.47 (H) Sodium 136 - 144 mmol/L 142 139 Potassium 3.7 - 5.1 mmol/L 4.3 4.9 Chloride 97 - 105 mmol/L 105 105 CO2 22 - 30 mmol/L 25 24 Anion Gap 9 - 18 mmol/L 12 10 eGFR >=60 mL/min/1.73m 57 (L) 52 (L) Color Yellow Light Yellow Yellow Clarity Clear Clear Clear Glucose, Urine Trace, Negative Negative Negative Bilirubin, Urine Negative Negative Negative Ketones, Urine Trace, Negative Negative 1+ (A) Specific [place], Ur 1.005 - 1.030 1.017 1.028 Hemoglobin/Blood,Ur Negative, Trace Negative Negative pH, Urine 5.0 - 8.0 5.0 5.5 Protein, Urine Trace, Negative Negative 1+ (A) Urobilinogen Negative Negative Negative Nitrites Negative Negative Negative Leukest Negative, 25 Alex/uL Negative Negative WBC, Urine 0-5 /HPF 0-5 /HPF 0-5 /HPF RBC, Urine 0-3 /HPF 0-3 /HPF 0-3 /HPF Total Cholesterol, Nonfasting <200 mg/dL 174 144 Triglycerides, Nonfasting <150 mg/dL 108 93 HDL Cholesterol, Nonfasting >39 mg/dL 50 54 LDL Cholesterol, Nonfasting <100 mg/dL 102 (H) 71 Non HDL Cholesterol, Nonfasting <130 mg/dL 124 90 VLDL Cholesterol, Nonfasting <30 mg/dL 22 19 Total Chol/HDL Ratio, Nonfasting <5.10 mg/dL 3.48 2.67 LDL/HDL Ratio, Nonfasting <2.54 mg/dL 2.04 1.31 TSH 0.270 - 4.200 mIU/L 0.546 0.609 Uric Acid 4.0 - 8.1 mg/dL 8.1 4.7 PSA <2.60 ng/mL 0.78 A/P ASSESSMENT/PLAN: 1. Encounter for Medicare annual wellness exam - ICD9: V70.0, ICD10: Z00.00 (primary diagnosis) - Counseled on healthy diet and regular exercise - Patient was counseled [id number] by myself (the billing provider) for the following immunizations and vaccine components, including side effects: Pneumococcal . Patient consents for immunization and understands risks and benefits. A VIS sheet on each immunization was given to the patient. - Follow up for annual exam in one year 2. Essential hypertension, benign - ICD9: 401.1, ICD10: I10 - suboptimal control - Recommended regular aerobic exercise. - Recommend home blood pressure monitoring, to bring results in on next visit - Recheck in 2 weeks, sooner should new symptoms or problems arise. - Goal of BP <130/80 3. Mixed hyperlipidemia - ICD9: 272.2, ICD10: E78.2 - good control - Continue current medication. - Encouraged following a low fat, low cholesterol diet. - Discussed the benefits of regular aerobic exercise and weight loss. - Encouraged following a low carbohydrate, healthy oil intake diet. - Continue current therapy. 4. Postoperative hypothyroidism - ICD9: 244.0, ICD10: E89.0 - Instructed patient on importance of taking on an empty stomach either first thing in the morning or at bedtime. - continue current dose of Synthroid 5. Cardiomyopathy, hypertrophic (HCC) - ICD9: 425.18, ICD10: I42.2 - clinically stable. Cont management with cardio 6. Stage 3a chronic kidney disease (HCC) - ICD9: 585.3, ICD10: N18.31 - discussed increased hydration and avoidence of frequent NSAID use. - will repeat BMP in 2 weeks when better hydrated. - in a few weeks check BASIC METABOLIC PNL when hydrating better. 7. Gout, unspecified cause, unspecified chronicity, unspecified site - ICD9: 274.9, ICD10: M10.9 - cont allopurinol. 8. Benign prostatic hyperplasia with urinary frequency - ICD9: 600.01, 788.41, ICD10: N40.1, R35.0 - stable 9. Advance directive discussed with patient - ICD9: V65.49, ICD10: Z71.89 - patient to bring in copies. 10. Malignant melanoma of scalp (HCC) - ICD9: 172.4, ICD10: C43.4 - management per Derm 11. Encounter for immunization - ICD9: V03.89, ICD10: Z23 - PNEUMOCOCCAL VACCINE (PREVNAR 20): given 12. Foot pain, left - ICD9: 729.5, ICD10: M79.672 - CONSULT TO PODIATRY Requested Prescriptions Signed Prescriptions Disp Refills levothyroxine (SYNTHROID) 88 mcg tablet 90 tablet 1 Sig: Take 1 tablet by mouth DAILY (6 AM). pravastatin (PRAVACHOL) 20 mg tablet 90 tablet 1 Sig: Take 1 tablet by mouth once daily. allopurinol (ZYLOPRIM) 300 mg tablet 90 tablet 1 Sig: Take 1 tablet by mouth once daily. sildenafil (VIAGRA) 100 mg tablet 30 tablet 3 Sig: Take 1 tablet by mouth as needed. F/u 2 weeks HTN med check F/u 6 months routine check BMP and Lipid. I spent a total of 40 minutes on the date of the service which included preparing to see the patient, [id number] patient care, completing clinical documentation, performing a medically appropriate examination, counseling and educating the patient/family/caregiver and ordering medications, tests, or procedures. Bro Easton MD documented [facility] this encounterL[facility] Instructions* Patient Instructions* Bro Easton MD - 11/20/2022 8:57 AM EDT Work on getting 48-64 oz of water a day. When you come into get blood pressure rechecked get blood draw for kidney functions. Try to avoid frequent use of NSAID's (Ibuprofen, Advil, Motrin, Aleve andnaproxen) Bring in BP cuff to next visit. Consider getting the shingrix vaccine for the prevention of shingles from a local pharmacy Please bring in copies of your power of catalyst recovery operator for health care and living will. Consider getting a tetanus booster, Tdap at the health dept. Please get labs and urine test done on or after 2023 prior to your next visit. documented in this encounterL[facility]12[facility]19[facility] History of Present illness Narrative* Debora Horton LPN - 07/28/2022 2:43 PM EST FYI pt's Derm appointment. Scan on 07/28/2022 12:01 PM by External Provider: Consultation - Dermatology documented in this encounterL[facility]-05-[facility] History of Present illness Narrative* Bro Easton MD - 05/14/2022 9:39 AM EDT Chief Complaint Patient presents with: F/U 6 months HPI Alexandria Sauer is a 67 year old male who presents here today for 6 month follow up. Patient with hx of HTN, Hyperlipidemia, Cardiomyopathy seeing Cardio, post surgical hypothyroidism,gout, MVR, BPH as well as those reviewed and addressed below and in ROS. Patient has been doing well. Tried the flomax and did not seem to help and stopped it. Only up 1-2 times a night. Probable gets a gout attack once every 2-3 months. Does not take anything on a regular basis. Will take allopurinol and colchicine as needed. Past medical history, appointments, medications, allergies reviewed. Previous Medical History PAST MEDICAL HISTORY Diagnosis Date Advance directive discussed with patient 11/07/2021 Discussed 10/2021 Benign prostatic hyperplasia with urinary frequency 05/09/2021 Cardiomyopathy, hypertrophic (HCC) [facility] Enlarged thyroid 05/13/2021 Essential hypertension, benign Gout History of colonic polyps 05/09/2021 Dr. aTmeka Lazar Living will in place 11/07/2021 DPA; Mis () Medicare annual wellness visit, initial 11/07/2021 Medicare wellness Part B: 04/10/2021 Last done : 11/07/2021 Mitral valve prolapse Mitral valve regurgitation Mixed hyperlipidemia Near syncope Nontoxic single thyroid nodule 05/13/2021 S/p partial thyroidectomy 09/2021 SUSI (obstructive sleep apnea) 05/09/2021 Was able to get off CPAP after weight loss. Postoperative hypothyroidism 11/07/2021 Previous Surgical History PAST SURGICAL HISTORY Procedure Laterality Date COLONOSCOPY FLX DX W/COLLJ SPEC WHEN PFRMD 07/21/2007 Colonoscopy COLONOSCOPY GEN SALOME Lazar. repeat in 5 years ECHO 10/05/2020 LEFT HEART CATH,PERCUTANEOUS aprox 03/2014 STRESS TEST 10/10/2020 exercise with NM images THYROIDECTOMY Left left thyroid lobectomy TOTAL HIP REPLACEMENT Left TOTAL HIP REPLACEMENT Right Family History FAMILY HISTORY Problem Relation Age of Onset Melanoma Father Kidney failure Father Hypertension Mother Stroke Mother Breast Cancer Sister Anesthesia Problems No Family History Patient Allergies ALLERGIES No Known Allergies Current Medications Current Outpatient Medications on File Prior to Visit Medication Sig levothyroxine (SYNTHROID) 88 mcg tablet Take 1 tablet by mouth DAILY (6 AM). pravastatin (PRAVACHOL) 20 mg tablet Take 1 tablet by mouth once daily. naproxen (NAPROSYN) 500 mg tablet Take 1 tablet by mouth twice daily as needed (for pain/inflammation). Take with food. allopurinol (ZYLOPRIM) 100 mg tablet Take by mouth. colchicine 0.6 mg tablet Take by mouth. metoprolol succinate ER (TOPROL XL) 25 mg 24 hr tablet Take 12.5 mg by mouth. Tadalafil (CIALIS) 20 mg tab(s) Take by mouth. aspirin, enteric coated (ASPIRIN, ENTERIC COATED) 81 mg EC tablet Take 81 mg by mouth once daily. tamsulosin (FLOMAX) 0.4 mg Take 1 capsule by mouth daily at bedtime. No current facility-administered medications on file prior to visit. Social History Social History Tobacco Use Smoking status: Never Smokeless tobacco: Former Types: Chew Quit date: 1980 Vaping Use Vaping Use: Never used Substance Use Topics Alcohol use: Yes Comment: 2-3 Beers a month Drug use: Never Review of Symptoms REVIEW OF SYSTEMS GENERAL: No weight loss, malaise or fevers NECK: Negative for lumps, goiter, pain and significant neck swelling RESPIRATORY: Negative for cough, hemoptysis, wheezing, COPD, dyspnea or shortness of breath CARDIOVASCULAR: Negative for chest pain, leg swelling, hypertension, CHF or palpitations GI: No nausea, vomiting, or diarrhea and No heartburn or reflux symptoms MUSCULOSKELETAL: see HPI ENDOCRINE: Negative for cold or heat intolerance, polyuria, polydipsia and goiter NEURO: No history of headaches, syncope, paralysis, seizures or tremors EXAM: BP 116/80 (BP Site: Right Arm, BP Position: Sitting, BP Cuff Size: Regular Adult) Pulse (!) 58 Resp 16 Wt 81.6 kg (180 lb) BMI 27.37 kg/m General Appearance: Well appearing, alert, in no acute distress, well-hydrated, well nourished.. Neck: Supple, no adenopathy; thyroid symmetric, normal size, no bruits. Lungs: Lungs clear to auscultation. No wheezing, rhonchi, rales.. Heart: RRR without murmur, gallop, or rubs. No ectopy. Abdomen: Normal abdominal exam, Abdomen soft, non-tender. Bowel sounds normal. No masses, organomegaly. Extremities: No deformities, edema, skin discoloration, Good capillary refill. . Muscl: strength intact Peripheral Pulses: Normal. Health Maintenance List HEPATITIS C SCREENING Never done COVID-19 VACCINE(4 - Booster for Moderna series) due on 08/05/2021 DEPRESSION ASSESSMENT Never done INFLUENZA(1) due on 04/10/2022 SHINGRIX VACCINE(1 of 2) due on 11/07/2022 DTAP,TDAP,TD(2 - Td or Tdap) due on 10/10/2022 ANNUAL PCP TEAM CHRONIC DISEASE VISIT due on 11/07/2022 BP CONTROLLED (<130/80) due on 11/07/2022 PNEUMOCOCCAL: 65+(2 - PPSV23 or PCV20) due on 11/07/2022 DIABETES SCREEN due on 12/19/2024 COLORECTAL CANCER SCREENING due on 03/06/2025 PROSTATE CANCER SCREENING DISCUSSION due on 05/10/2026 LIPID SCREEN due on 12/19/2026 ADVANCE DIRECTIVE DISCUSSION Completed Data reviewed Component Latest Ref Rng & Units 12/19/2021 WBC 3.70 - 11.00 k/uL 6.14 RBC 4.20 - 6.00 m/uL 4.66 Hemoglobin 13.0 - 17.0 g/dL 15.0 Hematocrit 39.0 - 51.0 % 46.4 MCV 80.0 - 100.0 fL 99.6 MCH 26.0 - 34.0 pg 32.2 MCHC 30.5 - 36.0 g/dL 32.3 RDW-CV 11.5 - 15.0 % 13.5 Platelet Count 150 - 400 k/uL 228 MPV 9.0 - 12.7 fL 11.2 Neut% % 65.8 Abs Neut (ANC) 1.45 - 7.50 k/uL 4.04 Lymph% % 19.9 Abs Lymph 1.00 - 4.00 k/uL 1.22 [place]% % 10.7 Abs [place] <0.87 k/uL 0.66 Eosin% % 2.3 Abs Eosin <0.46 k/uL 0.14 Baso% % 1.0 Abs Baso <0.11 k/uL 0.06 Immature Gran % % 0.3 IMMATURE GRANS (ABS) <0.10 k/uL <0.03 NRBC /100 WBC 0.0 Absolute nRBC <0.01 k/uL <0.01 DTYPE Auto Protein, Total 6.3 - 8.0 g/dL 6.7 Albumin 3.9 - 4.9 g/dL 4.3 Calcium 8.5 - 10.2 mg/dL 9.2 Bilirubin, Total 0.2 - 1.3 mg/dL 0.7 Alkaline Phosphatase 38 - 113 U/L 66 AST 14 - 40 U/L 24 ALT 10 - 54 U/L 18 Glucose 74 - 99 mg/dL 88 BUN 9 - 24 mg/dL 21 Creatinine 0.73 - 1.22 mg/dL 1.38 (H) Sodium 136 - 144 mmol/L 142 Potassium 3.7 - 5.1 mmol/L 4.3 Chloride 97 - 105 mmol/L 105 CO2 22 - 30 mmol/L 25 Anion Gap 9 - 18 mmol/L 12 eGFR >=60 mL/min/1.73m 57 (L) Color Yellow Light Yellow Clarity Clear Clear Glucose, Urine Negative Negative Bilirubin, Urine Negative Negative Ketones, Urine Negative Negative Specific [place], Ur 1.005 - 1.030 1.017 Hemoglobin/Blood,Ur Negative Negative pH, Urine 5.0 - 8.0 5.0 Protein, Urine Negative Negative Urobilinogen Negative Negative Nitrites Negative Negative Leukest Negative Negative WBC, Urine 0-5 /HPF 0-5 /HPF RBC, Urine 0-3 /HPF 0-3 /HPF Total Cholesterol, Nonfasting <200 mg/dL 174 Triglycerides, Nonfasting <150 mg/dL 108 HDL Cholesterol, Nonfasting >39 mg/dL 50 LDL Cholesterol, Nonfasting <100 mg/dL 102 (H) Non HDL Cholesterol, Nonfasting <130 mg/dL 124 VLDL Cholesterol, Nonfasting <30 mg/dL 22 Total Chol/HDL Ratio, Nonfasting <5.10 mg/dL 3.48 LDL/HDL Ratio, Nonfasting <2.54 mg/dL 2.04 TSH 0.270 - 4.200 mIU/L 0.546 Uric Acid 4.0 - 8.1 mg/dL 8.1 A/P ASSESSMENT/PLAN: 1. Essential hypertension, benign - ICD9: 401.1, ICD10: I10 (primary diagnosis) - good control - Continue current medication(s) - Recommended regular aerobic exercise. - Recommend home blood pressure monitoring, to bring results in on next visit - Goal of BP <130/80 2. Mixed hyperlipidemia - ICD9: 272.2, ICD10: E78.2 - good control - Encouraged following a low fat, low cholesterol diet. - Discussed the benefits of regular aerobic exercise and weight loss. - Encouraged following a low carbohydrate, healthy oil intake diet. - Continue current therapy. 3. Postoperative hypothyroidism - ICD9: 244.0, ICD10: E89.0 - Instructed patient on importance of taking on an empty stomach either first thing in the morning or at bedtime. - continue current dose of Synthroid 4. Cardiomyopathy, hypertrophic (HCC) - ICD9: 425.18, ICD10: I42.2 - clinically stable. Management per cardio 5. Gout, unspecified cause, unspecified chronicity, unspecified site - ICD9: 274.9, ICD10: M10.9 - will restart allopurinol 300 mg a day. - discussed potential for chronic gout with each attack. 6. Benign prostatic hyperplasia with urinary frequency - ICD9: 600.01, 788.41, ICD10: N40.1, R35.0 - chronic, patient stable off meds. 7. ED (erectile dysfunction) of organic origin - ICD9: 607.84, ICD10: N52.9 - cont Cialis prn 8. Encounter for immunization - ICD9: V03.89, ICD10: Z23 - INFLUENZA SEASONAL QUADRIVALENT HIGH DOSE AGE 65+: given - [employer] COVID-19 BIVALENT BOOSTER VACCINE, AGE 12+ YR: given Requested Prescriptions Signed Prescriptions Disp Refills levothyroxine (SYNTHROID) 88 mcg tablet 90 tablet 1 Sig: Take 1 tablet by mouth DAILY (6 AM). pravastatin (PRAVACHOL) 20 mg tablet 90 tablet 1 Sig: Take 1 tablet by mouth once daily. allopurinol (ZYLOPRIM) 300 mg tablet 90 tablet 1 Sig: Take 1 tablet by mouth as needed. Tadalafil (CIALIS) 20 mg tab(s) 30 tablet 3 Sig: Take 1 tablet by mouth as needed. F/u 6 months extensive check CMP, Lipid UA, PSA, TSH, CBC, uric acid. Bro Easton MD documented in this encounterL[facility]07-14-[facility]22 Miscellaneous Notes* Telephone Encounter - Bro Easton MD - 02/20/2022 3:48 PM EDT The following approved medication requests have been transmitted electronically. Signed Prescriptions Disp Refills levothyroxine (SYNTHROID) 88 mcg tablet 90 tablet 1 Sig: Take 1 tablet by mouth DAILY (6 AM). ELDER: No Authorizing Provider: BRO EASTON MD * Telephone Encounter - Hortensia Roa MA - 02/20/2022 11:18 AM EDT Patient has been identified by name and date of : Yes Pending Prescriptions Disp Refills LEVOTHYROXINE 88 MCG TABLET 90 tablet 3 Sig: Take 1 tablet by mouth DAILY (6 AM). ELDER: No RX INSTRUCTIONS: Patient aware RX will be sent to pharmacy. No need to notify patient. Hortensia Roa MA Arya: 10/2021 Nov: 05/2022 Last refill: 10/2021 * Telephone Encounter - Pascale Ochoa - 02/20/2022 11:01 AM EDT Patient has been identified by name and date of : Yes Pending Prescriptions Disp Refills LEVOTHYROXINE 88 MCG TABLET 90 tablet 3 Sig: Take 1 tablet by mouth DAILY (6 AM). ELDER: No RX INSTRUCTIONS: NEW PHARMACY. Requested 90 days with refills to [facility]. Patient aware RX will be sent to pharmacy. No need to notify patient. Pascale Henriquez Pss documented in this encounterLake [facility]05-16-2022 Miscellaneous Notes* Telephone Encounter - Jazlyn Parada MA - 12/23/2021 8:26 AM EDT Patient notified via Xpl[employer] message. Jazlyn Parada MA * Telephone Encounter - Bro Easton MD - 12/21/2021 9:01 PM EDT Let patient now recent labs were all ok except sliht reduction in kidney function. Advise increasedwater intake. documented in this encounterLake [facility]03-31-2022 Instructions* Patient Instructions* Bro Easton MD - 11/07/2021 8:56 AM EDT Check with local pharmacy to see if shingrix vaccine for the prevention of shingles is covered. Try to bring in a copy of living will and power of catalyst recovery operator for health care papers. Get labs and urine on or after 12/19/2021 documented in this encounterLake [facility]03-31-2022 History of Present illness Narrative* Bro Easton MD - 11/07/2021 8:37 AM EDT Medicare Yearly Visit Medical B eligibilty date 04/10/2021 Date of last exam n/a PAST MEDICAL HISTORY Diagnosis Date Benign prostatic hyperplasia with urinary frequency 05/09/2021 Cardiomyopathy, hypertrophic (HCC) [facility] Essential hypertension, benign Gout History of colonic polyps 05/09/2021 Dr. Tameka Lazar Mitral valve prolapse Mitral valve regurgitation Mixed hyperlipidemia Near syncope SUSI (obstructive sleep apnea) 05/09/2021 Was able to get off CPAP after weight loss. PAST SURGICAL HISTORY Procedure Laterality Date COLONOSCOPY FLX DX W/COLLJ SPEC WHEN PFRMD 07/21/2007 Colonoscopy COLONOSCOPY GEN ANES dr. Lazar. repeat in 5 years ECHO 10/05/2020 LEFT HEART CATH,PERCUTANEOUS aprox 03/2014 STRESS TEST 10/10/2020 exercise with NM images THYROIDECTOMY Left left thyroid lobectomy TOTAL HIP REPLACEMENT Left TOTAL HIP REPLACEMENT Right ALLERGIES: Patient has no known allergies. Medications reviewed: Yes FAMILY HISTORY Problem Relation Age of Onset Melanoma Father Kidney failure Father Hypertension Mother Stroke Mother Breast Cancer Sister Anesthesia Problems No Family History SOCIAL HISTORY: Social History Tobacco Use Smoking status: Never Smoker Smokeless tobacco: Former User Types: Chew Vaping Use Vaping Use: Never used Substance Use Topics Alcohol use: Yes Comment: 2-3 Beers a month Drug use: Never Alexandria Braga works out regularly 7 days times per week with walking, stationary bicycling and light weights. He watches his diet for sodium, low fat and low cholesterol most of the time. List of current specialists seen: Dr. Olsen (cardio) End of Live Planning discussed including patients advanced directive wishes: Yes I am willing to follow Alexandria Braga'[employer] advanced directives. PHQ-2 / Depression screen He in the past two weeks denies having felt down, depressed, hopeless or with little interest or pleasure in doing things. Functional Ability/Safety Screen 1. Was the patient's timed Up and Go test unsteady or longer than 30 seconds? No 2. Does the patient need help with the phone, transportation, shopping,preparing meals, housework, laundry, medications or managing money? No 3. Does your home have rugs in the hallway, lack of grab bars in the bathroom(Y), lack of handrailson the stairs or have poor lighting? No Hearing Evaluation: within normal limits PHYSICAL EXAM BP 118/78 Pulse (!) 54 Temp 36.4 C (97.6 F) Resp 18 Ht 172.7 cm (5' 8) Wt 85.4 kg (188 lb 3.2 oz) SpO2 96% BMI 28.62 kg/m Alert and oriented X 3: YES Body mass index is 28.62 kg/m . Visual acuity: seeing optho See below ASSESSMENT/PLAN: 66 year old male The following prevention plan was discussed during the office visit and provided to the patient: See anu Chief Complaint Patient presents with: Medicare Wellness Exam: 6 month follow up naproxen: would like prn RX HPI Alexandria Sauer is a 66 year old male who presents here today for extensive exam. Patient with hx of HTN, Hyperlipidemia, Cardiomyopathy seeing Cardio, post surgical hypothyroidism,gout, MVR, BPH as well as those reviewed and addressed below and in ROS. Patient has been doing well since partial removal of thyroid that was neg for cancer. Past medical history, appointments, medications, allergies reviewed. Previous Medical History PAST MEDICAL HISTORY Diagnosis Date Advance directive discussed with patient 11/07/2021 Discussed 10/2021 Benign prostatic hyperplasia with urinary frequency 05/09/2021 Cardiomyopathy, hypertrophic (HCC) [facility] Essential hypertension, benign Gout History of colonic polyps 05/09/2021 Dr. Tameka Lazar Living will in place 11/07/2021 DPA; Mis () Medicare annual wellness visit, initial 11/07/2021 Medicare wellness Part B: 04/10/2021 Last done : 11/07/2021 Mitral valve prolapse Mitral valve regurgitation Mixed hyperlipidemia Near syncope SUSI (obstructive sleep apnea) 05/09/2021 Was able to get off CPAP after weight loss. Previous Surgical History PAST SURGICAL HISTORY Procedure Laterality Date COLONOSCOPY FLX DX W/COLLJ SPEC WHEN PFRMD 07/21/2007 Colonoscopy COLONOSCOPY GEN ANES dr. Lazar. repeat in 5 years ECHO 10/05/2020 LEFT HEART CATH,PERCUTANEOUS aprox 03/2014 STRESS TEST 10/10/2020 exercise with NM images THYROIDECTOMY Left left thyroid lobectomy TOTAL HIP REPLACEMENT Left TOTAL HIP REPLACEMENT Right Family History FAMILY HISTORY Problem Relation Age of Onset Melanoma Father Kidney failure Father Hypertension Mother Stroke Mother Breast Cancer Sister Anesthesia Problems No Family History Patient Allergies ALLERGIES No Known Allergies Current Medications Current Outpatient Medications on File Prior to Visit Medication Sig levothyroxine (SYNTHROID) 100 mcg tablet Take 1 tablet by mouth DAILY (6 AM). allopurinol (ZYLOPRIM) 100 mg tablet Take by mouth. colchicine 0.6 mg tablet Take by mouth. metoprolol succinate ER (TOPROL XL) 25 mg 24 hr tablet Take 12.5 mg by mouth. pravastatin (PRAVACHOL) 20 mg tablet Take 20 mg by mouth. Tadalafil (CIALIS) 20 mg tab(s) Take by mouth. aspirin, enteric coated (ASPIRIN, ENTERIC COATED) 81 mg EC tablet Take 81 mg by mouth once daily. tamsulosin (FLOMAX) 0.4 mg Take 1 capsule by mouth daily at bedtime. No current facility-administered medications on file prior to visit. Social History Social History Tobacco Use Smoking status: Never Smoker Smokeless tobacco: Former User Types: Chew Vaping Use Vaping Use: Never used Substance Use Topics Alcohol use: Yes Comment: 2-3 Beers a month Drug use: Never Review of Symptoms REVIEW OF SYSTEMS GENERAL: No weight loss, malaise or fevers HEENT: Negative for frequent or significant headaches, No changes in hearing or vision, no nose bleeds or other nasal problems NECK: Negative for lumps, goiter, pain and significant neck swelling RESPIRATORY: Negative for cough, hemoptysis, wheezing, COPD, dyspnea or shortness of breath CARDIOVASCULAR: Negative for chest pain, leg swelling, hypertension, CHF or palpitations GI: No nausea, vomiting, or diarrhea, No heartburn or reflux symptoms and no blood : No history of dysuria, blood. Up 3 times a night on avg MUSCULOSKELETAL: has bilateral shoulder pain. Will need surgery in the future. SKIN: Negative for lesions, rash, and itching PSYCH: Negative for sleep disturbance, mood disorder and recent psychosocial stressors HEMATOLOGY/LYMPHOLOGY: Negative for prolonged bleeding, bruising easily or swollen nodes ENDOCRINE: Negative for cold or heat intolerance, polyuria, polydipsia and goiter NEURO: No history of headaches, syncope, paralysis, seizures or tremors EXAM: BP 118/78 Pulse (!) 54 Temp 36.4 C (97.6 F) Resp 18 Ht 172.7 cm (5' 8) Wt 85.4 kg (188 lb 3.2 oz) SpO2 96% BMI 28.62 kg/m Last 5 Encounter Wt Readings: Date: Wt: 11/07/2021 85.4 kg (188 lb 3.2 oz) 08/26/2021 84.8 kg (187 lb) 08/26/2021 84.8 kg (187 lb) 07/08/2021 83.9 kg (185 lb) 06/03/2021 82.8 kg (182 lb 9.6 oz) General Appearance: Well appearing, alert, in no acute distress, well-hydrated, well nourished.. Skin: Skin color, texture, turgor normal, no suspicious rashes or lesions. Head: Normocephalic, no masses, lesions, tenderness or abnormalities. Eyes: Anicteric sclera. Pupils are equally round and reactive to light. Extraocular movements are intact. . Ears: External ears, TM's normal, canals clear. Neck: Supple, no adenopathy; thyroid symmetric, normal size, no bruits. Lungs: Lungs clear to auscultation. No wheezing, rhonchi, rales.. Heart: RRR without murmur, gallop, or rubs. No ectopy. Abdomen: Normal abdominal exam, Abdomen soft, non-tender. Bowel sounds normal. No masses, organomegaly. Extremities: No deformities, edema, skin discoloration, clubbing or cyanosis. Good capillary refill. . Musculoskeletal: Spine range of motion normal. Muscular strength intact, No joint swelling, deformity, or tenderness. Peripheral Pulses: Normal. Neurologic: Gait normal. Reflexes normal and symmetric. Sensation to light touch and crainal nerves2-12 intact.. Genitalia: Normal, Penis normal. No urethral discharge. Scrotum normal to palpation. No hernia.. Rectal: Normal exam. Prostate slightly enlarged but smooth firm capsule. Health Maintenance List ADVANCE DIRECTIVE DISCUSSION Never done HEPATITIS C SCREENING due on 05/09/2022 SHINGRIX VACCINE(1 of 2) due on 11/07/2022 PNEUMOVAX AGE 65 AND OVER WITH 5YR LOOKBACK(1) due on 11/08/2022 DTAP,TDAP,TD(2 - Td or Tdap) due on 10/10/2022 ANNUAL PCP TEAM CHRONIC DISEASE VISIT due on 11/07/2022 BP CONTROLLED (<130/80) due on 11/07/2022 DIABETES SCREEN due on 08/26/2024 COLORECTAL CANCER SCREENING due on 03/06/2025 LIPID SCREEN due on 05/06/2026 PROSTATE CANCER SCREENING DISCUSSION due on 05/10/2026 INFLUENZA Completed COVID-19 VACCINE Completed MENINGOCOCCAL CONJUGATE Aged Out HIV SCREENING Discontinued DEPRESSION SCREENING Discontinued Data reviewed Component Latest Ref Rng & Units 05/10/2021 08/26/2021 10/24/2021 WBC 3.70 - 11.00 k/uL 5.74 6.54 RBC 4.20 - 6.00 m/uL 4.53 4.59 Hemoglobin 13.0 - 17.0 g/dL 14.8 14.5 Hematocrit 39.0 - 51.0 % 42.6 45.1 MCV 80.0 - 100.0 fL 94.0 98.3 MCH 26.0 - 34.0 pG 32.7 31.6 MCHC 30.5 - 36.0 g/dL 34.7 32.2 RDW-CV 11.5 - 15.0 % 13.1 13.2 Platelet Count 150 - 400 k/uL 197 196 MPV 9.0 - 12.7 fL 10.3 10.8 Neut% % 74.9 Abs Neut (ANC) 1.45 - 7.50 k/uL 4.28 Lymph% % 11.3 Abs Lymph 1.00 - 4.00 k/uL 0.65 (L) [place]ar% % 10.8 Abs [place] <0.87 k/uL 0.62 Eosin% % 2.1 Abs Eosin <0.46 k/uL 0.12 Baso% % 0.9 Abs Baso <0.11 k/uL 0.05 Nucleated Reds 0 /100 WBC 0.0 Absolute nRBC <0.01 k/uL <0.01 <0.01 Diff Type Auto Diff Glucose 74 - 99 mg/dL 100 (H) BUN 9 - 24 mg/dL 23 Creatinine 0.73 - 1.22 mg/dL 1.22 Sodium 136 - 144 mmol/L 140 Potassium 3.7 - 5.1 mmol/L 4.1 Chloride 97 - 105 mmol/L 105 CO2 22 - 30 mmol/L 25 Anion Gap 9 - 18 mmol/L 10 Calcium 8.5 - 10.2 mg/dL 9.1 eGFR- >60 eGFR-All Other Races . 60 Thyroglobulin 1.6 - 59.9 ng/mL 339.0 (H) TG Antibody Screen <14.4 IU/mL 3.6 PSA 0.00 - 2.59 ng/mL 0.78 TSH 0.270 - 4.200 mIU/L 1.740 2.210 0.185 (L) Uric Acid 4.0 - 8.1 mg/dL 8.3 (H) A/P ASSESSMENT/PLAN: 1. Medicare annual wellness visit, initial - ICD9: V70.0, ICD10: Z00.00 (primary diagnosis) - Counseled on healthy diet and regular exercise - Patient was counseled [id number] by myself (the billing provider) for the following immunizations and vaccine components, including side effects: Pneumococcal Prev-13. Patient consents for immunization and understands risks and benefits. A VIS sheet on each immunization was given to the patient. - Follow up for annual exam in one year 2. Essential hypertension, benign - ICD9: 401.1, ICD10: I10 - good control - Continue current medication(s) - Recommended regular aerobic exercise. - Recommend home blood pressure monitoring, to bring results in on next visit - Goal of BP <130/80 - COMP METABOLIC PANEL - LIPID PANEL, NONFASTING - URINALYSIS, WITH MICROSCOPIC 3. Mixed hyperlipidemia - ICD9: 272.2, ICD10: E78.2 - to be determined upon return of lab results - Encouraged following a low fat, low cholesterol diet. - Discussed the benefits of regular aerobic exercise and weight loss. - Encouraged following a low carbohydrate, healthy oil intake diet. - Continue current therapy. - COMP METABOLIC PANEL - LIPID PANEL, NONFASTING - URINALYSIS, WITH MICROSCOPIC 4. Postoperative hypothyroidism - ICD9: 244.0, ICD10: E89.0 - Instructed patient on importance of taking on an empty stomach either first thing in the morning or at bedtime. - Decrease Synthroid dose to 0.088 mg daily In 6 weeks check - CBC + DIFF - TSH BLD 5. Nontoxic single thyroid nodule - ICD9: 241.0, ICD10: E04.1 - S/p partial removal. 6. Cardiomyopathy, hypertrophic (HCC) - ICD9: 425.18, ICD10: I42.2 - Stable cont f/u with cardio 7. Gout, unspecified cause, unspecified chronicity, unspecified site - ICD9: 274.9, ICD10: M10.9 - Cont prn colchicine. Check - URIC ACID BLOOD 8. SUSI (obstructive sleep apnea) - ICD9: 327.23, ICD10: G47.33 - With weight loss no longer needed CPAP 9. Benign prostatic hyperplasia with urinary frequency - ICD9: 600.01, 788.41, ICD10: N40.1, R35.0 Stable no changes. 10. Living will in place - ICD9: V49.89, ICD10: Z78.9 - Asked to bring in copies 11. Advance directive discussed with patient - ICD9: V65.49, ICD10: Z71.89 - As per #10 12. Need for vaccination - ICD9: V05.9, ICD10: Z23 - PNEUMOCOCCAL-13 VACCINE PCV-13: given 13. Medication management - ICD9: V58.69, ICD10: Z79.899 Check - CBC + DIFF Signed Prescriptions Disp Refills levothyroxine (SYNTHROID) 88 mcg tablet 30 tablet 3 Sig: Take 1 tablet by mouth DAILY (6 AM). ELDER: No pravastatin (PRAVACHOL) 20 mg tablet 90 tablet 1 Sig: Take 1 tablet by mouth once daily. ELDER: No naproxen (NAPROSYN) 500 mg tablet 60 tablet 5 Sig: Take 1 tablet by mouth twice daily as needed (for pain/inflammation). Take with food. F/u 6 months routine I spent a total of 40 minutes on the date of the service which included preparing to see the patient, [id number] patient care, completing clinical documentation, performing a medically appropriate examination, counseling and educating the patient/family/caregiver and ordering medications, tests, or procedures. Bro Easton MD [facility] NoteHNO ID: [id number] Author: Pearl Velásquez MD Service: Endocrine Surgery Author Type: Physician Type: Progress Notes Filed: 09/13/2021 7:16 AM Note Text: ENDOCRINE SURGERY PROGRESS NOTE NAME: Alexandria Sauer September 13, 2021 7:16 AM 1 Day Post-Op AANDP: Alexandria Sauer is a 66 year old male s/p thyroid lobectomy. Recovering expectedly with no evidence of hematoma formation, symptomatic hypocalcemia or voice changes/hoarseness. No swallowing issues. S: No acute events since OR. No perioral numbness/tingling. No hoarseness/difficulty swallowing. No difficulty breathing/chest pain. No hematoma. Pain well controlled. On exam: BP 133/64 Pulse (!) 51 Temp 36.7 ?C (98.1 ?F) (Oral) Resp 16 Ht 175.3 cm (5' 9) SpO2 97% BMI 27.62 kg/m? Gen: NAD. Pleasant and cooperative. CV: Extremities warm and well perfused, pulse regular Pulm: No increased work of breathing on RA. Equal chest rise. Abs: Soft, ND, NT Neck incision clean/dry/intact, no ecchymosis/signs of swelling No Drain Current Facility-Administered Medications Medication Dose Route Frequency Provider Last Rate Last Admin - pravastatin 20 mg tab(s) (PRAVACHOL) 20 mg ORAL AT BEDTIME [place] Nou[place]ldine, MD - tamsulosin 0.4 mg cap(s) (FLOMAX) 0.4 mg ORAL AT BEDTIME [place] Noureldine, MD 0.4 mg at 09/12/212035 - metoprolol succinate ER 12.5 mg tab(s) (TOPROL XL) 12.5 mg ORAL DAILY [place] Noureldine, MD - colchicine 0.6 mg tab(s) 0.6 mg ORAL DAILY [place] Noureldine, MD - allopurinol 100 mg tab(s) (ZYLOPRIM) 100 mg ORAL DAILY [place] Nou[place]ldine, MD - sodium chloride 0.9 % (flush) 3-5 mL (BD POSIFLUSH) 3-5 mL INTRAVENOUS q 12 H [place] Nou[place]ldine, MD - NaCl 0.9% iv flush bag 20 mL INTRAVENOUS PRN [place] Noureldine, MD - dextrose 5% in NaCl 0.45% with 20 mEq/L KCl iv infusion 75 mL/hr INTRAVENOUS CONTINUOUS [place] Noureldine, MD - sodium chloride 0.9 % (flush) 2-10 mL (BD POSIFLUSH) 2-10 mL INTRAVENOUS q 12 H [place] Noureldine, MD 10 mL at 09/12/21 1730 - ibuprofen 600 mg tab(s) (MOTRIN) 600 mg ORAL q 6 H PRN [place] Nou[place]ldine, MD - acetaminophen 500 mg tab(s) (TYLENOL) 500 mg ORAL q 4 H PRN [place] Nou[place]ldine, MD - benzocaine-menthol 1 Lozenge (CEPACOL) 1 Lozenge MUCOUS MEMBRANE (TOPICAL MOUTH AND THROAT) q 2 H PRN [place] Noureldine, MD - phenol 1 Brielle (CHLORASEPTIC) 1 Brielle MUCOUS MEMBRANE (TOPICAL MOUTH AND THROAT) q 2 H PRN Pearl Velásquez MD - ondansetron (PF) 4 mg injection (ZOFRAN) 4 mg INTRAVENOUS q 6 H PRN Pearl Velásquez MD - levothyroxine 100 mcg tab(s) (SYNTHROID) 100 mcg ORAL DAILY (6 AM) Pearl Velásquez MD 100 mcg at 09/13/21 05 Date 09/12/21699 - 09/13/2165809/13/21 07 - 09/14/21 0659 Shift 9985-1329 9621-8097 7437-1435 24 Hour Total 2400-0554 4284-5511 1935-0983 24 Hour Total INTAKE PO 120 120 PO 120 120 IV 1000 1000 Volume (mL) (lactated ringers iv infusion) 1000 1000 Shift Total 5279 201 2619 OUTPUT # of BMs Number of BMs 0 x 0 x Blood 10 10 Estimated Blood loss 10 10 Shift Total 10 10 Weight (kg) Calcium Date Value Ref Range Status 08/26/2021 9.5 8.5 - 10.2 mg/dL Final TSH Date Value Ref Range Status 08/26/2021 2.210 0.270 - 4.200 uU/mL Final No results found for: PTH *A review of daily goals, interventions, and plan of care with the multidisciplinary team and patient has been conducted. The patient?s concerns have been addressed and he agrees to proceed with today?s plan of care. Pearl Velásquez MD Endocrine Surgery [id number] NoteHNO ID: [id number] Author: Amna Suarez APRN.[employer] Service: ? Author Type: Nurse Farm Management Teacher Type: Anesthesia Procedure Notes Filed: 09/12/2021 2:16 PM Note Text: ANESTHESIOLOGY PROCEDURE NOTE Airway General Information Procedure Start Time/Medication Administration: 09/12/2021 2:02 PM Patient location during procedure: OR Staffing [employer]: Amna Suarez APRN.[employer] Indications and Patient Condition Preoxygenated: yes Difficult Mask: No Indications for airway management: anesthesia anesthesia circuit Method: sleep Final Airway Details Final airway type: endotracheal airway Final Endotracheal Airway: ETT Cuffed: yes Successful intubation technique: video laryngoscopy Devices used: Pepe Endotracheal tube insertion site: oral Blade size: #4 ETT size (mm): 7.5 Measured from: lips Measurement (cm): 22 Placement verified by: capnometry Cormack-Lehane Classification: grade I - full view of glottis Number of attempts at approach: 1 Airway not difficult SIGNATURE: Amna Ruth APRN.CRNA PATIENT NAME: Alexandria Sauer DATE: September 12, 2021 TIME: 2:16 PM CSN: [id number]* Diagnosis Medicare annual wellness visit, initial- Primary Routine general medical examination at a health care facility Essential hypertension, benign Mixed hyperlipidemia Postoperative hypothyroidism Postsurgical hypothyroidism Nontoxic single thyroid nodule Nontoxic uninodular goiter Cardiomyopathy, hypertrophic (HCC) Other hypertrophic cardiomyopathy Gout, unspecified cause, unspecified chronicity, unspecified site SUSI (obstructive sleep apnea) Obstructive sleep apnea (adult) (pediatric) Benign prostatic hyperplasia with urinary frequency Living will in place Advance directive discussed with patient Other specified counseling Need for vaccination Need for prophylactic vaccination and inoculation against unspecified single disease Medication management Encounter for long-term (current) use of other medications [facility] noteNo assessment information availableWRegency [facility] Work Phone: Evaluation note* Diagnosis Essential hypertension, benign- Primary Mixed hyperlipidemia Postoperative hypothyroidism Postsurgical hypothyroidism Cardiomyopathy, hypertrophic (HCC) Other hypertrophic cardiomyopathy Gout, unspecified cause, unspecified chronicity, unspecified site Benign prostatic hyperplasia with urinary frequency ED (erectile dysfunction) of organic origin Impotence of organic origin Encounter for immunization Need for other specified prophylactic vaccination against single bacterial disease Prostate disorder Unspecified disorder of prostate Medication management Encounter for long-term (current) use of other medications [facility]* Diagnosis Encounter for Medicare annual wellness exam- Primary Routine general medical examination at a [facility] care facility Essential hypertension, benign Mixed hyperlipidemia Postoperative hypothyroidism Postsurgical hypothyroidism Cardiomyopathy, hypertrophic (HCC) Other hypertrophic cardiomyopathy Stage 3a chronic kidney disease (HCC) Gout, unspecified cause, unspecified chronicity, unspecified site Benign prostatic hyperplasia with urinary frequency Advance directive discussed with patient Other specified counseling Malignant melanoma of scalp (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 Encounter for immunization Need for other specified prophylactic vaccination against single bacterial disease Foot pain, left Pain in limb [facility]* Diagnosis Essential hypertension, benign- Primary [facility]* Diagnosis Soft tissue mass- Primary Disorders of soft tissue, unspecified Foot pain, left Pain in limb Bursitis of left foot Mass of left foot [facility]* Diagnosis Essential hypertension, benign- Primary Mixed hyperlipidemia Postoperative hypothyroidism Postsurgical hypothyroidism Stage 3a chronic kidney disease (HCC) Cardiomyopathy, hypertrophic (HCC) Other hypertrophic cardiomyopathy Gout, unspecified cause, unspecified chronicity, unspecified site Benign prostatic hyperplasia with urinary frequency Encounter for immunization Need for other specified prophylactic vaccination against single bacterial disease Prostate disorder Unspecified disorder of prostate [facility]* Diagnosis Foot pain, left Pain in limb Soft tissue mass Disorders of soft tissue, unspecified Bursitis of left foot Mass of left foot [facility]* Diagnosis Mass of left foot [facility]* Diagnosis Encounter for Medicare annual wellness exam- Primary Routine general medical examination at a health care facility Essential hypertension, benign Mixed hyperlipidemia Postoperative hypothyroidism Postsurgical hypothyroidism Cardiomyopathy, hypertrophic (HCC) Other hypertrophic cardiomyopathy Stage 3a chronic kidney disease (HCC) Gout, unspecified cause, unspecified chronicity, unspecified site Elevated blood sugar Other abnormal glucose Benign prostatic hyperplasia with urinary frequency 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 Advance directive discussed with patient Other specified counseling Encounter for immunization Need for other specified prophylactic vaccination against single bacterial disease [facility]* Diagnosis Apical variant hypertrophic cardiomyopathy- Primary Other primary cardiomyopathies PVC's (premature ventricular contractions) Other premature beats NSVT (nonsustained ventricular tachycardia) Paroxysmal ventricular tachycardia Hyperlipidemia, unspecified hyperlipidemia type Nonrheumatic mitral valve prolapse Mitral valve disorders Nonrheumatic mitral valve insufficiency Mitral valve disorders [facility] [place] [facility] [place] Diagnosis Pre-op evaluation- Primary Preoperative examination, unspecified Left thyroid nodule Nontoxic uninodular goiter Mixed hyperlipidemia Essential hypertension, benign Cardiomyopathy, hypertrophic (HCC) Other hypertrophic cardiomyopathy SUSI (obstructive sleep apnea) Obstructive sleep apnea (adult) (pediatric) Benign prostatic hyperplasia with urinary frequency Essential hypertension, benign- Primary Encounter for immunization Need for other specified prophylactic vaccination against single bacterial disease Cardiomyopathy, hypertrophic (HCC) Other hypertrophic cardiomyopathy Mixed hyperlipidemia Stage 3a chronic kidney disease (HCC) Elevated blood sugar Other abnormal glucose Postoperative hypothyroidism Postsurgical hypothyroidism Prostate disorder Unspecified disorder of prostate Gout, unspecified cause, unspecified chronicity, unspecified site [facility] Diagnosis Pre-op evaluation- Primary Preoperative examination, unspecified Left thyroid nodule Nontoxic uninodular goiter Mixed hyperlipidemia Essential hypertension, benign Cardiomyopathy, hypertrophic (HCC) Other hypertrophic cardiomyopathy SUSI (obstructive sleep apnea) Obstructive sleep apnea (adult) (pediatric) Benign prostatic hyperplasia with urinary frequency Encounter for Medicare annual wellness exam- Primary Routine general medical examination at a health care facility Essential hypertension, benign Mixed hyperlipidemia Postoperative hypothyroidism Postsurgical hypothyroidism Stage 3a chronic kidney disease (HCC) Cardiomyopathy, hypertrophic (HCC) Other hypertrophic cardiomyopathy Gout, unspecified cause, unspecified chronicity, unspecified site Benign prostatic hyperplasia with urinary frequency 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 Advance directive discussed with patient Other specified counseling History of colonic polyps Personal history of colonic polyps Screening for colon cancer Special screening for malignant neoplasms, colon Encounter for screening examination for other mental health and behavioral disorders Screening for depression Elevated blood sugar Other abnormal glucose [facility]* Diagnosis Pre-op evaluation- Primary Preoperative examination, unspecified Left thyroid nodule Nontoxic uninodular goiter Mixed hyperlipidemia Essential hypertension, benign Cardiomyopathy, hypertrophic (HCC) Other hypertrophic cardiomyopathy SUSI (obstructive sleep apnea) Obstructive sleep apnea (adult) (pediatric) Benign prostatic hyperplasia with urinary frequency History of colonic polyps Personal history of colonic polyps Screening for colon cancer Special screening for malignant neoplasms, colon [facility] Diagnosis Apical variant hypertrophic cardiomyopathy- Primary Other primary cardiomyopathies Essential hypertension Unspecified essential hypertension Hyperlipidemia, unspecified hyperlipidemia type Apical variant hypertrophic cardiomyopathy- Primary Other primary cardiomyopathies PVC's (premature ventricular contractions) Other premature beats NSVT (nonsustained ventricular tachycardia) Paroxysmal ventricular tachycardia Hyperlipidemia, unspecified hyperlipidemia type Nonrheumatic mitral valve prolapse Mitral valve disorders Nonrheumatic mitral valve insufficiency Mitral valve disorders Apical variant hypertrophic cardiomyopathy- Primary Other primary cardiomyopathies PVC's (premature ventricular contractions) Other premature beats NSVT (nonsustained ventricular tachycardia) Paroxysmal ventricular tachycardia Essential hypertension Unspecified essential hypertension Hyperlipidemia, unspecified hyperlipidemia type [facility] Diagnosis Apical variant hypertrophic cardiomyopathy- Primary Other primary cardiomyopathies Essential hypertension Unspecified essential hypertension Hyperlipidemia, unspecified hyperlipidemia type Apical variant hypertrophic cardiomyopathy- Primary Other primary cardiomyopathies PVC's (premature ventricular contractions) Other premature beats NSVT (nonsustained ventricular tachycardia) Paroxysmal ventricular tachycardia Hyperlipidemia, unspecified hyperlipidemia type Nonrheumatic mitral valve prolapse Mitral valve disorders Nonrheumatic mitral valve insufficiency Mitral valve disorders Apical variant hypertrophic cardiomyopathy- Primary Other primary cardiomyopathies PVC's (premature ventricular contractions) Other premature beats NSVT (nonsustained ventricular tachycardia) Paroxysmal ventricular tachycardia Essential hypertension Unspecified essential hypertension Hyperlipidemia, unspecified hyperlipidemia type Apical variant hypertrophic cardiomyopathy- Primary Other primary cardiomyopathies PVC's (premature ventricular contractions) Other premature beats NSVT (nonsustained ventricular tachycardia) Paroxysmal ventricular tachycardia Essential hypertension Unspecified essential hypertension Hyperlipidemia, unspecified hyperlipidemia type documented in this [facility] Diagnosis Apical variant hypertrophic cardiomyopathy- Primary Other primary cardiomyopathies Essential hypertension Unspecified essential hypertension Hyperlipidemia, unspecified hyperlipidemia type Apical variant hypertrophic cardiomyopathy- Primary Other primary cardiomyopathies PVC's (premature ventricular contractions) Other premature beats NSVT (nonsustained ventricular tachycardia) Paroxysmal ventricular tachycardia Hyperlipidemia, unspecified hyperlipidemia type Nonrheumatic mitral valve prolapse Mitral valve disorders Nonrheumatic mitral valve insufficiency Mitral valve disorders Apical variant hypertrophic cardiomyopathy- Primary Other primary cardiomyopathies PVC's (premature ventricular contractions) Other premature beats NSVT (nonsustained ventricular tachycardia) Paroxysmal ventricular tachycardia Essential hypertension Unspecified essential hypertension Hyperlipidemia, unspecified hyperlipidemia type Apical variant hypertrophic cardiomyopathy- Primary Other primary cardiomyopathies PVC's (premature ventricular contractions) Other premature beats NSVT (nonsustained ventricular tachycardia) Paroxysmal ventricular tachycardia Essential hypertension Unspecified essential hypertension Hyperlipidemia, unspecified hyperlipidemia type documented in this [facility] Additional Instructions Thank you for trusting us with your care today! Please take Tylenol (2 pills, 650 mg), ibuprofen (2 pills, 400 mg) every 6 hours as needed for pain and fever control. Please finish your entire antibiotic course until course complete. Please return to the emergency department if your symptoms change or worsen. Specifically if develop worsening redness, pain. Please follow with your [facility] for further outpatient evaluation and management.[facility] Work Phone: Reason for referral (narrative)* Diagnostic Procedure Only (Routine) - Closed Specialty Diagnoses / Procedures Referred By Contac t Referred To Contact XR IMAGING Diagnoses Foot pain, left Soft tissue mass Bursitis of left foot Mass of left foot Procedures XR FOOT GENERAL 3V AP/LAT/OBL LEFT RADEX FOOT COMPLETE MINIMUM 3 VIEWS Yahir Davis [address] [place] [address] [place] [address] Referral ID Status Reason Start Date Expiration Date V isits Requested Visits Authorized [id number] Closed Auto-Generate d Referral 12/10/2022 01/09/2024 1 1 [facility] for referral (narrative)No reason for referral information [facility]: reason for visit Narrative* Diagnostic Procedure Only (Routine) - Closed Specialty Diagnoses / Procedures Referred By Contac t Referred To Contact XR IMAGING Diagnoses Foot pain, left Soft tissue mass Bursitis of left foot Mass of left foot Procedures XR FOOT GENERAL 3V AP/LAT/OBL LEFT RADEX FOOT COMPLETE MINIMUM 3 VIEWS Yahir Davis [address] [place] [address] [place] [address] Referral ID Status Reason Start Date Expiration Date V isits Requested Visits Authorized [id number] Closed Auto-Generate d Referral 12/10/2022 01/09/2024 1 1 [facility] Summary Purpose Family History No Family History Records Found Relationship Condition Age at Onset Recorded Date/T tyrel mother Hypertension Unknown Cerebrovascular accident (CVA) Unknown sister Malignant neoplasm of breast Unknown Malignant neoplasm Unknown father Malignant melanoma Unknown Advance Directives No Advanced Directives Records FoundDocuments on File Type Date Recorded Patient Applications Systems Analyst Expl anation Advance Directive(s) 09/10/2021 11:34 AM Advance Directive(s) 08/21/2021 12:24 PM Advance Directive Response Recorded Date/ Time Advance Directives Yes March 20, 2014 3:25pm Living Will Yes December 14, 2022 1: 54am Power of Cone Chocolate Dipper Yes December 14, 2022 1:54am Name of Medical Power of Cone Chocolate Dipper MIS SAUER December 14, 2022 1:54am Advance Directive Response Recorded Date/ Time Advance Directives Yes March 20, 2014 3:25pm Living Will Yes December 14, 2022 1: 54am Power of [employer]one Chocolate Dipper Yes December 14, 2022 1:54am Advance Directive Response Recorded Date/ Time Advance Directives Yes March 20, 2014 3:25pm Reason for Referral Specialty Diagnoses / Procedures Referred By Contac t Referred To Contact Podiatry Diagnoses Foot pain, left Procedures CONSULT TO PODIATRY OFFICE/OUTPATIENT [facility] 60-74 MINUTES Bro Easton MD [address] [place] [address] Referral ID Status Reason Start Date Expiration Date Visits Requested Visits Authorized [id number] Authorized PCP Requested Referral 11/20/2022 11/20/2023 1 1 Specialty Diagnoses / Procedures Referred By Contac t Referred To Contact MR IMAGING Diagnoses Mass of left foot Procedures MRI FOOT/TOES WO IVCON LEFT MRI LOWER EXTREM OTH/THN JT W/O CONTR MATRL [place] [address] [address] Mr Imaging Referral ID Status Reason Start Date Expiration Date V isits Requested Visits Authorized [id number] Closed Auto-Generate d Referral 12/10/2022 01/09/2024 1 1 Specialty Diagnoses / Procedures Referred By Contac t Referred To Contact XR IMAGING Diagnoses Foot pain, left Soft tissue mass Bursitis of left foot Mass of left foot Procedures XR FOOT GENERAL 3V AP/LAT/OBL LEFT RADEX FOOT COMPLETE MINIMUM 3 VIEWS [place] [place] [address] Xr Imaging Referral ID Status Reason Start Date Expiration Date V isits Requested Visits Authorized [id number] Closed Auto-Generate d Referral 12/10/2022 01/09/2024 1 1 Specialty Diagnoses / Procedures Referred By Contac t Referred To Contact MR IMAGING Diagnoses Mass of left foot Procedures MRI FOOT/TOES WO IVCON LEFT MRI LOWER EXTREM OTH/THN JT W/O CONTR [place] [address] [place] [address] [place] [address] Specialty Diagnoses / Procedures Referred By Ruy arroyo Referred To Contact Diagnoses Apical variant hypertrophic cardiomyopathy PVC's (premature ventricular contractions) NSVT (nonsustained ventricular tachycardia) Hyperlipidemia, unspecified hyperlipidemia type Procedures ECHOCARDIOGRAM AK ECHO TTHRC R-T 2D W/WOM-MODE COMPL SPEC&COLR D Josué Olsen MD [address] [facility] [address] [place] [address] Referral ID Status Reason Start Date Expiration Date V isits Requested Visits Authorized [id number] New Request 02/04/2024 02/28/2025 1 1 Chief Complaint and Reason for Visit Chief Complaint LEFT FOOT PAIN & EVIN MA Chief Complaint HYPERTROPHIC CARDIOM YOPATHY Chief Complaint Admit Date [place]O/RX HERE January 18, 2025 9:00 am Additional Source Comments Source Comments (unrecognize d section and content) In the event this informatio n is protected by the Federal Confidentiality of Alcohol and Drug Abuse Patient Records regulations: The Federal rules restrict any use of the information to criminally investigate or prosecute any alcohol or drug abuse patient.[facility] the event this information is protected by the Federal Confidentiality of Alcohol and Drug Abuse Patient Records regulations: The Federal rules restrict any use of the information to criminally investigate or prosecute any alcohol or drug abuse patient.[facility] the event this information is protected by the Federal Confidentiality of Alcohol and Drug Abuse Patient Records regulations: The Federal rules restrict any use of the information to criminally investigate or prosecute any alcohol or drug abuse patient.[facility] the event this information is protected by the Federal Confidentiality of Alcohol and Drug Abuse Patient Records regulations: The Federal rules restrict any use of the information to criminally investigate or prosecute any alcohol or drug abuse patient.[facility] the event this information is protected by the Federal Confidentiality of Alcohol and Drug Abuse Patient Records regulations: The Federal rules restrict any use of the information to criminally investigate or prosecute any alcohol or drug abuse patient.[facility] the event this information is protected by the Federal Confidentiality of Alcohol and Drug Abuse Patient Records regulations: The Federal rules restrict any use of the information to criminally investigate or prosecute any alcohol or drug abuse patient.[facility] the event this information is protected by the Federal Confidentiality of Alcohol and Drug Abuse Patient Records regulations: The Federal rules restrict any use of the information to criminally investigate or prosecute any alcohol or drug abuse patient.[facility] the event this information is protected by the Federal Confidentiality of Alcohol and Drug Abuse Patient Records regulations: The Federal rules restrict any use of the information to criminally investigate or prosecute any alcohol or drug abuse patient.[facility] the event this information is protected by the Federal Confidentiality of Alcohol and Drug Abuse Patient Records regulations: The Federal rules restrict any use of the information to criminally investigate or prosecute any alcohol or drug abuse patient.[facility] the event this information is protected by the Federal Confidentiality of Alcohol and Drug Abuse Patient Records regulations: The Federal rules restrict any use of the information to criminally investigate or prosecute any alcohol or drug abuse patient.[facility] the event this information is protected by the Federal Confidentiality of Alcohol and Drug Abuse Patient Records regulations: The Federal rules restrict any use of the information to criminally investigate or prosecute any alcohol or drug abuse patient.[facility] the event this information is protected by the Federal Confidentiality of Alcohol and Drug Abuse Patient Records regulations: The Federal rules restrict any use of the information to criminally investigate or prosecute any alcohol or drug abuse patient.[facility] the event this information is protected by the Federal Confidentiality of Alcohol and Drug Abuse Patient Records regulations: The Federal rules restrict any use of the information to criminally investigate or prosecute any alcohol or drug abuse patient.[facility] the event this information is protected by the Federal Confidentiality of Alcohol and Drug Abuse Patient Records regulations: The Federal rules restrict any use of the information to criminally investigate or prosecute any alcohol or drug abuse patient.[facility] the event this information is protected by the Federal Confidentiality of Alcohol and Drug Abuse Patient Records regulations: The Federal rules restrict any use of the information to criminally investigate or prosecute any alcohol or drug abuse patient.[facility] the event this information is protected by the Federal Confidentiality of Alcohol and Drug Abuse Patient Records regulations: The Federal rules restrict any use of the information to criminally investigate or prosecute any alcohol or drug abuse patient.[facility] the event this information is protected by the Federal Confidentiality of Alcohol and Drug Abuse Patient Records regulations: The Federal rules restrict any use of the information to criminally investigate or prosecute any alcohol or drug abuse patient.[facility] the event this information is protected by the Federal Confidentiality of Alcohol and Drug Abuse Patient Records regulations: The Federal rules restrict any use of the information to criminally investigate or prosecute any alcohol or drug abuse patient.[facility] the event this information is protected by the Federal Confidentiality of Alcohol and Drug Abuse Patient Records regulations: The Federal rules restrict any use of the information to criminally investigate or prosecute any alcohol or drug abuse patient.[facility] the event this information is protected by the Federal Confidentiality of Alcohol and Drug Abuse Patient Records regulations: The Federal rules restrict any use of the information to criminally investigate or prosecute any alcohol or drug abuse patient.[facility] the event this information is protected by the Federal Confidentiality of Alcohol and Drug Abuse Patient Records regulations: The Federal rules restrict any use of the information to criminally investigate or prosecute any alcohol or drug abuse patient.[facility] the event this information is protected by the Federal Confidentiality of Alcohol and Drug Abuse Patient Records regulations: The Federal rules restrict any use of the information to criminally investigate or prosecute any alcohol or drug abuse patient.[facility] the event this information is protected by the Federal Confidentiality of Alcohol and Drug Abuse Patient Records regulations: The Federal rules restrict any use of the information to criminally investigate or prosecute any alcohol or drug abuse patient.[facility] the event this information is protected by the Federal Confidentiality of Alcohol and Drug Abuse Patient Records regulations: The Federal rules restrict any use of the information to criminally investigate or prosecute any alcohol or drug abuse patient.[facility] the event this information is protected by the Federal Confidentiality of Alcohol and Drug Abuse Patient Records regulations: The Federal rules restrict any use of the information to criminally investigate or prosecute any alcohol or drug abuse patient.[facility] Reason for Visit (unrecogniz ed section and content) Reason Comments Abstract labs Reason Comments Medicare Wellness Exam 6 month follow up naproxen would like prn RX Reason Comments Results Reason Onset Date Comments Refill Request 02/20/2022 NEW PHARMACY Reason Comments F/U 6 months Reason Comments Medicare Wellness Exam Reason Comments Follow Up Blood pressure Reason Comments New Pain Swelling Specialty Diagnoses / Procedures Referred By Contac t Referred To Contact Podiatry Diagnoses Foot pain, left Procedures CONSULT TO PODIATRY OFFICE/OUTPATIENT NEW HIGH MDM 60-74 MINUTES Bro Easton MD [address] [place] [address] Referral ID Status Reason Start Date Expiration Date V isits Requested Visits Authorized [id number] Closed PCP Requested Referral 11/20/2022 11/20/2023 1 1 Reason Comments ER F/U Reason Onset Date Comments Refill Request 05/14/2023 Specialty Diagnoses / Procedures Referred By Contac t Referred To Contact MR IMAGING Diagnoses Mass of left foot Procedures MRI FOOT/TOES WO IVCON LEFT MRI LOWER EXTREM OTH/THN JT W/O CONTR Yahir Thacker [address] [place] [id number] [place] [address] Referral ID Status Reason Start Date Expiration Date V isits Requested Visits Authorized [id number] Closed Auto-Generate d Referral 12/10/2022 01/09/2024 1 1 Reason Comments Refill Request Reason Comments Medicare Wellness Exam Reason Onset Date Comments Advice Only 01/21/2024 Reason Comments Follow-up 1 year fu HCM Reason Comments Outside ECHO Reason Comments Follow Up 6 month Reason Onset Date Comments Refill Request 10/14/2024 Reason Onset Date Comments Refill Request 10/20/2024 Reason Comments Consult Here for 5 year colo noscopy consult Specialty Diagnoses / Procedures Referred By Contac t Referred To Contact General Surgery Diagnoses History of colonic polyps Screening for colon cancer Procedures CONSULT TO GENERAL SURGERY OFFICE/OUTPATIENT NEW HIGH MDM 60 MINUTES Bro Easton MD [address] [place] [address] Phone: tel: fax: Referral ID Status Reason Start Date Expiration Date V isits Requested Visits Authorized [id number] Closed PCP Requested Referral 12/13/2024 12/12/2025 1 1 Reason Comments Follow-up Annual follow up. Re ports having some lightheadedness and dizziness 1- 2 times a week for the last couple of months. Lasts for a few moments. Generally happens after he has been up for a bit doing activity -such as playing pickelball. Refocuses and it goes away.. Denies syncope. Tries to stay hydrated. Reason Onset Date Comments Results 03/03/2025 Reason Onset Date Comments Results 03/06/2025 (unrecognized sect ion and content) No Status Records FoundNo Status Records FoundNo Status Records FoundNo Status Records FoundNo Status Records Found INFORMATION SOURCE (unrecogn ized section and content) DATE CREATED AUTHOR 09/17/2021 [facility] DATE CREATED AUTHOR AUTHOR'S ORGANIZ ATION 12/18/2024 [facility] DATE CREATED AUTHOR AUTHOR'S ORGANIZ ATION 02/03/2025 [facility] DATE CREATED AUTHOR AUTHOR'S ORGANIZ ATION 02/09/2025 [facility] DATE CREATED AUTHOR AUTHOR'S ORGANIZ ATION 03/28/2025 [facility] Care Teams (unrecognized sec tion and content) Psychometrist Relationship Specialty Start Date End Date Bro Easton MD [address] [place], [place] [id number] PCP - General Family Practice 05/09/21 Psychometrist Relationship Specialty Start Date End Date Bro Easton MD [address] [place], [place] [id number] PCP - General Family Practice 05/09/21 Psychometrist Relationship Specialty Start Date End Date Bro Easton MD [address] [place] [address] PCP - General Family Practice 05/09/21 Psychometrist Relationship Specialty Start Date End Date Bro Easton MD [address] [place], [place] [id number] PCP - General Family Medicine 05/09/21 Psychometrist Relationship Specialty Start Date End Date Bro Easton MD [address] [place] [address] PCP - General Family Medicine 05/09/21 Psychometrist Relationship Specialty Start Date End Date Bro Easton MD [address] [place] [address] PCP - General Family Medicine 05/09/21 Psychometrist Relationship Specialty Start Date End Date Bro Easton MD [address] [place] [address] PCP - General Family Medicine 05/09/21 Psychometrist Relationship Specialty Start Date End Date Bro Easton MD [address] [place] [address] PCP - General Family Medicine 05/09/21 Team Status: Active Member Role Status Dates Dr. Reji Spain MD Family Provider Active Dr. Bro Easton MD Primary Care Provider Active Team Status: Inactive Member Role Status Dates Dr. Bro Easton MD Primary Care Provider Active Dr. Gil Diop , DO Emergency Provider Active Psychometrist Relationship Specialty Start Date End Date Bro Easton MD [address] [place] [address] PCP - General Family Medicine 05/09/21 Psychometrist Relationship Specialty Start Date End Date Bro Easton MD [address] [place] [address] PCP - General Family Medicine 05/09/21 Psychometrist Relationship Specialty Start Date End Date Bro Easton MD [address] [place] [address] PCP - General Family Medicine 05/09/21 Team Status: Inactive Member Role Status Dates Dr. Bro Easton MD Primary Care Provider Active Dr. Josué Olsen MD Attending Provider, Referring Provider Active Psychometrist Relationship Specialty Start Date End Date Bro Easton MD [address] [place] [address] PCP - General Family Medicine 05/09/21 Psychometrist Relationship Specialty Start Date End Date Bro Easton MD [address] [place] [address] PCP - General Family Medicine 05/09/21 Psychometrist Relationship Specialty Start Date End Date Bro Easton MD [address] [place] [address] PCP - General Family Medicine 05/09/21 Psychometrist Relationship Specialty Start Date End Date Bro Easton MD [address] [place] [address] PCP - General Family Medicine 05/09/21 Psychometrist Relationship Specialty Start Date End Date Bro Easton MD [address] [place] [address] PCP - General Family Medicine 05/09/21 Psychometrist Relationship Specialty Start Date End Date Bro Easton MD [address] [place] [address] PCP - General Family Medicine 05/09/21 Psychometrist Relationship Specialty Start Date End Date Bro Easton MD [address] [place] [address] PCP - General Family Medicine 05/09/21 Psychometrist Relationship Specialty Start Date End Date Reji Lozada MD [address] [place] [address] PCP - General Family Medicine 04/15/16 Psychometrist Relationship Specialty Start Date End Date Reji Lozada MD [address] [place] [address] PCP - General Family Medicine 04/15/16 Psychometrist Relationship Specialty Start Date End Date Bro Easton MD [address] [place] [address] PCP - General Family Medicine 05/09/21 Psychometrist Relationship Specialty Start Date End Date Bro Easton MD [address] [place] [address] PCP - General Family Medicine 05/09/21 Marie Lopez APRN.PHOTOGRAMMETRIC ENGINEER [address] [place] [address] Kinesiotherapist Family Medicine 07/16/24 Kristie Bill PA-C [address] [place] [address] Kinesiotherapist Family Medicine 07/16/24 Psychometrist Relationship Specialty Start Date End Date Bro Easton MD [address] [place] [address] PCP - General Family Medicine 05/09/21 Marie Lopez, FOREIGN BROADCAST SPECIALIST.PHOTOGRAMMETRIC ENGINEER [address] [place] [address] Kinesiotherapist Family Medicine 07/16/24 Kristie Bill PA-C [address] [place] [address] Kinesiotherapist Family Medicine 07/16/24 Psychometrist Relationship Specialty Start Date End Date Bro Easton MD [address] [place], [place] [address] PCP - General Family Medicine 05/09/21 Marie Lopez APRN.PHOTOGRAMMETRIC ENGINEER [address] [place] [id number] [facility] 07/16/24 Kristie Bill PA-C [facility] [place] [address] [facility] 07/16/24 Psychometrist Relationship Specialty Start Date End Date Bro Easton MD [address] [place] [address] PCP - General Family Medicine 05/09/21 Marie Lopez APRN.PHOTOGRAMMETRIC ENGINEER [address] [place] [address] [facility] 07/16/24 Kristie Bill PA-C [facility] [place], [place] [address] [facility] 07/16/24 Team Status: Active Member Role Status Dates Dr. Bro Easton MD Primary Care Provider Active Team Status: Inactive Member Role Status Dates Dr. Bro Easton MD Primary Care Provider Active Start: January 18, 2025 End: January 18, 2025 LAURA Kelly Attending Provider Active St art: January 18, 2025 End: January 18, 2025 LAURA Kelly Referring Provider Active St art: January 18, 2025 End: January 18, 2025 Psychometrist Relationship Specialty Start Date End Date Bro Easton MD [address] [place], [place] [address] PCP - General Family Medicine 02/07/25 Psychometrist Relationship Specialty Start Date End Date Bro Easton MD [address] [place], [place] [address] PCP - General Family Medicine 02/07/25 Psychometrist Relationship Specialty Start Date End Date Bor Easton MD [address] [place], [place] [id number] PCP - General Family Medicine 02/07/25 Psychometrist Relationship Specialty Start Date End Date Bro Easton MD [address] [place], [place] [id number] PCP - General Family [facility] 02/07/25 Goals (unrecognized section and content) Goals may be documented in a n alternate sectionGoals may be documented in an alternate sectionGoals may be documented in an alternate sectionGoals may be documented in an alternate section FOR RECORDS PERTAINING TO PATIENTS WHO ARE OR HAVE BEEN ENROLLED IN A CHEMICAL DEPENDENCY/SUBSTANCEABUSE PROGRAM, SOME INFORMATION MAY BE OMITTED. This clinical summary was aggregated from multiple sources. Caution should be exercised in using it in the provision of clinical care. This summary normalizes information from multiple sources, and as a consequence, information in this document may materially change the coding, format and clinical context of patient data. In addition, data may be omitted in some cases. CLINICAL DECISIONS SHOULD BE BASED ON THE PRIMARY CLINICAL RECORDS. [employer] [facility]. provides no warranty or guarantee of the accuracy or completeness of information in this document.
== END | disposition home or self-care (01) ==
LOC: CVS 14:46
PROVIDERS: PCP Family Medicine; Referring Provider Internal Medicine Cardiovascular Disease; Visit Provider Internal Medicine Cardiovascular Disease
DX: I42.2 Other hypertrophic cardiomyopathy (principal); I47.29 Other ventricular tachycardia; I49.3 Ventricular premature depolarization; I10 Essential (primary) hypertension; E78.5 Hyperlipidemia, unspecified
CPT/HCPCS: 93306; Q9957; A4216; C8929